=== PATIENT | male | born 1950 | race Caucasian/White ===

== ENCOUNTER → 2016-11-09 | Day surgery (SDC) | payer MEDICARE, OTHER ==
[~2016-11-09] VITALS: Ht 175.9 cm; Wt 167.8 kg
[~2016-11-09] MED LIST: ASPI81TA18 PO; ASTE0.15; ATOR40TA75 PO; BYET10IN2 SC; FOSI10TA2 PO; FURO40TA2 PO; GLUC1CAP10 PO; LANTINJ4 SC; LR 1,000 ML IV ONE; LR 1,000 ML IV SCH; MAGN500C PO; MELO15TA4 PO; METF10004 PO; MIDAZOLAM INJ 2 MG/2 ML VIAL (J2250) As Ordered ONE; MULT1TAB10 PO; POTA10TA16 PO; PROPOFOL 200 MG/20 ML VIAL As Ordered ONE; VITA500046 PO; fentaNYL 100 MCG/2 ML INJECTION (J3010) As Ordered ONE
[2016-11-09 12:03] VITALS: BP 151/68
--- NOTE | 2016-11-09 13:49 | ROOR ---
Patient Name: Brien Bellamy Procedure Date: 11/09/2016 12:37 PM Date of : 1950 Age: 66 Gender: Male Note Status: Finalized Procedure: Colonoscopy Indications: Screening for colorectal malignant neoplasm, This is the patient's first colonoscopy Providers: Yahir Cabello MD Referring MD: Catherine JOSHUA MD Requesting Provider: Medicines: Monitored Anesthesia Care Complications: No immediate complications. Procedure: Pre-Anesthesia Assessment: - Prior to the procedure, a History and Physical was performed, and patient medications and allergies were reviewed. The patient is competent. The risks and benefits of the procedure and the sedation options and risks were discussed with the patient. All questions were answered and informed consent was obtained. Patient identification and proposed procedure were verified by the physician, the nurse and the supervisor fur floor worker in the procedure room. Mental Status Examination: alert and oriented. Airway Examination: normal oropharyngeal airway and neck mobility. CV Examination: regular rate and rhythm. Prophylactic Antibiotics: The patient does not require prophylactic antibiotics. Prior Anticoagulants: The patient has taken no previous anticoagulant or antiplatelet agents. ASA Grade Assessment: III - A patient with severe systemic disease. After reviewing the risks and benefits, the patient was deemed in satisfactory condition to undergo the procedure. The anesthesia plan was to use monitored anesthesia care (MAC). Immediately prior to administration of medications, the patient was re-assessed for adequacy to receive sedatives. The heart rate, respiratory rate, oxygen saturations, blood pressure, adequacy of pulmonary ventilation, and response to care were monitored throughout the procedure. The physical status of the patient was re-assessed after the procedure. The Colonoscope was introduced through the anus and advanced to the cecum, identified by appendiceal orifice and ileocecal valve. The colonoscopy was performed without difficulty. The patient tolerated the procedure well. The quality of the bowel preparation was good. Findings: The perianal and digital rectal examinations were normal. A 8 mm polyp was found at 60 cm proximal to the anus. The polyp was sessile. The polyp was removed with a cold snare. Polyp resection was incomplete, and the resected tissue was partially retrieved. Estimated blood loss was minimal. The exam was otherwise without abnormality. Impression: - One 8 mm polyp at 60 cm proximal to the anus, removed with a cold snare. Polyp resection was incomplete, and the resected tissue was partially retrieved. - The examination was otherwise normal. Recommendation: - Discharge patient to home. - Resume previous diet. - Continue present medications. - Await pathology results. - Telephone endoscopist for pathology results in 1 week. Attending Participation: I personally performed the entire procedure. Yahir Cabello MD 11/09/2016 1:49:02 PM Number of Addenda: 0 Note Initiated On: 11/09/2016 12:37 PM Estimated Blood Loss: Estimated blood loss was minimal.
== END | disposition home or self-care (01) ==
LOC: M SDC 11:19 → EDSTATUS 13:30
PROVIDERS: ATTEND Surgery
DX: Z12.11 Encounter for screening for malignant neoplasm of colon (principal); D12.6 Benign neoplasm of colon, unspecified; E10.9 Type 1 diabetes mellitus without complications; I10 Essential (primary) hypertension; E78.00 Pure hypercholesterolemia, unspecified; E66.01 Morbid (severe) obesity due to excess calories; R19.5 Other fecal abnormalities; R06.02 Shortness of breath; M12.9 Arthropathy, unspecified; Z79.899 Other long term (current) drug therapy; Z79.82 Long term (current) use of aspirin; Z79.4 Long term (current) use of insulin; Z86.69 Personal history of other diseases of the nervous system and sense organs; Z87.891 Personal history of nicotine dependence
CPT/HCPCS: 45385; 88305; J2250; J3010

== ENCOUNTER 2018-05-12 10:51 | Inpatient (IN) | payer MEDICARE, OTHER ==
[~2018-05-12] VITALS: Ht 175.3 cm; Wt 152.0 kg
[2018-05-12] VITALS (8 sets, daily range): BP systolic 109–140; BP diastolic 64–82
[2018-05-12] MEDS: METOPROLOL TART 12.5 MG PER 1/2 TAB PO SCH ×2 (09:00→21:06)
[~2018-05-12 10:51] MED LIST changes: -ASPI81TA18 PO; +ASPI81TA52 PO; +ATORVASTATIN 20 MG TAB PO SCH; +BYET10IN10 SC; -BYET10IN2 SC; +FOSINOPRIL 10 MG TAB PO SCH; -LR 1,000 ML IV ONE; -LR 1,000 ML IV SCH; +MAGNESIUM OXIDE 400 MG TAB (MAG-OX) PO SCH; +MELO15TA28 PO; -MELO15TA4 PO; -MIDAZOLAM INJ 2 MG/2 ML VIAL (J2250) As Ordered ONE; -PROPOFOL 200 MG/20 ML VIAL As Ordered ONE; -fentaNYL 100 MCG/2 ML INJECTION (J3010) As Ordered ONE
[2018-05-12 11:31] LABS: BASO % 0.2 % (0.0-1.0); EOS % 0.1 % (0.0-3.0); HEMOGLOBIN 14.4 g/dl (13.5-17.5); LYMPH # 1.1 10^3/uL (1.5-4.5); MEAN CORPUSCULAR HEMOGLOBIN 28.3 pg (27.0-33.0); MEAN CORPUSCULAR VOLUME 88.6 fl (80.0-96.0); MONO # 0.9 10^3/uL (0.0-0.8); MONO % 6.2 % (0.0-5.0); NEUTROPHILS # 12.2 10^3/uL (1.8-7.7); NEUTROPHILS % 85.1 % (36.0-66.0); PLATELET COUNT, AUTOMATED 295 10^3/uL (150-450); RED BLOOD COUNT 5.08 10^6/uL (4.30-6.10); WHITE BLOOD COUNT 14.3 10^3/uL (4.0-10.0)
--- NOTE | 2018-05-12 12:06 | REP ---
Portable chest x-ray: Single view. History: Dyspnea and cough. Comparison study: April 29, 2018 from [facility]. Findings: There is blunting of the left lateral pleural angle and increased density in the left base consistent with a moderate-sized left pleural effusion. This is unchanged from the recent prior chest x-ray April 29, 2018. EKG electrodes are seen. No infiltrate is seen. Heart is mildly enlarged unchanged. No right pleural effusion is seen. Impression: Evidence of a moderate-sized left pleural effusion unchanged from April 29, 2018. Mild cardiomegaly. Otherwise no acute disease. Electronically Signed by Mike Dai MD 05/12/2018 01:55 P
[2018-05-12 12:23] LABS: ALBUMIN 2.7 GM/DL (3.2-5.2); ALT/SGPT 27 U/L (12-78); BILIRUBIN,DIRECT 0.4 MG/DL (0.0-0.2); BILIRUBIN,TOTAL 0.8 MG/DL (0.2-1.0); BLOOD UREA NITROGEN 23 MG/DL (7-18); CALCIUM LEVEL 9.9 MG/DL (8.8-10.2); CARBON DIOXIDE LEVEL 29 MEQ/L (21-32); CHLORIDE LEVEL 98 MEQ/L (98-107); CPK CREATINE PHOSPHOKINASE 47 U/L (39-308); CREATININE FOR GFR 0.75 MG/DL (0.70-1.30); GLOMERULAR FILTRATION RATE > 60.0 (>49); GLUCOSE, FASTING 148 MG/DL (70-100); MB/CK RELATIVE INDEX 2.55 (< OR =4); NT-PRO BNP 387 PG/ML (<125); POTASSIUM SERUM 4.8 MEQ/L (3.5-5.1); SODIUM LEVEL 136 MEQ/L (136-145); THYROXINE (T4) 8.1 UG/DL (4.5-12.0); TOTAL PROTEIN 7.1 GM/DL (6.4-8.2); TROPONIN I 0.03 NG/ML (< 0.10)
[2018-05-12] MEDS ORDERED: ISOVUE-370 76% 100ML VIAL (Q9967) As Ordered ONE (12:31)
[2018-05-12] MEDS ORDERED: MAGN400T5 PO (12:57)
[2018-05-12] MEDS ORDERED: TOUJ1.2I SC (12:57)
[2018-05-12] MEDS ORDERED: METF-723 PO (12:57)
[2018-05-12] MEDS ORDERED: PROAAER10 INH (12:57)
--- NOTE | 2018-05-12 13:28 | REP ---
CT pulmonary angiogram: With IV contrast. History: Shortness of breath Comparison studies: Today's chest x-ray. Contrast dose: 75 mL of Isovue [address] technique: Helical scanning is acquired and overlapping 1.5 mm and contiguous 3 mm axial images are reformatted. In addition, maximum intensity projection and multiplanar re-formation images are generated in sagittal and coronal imaging projections. CT pulmonary angiographic findings: There is good opacification of the pulmonary arterial tree. There is no CT evidence of pulmonary embolism. The thoracic aorta shows no evidence of aneurysm or dissection. Vascular calcifications noted particularly along the course of the left coronary artery. There is a moderate to large left pleural effusion. There is some compressive atelectasis in the left lung particularly the left lower lobe. No right pleural effusion is seen. There is mild to moderate diffuse upper abdominal ascites. There is a granulomatous calcification in the left lobe of the liver. The liver edge has a micronodular contour question cirrhosis. There is upper abdominal lymphadenopathy. Retrocrural lymphadenopathy is observed. There are two prominent lymph nodes in the aortopulmonary window region of the left mediastinum. These measure 15 x 20 mm and 19 x 23 mm respectively. No other mediastinal adenopathy is seen. No bony destructive lesion is appreciated. Impression: No CT evidence of pulmonary embolus. Moderate to large left pleural effusion. Mild left mediastinal and moderate upper abdominal lymphadenopathy. Mild retrocrural lymphadenopathy. Rule out lymphoma versus metastatic adenopathy. Recommend CT abdomen and pelvis. Ascites and micronodular liver contour suggestive of cirrhosis. Electronically Signed by Mike Dai MD 05/12/2018 01:56 P
[2018-05-12] MEDS ORDERED: AZELASTINE 137MCG NASAL SPY 30 ML (ASTELIN) PRN (13:30)
[2018-05-12 14:11] LABS: PHOSPHORUS LEVEL 3.3 MG/DL (2.5-4.9)
[2018-05-12 14:48] LABS: INR 1.19; PARTIAL THROMBOPLASTIN TIME 25.9 SECONDS (25.4-37.6); PROTHROMBIN TIME 15.3 SECONDS (12.1-14.4)
[2018-05-12 15:53] LABS: LDH LACTATE DEHYDROGENASE 198 U/L (87-241)
[2018-05-12] MEDS ORDERED: FUROSEMIDE 40 MG TAB PO SCH (17:00)
[2018-05-12 17:22] LABS: PH BODY FLUID 7.477 UNITS (NOT ESTABLISHED); SOURCE, BODY FLUID pH PLEURAL
--- NOTE | 2018-05-12 17:29 | REP ---
Chest x-ray: Two views. History: Status post left thoracentesis. Comparison study: Earlier on this date. The patient has a 1680 ml of pleural fluid withdrawn from the left chest just prior to the radiograph. Findings: There is no evidence of pneumothorax. There is some improved aeration in the left hemithorax. There is pleural opacity persisting in the left base consistent with improved left pleural effusion. Right lung remains clear. Impression: Improved left pleural effusion post left thoracentesis. No complication is seen. Electronically Signed by Mike Dai MD 05/12/2018 05:20 P
[2018-05-12 17:34] LABS: APPEARANCE, BODY FLUID TURBID (CLEAR); PLEURAL FL COLOR RED (COLORLESS); SOURCE, BODY FLUID PLEURAL
[2018-05-12 17:44] LABS: AMYLASE, BODY FLUID 13 U/L (NOT ESTABLISHED); CHOLESTEROL, BODY FLUID < 50 MG/DL (NOT ESTABLISHED); LDH, BODY FLUID 88 U/L (NOT ESTABLISHED); SOURCE, BODY FLUID ALBUMIN PLEURAL; SOURCE, BODY FLUID AMYLASE PLEURAL; SOURCE, BODY FLUID CHOL PLEURAL; SOURCE, BODY FLUID GLUCOSE PLEURAL; SOURCE, BODY FLUID LDH PLEURAL; SOURCE, BODY FLUID TOT PROTEIN PLEURAL; SOURCE, BODY FLUID TRIG PLEURAL; TOTAL PROTEIN, BODY FLUID 2.9 G/DL (NOT ESTABLISHED); TRIGLYCERIDE, BODY FLUID 44 MG/DL (NOT ESTABLISHED)
[2018-05-12] MEDS ORDERED: DEXTROSE 50% 50 ML SYRINGE IV PRN (17:45)
[2018-05-12] MEDS ORDERED: GLUCOSE 4 GM CHEW TABLET PO PRN (17:45)
[2018-05-12] MEDS ORDERED: GLUCAGON FOR INJ 1 MG VIAL (J1610) SC PRN (17:45)
--- NOTE | 2018-05-12 17:59 | REP ---
ULTRASOUND GUIDED LEFT THORACENTESIS The procedure was performed under the direct supervision of Dr. Dai. The risks and benefits of the procedure were explained to the patient and informed consent was obtained. The left pleural effusion was localized using ultrasound guidance. The skin was prepped and draped in a sterile fashion. 1% lidocaine was used as a local anesthetic. An 8-Yi multi side-hole catheter was inserted using trocar technique. 1680 ml of low viscosity red colored fluid was withdrawn with a sample sent to the lab for analysis. The patient tolerated the procedure well and there were no immediate complications. After the appropriate amount of monitored convalescence the patient was discharged from the department. Reviewed by SAMINA Reyes 05/12/2018 05:36 P Electronically Signed by Mike Dai MD 05/12/2018 05:49 P
[2018-05-12] MEDS ORDERED: RIVAROXABAN 20 MG TAB (XARELTO) PO SCH (18:00)
[2018-05-12 18:46] LABS: CK-MB VALUE MASS < 1.0 NG/ML (<3.6); CPK CREATINE PHOSPHOKINASE 38 U/L (39-308); MB/CK RELATIVE INDEX 2.63 (< OR =4); TROPONIN I 0.07 NG/ML (< 0.10)
--- NOTE | 2018-05-12 19:11 | HPE ---
DATE OF ADMISSION: 05/12/2018 PRIMARY CARE PROVIDER: Dr. Catherine Cruz at [facility]. HISTORY OF PRESENT ILLNESS: This is a 67-year-old male with past medical history of hypertension, hyperlipidemia, insulin dependent diabetes mellitus type 2, and nonalcoholic fatty liver disease. He states he has had shortness of breath for the past 3 weeks that has recently worsened over the past few days. He states he initially followed up with an outside physician and was told he has pneumonia and a partially collapsed lung on the left. This imaging, per the patient, was done at [facility] about a week ago. He states he was prescribed a 10 day course of amoxicillin as well as ProAir which he has been using around four times a day. He completed antibiotic as of Saturday with only minimal improvement. He states that he is still bringing up some clear phlegm, has a minimal cough and some wheezing as well. No fevers, chills, chest discomfort, or chest tightness. No unintentional weight loss or any recent changes in medications or any sick contacts or travel history. He denies any previous lung illnesses, however was noted to be saturating at 84% on room air in the emergency room (ER). Also of note, he was found to have a new onset of atrial fibrillation on admission EKG. He denies any previous cardiac history as well. On admission, chest x-ray and chest CT also confirm a moderate-sized left pleural effusion along with cardiomegaly. Hospitalist was called to admit for continued hypoxia and new onset atrial fibrillation. Patient is examined at bedside with his who have no other complaints besides the aforementioned. HOME MEDICATIONS: - ProAir - aspirin 81 mg - atorvastatin 40 mg - azelastine - Byetta - vitamin D 5000 units by mouth - fosinopril 10 mg by mouth - furosemide 40 mg by mouth twice a day - glucosamine chondroitin - magnesium oxide 400 mg by mouth daily - meloxicam 50 mg by mouth every evening - metformin 1000 mg by mouth twice a day - multivitamin - potassium chloride 20 mEq by mouth twice a day - Toujeo 100 units subcutaneous daily PAST SURGERIES: Right leg repair from fracture in 1977, tonsillectomy. ALLERGIES: None. FAMILY HISTORY: Mother passed in her 50s from a myocardial infarction (NM). Father passed in his 60s from emphysema. SOCIAL HISTORY: Smoked cigarettes for 18 years, quit 32 years ago. Alcohol use, socially drinks. Lives at home with his . 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 No other home exposures. REVIEW OF SYSTEMS: GENERAL: Denies any fevers, chills, or unintentional weight loss or night sweats. HEENT: Denies any headache, eye pain, ear pain, blurred vision, sore throat, postnasal drip, sinus pressure. CARDIAC: Denies any chest pain, palpitations, or any new swelling. RESPIRATORY: Admits to mild cough, clear phlegm, and some wheezing along with shortness of breath. GASTROINTESTINAL (GI); Denies any nausea, vomiting, abdominal pain, constipation, diarrhea, or any blood loss in stool. SKIN: Denies any new rashes, lesions, or ulcers. MUSCULOSKELETAL: Denies any new aches or pains. NEUROGENIC: Denies any new numbness, tingling, or loss of sensation. PHYSICAL EXAMINATION: VITAL SIGNS: Temperature 97.7, pulse 93, respirations 26, blood pressure 140/76 with a mean arterial pressure (MAP) of 97, pulse oximetry 94% on 3 liters nasal cannula. GENERAL: Resting comfortably in bed, no acute distress, alert and oriented times three, fully conversant. HEENT: Normocephalic, atraumatic. Anicteric sclerae. Extraocular muscles intact. Moist mucous membranes. No jugular venous distention (JVD). CARDIAC: Regular rate and rhythm with a heart rate in the 90s on the monitor. Normal S1, S2. LUNGS: Decreased breath sounds on the left from the base chcf up. Diffuse crackles on the right side on the base. No appreciable egophony or E:A changes. Patient is not in any respiratory distress, is able to speak sentences with a few words. ABDOMEN: Soft, nontender, nondistended, obese. Positive bowel sounds. EXTREMITIES: Lipodermatosclerosis present. No clubbing, cyanosis, or edema. 2+ radial pulses bilaterally. MUSCULOSKELETAL: Able to move all extremities. Good towel distributor strength bilaterally. LABORATORY DATA: WBC 14.3, hemoglobin and hematocrit 14.4 and 45, platelets 295, sodium 136, potassium 4.8, BUN and creatinine 23 and 0.75, lactic acid 2.2 which normalized to 1.6 after, phosphorous 3.3, AST and ALT 50 and 27, alkaline phosphatase 248, LDH 198, troponin 0.03, TSH 2.5, T4 8.1. IMAGING: Chest x-ray: Evidence of moderate sized left pleural effusion unchanged from 04/29/2018. Mild cardiomegaly. Otherwise no acute disease. CTA: Negative for pulmonary embolus (PE). Moderate to large left pleural effusion. Mild left mediastinal and moderate upper abdominal lymphadenopathy. Mild retrocrural lymphadenopathy. Rule out lymphoma versus metastatic adenopathy. A CT abdomen and pelvis is recommended. Ascites and micronodular liver contour suggestive of cirrhosis. IMPRESSION AND PLAN: 1. Acute hypoxic respiratory failure. The patient initially was saturating in the mid-80's on room air. At baseline, he is not on any room air and he has no known lung disease. Imaging on admission noted moderate-sized left-sided pleural effusion. Thoracentesis has been performed today by interventional radiology (IR). Fluid serologies are currently pending. Goal is therapeutic and diagnostic thoracentesis. There is concern for adenopathy and possible malignancy on CTA, however patient denies any constitutional symptoms. Will recheck his renal function in the morning and consider CT abdomen and pelvis for further assessment for any adenopathy and ascites. Lower on the differential is an effusion from congestive heart failure (CHF) given he has no previous cardiac history as well as a brain natriuretic peptide (BNP) of 387 on admission as well as a euvolemic exam. Will currently await the fluid workup. Less likely infectious given patient is afebrile, although he does have a mild white count of 14.3. We will check C-reactive protein (CRP) in the morning and currently blood cultures are pending. Will also obtain a sputum culture. 2. New onset paroxysmal atrial fibrillation. Patient was noted to be in atrial fibrillation in the 60s to 70s on admission however converted to normal sinus rhythm spontaneously when examined for admission. Patient denies having any previous cardiac history. He is agreeable to being started on anticoagulation after a thorough discussion of risks and benefits of anticoagulation with risks including bleeding as well as a chance of a stroke if he were to forego anticoagulation. Will start him on daily by mouth Xarelto as well as Lopressor 12.5 mg twice a day by mouth and titrate as needed to maintain his heart rate. Electrolytes are normal on admission as is his thyroid stimulating hormone (TSH). Echo is pending. Will trend troponins for a total of three sets. Initial cardiac markers were negative. Patient has a [id number] score of 3 with risk factors of age, hypertension, diabetes and thus will start on anticoagulation. 3. Lactic acidosis likely secondary to increased work of breathing. Has resolved on recheck. 4. Insulin dependent diabetes mellitus type 2. Home Toujeo and metformin and Byetta are on hold. Continue insulin sliding scale and consistent carbohydrate diet in patient. 5. Hyperlipidemia. Continue aspirin and statin. 6. Hypertension. Continue fosinopril and Lasix with hold parameters. 7. Deep venous thrombosis (DVT) prophylaxis. Xarelto. DISPOSITION: Will admit to hospitalist service and closely monitor in progressive care unit (PCU) pending thoracentesis results. My faculty preceptor for this patient encounter was physically present during the encounter and was fully available. All aspects of the patient interview, examination, medical decision making process, and medical care plan development were reviewed and approved by the faculty preceptor. The faculty preceptor is aware and concurs with the plan as stated in the body of this note and will attest to such by his/her cosignature. SHAYY
--- NOTE | 2018-05-12 19:50 | ECGEPIP ---
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
[2018-05-12] MEDS ORDERED: HumaLOG INSULIN (NovoLOG) PER UNIT SC SCH (21:00)
[2018-05-13] VITALS (45 sets, daily range): BP systolic 66–118; BP diastolic 32–60; O2SAT 96
[2018-05-13 05:01] LABS: BASO % 0.2 % (0.0-1.0); HEMATOCRIT 41.9 % (42.0-52.0); HEMOGLOBIN 12.8 g/dl (13.5-17.5); LYMPH # 1.4 10^3/uL (1.5-4.5); LYMPH % 8.3 % (24.0-44.0); MEAN CORPUSCULAR HEMOGLOBIN 27.7 pg (27.0-33.0); MEAN CORPUSCULAR HGB CONC 30.5 g/dl (32.0-36.5); MEAN CORPUSCULAR VOLUME 90.7 fl (80.0-96.0); MONO # 1.2 10^3/uL (0.0-0.8); MONO % 7.1 % (0.0-5.0); NEUTROPHILS # 14.4 10^3/uL (1.8-7.7); PLATELET COUNT, AUTOMATED 302 10^3/uL (150-450); RED BLOOD COUNT 4.62 10^6/uL (4.30-6.10); WHITE BLOOD COUNT 17.1 10^3/uL (4.0-10.0)
[2018-05-13 05:36] LABS: ALBUMIN 2.3 GM/DL (3.2-5.2); ALT/SGPT 27 U/L (12-78); BILIRUBIN,TOTAL 0.6 MG/DL (0.2-1.0); BLOOD UREA NITROGEN 31 MG/DL (7-18); C REACTIVE PROTEIN QUANTITATIV 1.36 MG/DL (0.00-0.30); CALCIUM LEVEL 9.2 MG/DL (8.8-10.2); CARBON DIOXIDE LEVEL 34 MEQ/L (21-32); CHLORIDE LEVEL 99 MEQ/L (98-107); CK-MB VALUE MASS < 1.0 NG/ML (<3.6); CPK CREATINE PHOSPHOKINASE 38 U/L (39-308); CREATININE FOR GFR 1.18 MG/DL (0.70-1.30); GLOMERULAR FILTRATION RATE > 60.0 (>49); GLUCOSE, FASTING 152 MG/DL (70-100); MAGNESIUM LEVEL 1.9 MG/DL (1.8-2.4); MB/CK RELATIVE INDEX 2.63 (< OR =4); SODIUM LEVEL 136 MEQ/L (136-145); TOTAL PROTEIN 6.7 GM/DL (6.4-8.2); TROPONIN I 0.04 NG/ML (< 0.10)
--- NOTE | 2018-05-13 06:45 | REPVR ---
EXAM: CT Head Without Contrast EXAM DATE/TIME: 05/13/2018 6:21 AM CLINICAL HISTORY: 67 years old, male; Signs and symptoms; Weakness, extremity; Left; Additional info: R/O stroke TECHNIQUE: Axial computed tomography images of the head/brain without contrast. All CT scans at this facility use at least one of these dose optimization techniques: automated exposure control; mA and/or kV adjustment per patient size (includes targeted exams where dose is matched to clinical indication); or iterative reconstruction. COMPARISON: No relevant prior studies available. FINDINGS: There are no intra-or extra-axial hemorrhages or fluid collections. There is no mass effect or midline shift. Ventricles are symmetrical and nondilated for age. There are no focal parenchymal abnormalities. No calvarial fractures. IMPRESSION: No acute intracranial process. No intracranial hemorrhage. If clinical concern for acute infarction, MRI with diffusion weighted sequences or intracranial CTA should be considered. Electronically signed by: Cresencio Cortes On 05/13/2018 06:45:14 AM
[2018-05-13] MEDS ORDERED: ISOVUE-370 76% 100ML VIAL (Q9967) As Ordered ONE (06:54)
[2018-05-13 06:56] LABS: ABG BASE EXCESS 5.8 (-2.0-2.0); ABG HCO3 37.7 MEQ/L (22.0-26.0); ABG O2 SATURATION 94.7 % (95.0-99.0); ABG PARTIAL PRESSURE O2 89.7 mmHg (75.0-100.0); ABG STANDARD HCO3 29.6 MEQ/L (22.0-26.0); ABG TOTAL CO2 40.7 MEQ/L (23.0-31.0)
[2018-05-13 07:00] LABS: ABG pH (ARTERIAL) 7.198 UNITS (7.350-7.450)
[2018-05-13 07:10] LABS: HEMATOCRIT 43.9 % (42.0-52.0); HEMOGLOBIN 13.4 g/dl (13.5-17.5); MEAN CORPUSCULAR HGB CONC 30.5 g/dl (32.0-36.5); MEAN CORPUSCULAR VOLUME 91.6 fl (80.0-96.0); PLATELET COUNT, AUTOMATED 321 10^3/uL (150-450); RED BLOOD COUNT 4.79 10^6/uL (4.30-6.10); WHITE BLOOD COUNT 17.3 10^3/uL (4.0-10.0)
--- NOTE | 2018-05-13 07:18 | REPVR ---
EXAM: CT Angiography Head With Contrast EXAM DATE/TIME: 05/13/2018 6:40 AM CLINICAL HISTORY: 67 years old, male; Signs and symptoms; Weakness; Additional info: Stroke TECHNIQUE: Axial computed tomographic angiography images of the head with intravenous contrast using CT angiography protocol. All CT scans at this facility use at least one of these dose optimization techniques: automated exposure control; mA and/or kV adjustment per patient size (includes targeted exams where dose is matched to clinical indication); or iterative reconstruction. Coronal and sagittal reformatted images were created and reviewed. MIP reconstructed images were created and reviewed. CONTRAST: 75 ml of iso administered intravenously. COMPARISON: CT Head without contrast 05/13/2018 6:27 AM FINDINGS: There is no significant stenosis, occlusion or aneurysmal dilatation within the anterior or posterior intracranial arterial circulation. No evidence of dural sinus thrombosis. IMPRESSION: No significant stenosis, occlusion or aneurysmal dilatation within the anterior or posterior intracranial arterial circulation. Electronically signed by: Cresencio Cortes On 05/13/2018 07:18:16 AM
--- NOTE | 2018-05-13 07:23 | REPVR ---
EXAM: CT Angiography Neck With Contrast EXAM DATE/TIME: 05/13/2018 6:40 AM CLINICAL HISTORY: 67 years old, male; Signs and symptoms; Weakness; Additional info: Stroke TECHNIQUE: Axial computed tomographic angiography images of the neck with intravenous contrast using CT angiography protocol. All CT scans at this facility use at least one of these dose optimization techniques: automated exposure control; mA and/or kV adjustment per patient size (includes targeted exams where dose is matched to clinical indication); or iterative reconstruction. Coronal and sagittal reformatted images were created and reviewed. MIP reconstructed images were created and reviewed. CONTRAST: 75 ml of iso administered intravenously. COMPARISON: No relevant prior studies available. FINDINGS: No significant stenosis or dissection within the common carotid arteries on either side. Calcific atherosclerotic changes in the carotid bulbs bilaterally. No evidence of hemodynamically significant stenosis within the internal carotid arteries on either side (less than 50%). No significant stenosis or occlusion within the vertebral arteries on either side. Moderate pleural effusion at the left lung apex. Air space consolidation in the subpleural left upper lobe. IMPRESSION: No significant stenosis or occlusion within the carotid or vertebral arteries of the neck. Additional nonemergent findings as described above. COMMENT: Reference per NASCET criteria for degree of stenosis: Mild: <50% stenosis. Moderate: 50-69% stenosis. Severe: 70-94% stenosis. Near occlusion: 95-99% stenosis. Electronically signed by: Cresencio Cortes On 05/13/2018 07:22:30 AM
[2018-05-13] MEDS ORDERED: HumaLOG INSULIN (NovoLOG) PER UNIT SC SCH (07:30)
[2018-05-13 07:45] LABS: BLOOD UREA NITROGEN 34 MG/DL (7-18); CALCIUM LEVEL 9.5 MG/DL (8.8-10.2); CARBON DIOXIDE LEVEL 35 MEQ/L (21-32); CHLORIDE LEVEL 98 MEQ/L (98-107); CK-MB VALUE MASS < 1.0 NG/ML (<3.6); CPK CREATINE PHOSPHOKINASE 48 U/L (39-308); CREATININE FOR GFR 1.27 MG/DL (0.70-1.30); GLOMERULAR FILTRATION RATE > 60.0 (>49); GLUCOSE, FASTING 147 MG/DL (70-100); MAGNESIUM LEVEL 2.2 MG/DL (1.8-2.4); MB/CK RELATIVE INDEX 2.08 (< OR =4); PHOSPHORUS LEVEL 5.8 MG/DL (2.5-4.9); POTASSIUM SERUM 5.2 MEQ/L (3.5-5.1); SODIUM LEVEL 137 MEQ/L (136-145); TROPONIN I 0.03 NG/ML (< 0.10)
[2018-05-13] MEDS ORDERED: SODIUM CHLORIDE 0.9% 1000ML IV ONE (07:45)
--- NOTE | 2018-05-13 07:49 | IPNPDOC ---
Text Note Date of Service The patient was seen on 05/13/18. NOTE called by resident, Pt noted to be altered this am. Difficult to assess, appea red to have left side weakness and possible facial droop this am. Pt was admitted for new onset A.fib and pleural effusion. He has been placed on Xarelto. CT head: neg CTA head and neck: neg. ABG show respiratory failure with hypercapnia. PH acidotic. Mr. Bellamy contacted phone # [phone]. Pt discussed w/ the on 2 occassions, she has been updated, she states Mr. Bellamy has a living will and he did not want " breathing tubes". He did not want to be intubated. CBC, BMP, Mg, Po4, lactate, EKG ordered. Pt placed on BIPAP with repeat ABG ordered. Pul/CC consult obtained. Pt started on nebs, steroids, atbx in case this pleural effusion was parapneumonic . Neurology has also been consulted and MRI ordered. VS,Fishbone, I+O VS, Fishbone, I+O Laboratory Tests 05/12/18 11:21 Red Blood Count 5.08, Mean Corpuscular Volume 88.6, Mean Corpuscular Hemoglobin 28.3, Mean Corpuscular Hemoglobin Concent 32.0, Red Cell Distribution Width 17.8 H, Neutrophils (%) (Auto) 85.1 H, Lymphocytes (%) (Auto) 8.0 L, Monocytes (%) (Auto) 6.2 H, Eosinophils (%) (Auto) 0.1, Basophils (%) (Auto) 0.2, Neutrophils # (Auto) 12.2 H, Lymphocytes # (Auto) 1.1 L, Monocytes # (Auto) 0.9 H, Eosinophils # (Auto) 0.0, Basophils # (Auto) 0.0 05/13/18 04:49 Red Blood Count 4.62, Mean Corpuscular Volume 90.7, Mean Corpuscular Hemoglobin 27.7, Mean Corpuscular Hemoglobin Concent 30.5 L, Red Cell Distribution Width 17.6 H, Neutrophils (%) (Auto) 84.0 H, Lymphocytes (%) (Auto) 8.3 L, Monocytes (%) (Auto) 7.1 H, Eosinophils (%) (Auto) 0.0, Basophils (%) (Auto) 0.2, Neutrophils # (Auto) 14.4 H, Lymphocytes # (Auto) 1.4 L, Monocytes # (Auto) 1.2 H, Eosinophils # (Auto) 0.0, Basophils # (Auto) 0.0, Calcium Level 9.2, Aspartate Amino Transf (AST/SGOT) 46 H, Alanine Aminotransferase (ALT/SGPT) 27, Total Creatine Kinase 38 L, Alkaline Phosphatase 226 H, Total Bilirubin 0.6, Total Protein 6.7, Albumin 2.3 L 05/13/18 07:01 Red Blood Count 4.79, Mean Corpuscular Volume 91.6, Mean Corpuscular Hemoglobin 28.0, Mean Corpuscular Hemoglobin Concent 30.5 L, Red Cell Distribution Width 17.7 H Vital Signs Date Time Temp Pulse Resp B/P (MAP) Pulse Ox O2 Delivery O2 Flow Rate FiO2 05/13/18 07:32 96 BIPAP/CPAP 60 05/13/18 04:00 96.4 68 16 106/58 (74) 4.0 I&O- Last 24 Hours up to 6 AM 05/13/18 06:00 Intake Total 720 ml Output Total 1680 ml Balance -960 ml SATURDAY,SHELLI BAKER May 13, 2018 07:49
[2018-05-13] MEDS ORDERED: PHENYLEPHRINE INJ 10MG/ML VIAL (J2370) As Ordered ONE (07:55)
--- NOTE | 2018-05-13 07:57 | IPNPDOC ---
Text Note Date of Service The patient was seen on 05/13/18. NOTE S: I was called urgently to the bedside at 0617 to evaluate for stroke. Per hannah gillette, the last night the patient was at his baseline was 0600. Neuro check done per nursing was concerning for left lateral tongue deviation and left sided weakness. O: VS showed a BP of 120/76, sinus rhythm on telemetry; satting 84% on [address] Gen: arousable to voice and touch Heart: RRR, no murmurs, gallops, or rubs Lungs: Poor inspiratory effort, slightly diminished breath sounds Neuro: Muscle strength 5/5 on the right UE and LE, 3/5 on the left UE and LE. Left lateral tongue deviation. Will answer his name, but not his or age. NIH stroke scale 7 A: 67 year old male with new onset Afib, pleural effusion drained yesterday by IRShahrzad HARRELL with symptoms concerning for stroke. P: 1. STAT head CT, CT angio head and neck negative for bleed or occlusion. Will obtain MRI 2. Stat CXR, BMP, Mg, Phos, CBC, Coags 3. Start BiPap as patient was satting 84% on 10 L O2 in ER CT. 4. Patient is DNI per , he has a living will that she will bring to hospital. VS,Blanca, I+O VS, Blanca, I+O Laboratory Tests 05/12/18 11:21 Red Blood Count 5.08, Mean Corpuscular Volume 88.6, Mean Corpuscular Hemoglobin 28.3, Mean Corpuscular Hemoglobin Concent 32.0, Red Cell Distribution Width 17.8 H, Neutrophils (%) (Auto) 85.1 H, Lymphocytes (%) (Auto) 8.0 L, Monocytes (%) (Auto) 6.2 H, Eosinophils (%) (Auto) 0.1, Basophils (%) (Auto) 0.2, Neutrophils # (Auto) 12.2 H, Lymphocytes # (Auto) 1.1 L, Monocytes # (Auto) 0.9 H, Eosinophils # (Auto) 0.0, Basophils # (Auto) 0.0 05/13/18 04:49 Red Blood Count 4.62, Mean Corpuscular Volume 90.7, Mean Corpuscular Hemoglobin 27.7, Mean Corpuscular Hemoglobin Concent 30.5 L, Red Cell Distribution Width 17.6 H, Neutrophils (%) (Auto) 84.0 H, Lymphocytes (%) (Auto) 8.3 L, Monocytes (%) (Auto) 7.1 H, Eosinophils (%) (Auto) 0.0, Basophils (%) (Auto) 0.2, Neutrophils # (Auto) 14.4 H, Lymphocytes # (Auto) 1.4 L, Monocytes # (Auto) 1.2 H, Eosinophils # (Auto) 0.0, Basophils # (Auto) 0.0, Calcium Level 9.2, Aspartate Amino Transf (AST/SGOT) 46 H, Alanine Aminotransferase (ALT/SGPT) 27, Total Creatine Kinase 38 L, Alkaline Phosphatase 226 H, Total Bilirubin 0.6, Total Protein 6.7, Albumin 2.3 L 05/13/18 07:01 Red Blood Count 4.79, Mean Corpuscular Volume 91.6, Mean Corpuscular Hemoglobin 28.0, Mean Corpuscular Hemoglobin Concent 30.5 L, Red Cell Distribution Width 17.7 H Vital Signs Date Time Temp Pulse Resp B/P (MAP) Pulse Ox O2 Delivery O2 Flow Rate FiO2 05/13/18 07:32 96 BIPAP/CPAP 60 05/13/18 04:00 96.4 68 16 106/58 (74) 4.0 I&O- Last 24 Hours up to 6 AM 05/13/18 06:00 Intake Total 720 ml Output Total 1680 ml Balance -960 ml GME ATTESTATION GME ATTESTATION My faculty preceptor for this patient encounter was physically present during the encounter and was fully available. All aspects of the patient interview, examination, medical decision making process, and medical care plan development were reviewed and approved by the faculty preceptor. The faculty preceptor is aware and concurs with the plan as stated in the body of this note and will attest to such by his/her cosignature. SUSY FORRESTER DO May 13, 2018 07:57
[2018-05-13] MEDS ORDERED: NOREPINEPHRINE BITARTRATE 8 MG in D5W 492 ML IV SCH (08:00)
[2018-05-13] MEDS: IPRATROPIUM 0.5MG/ALBUTEROL 2.5MG INH SOL UD 3ML (DUONEB)(J7620) NEB SCH ×5 (08:00→23:47)
[2018-05-13] MEDS ORDERED: methylPREDNISolone INJ 40 MG/1 ML VIAL (J2920) IV SCH (08:00)
[2018-05-13] MEDS ORDERED: cefTRIAXone SOD 1 GM in D5W MINI-BAG PLUS 50 ML IV SCH (08:00)
[2018-05-13 08:08] LABS: ABG HCO3 35.6 MEQ/L (22.0-26.0); ABG O2 SATURATION 93.7 % (95.0-99.0); ABG PARTIAL PRESSURE O2 76.8 mmHg (75.0-100.0); ABG STANDARD HCO3 29.8 MEQ/L (22.0-26.0); ABG pH (ARTERIAL) 7.269 UNITS (7.350-7.450)
[2018-05-13 08:09] LABS: ABG PARTIAL PRESSURE CO2 79.4 mmHg (35.0-45.0)
[2018-05-13] MEDS ORDERED: NOREPINEPHRINE 4 MG/4 ML AMP As Ordered ONE (08:10)
[2018-05-13 08:25] LABS: INR 1.52; PROTHROMBIN TIME 18.5 SECONDS (12.1-14.4)
--- NOTE | 2018-05-13 08:30 | REP ---
Chest x-ray: Supine single view. History: Stroke. Comparison study May 12, 2018. Findings: A small amount of left pleural fluid persists. No new infiltrate is seen. Heart size is unchanged and mildly enlarged. Impression: Small left pleural effusion persists. No acute changes. Electronically Signed by Mike Dai MD 05/13/2018 10:02 A
[2018-05-13] MEDS ORDERED: ASPIRIN 81 MG ENTERIC TAB PO SCH (09:00)
[2018-05-13] MEDS ORDERED: MULTIVITAMINS/MINERALS THERAP 1 TAB PO SCH (09:00)
[2018-05-13] MEDS ORDERED: VITAMIN D 1,000 INTERNATIONAL UNITS TABLET PO SCH (09:00)
--- NOTE | 2018-05-13 09:03 | REP ---
Portable chest x-ray: Single view. 8:24 a.m. film. History: Central line placement. Comparison study is from 7:11 a.m. on this date. Findings: A left subclavian line has been inserted with its tip in the expected location of the superior vena cava. The patient is rotated somewhat to the left. There is pleural opacity in the left base and air bronchograms are seen due to consolidation and/or collapse in the left perihilar region as before. There is no evidence of pneumothorax. Electronically Signed by Mike Dai MD 05/13/2018 10:04 A
[2018-05-13] MEDS ORDERED: NS 1,000 ML IV ONE (09:30)
[2018-05-13 10:12] LABS: SPEC. GRAVITY BODY FLUIDS 1.015 (NOT ESTABLISHED)
--- NOTE | 2018-05-13 10:33 | RO ---
DATE OF PROCEDURE: 05/12/2018 PREOPERATIVE DIAGNOSIS: Ascites. POSTOPERATIVE DIAGNOSIS: Ascites. PROCEDURE: Left ultrasound guided paracentesis. SURGEON: Bartolo Hassan DO NUT GRADER: Dr. Benjy Alvarez ANESTHESIA: 1% Lidocaine DESCRIPTION OF PROCEDURE: Patient was brought to the intensive care unit (ICU). There was concern for sepsis. We attempted to obtain consent; however, his did not answer the phone. It was deemed necessary to find the source of infection, therefore, paracentesis was undertaken. The left lower quadrant was prepped and draped in a sterile manner. The large fluid collection was identified under ultrasound. Time-out was performed with two patient identifiers identifying the correct site, correct procedure. Chlorhexidine full barrier precautions were used. 1% lidocaine was introduced subcutaneously. The needle was then advanced into the peritoneal space with return of clear yellow fluid. I then followed the same tract with a larger needle and obtained a total of 120 mL of fluid for sampling. No further drainage was performed as he was hypotensive. The patient tolerated the procedure well. There was no evidence of bleeding. No evidence of complications. The needle was removed. A bandage was placed over the site. SHAYY
[2018-05-13 10:35] LABS: APPEARANCE, BODY FLUID HAZY (CLEAR); PERITONEAL FL COLOR PALE YELLOW (COLORLESS); SOURCE, BODY FLUID PERITONEAL
[2018-05-13 10:49] LABS: SOURCE, BODY FLUID ALBUMIN PERITONEAL; SOURCE, BODY FLUID GLUCOSE PERITONEAL; SOURCE, BODY FLUID TOT PROTEIN PERITONEAL; TOTAL PROTEIN, BODY FLUID 1.8 G/DL (NOT ESTABLISHED)
--- NOTE | 2018-05-13 10:55 | PHACANCOPD ---
PHARMACY VANCOMYCIN DOSING Pt Demographics Demographics Patient Age:67 , Weight:153.500 , Gender: male Adjusted Body Weight Date: 05/13/18, Adjusted Body Weight: Kg Events Past 24 Hours Events Past 24 Hours: YES: Change in CrCl, Elevation in WBC Vancomycin Vancomycin Target Ranges: 15-20 mcg/ml Vancomycin Load Y/N: Yes Load Dose Date Time Vancomycin Load Dose: 2G Date: 05/13/18 Time: 1100 Vancomycin Dose Date: 05/13/18. Current Vancomycin Dose: Intermittent Dosing?: Yes Labs Labs Vital Signs Label Value Date Time Patient Temperature 96.4 degrees F 05/13/18 0400 Temperature Source Temporal 05/13/18 0400 Patient Temperature 96.4 degrees F 05/12/18 2359 Temperature Source Temporal 05/12/182358 Patient Temperature 96.8 degrees F 05/12/18 2000 Temperature Source Temporal 05/12/181999 Item Value Date Time White Blood Count 17.3 10^3/uL H 05/13/18 0701 White Blood Count 17.1 10^3/uL H 05/13/18 0449 White Blood Count 14.3 10^3/uL H 05/12/18 1121 Creatinine 1.27 MG/DL 05/13/18 0701 Creatinine 1.18 MG/DL # 05/13/18 0449 C-Reactive Protein, Quantitative 1.36 MG/DL H 05/13/18 0449 Body Fluid Mononuclear Cells % Auto 89.2 % H 05/12/18 1645 Fluid Polymorphonuclear Cell % Auto 10.8 % H 05/12/18 1645 Body Fluid Mononuclear Cells % Auto 86.9 % H 05/13/18 0955 Fluid Polymorphonuclear Cell % Auto 13.1 % H 05/13/18 0955 Micro Microbiology 05/13/18 Blood Culture, Received Pending 05/13/18 Blood Culture, Received Pending 05/12/18 Blood Culture, Received Pending 05/12/18 Blood Culture, Received Pending 05/13/18 Acid Fast Stain, Received Pending 05/13/18 Mycobacterial Culture, Received Pending 05/13/18 Fungal Smear, Received Pending 05/13/18 Fungal Culture, Received Pending 05/13/18 Gram Stain, Received Pending 05/13/18 Body Fluid Culture, Received Pending 05/13/18 Anaerobic Culture, Received Pending 05/12/18 Acid Fast Stain, Received Pending 05/12/18 Mycobacterial Culture, Received Pending 05/12/18 Fungal Smear, Received Pending 05/12/18 Fungal Culture, Received Pending 05/12/18 Gram Stain - Final, Resulted 05/12/18 Anaerobic Culture, Resulted Pending 05/12/18 Body Fluid Culture, Received Pending Creatinine Clearance Date:05/13/18. Creatinine Clearance: . Assessment and Plan Maintaining Current Dose?: Yes Reason for dose change: No Dose Change Pharmacist Note Pharmacist Note Date: 05/13/18. Pharmacist note: Pt. is a 67 year old male who presented to the ED yesterday with worsening SOB despite finishing 10 day course of Amoxicillin. He was found to have left sided pleural effusion. Overnight pt suffered a stroke. He has been started on Azithromycin, Cefepime and Vancomycin for possible septic shock. He has no MRSA or Vanco hx with us. MRSA nares and procalcitonin have been ordered to help rule out infection. Also the pleural effusion culture shows low PMN which may also mean this is not the infectious source. I have loaded the patient with Vanco 2G today @1100, followed by 1500mg IV Q12H. We will continue to monitor this patient and adjust dose as needed. PEPE MONTERO PHARMACY May 13, 2018 10:55
[2018-05-13] MEDS ORDERED: VANCOMYCIN HCL 1,000 MG, VIAL MATE ADAPTER 1 EACH in D5W 250 ML IV ONE ×2 (11:00→13:00)
[2018-05-13] MEDS: CEFEPIME HCL 1 GM in D5W MINI-BAG PLUS 50 ML IV SCH ×2 (11:19→20:44)
[2018-05-13] MEDS: PANTOPRAZOLE 40MG INJ (PROTONIX) (C9113) IV SCH (11:20)
[2018-05-13] MEDS: AZITHROMYCIN INJ 500 MG, VIAL MATE ADAPTER 1 EACH in D5W 250 ML IV SCH (11:20)
--- NOTE | 2018-05-13 11:37 | CR ---
DATE OF CONSULTATION: 05/13/2018 Pulmonary critical care team was asked by the medicine team for consultation on Mr. Brien Bellamy. Mr. Bellamy is a 67-year-old male patient, who was admitted yesterday with shortness of breath that apparently has been ongoing for 2 or 3 weeks prior. According to the history and physical, the patient had complained of worsening shortness of breath over 3 days. He had been following with his primary care physician for what was called pneumonia and was placed on an antibiotic without significant improvement. He presented to the emergency department with shortness of breath and was found to have new-onset atrial fibrillation and a chest CT confirmed a moderate-sized left pleural effusion. The patient was admitted and the effusion was drained by interventional radiology. According to reports from the medical team , approximately 1.6 liters was drained. The patient apparently became began to have some difficulties this morning and the medical team was concerned of change in neurostatus. There was concern of left-sided weakness and possibly left tongue deviation. The patient was also hypoxic and he was hypotensive. Arrangements were made for the patient to be in transfer from progressive care unit (PCU) to intensive care unit (ICU) he was placed on bilevel positive airway pressure (BiPAP). Pulmonary team was consulted as noted. The patient can only give a limited history. A majority of his past medical history was obtained from the admission history and physical. The patient currently reports he is in no significant discomfort. He was able to partially answer some questions. He was overall very lethargic however. The patient was initiated on pressors in the ICU for his hypotension. He has been placed on cefepime, azithromycin, and vancomycin for possible infectious etiology. He was initially started on Solu-Medrol. REVIEW OF SYSTEMS: Review of systems were very limited and significant history could not be obtained from the patient due to his lethargy. The patient was able to say that he was breathing better since starting the BiPAP. He also stated he had no chest pain or abdominal pain. CURRENT MEDICATIONS: - vitamin D 5000 units by mouth daily - multivitamin 1 tablet by mouth daily - aspirin 81 mg by mouth daily - cefepime 1 gram every intravenously every 12 hours - vancomycin 1 gram intravenously every 12 hours - DuoNebs every 4 hours - Solu-Medrol 40 mg intravenously every 12 hours - azithromycin 500 mg intravenously every 24 hours - insulin sliding scale before food and nightly - Xarelto 20 mg by mouth daily - Astelin 2 sprays each nostril as needed - Lasix 40 mg by mouth twice a day - Lopressor 12.5 mg by mouth twice a day - Lipitor 40 mg by mouth daily - Monopril 10 mg by mouth daily - MagOx 800 mg by mouth daily Toujeo 1000 units subcu daily HOME MEDICATIONS (as listed on a admitting history and physical): - aspirin 81 mg daily - atorvastatin 40 mg daily - Astelin nasal spray - Byetta - ProAir as needed - vitamin D 5000 units daily - lisinopril 10 mg by mouth daily - furosemide 40 mg by mouth twice a day - glucosamine - magnesium oxide 400 mg by mouth daily - meloxicam 50 mg daily - metformin 1000 mg twice a day - multivitamin - potassium chloride 20 mEq by mouth twice a day - Toujeo 1000 units subcu daily ALLERGIES: NONE. PAST MEDICAL HISTORY: 1. Hypertension. 2. Hyperlipidemia. 3. Diabetes mellitus, type 2. 4. Nonalcoholic fatty liver disease. 5. Status post right leg fracture repair. 6. Status post tonsillectomy. FAMILY HISTORY: Noncontributory. SOCIAL HISTORY: The patient reportedly smoked cigarettes for 18 years but quit 32 years ago. The patient is reportedly a social drinker. The patient lives at home with his . PHYSICAL EXAMINATION: General: The patient is alert but very lethargic. He does open his eyes to voice but will close them quickly. He is able to answer a little bit, but barely will speak in full sentences due to lethargy. HEENT: Head is normocephalic, atraumatic. Eyes: Pinpoint pupils but do slightly constrict to light. Moist mucous membranes. Tongue does appear midline. It does not appear to deviate. Neck is supple. No cervical lymphadenopathy. No obvious jugular venous distention (JVD) but body habitus does make this somewhat difficult. Trachea is midline. Heart: Regular rate and rhythm. No murmurs. No friction rub. Pulmonary: Diminished breath sounds but overall appear to be clear to auscultation bilaterally. No obvious wheezes, rales or rhonchi. Abdomen is morbidly obese. Some distension. There is evidence of ascites. Extremities: Trace to 1+ bilateral lower extremity edema. There is stasis dermatitis changes on the left distal lower extremity. Toenails appear to be mycotic. Neurologic: The patient's strength does appear to be equal in bilateral upper and lower extremities with no obvious unilateral weakness. Skin is warm and dry. LABORATORY DATA: WBC 17.3, hemoglobin 13.4, hematocrit 43.9, platelets 321. Sodium is 137, potassium is 5.2, chloride is 98, carbon dioxide is 35, BUN is 34, creatinine is 1.27, glucose is 147, lactic acid is 1.0, calcium 9.5, phosphorus is 5.8, magnesium 2.2, creatinine kinase 48, CK-MB less than 1.0, CK-MB relative index 2.08, troponin I is 0.03. AST 48, ALT 27, alkaline phosphatase 226, total bilirubin 0.6. CRP 1.36. Total protein 6.7, albumin 2.3. PT 18.5, INR is 1.52, PTT is 32.0. Previous INR from 05/12/2018 was 1.19. ABG: ABG at 0651 hours was with pH of 7.198, pCO2 99.0, pO2 89.7, HCO3 37.7. ABG at 0802 hours, pH is 7.269, pCO2 is 79.4, pO2 is 76.8, HCO3 35.6. Pleural fluid from paracentesis from 05/12/2018, pH 7.477, WBC is 488, RBC 77 mononuclear 89.2, PMN 10.8, protein 2.9, albumin 1.5, LDH 88, amylase 13. Pleural fluid cultures and pathology are pending. Chest x-ray done on 05/13/2018 shows left subclavian line into the superior vena cava. Left base pleural opacities. Left pleural effusion. CT angio of the head shows no significant stenosis, occlusion or aneurysmal dilatation within the anterior-posterior intracranial arterial circulation. Head CT shows no acute intracranial process. No intracranial hemorrhage. EKG performed this morning shows sinus rhythm with low-voltage appreciated. ASSESSMENT AND PLAN: 1. Acute hypercarbic respiratory failure. This is probably secondary to hypotension and/or liver failure. The patient has been transferred to ICU and is on BiPAP. Already he has shown some improvement in his mental status as well as improvement is noted in ABGs. The patient is being covered for underlying infection with cefepime, vancomycin, azithromycin. He is getting pressors for hypotension. 2. Hypotension. Probably secondary to underlying infection/sepsis. He is covered with cefepime, vancomycin, azithromycin. Cultures are pending. Pleural fluid culture as well as peritoneal fluid culture are pending. A urine culture is also ordered and pending. We will perform an echocardiogram to determine if cardiac effusion is present. 3. Hypoalbuminemia. This is likely related to liver disease. The patient does have ascites. Bedside paracentesis was performed and peritoneal fluid was collected and sent to the lab. 4. Diabetes mellitus, type 2. The patient is on sliding-scale insulin. He is made nothing by mouth, and therefore, sliding-scale insulin will be continued but will change to every 6 hours fingersticks. 5. Pleural effusion. This is likely secondary to the ascites. As noted, bedside paracentesis was performed. Peritoneal fluid was sent for analysis and culture. 6. Atrial fibrillation. The patient has converted back to sinus rhythm. He was initially placed on Xarelto and did receive a dose last night. The patient is now nothing by mouth. We will stop the Xarelto and change the patient to heparin every 8 hours. We are getting an echocardiogram as noted and we will determine any additional anticoagulation changes once the results of the echocardiogram are available. 7. Metabolic encephalopathy. The patient does have hypercarbic respiratory failure. It did show some improvement with BiPAP initiation. Will continue to monitor closely. Total critical care time excluding all procedures was 1 hour 30 minutes.
[2018-05-13] MEDS: HumaLOG INSULIN (NovoLOG) PER UNIT SC SCH ×2 (12:00→17:44)
[2018-05-13 12:02] LABS: ABG BASE EXCESS 0.8 (-2.0-2.0); ABG HCO3 28.4 MEQ/L (22.0-26.0); ABG O2 SATURATION 99.1 % (95.0-99.0); ABG PARTIAL PRESSURE CO2 58.7 mmHg (35.0-45.0); ABG PARTIAL PRESSURE O2 149.2 mmHg (75.0-100.0); ABG STANDARD HCO3 25.2 MEQ/L (22.0-26.0); ABG TOTAL CO2 30.2 MEQ/L (23.0-31.0); ABG pH (ARTERIAL) 7.303 UNITS (7.350-7.450)
[2018-05-13] MEDS: VANCOMYCIN HCL 1,000 MG, VIAL MATE ADAPTER 1 EACH in D5W 250 ML IV SCH (13:06)
[2018-05-13] MEDS: HEPARIN SOD (PORCINE) 5000 UNITS/ML VIAL SQ SCH ×2 (14:00→20:44)
[2018-05-13] MEDS: NOREPINEPHRINE BITARTRATE 8 MG in D5W 492 ML IV SCH ×2 (14:08→18:58)
--- NOTE | 2018-05-13 14:10 | ECHO ---
DATE OF STUDY: 05/13/2018 REFERRING PHYSICIAN: Dr. Alberto INDICATION: Cardiac dysrhythmias, unspecified. HEIGHT: 175 cm. WEIGHT: 157. 2-D MEASUREMENTS: Ventricular septum: 1.14 cm Posterior wall: 1.10 cm Left ventricle diastole: 5.6 cm Aortic root: 3.5 cm Left atrial volume index: 18 Inferior vena cava: 2.5 cm DOPPLER MEASUREMENTS: Aortic valve velocity: 121 cm/sec LVOT velocity: 117 cm/sec LVOT VTI: 24.1 cm Mitral E velocity: 75.0 cm/sec Mitral A velocity: 75.1 cm/sec Mitral deceleration time: 282 ms Trace tricuspid regurgitation MITRAL ANNULAR TISSUE DOPPLER: E prime lateral: 7.8 cm/sec E prime septal: 5.3 cm/sec DESCRIPTION: The rhythm was sinus. This was a moderately technically difficult echocardiogram. No pericardial effusion. This was a 2-D, M-mode, color flow Doppler and pulse wave Doppler examination and included mitral annular tissue Doppler. CONCLUSIONS: 1. Mild left ventricle dilatation with normal LV wall thickness. Normal regional LV motion and wall thickening. LVEF 70% by visual estimate. Grade 2 LV diastolic dysfunction (through a normal LV filling pattern); differential diagnosis would include normal LV diastolic function with incorrect assessment of mitral annular tissue Doppler and mitral deceleration time, especially in view of the left atrial volume index being normal. 2. Moderate mitral annular calcification. No mitral regurgitation or mitral stenosis. 3. Mild aortic valve sclerosis of a 3-cuspid aortic valve. No aortic regurgitation. 4. Unable to assess pulmonary artery systolic pressure or estimated right ventricle systolic pressure. 5. Inferior vena cava dilatation. Consider elevated central venous pressure. 6. Moderately technically difficult echocardiogram.
[2018-05-13 17:16] LABS: CK-MB VALUE MASS < 1.0 NG/ML (<3.6); CPK CREATINE PHOSPHOKINASE 51 U/L (39-308); MB/CK RELATIVE INDEX 1.96 (< OR =4); TROPONIN I 0.03 NG/ML (< 0.10)
--- NOTE | 2018-05-13 20:10 | RO ---
DATE OF PROCEDURE: 05/13/2018 PREPROCEDURE DIAGNOSIS: Hypotension and need for cardiac pressors. POSTPROCEDURE DIAGNOSIS: Hypotension and need for cardiac pressors. PROCEDURE: Insertion of left subclavian central line. SURGEON: Dr. Yahir Mccall PINION SORTER: ANESTHESIA: DESCRIPTION OF PROCEDURE: The patient was prepped and draped in the usual sterile fashion. The subclavian fossa was infiltrated with 1% lidocaine, and the subclavian vein was found on the first pass. A wire was placed with creation of PVCs. Tract was dilated and a triple lumen catheter was placed by Seldinger technique. Ports were aspirated and flushed without difficulty, and the catheter secured to the chest wall with a #3-0 silk suture. The patient tolerated the procedure well and a chest x-ray is pending.
[2018-05-13] MEDS: NYSTATIN 100,000 UNITS/GM TOPICAL PWD 15 GM TOP SCH (20:44)
--- NOTE | 2018-05-13 21:32 | IPNPDOC ---
Subjective Date Seen The patient was seen on 05/13/18. Subjective Chief Complaint/HPI Pt examined at bedside. He was noted to be lethargic with questionable left side deficits around 6am this morning, and neuro workup was negative for CVA. While he was undergoing neuro workup, he was found to be hypercarbic on ABG, thus started on BiPAP. He was transferred to ICU and noted to be hypotensive about 1 hr later around my coming on shift. His MAP remained in mid-40s despite 1L fluid running, and left subclavian central line was placed emergently by Dr. Mccall and myself. He was started on Levophed drip and improved thereafter and drip was titrated from from 30mg to maintain MAP>65. He has been started on broad- spectrum coverage with Vanc, Cefepime, & Azithromycin as current infectious workup is pending. Thorough discussion was had over the phone with pt's to update her regarding his status. She read off his living will, stating "he does NOT want life-saving measures, and wants to naturally," confirming NO INTUBATION and NO CPR. Other systems ROS unobtainable, as pt is lethargic on BiPAP currently. Objective Physical Examination General Exam: Positive: Other (lethargic on BiPap) Eye Exam: Positive: PERRLA, Conjunctiva & lids normal; Negative: Sclera icteric ENT Exam: Positive: Atraumatic, Mucous membr. moist/pink Neck Exam: Positive: Supple, Other (unable to assess JVD due to body habitus) Chest Exam: Positive: Rales (l>r), Diminished, Other (pt on BiPap) Heart Exam: Positive: Rate Normal, Regular Rhythm, Normal S1, Normal S2 Telemetry: Positive: No significant arrhythmia Abdomen Exam: Positive: BS Hypoactive, Soft; Negative: Tenderness, Mass Extremity Exam: Positive: Edema (1+ b/l LE); Negative: Clubbing, Cyanosis, Tenderness Skin Exam: Positive: Nl turgor and temperature; Negative: Rash, Lesion Neuro Exam: Positive: Strength at 5/5 X4 ext (b/l UE & LE), Other (negative babinski, no notable facial droop, equal workday senior associate strength b/l) Assessment /Plan Assessment Acute Hypoxic Resp Failure likely 2/2 pleural effusion vs underlying infection Pt remains afebrile, but became lethargic with hypercapnia and hypotensive this am, requiring pressors and BiPAP. Workup pending. Differential includes nephrotic vs hepatic vs malignant. He will require further abd imaging to further assess adenopathy and ascites noted on admission, but will likely need to be delayed again, as he received additional contrast today Pt underwent thoracentesis yesterday by IR. 1.6L red fluid was removed-appears transudative per Light's criteria. Pulm consulted, appreciate input. Central line placed today, on Levophed Pt started on broad-spectrum abx & IV steroids as workup is pending. Start Neurochecks q2h Paroxysmal AFib new onset on admission spontaneously converted to NSR on during admission and has remained so thus far continue Lopressor and Xarelto NAFLD pending further workup. Imaging has been delayed given his acute decline in status this am. IDDM2 Home Toujeo and metformin and Byetta on hold. Continue insulin sliding scale and consistent carbohydrate diet inpatient. Hyperlipidemia Continue aspirin and statin. Hypertension Home fosinopril and Lasix hold as he is on pressors. CODE STATUS: DNR, DNI DVT prophylaxis: Xarelto DISPOSITION: closely monitor in ICU. Pending clinical improvement. Plan/VTE VTE Prophylaxis Ordered?: Yes VS, I&O, 24H, Fishbone Vital Signs/I&O Vital Signs Date Time Temp Pulse Resp B/P (MAP) Pulse Ox O2 Delivery O2 Flow Rate FiO2 05/13/18 19:50 40 05/13/18 18:30 70 107/57 (74) 97 05/13/18 18:00 16 05/13/18 16:00 98.8 05/13/18 07:32 BIPAP/CPAP 05/13/18 04:00 4.0 I&O- Last 24 Hours up to 6 AM 05/13/18 06:00 Intake Total 720 ml Output Total 1680 ml Balance -960 ml Laboratory Data 24H LABS Laboratory Tests 2 05/13/18 04:49: Immature Granulocyte % (Auto) 0.4, White Blood Count 17.1H, Red Blood Count 4.62, Hemoglobin 12.8L, Hematocrit 41.9L, Mean Corpuscular Volume 90.7, Mean Corpuscular Hemoglobin 27.7, Mean Corpuscular Hemoglobin Concent 30.5L, Red Cell Distribution Width 17.6H, Platelet Count 302, Neutrophils (%) (Auto) 84.0H, Lymphocytes (%) (Auto) 8.3L, Monocytes (%) (Auto) 7.1H, Eosinophils (%) (Auto) 0.0, Basophils (%) (Auto) 0.2, Neutrophils # (Auto) 14.4H, Lymphocytes # (Auto) 1.4L, Monocytes # (Auto) 1.2H, Eosinophils # (Auto) 0.0, Basophils # (Auto) 0.0, Nucleated Red Blood Cells % (auto) 0.0, Anion Gap 3L, Glomerular Filtration Rate > 60.0, Blood Urea Nitrogen 31H, Creatinine 1.18#, Sodium Level 136, Potassium Level 5.0, Chloride Level 99, Carbon Dioxide Level 34H, Calcium Level 9.2, Aspartate Amino Transf (AST/SGOT) 46H, Alanine Aminotransferase (ALT/SGPT) 27, Total Creatine Kinase 38L, Alkaline Phosphatase 226H, Total Bilirubin 0.6, Total Protein 6.7, Albumin 2.3L, Magnesium Level 1.9, Creatine Kinase MB < 1.0, Creatine Kinase MB Relative Index 2.63, Troponin I 0.04#, C-Reactive Protein, Quantitative 1.36H, Albumin/Globulin Ratio 0.52L 05/13/18 06:12: Bedside Glucose (Misc Panel) 145H 05/13/18 06:51: Blood Gas Bicarbonate Standard 29.6H, Arterial Blood pH 7.198*L, Arterial Blood Partial Pressure CO2 99.0*H, Arterial Blood Partial Pressure O2 89.7, Arterial Blood Total CO2 40.7H, Arterial Blood HCO3 37.7H, Arterial Blood Base Excess 5.8H, Arterial Blood Oxygen Saturation 94.7L 05/13/18 07:01: Nucleated Red Blood Cells % (auto) 0.0, Anion Gap 4L, Glomerular Filtration Rate > 60.0, Blood Urea Nitrogen 34H, Creatinine 1.27, Sodium Level 137, Potassium Level 5.2H, Chloride Level 98, Carbon Dioxide Level 35H, Calcium Level 9.5, Total Creatine Kinase 48, Magnesium Level 2.2, Creatine Kinase MB < 1.0, Creatine Kinase MB Relative Index 2.08, Troponin I 0.03#, Lactic Acid Level 1.0, Phosphorus Level 5.8#H 05/13/18 07:56: Prothrombin Time 18.5H, Prothromb Time International Ratio 1.52, Activated Partial Thromboplast Time 32.0 05/13/18 08:02: Blood Gas Bicarbonate Standard 29.8H, Arterial Blood pH 7.269L, Arterial Blood Partial Pressure CO2 79.4*H, Arterial Blood Partial Pressure O2 76.8, Arterial Blood Total CO2 38.0H, Arterial Blood HCO3 35.6H, Arterial Blood Base Excess 6.0H, Arterial Blood Oxygen Saturation 93.7L 05/13/18 09:02: Bedside Glucose (Misc Panel) 121H 05/13/18 09:55: Body Fluid Specific [place] 1.015, Body Fluid WBC (Auto) 321H, Body Fluid RBC (Auto) 4, Body Fluid Mononuclear Cells % Auto 86.9H, Fluid Polymorphonuclear Cell % Auto 13.1H, Body Fluid Glucose Source PERITONEAL, Body Fluid Glucose 157, Body Fluid Protein Source PERITONEAL, Body Fluid Total Protein 1.8, Body Fluid Albumin Source PERITONEAL, Body Fluid Albumin 0.9, Peritoneal Fluid Source PERITONEAL, Peritoneal Fluid Color PALE YELLOW, Peritoneal Fluid Appearance HAZY 05/13/18 10:37: Ammonia 45H 05/13/18 11:54: Blood Gas Bicarbonate Standard 25.2, Arterial Blood pH 7.303L, Arterial Blood Partial Pressure CO2 58.7H, Arterial Blood Partial Pressure O2 149.2H, Arterial Blood Total CO2 30.2, Arterial Blood HCO3 28.4H, Arterial Blood Base Excess 0.8, Arterial Blood Oxygen Saturation 99.1H 05/13/18 12:17: Bedside Glucose (Misc Panel) 151H 05/13/18 16:32: Total Creatine Kinase 51, Creatine Kinase MB < 1.0, Creatine Kinase MB Relative Index 1.96, Troponin I 0.03 05/13/18 17:39: Bedside Glucose (Misc Panel) 190H CBC/BMP Laboratory Tests 05/13/18 04:49 Red Blood Count 4.62, Mean Corpuscular Volume 90.7, Mean Corpuscular Hemoglobin 27.7, Mean Corpuscular Hemoglobin Concent 30.5 L, Red Cell Distribution Width 17.6 H, Neutrophils (%) (Auto) 84.0 H, Lymphocytes (%) (Auto) 8.3 L, Monocytes (%) (Auto) 7.1 H, Eosinophils (%) (Auto) 0.0, Basophils (%) (Auto) 0.2, Neutrophils # (Auto) 14.4 H, Lymphocytes # (Auto) 1.4 L, Monocytes # (Auto) 1.2 H, Eosinophils # (Auto) 0.0, Basophils # (Auto) 0.0, Calcium Level 9.2, Aspartate Amino Transf (AST/SGOT) 46 H, Alanine Aminotransferase (ALT/SGPT) 27, Total Creatine Kinase 38 L, Alkaline Phosphatase 226 H, Total Bilirubin 0.6, Total Protein 6.7, Albumin 2.3 L 05/13/18 07:01 Red Blood Count 4.79, Mean Corpuscular Volume 91.6, Mean Corpuscular Hemoglobin 28.0, Mean Corpuscular Hemoglobin Concent 30.5 L, Red Cell Distribution Width 17.7 H, Calcium Level 9.5, Total Creatine Kinase 48, Phosphorus Level 5.8 #H Microbiology Microbiology 05/13/18 Blood Culture, Received Pending 05/13/18 Blood Culture, Received Pending 05/12/18 Blood Culture - Preliminary, Resulted No growth after 24 hours . All specim... 05/12/18 Blood Culture - Preliminary, Resulted No growth after 24 hours . All specim... 05/13/18 Acid Fast Stain, Received Pending 05/13/18 Mycobacterial Culture, Received Pending 05/13/18 Fungal Smear, Received Pending 05/13/18 Fungal Culture, Received Pending 05/13/18 Gram Stain - Final, Resulted 05/13/18 Body Fluid Culture, Resulted Pending 05/13/18 Anaerobic Culture, Resulted Pending 05/12/18 Acid Fast Stain, Received Pending 05/12/18 Mycobacterial Culture, Received Pending 05/12/18 Fungal Smear, Received Pending 05/12/18 Fungal Culture, Received Pending 05/12/18 Gram Stain - Final, Resulted 05/12/18 Anaerobic Culture, Resulted Pending 05/12/18 Body Fluid Culture, Received Pending 05/13/18 MRSA Screen, Received Pending 05/13/18 Urine Culture, Received Pending GME ATTESTATION GME ATTESTATION My faculty preceptor for this patient encounter was physically present during the encounter and was fully available. All aspects of the patient interview, examination, medical decision making process, and medical care plan development were reviewed and approved by the faculty preceptor. The faculty preceptor is aware and concurs with the plan as stated in the body of this note and will attest to such by his/her cosignature. APRYL MIRANDA DO May 13, 2018 21:32
[2018-05-14] VITALS (45 sets, daily range): BP systolic 84–114; BP diastolic 44–59; O2SAT 96
[2018-05-14] MEDS: VANCOMYCIN HCL 1,000 MG, VIAL MATE ADAPTER 1 EACH in D5W 250 ML IV SCH ×2 (00:06→12:03)
[2018-05-14] MEDS ORDERED: NOREPINEPHRINE 4 MG/4 ML AMP As Ordered ONE (01:27)
[2018-05-14] MEDS: VANCOMYCIN HCL 500 MG in D5W MINI-BAG PLUS 100 ML IV SCH ×2 (01:32→13:42)
[2018-05-14] MEDS: NOREPINEPHRINE BITARTRATE 8 MG in D5W 492 ML IV SCH ×3 (01:39→20:07)
[2018-05-14] MEDS: IPRATROPIUM 0.5MG/ALBUTEROL 2.5MG INH SOL UD 3ML (DUONEB)(J7620) NEB SCH ×6 (04:26→23:10)
[2018-05-14 05:07] LABS: BASO % 0.2 % (0.0-1.0); EOS % 0.3 % (0.0-3.0); HEMATOCRIT 38.2 % (42.0-52.0); HEMOGLOBIN 12.2 g/dl (13.5-17.5); LYMPH # 1.3 10^3/uL (1.5-4.5); LYMPH % 11.2 % (24.0-44.0); MEAN CORPUSCULAR HEMOGLOBIN 27.5 pg (27.0-33.0); MEAN CORPUSCULAR HGB CONC 31.9 g/dl (32.0-36.5); MEAN CORPUSCULAR VOLUME 86.2 fl (80.0-96.0); MONO % 8.7 % (0.0-5.0); NEUTROPHILS # 9.5 10^3/uL (1.8-7.7); NEUTROPHILS % 79.2 % (36.0-66.0); PLATELET COUNT, AUTOMATED 226 10^3/uL (150-450); RED BLOOD COUNT 4.43 10^6/uL (4.30-6.10)
[2018-05-14 05:28] LABS: ALT/SGPT 21 U/L (12-78); BILIRUBIN,TOTAL 0.8 MG/DL (0.2-1.0); BLOOD UREA NITROGEN 31 MG/DL (7-18); CALCIUM LEVEL 8.8 MG/DL (8.8-10.2); CARBON DIOXIDE LEVEL 31 MEQ/L (21-32); CHLORIDE LEVEL 100 MEQ/L (98-107); CREATININE FOR GFR 0.82 MG/DL (0.70-1.30); GLOMERULAR FILTRATION RATE > 60.0 (>49); GLUCOSE, FASTING 175 MG/DL (70-100); MAGNESIUM LEVEL 1.9 MG/DL (1.8-2.4); POTASSIUM SERUM 4.5 MEQ/L (3.5-5.1); SODIUM LEVEL 135 MEQ/L (136-145); TOTAL PROTEIN 5.6 GM/DL (6.4-8.2)
[2018-05-14 05:45] LABS: ABG BASE EXCESS 6.4 (-2.0-2.0); ABG HCO3 30.3 MEQ/L (22.0-26.0); ABG O2 SATURATION 98.1 % (95.0-99.0); ABG PARTIAL PRESSURE CO2 41.2 mmHg (35.0-45.0); ABG PARTIAL PRESSURE O2 101.4 mmHg (75.0-100.0); ABG STANDARD HCO3 30.3 MEQ/L (22.0-26.0); ABG TOTAL CO2 31.6 MEQ/L (23.0-31.0); ABG pH (ARTERIAL) 7.485 UNITS (7.350-7.450)
[2018-05-14] MEDS: HEPARIN SOD (PORCINE) 5000 UNITS/ML VIAL SQ SCH ×3 (06:33→20:09)
[2018-05-14] MEDS: HumaLOG INSULIN (NovoLOG) PER UNIT SC SCH ×5 (06:34→20:05)
[2018-05-14] MEDS: AZITHROMYCIN INJ 500 MG, VIAL MATE ADAPTER 1 EACH in D5W 250 ML IV SCH (07:59)
[2018-05-14] MEDS: CEFEPIME HCL 1 GM in D5W MINI-BAG PLUS 50 ML IV SCH ×2 (08:02→20:06)
[2018-05-14] MEDS: PANTOPRAZOLE 40MG INJ (PROTONIX) (C9113) IV SCH (08:17)
[2018-05-14] MEDS: NYSTATIN 100,000 UNITS/GM TOPICAL PWD 15 GM TOP SCH ×2 (08:24→20:06)
--- NOTE | 2018-05-14 08:35 | ECGEPIP ---
Stationary ECG Study [facility] Test Date: 2018-05-13 Pat Name: LALA REILLY Department: Room: [place] [address] Gender: M Uniform Room Attendant: GENEVIEVE : 1950 Requested By: SUSY FORRESTER Order Number: [id number] Reading MD: Flip Klein Measurements Intervals [place] Rate: 75 P: 8 AR: 203 QRS: 31 QRSD: 106 T: 37 QT: 373 QTc: 419 Interpretive Statements SINUS RHYTHM LOW QRS VOLTAGE IN EXTREMITY LEADS SIMILAR TO 05/12/18 Electronically Signed On 05-14-2018 8:35:05 EST by Flip Klein
--- NOTE | 2018-05-14 10:32 | CCN ---
DATE: 05/14/2018 Brien is much more oriented, awake, alert this morning. He is able to carry on coherent conversations. He is actually off bilevel noninvasive therapy. This was taken off just prior to my arrival. He remains on vasopressor therapy. However this is decreasing as far as dose. He is now down to 10 mcg per minute. Blood pressure is 107/54. The patient denies any complaints other than back pain. He states that he feels as if he is stiff from being in the bed too long. He has no chest pain. No increase in shortness of breath. When speaking with him, he has noticed increase in his abdominal girth. He has had no fevers. No cough. No hemoptysis. He denies any calf pain. He remains in a sinus rhythm. Echocardiogram shows a normal LV with what appears to be grade 2 diastolic dysfunction. No pericardial effusion. Pulmonary pressures were difficult to estimate. However, IVC is enlarged. PHYSICAL EXAMINATION: Temperature is 98.0, pulse is 76 in a regular rhythm. Respiratory rate is 18. Blood pressure is 106/57 with a mean arterial pressure of 73. Oxygen saturation is 96% on 2 liters. General: Awake, alert, oriented. Affect and mood are appropriate. He is not dyspneic or tachypneic at this point in time. Able to complete full sentences without pausing. HEENT: Sclerae clear and anicteric. Pupils equal, react to light. Mucous membranes are moist without lesions. Tongue is midline. Mallampati 4. Neck is supple. No tracheal deviation. No mass. Jugular venous pulse (JVP) is difficult to assess due to body habitus. Lymphs: No cervical, supraclavicular or axillary adenopathy. Cardiac: Distant S1, S2. Without audible murmur, rub or gallop. No discernible JVP as mentioned above. He does have systemic edema with chronic venous stasis changes. Pulmonary: Decreased breath sounds throughout with rales at the bases. No rhonchi. No wheeze. No prolongation of the expiratory phase. Abdomen is obese, protuberant. No discernible hepatosplenomegaly. Unable to palpate his liver due to his body habitus. There are normoactive bowel sounds. No bruits were auscultated. Extremities are pale with chronic venous stasis changes. There is dependent edema. There is also hand edema bilaterally. Neurologic: No unilateral weakness. No myoclonus. No evidence of seizure activity. Laboratory evaluation shows a pH of 7.49, pCO2 of 41.2 and a pAO2 of 101. Sodium is 135, potassium 4.5, chloride is 100, bicarbonate of 31, BUN of 31 and a creatinine of 0.8 with a glucose of 195. CBC: White blood cell count shows it is 12.0, which is decreased from 17.3, hemoglobin of 12.2 and a platelet count of 226. AST is 40, ALT is 21. Alkaline phosphatase is elevated at 195. Albumin is low at 2.0. IMPRESSION: 1. Sepsis from a questionable source. Differential includes spontaneous bacterial peritonitis. The peritoneal tap was performed after antibiotics were administered. Therefore, we may never actually confirm the source of infection. There is also a possibility of pneumonia, although there is no dense infiltrate appeared to be there was a pleural effusion which was likely secondary to his ascites, and at this point in time, pleural effusion does not show any bacteria. Blood cultures are pending. Urine culture is also pending. However, at this point in time, despite our suspicion of sepsis with multiple potential sources the exact source is not found. Will continue sepsis protocol at this point in time. The patient is on Levophed. He will continue on Levophed. This is being tapered down. He has anasarca and extravascular volume overload. Therefore, IV fluids are not being used at this point in time. He has adequate urine output at 30-40 mL an hour and no lactic acidosis at this time. He did have a lactate when he presented to the hospital. 2. Hypercarbic respiratory failure secondary to hyperperfusion and shock. I believe the patient probably has underlying obstructive sleep apnea, although he denies excessive daytime somnolence, snoring and morning headaches. Due to his acute respiratory events, we will continue bilevel positive airway pressure (BiPAP) at night and for all forms of sleep and reassess tomorrow the continued need for BiPAP. 3. Portal hypertension with liver cirrhosis. Will obtain records from his primary office. He did present with a history of nonalcoholic fatty liver disease. There may have been more of a workup that was done by his primary care physician than we have access to currently and rather than repeating the workup will review outpatient records. 4. Hypoalbuminemia likely from liver disease. Will start diet, ensure adequate protein intake and limits salt and fluids. 5. Metabolic encephalopathy, improved with correction of hypercarbia. There is no evidence of stroke or other neurologic impairment. Ammonia was only slightly elevated at 45. 6. Advance directives discussed with patient at bedside. He wishes to be DO NOT RESUSCITATE. He does not want to be intubated. He is willing to accept a trial of noninvasive ventilation for a short period of time. He does have a healthcare proxy. He states he has it in writing that it is his . He would allow a trial of a feeding tube, trial of limited medical interventions, including antibiotics and IV fluids. Medical Orders for Life Sustaining Treatment (MOLST) form was filled out and signed by the patient at bedside. 7. Deep venous thrombosis (DVT) prophylaxis. On heparin three times a day. At this point in time, I would not anticoagulate the patient fully as I am not sure he actually had atrial fibrillation on arrival. I believe the low voltage from his body habitus caused there to be missed P-waves. The patient was never in rapid ventricular response, and therefore, I do not feel that a beta-juan for this indication is necessary. Critical care time was 1 hour and 18 minutes. This excludes all procedures.
[2018-05-14 11:01] LABS: HEPATITIS A ANTIBODY IGM NEGATIVE (NEGATIVE); HEPATITIS B CORE ANTIBODY IGM NEGATIVE (NEGATIVE); HEPATITIS B SURFACE ANTIGEN NEGATIVE (NEGATIVE); HEPATITIS C VIRUS ABY INDEX 0.1 INDEX (<0.8)
--- NOTE | 2018-05-14 21:32 | IPNPDOC ---
Subjective Date Seen The patient was seen on 05/14/18. Subjective Chief Complaint/HPI Pt examined at bedside in ICU this am. Is feeling much better and noted to be more interactive and alert after having been on BiPAP. This am's ABG also reveals his pH has normalized and he is no longer hypercapnic. He continues on pressors, Levophed 12mcg this am. His end-of-life care was again discussed in depth with pt, with all options discussed. He stated "just let me go", but would like more time to finalize this decision and discuss with . No other concerns or reported events overnight. Other systems No f/c/n/v/abd pain. Objective Physical Examination General Exam: Positive: Alert, Cooperative, No Acute Distress Eye Exam: Positive: PERRLA, Conjunctiva & lids normal; Negative: Sclera icteric ENT Exam: Positive: Atraumatic, Mucous membr. moist/pink Neck Exam: Positive: Supple, Other (unable to assess JVD due to body habitus) Chest Exam: Positive: Diminished, Other (limited due to large body habitus. No appreciable w/r/r) Heart Exam: Positive: Rate Normal, Regular Rhythm, Normal S1, Normal S2 Telemetry: Positive: No significant arrhythmia Abdomen Exam: Positive: BS Hypoactive, Soft; Negative: Tenderness, Mass Extremity Exam: Positive: Edema (trace b/l); Negative: Clubbing, Cyanosis, Tenderness Skin Exam: Positive: Nl turgor and temperature; Negative: Rash, Lesion Neuro Exam: Positive: Normal Speech, Strength at 5/5 X4 ext Psych Exam: Positive: Mental status NL, Mood NL, Oriented x 3 Assessment /Plan Assessment Shock exact source is unknown at this point, is currently being worked up. Possible sources include pleural effusion, ascites thoracentesis and paracentesis done thus far do not point to specific infection, but pt had completed abx 2-3 days prior to admission Pt continues to be weaned off pressors, down to 12mcg Levophed this am continue broad-spectrum abx and IV steroids. On day 2 of Cefepime, Vanc, & Azihro. Of note, his WBC did improved from 17 to 12 today and he is clinically doing better procalcitonin pending. Acute Hypoxic Resp Failure with hypercapnia resolved. Off bipap and abg this am is significantly improved likely 2/2 pleural effusion vs underlying infection. Exact etiology at this point is unclear and is being worked up Pulm consulted, appreciate input. Hyperammonemia level at 45, but pt's mentation is intact and at baseline ammonia is expected to improve as we treat underlying source (infection, effusion, liver disease) Hypoalbuminemia pt does have hx of NAFLD and AST has remained mildly elevated while admitted. Sony montemayor has requested outside records. Will wait for records prior to starting inpatient workup for underlying liver disease Paroxysmal AFib new onset on admission spontaneously converted to NSR on during admission and has remained so thus far. May be 2/2 underlying infection vs effusion. Electrolytes & TSH WNL echo this admission reveals EF 70%, grade 2 diastolic dysfunction with elevated cvp continue Lopressor. Xarelto changed to heparin sc by Pulm NAFLD pending further workup. Imaging has been delayed given his acute decline in status this am. In process of obtaining clinic notes IDDM2 Home Toujeo and metformin and Byetta on hold. Continue insulin sliding scale and consistent carbohydrate diet inpatient. Hyperlipidemia Continue aspirin and statin. Hypertension Home fosinopril and Lasix hold as he is on pressors. CODE STATUS: DNR, DNI DVT prophylaxis: heparin sc DISPOSITION: closely monitor in ICU. Pending clinical improvement. Plan/VTE VTE Prophylaxis Ordered?: Yes VS, I&O, 24H, Fishbone Vital Signs/I&O Vital Signs Date Time Temp Pulse Resp B/P (MAP) Pulse Ox O2 Delivery O2 Flow Rate FiO2 05/14/18 20:07 98.3 87 18 103/50 93 2.0 05/14/18 14:15 40 05/14/18 08:08 Nasal Cannula I&O- Last 24 Hours up to 6 AM 05/14/18 06:00 Intake Total 3681 ml Output Total 1730 ml Balance 1951 ml Laboratory Data 24H LABS Laboratory Tests 2 05/14/18 00:05: Bedside Glucose (Misc Panel) 179H 05/14/18 04:40: Immature Granulocyte % (Auto) 0.4, White Blood Count 12.0H, Red Blood Count 4.43, Hemoglobin 12.2L, Hematocrit 38.2L, Mean Corpuscular Volume 86.2, Mean Corpuscular Hemoglobin 27.5, Mean Corpuscular Hemoglobin Concent 31.9L, Red Cell Distribution Width 17.6H, Platelet Count 226, Neutrophils (%) (Auto) 79.2H, Lymphocytes (%) (Auto) 11.2L, Monocytes (%) (Auto) 8.7H, Eosinophils (%) (Auto) 0.3, Basophils (%) (Auto) 0.2, Neutrophils # (Auto) 9.5H, Lymphocytes # (Auto) 1.3L, Monocytes # (Auto) 1.0H, Eosinophils # (Auto) 0.0, Basophils # (Auto) 0.0, Nucleated Red Blood Cells % (auto) 0.0, Blood Gas Bicarbonate Standard 30.3H, Arterial Blood pH 7.485H, Arterial Blood Partial Pressure CO2 41.2, Arterial Blood Partial Pressure O2 101.4H, Arterial Blood Total CO2 31.6H, Arterial Blood HCO3 30.3H, Arterial Blood Base Excess 6.4H, Arterial Blood Oxygen Saturation 98.1, Anion Gap 4L, Glomerular Filtration Rate > 60.0, Blood Urea Nitrogen 31H, Creatinine 0.82, Sodium Level 135L, Potassium Level 4.5, Chloride Level 100, Carbon Dioxide Level 31, Calcium Level 8.8, Aspartate Amino Transf (AST/SGOT) 40H, Alanine Aminotransferase (ALT/SGPT) 21, Alkaline Phosphatase 195H, Total Bilirubin 0.8, Total Protein 5.6L, Albumin 2.0L, Magnesium Level 1.9, Albumin/Globulin Ratio 0.56L 05/14/18 06:32: Bedside Glucose (Misc Panel) 181H 05/14/18 06:56: Hepatitis A IgM Antibody NEGATIVE, Hepatitis B Surface Antigen NEGATIVE, Hepatitis B Core IgM Antibody NEGATIVE, Hepatitis C Antibody Index 0.1 05/14/18 11:43: Bedside Glucose (Misc Panel) 190H 05/14/18 17:38: Bedside Glucose (Misc Panel) 164H 05/14/18 20:02: Bedside Glucose (Misc Panel) 224H CBC/BMP Laboratory Tests 05/14/18 04:40 Red Blood Count 4.43, Mean Corpuscular Volume 86.2, Mean Corpuscular Hemoglobin 27.5, Mean Corpuscular Hemoglobin Concent 31.9 L, Red Cell Distribution Width 17.6 H, Neutrophils (%) (Auto) 79.2 H, Lymphocytes (%) (Auto) 11.2 L, Monocytes (%) (Auto) 8.7 H, Eosinophils (%) (Auto) 0.3, Basophils (%) (Auto) 0.2, Neutrophils # (Auto) 9.5 H, Lymphocytes # (Auto) 1.3 L, Monocytes # (Auto) 1.0 H, Eosinophils # (Auto) 0.0, Basophils # (Auto) 0.0, Calcium Level 8.8, Aspartate Amino Transf (AST/SGOT) 40 H, Alanine Aminotransferase (ALT/SGPT) 21, Alkaline Phosphatase 195 H, Total Bilirubin 0.8, Total Protein 5.6 L, Albumin 2.0 L Microbiology Microbiology 05/13/18 Blood Culture - Preliminary, Resulted No growth after 24 hours . All specim... 05/13/18 Blood Culture - Preliminary, Resulted No growth after 24 hours . All specim... 05/12/18 Blood Culture - Preliminary, Resulted No Growth after 48 hours. All Specime... 05/12/18 Blood Culture - Preliminary, Resulted No Growth after 48 hours. All Specime... 05/13/18 Acid Fast Stain, Received Pending 05/13/18 Mycobacterial Culture, Received Pending 05/13/18 Fungal Smear, Received Pending 05/13/18 Fungal Culture, Received Pending 05/13/18 Gram Stain - Final, Resulted 05/13/18 Body Fluid Culture, Resulted Pending 05/13/18 Anaerobic Culture, Resulted Pending 05/12/18 Acid Fast Stain, Received Pending 05/12/18 Mycobacterial Culture, Received Pending 05/12/18 Fungal Smear, Received Pending 05/12/18 Fungal Culture, Received Pending 05/12/18 Gram Stain - Final, Complete 05/12/18 Anaerobic Culture - Final, Complete 05/12/18 Body Fluid Culture - Final, Complete 05/13/18 MRSA Screen - Final, Complete 05/13/18 Urine Culture, Received Pending GME ATTESTATION GME ATTESTATION My faculty preceptor for this patient encounter was physically present during the encounter and was fully available. All aspects of the patient interview, examination, medical decision making process, and medical care plan development were reviewed and approved by the faculty preceptor. The faculty preceptor is aware and concurs with the plan as stated in the body of this note and will attest to such by his/her cosignature. APRYL MIRANDA DO May 14, 2018 21:32
[2018-05-15] VITALS (13 sets, daily range): BP systolic 83–109; BP diastolic 47–67; O2SAT 95
[2018-05-15] MEDS: VANCOMYCIN HCL 500 MG in D5W MINI-BAG PLUS 100 ML IV SCH (00:01)
[2018-05-15] MEDS: VANCOMYCIN HCL 1,000 MG, VIAL MATE ADAPTER 1 EACH in D5W 250 ML IV SCH (00:01)
[2018-05-15] MEDS: IPRATROPIUM 0.5MG/ALBUTEROL 2.5MG INH SOL UD 3ML (DUONEB)(J7620) NEB SCH ×5 (03:42→23:53)
[2018-05-15 05:04] LABS: BASO % 0.2 % (0.0-1.0); EOS # 0.1 10^3/uL (0.0-0.50); EOS % 0.5 % (0.0-3.0); HEMATOCRIT 37.7 % (42.0-52.0); HEMOGLOBIN 12.1 g/dl (13.5-17.5); LYMPH # 0.9 10^3/uL (1.5-4.5); MEAN CORPUSCULAR HEMOGLOBIN 27.6 pg (27.0-33.0); MEAN CORPUSCULAR HGB CONC 32.1 g/dl (32.0-36.5); MEAN CORPUSCULAR VOLUME 86.1 fl (80.0-96.0); MONO # 0.8 10^3/uL (0.0-0.8); MONO % 8.3 % (0.0-5.0); NEUTROPHILS # 7.7 10^3/uL (1.8-7.7); NEUTROPHILS % 81.7 % (36.0-66.0); PLATELET COUNT, AUTOMATED 174 10^3/uL (150-450); RED BLOOD COUNT 4.38 10^6/uL (4.30-6.10); WHITE BLOOD COUNT 9.4 10^3/uL (4.0-10.0)
[2018-05-15 05:26] LABS: ALBUMIN 1.9 GM/DL (3.2-5.2); ALT/SGPT 22 U/L (12-78); BILIRUBIN,TOTAL 0.9 MG/DL (0.2-1.0); BLOOD UREA NITROGEN 31 MG/DL (7-18); CALCIUM LEVEL 8.8 MG/DL (8.8-10.2); CARBON DIOXIDE LEVEL 28 MEQ/L (21-32); CHLORIDE LEVEL 99 MEQ/L (98-107); CREATININE FOR GFR 0.75 MG/DL (0.70-1.30); GLOMERULAR FILTRATION RATE > 60.0 (>49); GLUCOSE, FASTING 158 MG/DL (70-100); MAGNESIUM LEVEL 1.8 MG/DL (1.8-2.4); POTASSIUM SERUM 4.1 MEQ/L (3.5-5.1); SODIUM LEVEL 132 MEQ/L (136-145)
[2018-05-15] MEDS: HEPARIN SOD (PORCINE) 5000 UNITS/ML VIAL SQ SCH ×3 (06:02→21:23)
[2018-05-15] MEDS: HumaLOG INSULIN (NovoLOG) PER UNIT SC SCH ×4 (07:30→21:00)
[2018-05-15] MEDS: NOREPINEPHRINE BITARTRATE 8 MG in D5W 492 ML IV SCH ×2 (08:00→21:31)
[2018-05-15] MEDS: AZITHROMYCIN INJ 500 MG, VIAL MATE ADAPTER 1 EACH in D5W 250 ML IV SCH (08:00)
--- NOTE | 2018-05-15 09:59 | CCN ---
DATE OF SERVICE: 05/15/2018 Mr. Bellamy is seen in the intensive care unit (ICU). He is still on pressors with Levophed down to the 5 mcg. He is conversant and states overall he is feeling better. He denies fevers, chills, shortness of breath, chest pain. The patient also denies abdominal pain. He is currently off of the bilevel positive airway pressure (BiPAP) and just using it for whenever he is sleeping. He remains in sinus rhythm. PHYSICAL EXAMINATION: VITAL SIGNS: Temperature is 97.6. Pulse is 80. Respiratory rate is 20. Blood pressure is 105/55. Pulse oximetry is 92% on 2 liters. Urine output is about 60 mL an hour. GENERAL: Patient is alert. He is conversant, speaks in full sentences. HEENT: Head is normocephalic, atraumatic. Mucous membranes are moist. Tongue is midline. NECK: Neck is supple. No cervical lymphadenopathy. No obvious jugular venous pulse (JVP) but it is difficult to assess due to body habitus. No tracheal deviation. CARDIAC: Regular rate and rhythm. S1, S2. PULMONARY: Patient with diminished breath sounds but no obvious wheezes, rales or rhonchi. No prolongation of expiratory phase. No accessory muscle use. ABDOMEN: Abdomen is obese. Positive bowel sounds. Soft. Nontender. No obvious hepatosplenomegaly, however difficult to assess due to body habitus. EXTREMITIES: With trace bilateral lower extremity edema. Chronic venous stasis changes of the bilateral lower extremities. NEUROLOGIC: No unilateral weakness. Nonfocal. SKIN: Skin is warm and dry. LABORATORY DATA: WBC 9.4, hemoglobin 12.1, hematocrit 37.7, platelets 174. Sodium 132, potassium 4.1, chloride 99, carbon dioxide 28, BUN 31, creatinine 0.75, glucose 158, calcium 8.8, magnesium 1.8, total bilirubin 0.9, AST 46, ALT 22, alkaline phosphatase 204, total protein 6.0, albumin is 1.9. Blood cultures are negative after 42 hours times four. Peritoneal and pleural fluid cultures are pending. MRSA screen was negative. ASSESSMENT AND PLAN: 1. Sepsis. Source of sepsis is questionable. The patient was on outpatient antibiotics and then antibiotics as an inpatient before the peritoneal cultures were collected, therefore, we may not find a definite source. Spontaneous bacterial peritonitis is on the differential based on the patient's symptoms. Peritoneal fluid culture is currently pending. Blood cultures and pleural fluid cultures are also pending. The patient's pleural effusion was likely secondary to ascites. As noted, culture is pending. Urine culture is also pending. The patient remains on azithromycin, cefepime, vancomycin. Plan is to stop the azithromycin as the bugs are probably not atypical. We will check a chest x-ray and an ABG this morning. 2. Hyponatremia. This is likely secondary to volume status. Unfortunately, at the present time, we cannot diurese secondary to the patient's hypotension. He is still on pressors with Levophed. Continue to monitor closely and plan is to consider diuresis when the patient is more stable. 3. Liver failure/portal hypertension. The patient does have a history of nonalcoholic fatty liver disease. He will likely need a GI consultation when stable. 4. Hypotension. The patient is currently on Levophed. This is down to 5 mcg. Continue to monitor closely. Unfortunately, we cannot add IV fluids due to the patient's current volume status. 5. Morbid obesity. The patient also has probable underlying obstructive sleep apnea (VINOD). The patient has indicated that he probably would not wear them long-term. 6. Hypoalbuminemia. This is secondary to liver disease. The patient's diet has been restarted. May need to consider a trial of albumin and Lasix at some point. We will continue to monitor for now.
[2018-05-15] MEDS: PANTOPRAZOLE 40MG INJ (PROTONIX) (C9113) IV SCH (10:16)
[2018-05-15] MEDS: NYSTATIN 100,000 UNITS/GM TOPICAL PWD 15 GM TOP SCH ×2 (10:16→21:23)
[2018-05-15] MEDS: CEFEPIME HCL 1 GM in D5W MINI-BAG PLUS 50 ML IV SCH ×2 (10:16→21:22)
--- NOTE | 2018-05-15 10:32 | REP ---
Chest one-view HISTORY: Pleural effusion Comparison: 05/13/2018 Parenchymal density is present in the left lower lobe consistent with atelectasis or infiltrate. A small left pleural effusion is present unchanged compared to the previous study. The right lung is clear. The heart is normal in size. The pulmonary vasculature is normal in appearance. A catheter is present in the superior vena cava. Impression: 1. Left lower lobe atelectasis or infiltrate. 2. Small left pleural effusion unchanged compared to the previous study. Electronically Signed by Ermias Holman MD 05/15/2018 10:23 A
[2018-05-15 12:53] LABS: ABG BASE EXCESS 4.5 (-2.0-2.0); ABG HCO3 27.6 MEQ/L (22.0-26.0); ABG PARTIAL PRESSURE O2 65.1 mmHg (75.0-100.0); ABG STANDARD HCO3 28.4 MEQ/L (22.0-26.0); ABG TOTAL CO2 28.7 MEQ/L (23.0-31.0); ABG pH (ARTERIAL) 7.502 UNITS (7.350-7.450)
--- NOTE | 2018-05-15 20:10 | IPNPDOC ---
Date Seen The patient was seen on 05/15/18. Progress Note SUBJECTIVE: Pt examined at bedside in ICU this am. Is feeling much better, " better than ever." He continues on pressors, Levophed 5mcg this am, and still require supplemental O2 and now wears BiPAP with sleep. No issues overnight. PHYSICAL: Vitals: please see below General Exam: Alert, Cooperative, No Acute Distress Eye Exam: PERRLA, Conjunctiva & lids normal; anicteric sclera ENT Exam: Atraumatic, Mucous membr. moist/pink Neck Exam: Supple, unable to assess JVD due to body habitus Chest Exam: Diminished, limited due to large body habitus. No appreciable w/r/r Heart Exam: Rate Normal, Regular Rhythm, Normal S1, Normal S2 Telemetry: No significant arrhythmia Abdomen Exam: BS Hypoactive, Soft;Tenderness, Mass Extremity Exam: Edema trace b/l; no Clubbing, Cyanosis, Tenderness Skin Exam: Nl turgor and temperature; Neuro Exam: Normal Speech, Strength at 5/5 X4 ext Psych Exam: Mental status NL, Mood NL, Oriented x 3 A/P: Cirrhosis with severe ascites/pleural effusion pt is currently requiring 5mcg Levophed and plan to continue titrating down. Gutierrez weldon is doing better. Currently awaiting outpatient clinic records. Pt may benefit from paracentesis once he is more stable and off pressors SAAG is 1.1, suggesting high likelihood of ascites being from portal htn. Malignancy remains on differential as well Paracentesis fluid not consistent with SBP as his PMNs are 42. Low blood pressure shock vs impaired venous return from large vol of ascites improving on Levophed, continue titrating down blood cultures neg. Thoracentesis and paracentesis microbiology pending no identifiable infectious source. Abd fluid not consistent with SBP. Continue empiric Cefepime Hyperammonemia level at 45, but pt's mentation is intact and at baseline ammonia is expected to improve as we treat underlying source (infection, effusion, liver disease) Acute Hypoxic Resp Failure with hypercapnia resolved. Off bipap, now on 2L NC. NO O2 at baseline Pulm consulted, appreciate input. Hypoalbuminemia 2/2 cirrhosis and critical illness. May be 2/2 presumed FLOOD and AST has remained mildly elevated while admitted. Will wait for clinic records prior to starting inpatient workup to r/o other co-existing factors IDDM2 Home Toujeo and metformin and Byetta on hold. Continue insulin sliding scale and consistent carbohydrate diet inpatient. Hyperlipidemia Continue aspirin. Will hold statin given his liver decompensation CODE STATUS: DNR, DNI DVT prophylaxis: Heparin sc. On re-review of EKG, rhythm does not appear to be AFib, and unsure if he was truly in Afib in the ER. Has been discontinued off Xarelto DISPOSITION: closely monitor in ICU. Pending clinical improvement. VS, I&O, 24H, Fishbone Vital Signs/I&O Vital Signs Date Time Temp Pulse Resp B/P (MAP) Pulse Ox O2 Delivery O2 Flow Rate FiO2 05/15/18 12:00 97.2 89 14 95/54 (68) 97 2.0 05/14/18 23:10 Nasal Cannula 05/14/18 14:15 40 I&O- Last 24 Hours up to 6 AM 05/15/18 06:00 Intake Total 1565 ml Output Total 1285 ml Balance 280 ml Laboratory Data 24H LABS Laboratory Tests 2 05/14/18 17:38: Bedside Glucose (Misc Panel) 164H 05/14/18 20:02: Bedside Glucose (Misc Panel) 224H 05/14/18 22:55: Vancomycin Level Trough 15.0 05/15/18 04:36: Immature Granulocyte % (Auto) 0.3, White Blood Count 9.4, Red Blood Count 4.38, Hemoglobin 12.1L, Hematocrit 37.7L, Mean Corpuscular Volume 86.1, Mean Corpuscular Hemoglobin 27.6, Mean Corpuscular Hemoglobin Concent 32.1, Red Cell Distribution Width 17.8H, Platelet Count 174, Neutrophils (%) (Auto) 81.7H, Lymphocytes (%) (Auto) 9.0L, Monocytes (%) (Auto) 8.3H, Eosinophils (%) (Auto) 0.5, Basophils (%) (Auto) 0.2, Neutrophils # (Auto) 7.7, Lymphocytes # (Auto) 0.9L, Monocytes # (Auto) 0.8, Eosinophils # (Auto) 0.1, Basophils # (Auto) 0.0, Nucleated Red Blood Cells % (auto) 0.0, Anion Gap 5L, Glomerular Filtration Rate > 60.0, Blood Urea Nitrogen 31H, Creatinine 0.75, Sodium Level 132L, Potassium Level 4.1, Chloride Level 99, Carbon Dioxide Level 28, Calcium Level 8.8, Aspartate Amino Transf (AST/SGOT) 46H, Alanine Aminotransferase (ALT/SGPT) 22, Alkaline Phosphatase 204H, Total Bilirubin 0.9, Total Protein 6.0L, Albumin 1.9L, Magnesium Level 1.8, Albumin/Globulin Ratio 0.46L 05/15/18 08:55: Bedside Glucose (Misc Panel) 157H 05/15/18 12:02: Bedside Glucose (Misc Panel) 144H 05/15/18 12:12: Blood Gas Bicarbonate Standard 28.4H, Arterial Blood pH 7.502H, Arterial Blood Partial Pressure CO2 36.0, Arterial Blood Partial Pressure O2 65.1L, Arterial Blood Total CO2 28.7, Arterial Blood HCO3 27.6H, Arterial Blood Base Excess 4.5H, Arterial Blood Oxygen Saturation 93.0L CBC/BMP Laboratory Tests 05/15/18 04:36 Red Blood Count 4.38, Mean Corpuscular Volume 86.1, Mean Corpuscular Hemoglobin 27.6, Mean Corpuscular Hemoglobin Concent 32.1, Red Cell Distribution Width 17.8 H, Neutrophils (%) (Auto) 81.7 H, Lymphocytes (%) (Auto) 9.0 L, Monocytes (%) (Auto) 8.3 H, Eosinophils (%) (Auto) 0.5, Basophils (%) (Auto) 0.2, Neutrophils # (Auto) 7.7, Lymphocytes # (Auto) 0.9 L, Monocytes # (Auto) 0.8, Eosinophils # (Auto) 0.1, Basophils # (Auto) 0.0, Calcium Level 8.8, Aspartate Amino Transf (AST/SGOT) 46 H, Alanine Aminotransferase (ALT/SGPT) 22, Alkaline Phosphatase 204 H, Total Bilirubin 0.9, Total Protein 6.0 L, Albumin 1.9 L Microbiology Microbiology 05/13/18 Blood Culture - Preliminary, Resulted No Growth after 48 hours. All Specime... 05/13/18 Blood Culture - Preliminary, Resulted No Growth after 48 hours. All Specime... 05/12/18 Blood Culture - Preliminary, Resulted No Growth after 48 hours. All Specime... 05/12/18 Blood Culture - Preliminary, Resulted No Growth after 72 hours. All specime... 2/5/19 Acid Fast Stain, Received Pending 05/13/18 Mycobacterial Culture, Received Pending 05/13/18 Fungal Smear, Received Pending 05/13/18 Fungal Culture, Received Pending 05/13/18 Gram Stain - Final, Complete 05/13/18 Body Fluid Culture - Final, Complete 05/13/18 Anaerobic Culture - Final, Complete 05/12/18 Acid Fast Stain, Received Pending 05/12/18 Mycobacterial Culture, Received Pending 05/12/18 Fungal Smear, Received Pending 05/12/18 Fungal Culture, Received Pending 05/12/18 Gram Stain - Final, Complete 05/12/18 Anaerobic Culture - Final, Complete 05/12/18 Body Fluid Culture - Final, Complete 05/13/18 MRSA Screen - Final, Complete 05/13/18 Urine Culture - Final, Complete GME ATTESTATION GME ATTESTATION My faculty preceptor for this patient encounter was physically present during the encounter and was fully available. All aspects of the patient interview, examination, medical decision making process, and medical care plan development were reviewed and approved by the faculty preceptor. The faculty preceptor is aware and concurs with the plan as stated in the body of this note and will attest to such by his/her cosignature. APRYL MIRANDA DO May 15, 2018 13:55
[2018-05-16] VITALS (45 sets, daily range): BP systolic 75–116; BP diastolic 37–63
[2018-05-16] MEDS: IPRATROPIUM 0.5MG/ALBUTEROL 2.5MG INH SOL UD 3ML (DUONEB)(J7620) NEB SCH ×6 (03:47→23:32)
[2018-05-16 05:42] LABS: BASO % 0.3 % (0.0-1.0); EOS # 0.1 10^3/uL (0.0-0.50); EOS % 0.7 % (0.0-3.0); HEMATOCRIT 35.4 % (42.0-52.0); HEMOGLOBIN 11.7 g/dl (13.5-17.5); LYMPH # 0.8 10^3/uL (1.5-4.5); LYMPH % 9.3 % (24.0-44.0); MEAN CORPUSCULAR HEMOGLOBIN 27.8 pg (27.0-33.0); MEAN CORPUSCULAR HGB CONC 33.1 g/dl (32.0-36.5); MEAN CORPUSCULAR VOLUME 84.1 fl (80.0-96.0); MONO # 0.7 10^3/uL (0.0-0.8); MONO % 8.2 % (0.0-5.0); NEUTROPHILS % 81.2 % (36.0-66.0); PLATELET COUNT, AUTOMATED 176 10^3/uL (150-450); RED BLOOD COUNT 4.21 10^6/uL (4.30-6.10); WHITE BLOOD COUNT 8.7 10^3/uL (4.0-10.0)
[2018-05-16 06:03] LABS: ABG BASE EXCESS 4.3 (-2.0-2.0); ABG HCO3 27.1 MEQ/L (22.0-26.0); ABG O2 SATURATION 97.6 % (95.0-99.0); ABG PARTIAL PRESSURE CO2 34.3 mmHg (35.0-45.0); ABG PARTIAL PRESSURE O2 95.6 mmHg (75.0-100.0); ABG STANDARD HCO3 28.3 MEQ/L (22.0-26.0); ABG TOTAL CO2 28.1 MEQ/L (23.0-31.0); ABG pH (ARTERIAL) 7.515 UNITS (7.350-7.450)
[2018-05-16 06:14] LABS: ALBUMIN 1.9 GM/DL (3.2-5.2); ALT/SGPT 25 U/L (12-78); BILIRUBIN,TOTAL 0.8 MG/DL (0.2-1.0); BLOOD UREA NITROGEN 28 MG/DL (7-18); CARBON DIOXIDE LEVEL 29 MEQ/L (21-32); CHLORIDE LEVEL 97 MEQ/L (98-107); CREATININE FOR GFR 0.66 MG/DL (0.70-1.30); GLOMERULAR FILTRATION RATE > 60.0 (>49); GLUCOSE, FASTING 155 MG/DL (70-100); POTASSIUM SERUM 4.4 MEQ/L (3.5-5.1); SODIUM LEVEL 131 MEQ/L (136-145); TOTAL PROTEIN 5.7 GM/DL (6.4-8.2)
[2018-05-16] MEDS: HEPARIN SOD (PORCINE) 5000 UNITS/ML VIAL SQ SCH ×3 (06:18→21:41)
[2018-05-16] MEDS: HumaLOG INSULIN (NovoLOG) PER UNIT SC SCH ×4 (07:30→21:00)
[2018-05-16] MEDS: NYSTATIN 100,000 UNITS/GM TOPICAL PWD 15 GM TOP SCH ×2 (08:32→21:41)
[2018-05-16] MEDS: CEFEPIME HCL 1 GM in D5W MINI-BAG PLUS 50 ML IV SCH (08:32)
[2018-05-16] MEDS: PANTOPRAZOLE 40MG INJ (PROTONIX) (C9113) IV SCH (08:32)
--- NOTE | 2018-05-16 11:08 | IPN ---
DATE: 05/16/2018 PROGRESS NOTE: Mr. Bellamy reports that he had a difficult time with his bilevel positive airway pressure (BiPAP) overnight. It is very uncomfortable for him to wear but he reports no chest pain, shortness of breath or other problems. He also reports that he has been trying not to drink as much but that he is not tolerating the Ensure as they are too sweet for him. PHYSICAL EXAMINATION: VITAL SIGNS: Temperature of 97.6, pulse of 83, respiratory rate of 16, blood pressure of 106/51, pulse oximetry 93% on 2 liters. GENERAL: Patient is resting comfortably in bed, in no acute distress. HEENT: Normocephalic, atraumatic. Extraocular muscles intact (EOMI). Sclerae nonicteric. Mucous membranes are moist. NECK: No obvious jugular venous distention (JVD) present likely secondary body habitus. No tracheal deviation. CARDIOVASCULAR: Regular rate and rhythm. Normal S1, S2. No murmurs appreciated. RESPIRATORY: Breath sounds are distant but clear to auscultation bilaterally. There are fine crackles still present in the left lung bases. No prolongation of expiratory phase or accessory muscle use. ABDOMEN: Morbidly obese. Soft. Nontender. Nondistended. Bowel sounds present. EXTREMITIES: Still with some trace lower extremity edema bilaterally. Chronic venous stasis changes in left greater than right lower extremity. NEUROLOGIC: No focal deficits or unilateral weakness. SKIN: Is warm and dry. LABORATORY DATA: White blood cell count of 8.7, hemoglobin of 11.7, hematocrit of 35.4, platelets of 176. Sodium of 131, potassium 4.4, chloride of 97, CO2 of 29, BUN of 28, creatinine of 0.66, glucose of 155. AST of 51, ALT of 25, alkaline phosphatase of 199. ABG shows pH of 7.51, pCO2 of 34.4, pO2 of 95.6. Albumin is 1.9. Blood cultures still negative to date. MRSA screen negative. Pathology for pleural fluid specimen shows mesothelial cells noted on background of macrophages lymphocytes, blood elements in blood. No malignancy identified. Urine culture negative. Peritoneal fluid is negative for infection currently. ASSESSMENT AND PLAN: 1. Sepsis. Currently patient is on cefepime and can stay on that. We will consider de-escalation pending the results of the procalcitonin. Azithromycin and vancomycin have been discontinued. Repeat imaging done yesterday showed left lower lobe atelectasis or infiltrate, small left pleural effusion. The pleural effusion is still likely due to his portal hypertension. Although blood cultures have still have been negative today, this is likely because he was treated with antibiotics prior to admission. 2. Hypotension. Currently, he is on 2 mcg of Levophed. This could still be due to his sepsis. We are exploring other possible causes such as adrenal insufficiency, so we are checking an a.m. cortisol and giving him a trial of hydrocortisone every 8 hours to see if his blood pressure improves. We are titrating the Levophed to a mean arterial pressure (MAP) of 60-65. 3. Hyponatremia. He still exhibits a mild hyponatremia. We are ordering urine studies, including a urine sodium, serum osmolality and a urine osmolality to assess the possible cause for this. 4. Portal hypertension. Currently treatments for portal hypertension can be explored as his blood pressure is too low. He will again likely need a GI consult when he is more stable. 5. Hypoalbuminemia. We are changing his diet currently. The Ensure that he was on only had 8 grams of protein so we are putting in a dietary consult to have them help with adding more protein to his diet. 6. Morbid obesity. Given that he was not tolerating BiPAP well and may not need it anymore, we will try for auto CPAP for suspected obstructive sleep apnea for tonight. My faculty preceptor for this patient encounter was physically present during the encounter and was fully available. All aspects of the patient interview, examination, medical decision making process, and medical care plan development were reviewed and approved by the faculty preceptor. The faculty preceptor is aware and concurs with the plan as stated in the body of this note and will attest to such by his/her co-signature. SHAYY
[2018-05-16] MEDS: HYDROCORTISONE 100 MG/2 ML VIAL (J1720) IV SCH ×2 (12:55→18:14)
[2018-05-16 14:36] LABS: OSMOLALITY URINE 677 MOSM/KG (500-800)
[2018-05-16 14:42] LABS: SODIUM,RANDOM URINE < 10 MEQ/L
[2018-05-16] MEDS: cefTRIAXone SOD 2 GM in D5W MINI-BAG PLUS 50 ML IV SCH (15:01)
--- NOTE | 2018-05-16 17:04 | IPNPDOC ---
Date Seen The patient was seen on 05/16/18. Progress Note SUBJECTIVE: Pt examined at bedside in ICU this am. Is feeling good overall. No reported events overnight. He continues on pressors, down to 2-4mcg Levophed. Still requiring supplemental O2, and wears BiPAP with sleep. no f/c/n/v/abd pain/blurred vision. PHYSICAL: Vitals: please see below General Exam: Alert, Cooperative, No Acute Distress Eye Exam: PERRLA, Conjunctiva & lids normal; anicteric sclera ENT Exam: Atraumatic, Mucous membr. moist/pink Neck Exam: Supple, unable to assess JVD due to body habitus Chest Exam: Diminished sounds due to large body habitus. Mild crackles b/l bases Heart Exam: Rate Normal, Regular Rhythm, Normal S1, Normal S2 Abdomen Exam: BS normoactive, Soft; no tenderness or mass Extremity Exam: Edema trace b/l; no Clubbing, Cyanosis, Tenderness Skin Exam: Nl turgor and temperature; lipodermatosclerosis present b/l LE, left>right Neuro Exam: Normal Speech, Strength at 5/5 X4 ext Psych Exam: Mental status NL, Mood NL, Oriented x 3 A/P: Cirrhosis with severe ascites/pleural effusion pt still requiring 2-4mcg Levophed. Continue titrating down to maintain MAP>65. Overall is doing better. Currently awaiting outpatient clinic records prior to additional cirrhosis workup once he is off pressors. Cause may be 2/2 hx of NAFLD. Pt may benefit from paracentesis once he is more stable SAAG is 1.1, suggesting high likelihood of ascites being from portal htn. Malignancy remains on differential as well MELD-Na score of 18. Will obtain GI consult once he is stable Paracentesis fluid not consistent with SBP as his PMNs are 42. Fluid cultures pending Systemic Hypotension shock vs impaired venous return from large volume of ascites and systemic vasodilation in cirrhosis improving on Levophed, continue titrating down blood cultures neg. Thoracentesis and paracentesis microbiology pending no identifiable infectious source. Abd fluid not consistent with SBP. Continue empiric abx Hyponatremia likely 2/2 underlying cirrhosis/ascites and inability to excrete free water pt asymptomatic with level at 131 today. He will likely not tolerate diuresis or albumin infusion given his effusion and ascites & hypotension hyponatremia may also improve once paracentesis is done, but currently not hemodynamically stable for procedure further osmolarity workup pending Hypoalbuminemia 2/2 cirrhosis and critical illness. May be 2/2 presumed FLOOD and AST has remained mildly elevated while admitted. Will wait for clinic records prior to starting inpatient workup to r/o other co-existing factors ------ Hyperammonemia level at 45, but pt's mentation is intact and at baseline ammonia is expected to improve as we treat underlying source (infection, effusion, liver disease) Acute Hypoxic Resp Failure with hypercapnia resolved. Off bipap, now on 2L NC. NO O2 at baseline Pulm consulted, appreciate input. IDDM2 Home Toujeo and metformin and Byetta on hold. Continue insulin sliding scale and consistent carbohydrate diet inpatient. Hyperlipidemia ASA & statin on hold given acute decompensation CODE STATUS: DNR, DNI DVT prophylaxis: Heparin sc. DISPOSITION: closely monitor in ICU. Pending clinical improvement. VS, I&O, 24H, Fishbone Vital Signs/I&O Vital Signs Date Time Temp Pulse Resp B/P (MAP) Pulse Ox O2 Delivery O2 Flow Rate FiO2 05/16/18 12:30 99 19 101/54 (70) 93 2.0 05/16/18 12:00 97.6 05/16/18 05:31 35 05/15/18 19:36 Nasal Cannula I&O- Last 24 Hours up to 6 AM 05/16/18 06:00 Intake Total 1102 ml Output Total 1235 ml Balance -133 ml Laboratory Data 24H LABS Laboratory Tests 2 05/15/18 17:09: Bedside Glucose (Misc Panel) 143H 05/15/18 20:45: Bedside Glucose (Misc Panel) 162H 05/16/18 05:23: Immature Granulocyte % (Auto) 0.3, White Blood Count 8.7, Red Blood Count 4.21L, Hemoglobin 11.7L, Hematocrit 35.4L, Mean Corpuscular Volume 84.1, Mean Corpuscular Hemoglobin 27.8, Mean Corpuscular Hemoglobin Concent 33.1, Red Cell Distribution Width 17.7H, Platelet Count 176, Neutrophils (%) (Auto) 81.2H, Lymphocytes (%) (Auto) 9.3L, Monocytes (%) (Auto) 8.2H, Eosinophils (%) (Auto) 0.7, Basophils (%) (Auto) 0.3, Neutrophils # (Auto) 7.0, Lymphocytes # (Auto) 0.8L, Monocytes # (Auto) 0.7, Eosinophils # (Auto) 0.1, Basophils # (Auto) 0.0, Nucleated Red Blood Cells % (auto) 0.0, Blood Gas Bicarbonate Standard 28.3H, Arterial Blood pH 7.515H, Arterial Blood Partial Pressure CO2 34.3L, Arterial Blood Partial Pressure O2 95.6, Arterial Blood Total CO2 28.1, Arterial Blood HCO3 27.1H, Arterial Blood Base Excess 4.3H, Arterial Blood Oxygen Saturation 97.6, Anion Gap 5L, Glomerular Filtration Rate > 60.0, Blood Urea Nitrogen 28H, Creatinine 0.66L, Sodium Level 131L, Potassium Level 4.4, Chloride Level 97L, Carbon Dioxide Level 29, Calcium Level 9.0, Aspartate Amino Transf (AST/SGOT) 51H, Alanine Aminotransferase (ALT/SGPT) 25, Alkaline Phosphatase 199H, Total Bilirubin 0.8, Total Protein 5.7L, Albumin 1.9L, Magnesium Level 2.0, Albumin/Globulin Ratio 0.50L 05/16/18 12:11: Bedside Glucose (Misc Panel) 159H 05/16/18 13:53: Urine Random Osmolality 677 CBC/BMP Laboratory Tests 05/16/18 05:23 Red Blood Count 4.21 L, Mean Corpuscular Volume 84.1, Mean Corpuscular Hemoglobin 27.8, Mean Corpuscular Hemoglobin Concent 33.1, Red Cell Distribution Width 17.7 H, Neutrophils (%) (Auto) 81.2 H, Lymphocytes (%) (Auto) 9.3 L, Monocytes (%) (Auto) 8.2 H, Eosinophils (%) (Auto) 0.7, Basophils (%) (Auto) 0.3 , Neutrophils # (Auto) 7.0, Lymphocytes # (Auto) 0.8 L, Monocytes # (Auto) 0.7, Eosinophils # (Auto) 0.1, Basophils # (Auto) 0.0, Calcium Level 9.0, Aspartate Amino Transf (AST/SGOT) 51 H, Alanine Aminotransferase (ALT/SGPT) 25, Alkaline Phosphatase 199 H, Total Bilirubin 0.8, Total Protein 5.7 L, Albumin 1.9 L Microbiology Microbiology 05/13/18 Blood Culture - Preliminary, Resulted No Growth after 72 hours. All specime... 05/13/18 Blood Culture - Preliminary, Resulted No Growth after 72 hours. All specime... 05/12/18 Blood Culture - Preliminary, Resulted No Growth after 72 hours. All specime... 05/12/18 Blood Culture - Preliminary, Resulted No Growth after 72 hours. All specime... 05/13/18 Acid Fast Stain, Received Pending 05/13/18 Mycobacterial Culture, Received Pending 05/13/18 Fungal Smear, Received Pending 05/13/18 Fungal Culture, Received Pending 05/13/18 Gram Stain - Final, Complete 05/13/18 Body Fluid Culture - Final, Complete 05/13/18 Anaerobic Culture - Final, Complete 05/12/18 Acid Fast Stain, Received Pending 05/12/18 Mycobacterial Culture, Received Pending 05/12/18 Fungal Smear, Received Pending 05/12/18 Fungal Culture, Received Pending 05/12/18 Gram Stain - Final, Complete 05/12/18 Anaerobic Culture - Final, Complete 05/12/18 Body Fluid Culture - Final, Complete 05/13/18 MRSA Screen - Final, Complete 05/13/18 Urine Culture - Final, Complete GME ATTESTATION GME ATTESTATION My faculty preceptor for this patient encounter was physically present during the encounter and was fully available. All aspects of the patient interview, examination, medical decision making process, and medical care plan development were reviewed and approved by the faculty preceptor. The faculty preceptor is aware and concurs with the plan as stated in the body of this note and will attest to such by his/her cosignature. APRYL MIRANDA DO May 16, 2018 17:04
[2018-05-16] MEDS: ACETAMINOPHEN TAB 650MG DOSE (2X325MG) PO PRN (18:42)
[2018-05-16] MEDS: NOREPINEPHRINE BITARTRATE 8 MG in D5W 492 ML IV SCH (22:10)
[2018-05-17] VITALS (26 sets, daily range): BP systolic 90–113; BP diastolic 50–62
[2018-05-17] MEDS: HYDROCORTISONE 100 MG/2 ML VIAL (J1720) IV SCH ×3 (03:41→18:44)
[2018-05-17] MEDS: IPRATROPIUM 0.5MG/ALBUTEROL 2.5MG INH SOL UD 3ML (DUONEB)(J7620) NEB SCH ×6 (04:10→23:49)
[2018-05-17 05:34] LABS: EOS % 0.3 % (0.0-3.0); HEMATOCRIT 30.8 % (42.0-52.0); HEMOGLOBIN 10.1 g/dl (13.5-17.5); LYMPH # 0.7 10^3/uL (1.5-4.5); LYMPH % 8.9 % (24.0-44.0); MEAN CORPUSCULAR HGB CONC 32.8 g/dl (32.0-36.5); MEAN CORPUSCULAR VOLUME 85.3 fl (80.0-96.0); MONO # 0.6 10^3/uL (0.0-0.8); MONO % 6.9 % (0.0-5.0); NEUTROPHILS # 6.6 10^3/uL (1.8-7.7); NEUTROPHILS % 83.4 % (36.0-66.0); PLATELET COUNT, AUTOMATED 134 10^3/uL (150-450); RED BLOOD COUNT 3.61 10^6/uL (4.30-6.10)
[2018-05-17 05:52] LABS: ALBUMIN 1.9 GM/DL (3.2-5.2); ALT/SGPT 26 U/L (12-78); BILIRUBIN,TOTAL 0.6 MG/DL (0.2-1.0); BLOOD UREA NITROGEN 28 MG/DL (7-18); CALCIUM LEVEL 8.7 MG/DL (8.8-10.2); CARBON DIOXIDE LEVEL 30 MEQ/L (21-32); CHLORIDE LEVEL 98 MEQ/L (98-107); CREATININE FOR GFR 0.68 MG/DL (0.70-1.30); GLOMERULAR FILTRATION RATE > 60.0 (>49); GLUCOSE, FASTING 154 MG/DL (70-100); MAGNESIUM LEVEL 1.9 MG/DL (1.8-2.4); POTASSIUM SERUM 4.5 MEQ/L (3.5-5.1); SODIUM LEVEL 132 MEQ/L (136-145)
[2018-05-17] MEDS: HEPARIN SOD (PORCINE) 5000 UNITS/ML VIAL SQ SCH ×3 (07:26→22:54)
[2018-05-17] MEDS: PANTOPRAZOLE 40MG INJ (PROTONIX) (C9113) IV SCH (08:05)
[2018-05-17] MEDS: HumaLOG INSULIN (NovoLOG) PER UNIT SC SCH ×4 (08:05→21:00)
[2018-05-17] MEDS: NYSTATIN 100,000 UNITS/GM TOPICAL PWD 15 GM TOP SCH ×2 (08:05→22:22)
--- NOTE | 2018-05-17 12:47 | IPNPDOC ---
Date Seen The patient was seen on 05/17/18. Progress Note SUBJECTIVE: Pt examined at bedside in ICU this am. Is feeling good overall. No reported events overnight. No longer on Levophed. Still requiring supplemental O2 at 2L NC, and wears BiPAP with sleep. no f/c/n/v/abd pain/blurred vision. PHYSICAL: Vitals: please see below General Exam: Alert, Cooperative, No Acute Distress Eye Exam: PERRLA, Conjunctiva & lids normal; anicteric sclera ENT Exam: Atraumatic, Mucous membr. moist/pink Neck Exam: Supple, unable to assess JVD due to body habitus Chest Exam: Diminished sounds due to large body habitus. Mild crackles b/l bases Heart Exam: Rate Normal, Regular Rhythm, Normal S1, Normal S2 Abdomen Exam: BS normoactive, Soft; no tenderness or mass Extremity Exam: Edema trace b/l; no Clubbing, Cyanosis, Tenderness Skin Exam: Nl turgor and temperature; lipodermatosclerosis present b/l LE, left>right Neuro Exam: Normal Speech, Strength at 5/5 X4 ext Psych Exam: Mental status NL, Mood NL, Oriented x 3 A/P: Cirrhosis with severe ascites/pleural effusion Pt is now off pressors as of this am. Overall is doing better. PCP records do not reveal a cirrhosis workup, thus we will obtain one inpatient. Cause may be 2/2 hx of NAFLD. Will also obtain RUQ US to better assess ascites and adenopathy noted on previous imaging Will consider paracentesis as needed for therapeutic purpose, but currently, pt is doing well SAAG is 1.1, suggesting high likelihood of ascites being from portal htn. Malignancy remains on differential as well MELD-Na score of 18. Will obtain GI consult once he is stable Paracentesis fluid not consistent with SBP as his PMNs are 42. Fluid cultures pending, blood cultures negative. Less likely infectious Systemic Hypotension resolved, pt off pressors as of this am shock vs impaired venous return from large volume of ascites and systemic vasodilation in cirrhosis no identifiable infectious source. Abd fluid not consistent with SBP. Continue empiric abx-on Ceftriaxone per Critical Care Hyponatremia likely 2/2 underlying cirrhosis/ascites and inability to excrete free water pt asymptomatic with level at 132 today. hyponatremia may also improve once paracentesis is done, but pt will await till he is more stable to avoid hypotension, as he was taken off pressors this am Hypoalbuminemia likely 2/2 cirrhosis and critical illness. May be 2/2 presumed FLOOD and AST has remained mildly elevated while admitted. Cirrhosis workup pending ------ Hyperammonemia level at 45, but pt's mentation is intact and at baseline ammonia is expected to improve as we treat underlying source (infection, effusion, liver disease) Acute Hypoxic Resp Failure with hypercapnia resolved. Off bipap, now on 2L NC. NO O2 at baseline Pulm consulted, appreciate input. IDDM2 Home Toujeo and metformin and Byetta on hold. Continue insulin sliding scale and consistent carbohydrate diet inpatient. Hyperlipidemia ASA & statin on hold given acute decompensation CODE STATUS: DNR, DNI DVT prophylaxis: Heparin sc. DISPOSITION: Pending clinical improvement and cirrhosis workup. VS, I&O, 24H, Fishbone Vital Signs/I&O Vital Signs Date Time Temp Pulse Resp B/P (MAP) Pulse Ox O2 Delivery O2 Flow Rate FiO2 05/17/18 10:01 94 109/50 (69) 91 2.0 05/17/18 08:01 97.6 20 05/16/18 05:31 35 05/15/18 19:36 Nasal Cannula I&O- Last 24 Hours up to 6 AM 05/17/18 06:00 Intake Total 1275 ml Output Total 600 ml Balance 675 ml Laboratory Data 24H LABS Laboratory Tests 2 05/16/18 13:53: Urine Random Osmolality 677, Urine Random Sodium < 10 05/16/18 15:03: Osmolality 291 05/16/18 17:28: Bedside Glucose (Misc Panel) 216H 05/16/18 21:17: Bedside Glucose (Misc Panel) 203H 05/17/18 05:12: Immature Granulocyte % (Auto) 0.5, White Blood Count 8.0, Red Blood Count 3.61L, Hemoglobin 10.1L, Hematocrit 30.8L, Mean Corpuscular Volume 85.3, Mean Corpuscular Hemoglobin 28.0, Mean Corpuscular Hemoglobin Concent 32.8, Red Cell Distribution Width 17.3H, Platelet Count 134L, Neutrophils (%) (Auto) 83.4H, Lymphocytes (%) (Auto) 8.9L, Monocytes (%) (Auto) 6.9H, Eosinophils (%) (Auto) 0.3, Basophils (%) (Auto) 0.0, Neutrophils # (Auto) 6.6, Lymphocytes # (Auto) 0.7L, Monocytes # (Auto) 0.6, Eosinophils # (Auto) 0.0, Basophils # (Auto) 0.0, Nucleated Red Blood Cells % (auto) 0.0, Anion Gap 4L, Glomerular Filtration Rate > 60.0, Blood Urea Nitrogen 28H, Creatinine 0.68L, Sodium Level 132L, Potassium Level 4.5, Chloride Level 98, Carbon Dioxide Level 30, Calcium Level 8.7L, Aspartate Amino Transf (AST/SGOT) 46H, Alanine Aminotransferase (ALT/SGPT) 26, Alkaline Phosphatase 213H, Total Bilirubin 0.6, Total Protein 6.0L, Albumin 1.9L, Magnesium Level 1.9, Albumin/Globulin Ratio 0.46L 05/17/18 05:25: 05/17/18 11:53: Bedside Glucose (Misc Panel) 152H CBC/BMP Laboratory Tests 05/17/18 05:12 Red Blood Count 3.61 L, Mean Corpuscular Volume 85.3, Mean Corpuscular Hemoglobin 28.0, Mean Corpuscular Hemoglobin Concent 32.8, Red Cell Distribution Width 17.3 H, Neutrophils (%) (Auto) 83.4 H, Lymphocytes (%) (Auto) 8.9 L, Monocytes (%) (Auto) 6.9 H, Eosinophils (%) (Auto) 0.3, Basophils (%) (Auto) 0.0, Neutrophils # (Auto) 6.6, Lymphocytes # (Auto) 0.7 L, Monocytes # (Auto) 0.6, Eosinophils # (Auto) 0.0, Basophils # (Auto) 0.0, Calcium Level 8.7 L, Aspartate Amino Transf (AST/SGOT) 46 H, Alanine Aminotransferase (ALT/SGPT) 26, Alkaline Phosphatase 213 H, Total Bilirubin 0.6, Total Protein 6.0 L, Albumin 1.9 L Microbiology Microbiology 05/13/18 Blood Culture - Preliminary, Resulted No Growth after 72 hours. All specime... 05/13/18 Blood Culture - Preliminary, Resulted No Growth after 72 hours. All specime... 05/12/18 Blood Culture - Preliminary, Resulted No Growth after 72 hours. All specime... 05/12/18 Blood Culture - Final, Complete NO GROWTH AFTER 5 DAYS 05/13/18 Acid Fast Stain, Received Pending 05/13/18 Mycobacterial Culture, Received Pending 05/13/18 Fungal Smear, Received Pending 05/13/18 Fungal Culture, Received Pending 05/13/18 Gram Stain - Final, Complete 05/13/18 Body Fluid Culture - Final, Complete 05/13/18 Anaerobic Culture - Final, Complete 05/12/18 Acid Fast Stain, Received Pending 05/12/18 Mycobacterial Culture, Received Pending 05/12/18 Fungal Smear, Received Pending 05/12/18 Fungal Culture, Received Pending 05/12/18 Gram Stain - Final, Complete 05/12/18 Anaerobic Culture - Final, Complete 05/12/18 Body Fluid Culture - Final, Complete 05/13/18 MRSA Screen - Final, Complete 05/13/18 Urine Culture - Final, Complete GME ATTESTATION GME ATTESTATION My faculty preceptor for this patient encounter was physically present during the encounter and was fully available. All aspects of the patient interview, examination, medical decision making process, and medical care plan development were reviewed and approved by the faculty preceptor. The faculty preceptor is aware and concurs with the plan as stated in the body of this note and will attest to such by his/her cosignature. APRYL MIRANDA DO May 17, 2018 12:47
[2018-05-17 13:56] LABS: PERCENT SATURATION 12.3 % (19.7-50.0)
--- NOTE | 2018-05-17 14:40 | CCN ---
DATE: 05/17/2018 The patient was seen and examined this morning during bedside rounds. The patient was attempted on auto CPAP last night; however, he had difficulty with the size of the face mask and discomfort wearing the mask. He did feel that the pressures were more tolerable with the CPAP than it was with the BiPAP; however, he was unable to tolerate the face mask and so had taken off the CPAP around 3:00 a.m. He otherwise reports that he has no chest pain. No shortness of breath. No coughing. No abdominal pain. No nausea or vomiting. He had no fevers or chills overnight. The patient was able to be weaned off of Levophed yesterday in the evening and he has been off of Levophed overnight and maintaining a blood pressure. The patient had his Stover removed yesterday; however, he feels that he has no urge to urinate and has not actually urinated since yesterday evening. PHYSICAL EXAMINATION: VITAL SIGNS: Temperature is 97.7, pulse 82, respirations 20, blood pressure 102/59, oxygen saturation 93% on 2 liters nasal cannula. The patient is net negative 685 mL GENERAL: Patient is a morbidly obese man sitting in bed comfortably and in no acute distress. He is able to converse in complete sentences. HEENT: Normocephalic, atraumatic. No scleral icterus. Mucous membranes are moist. NECK: Neck is thick. No obvious jugular venous distention (JVD). No cervical lymphadenopathy. CARDIAC: Regular rate and rhythm. Normal S1, S2. No murmurs appreciated. RESPIRATORY: Lungs are mostly clear to auscultation except for some rare occasional crackles at the bases with some decreased breath sounds at the left base. ABDOMEN: Morbidly obese. Soft. Nontender. EXTREMITIES: Trace lower extremity edema bilaterally and some chronic venous stasis changes of the left greater than the right. There is some mild anasarca noted. LABORATORY DATA: WBC 8.0, hemoglobin 10.1, platelets 134. Chemistry: Sodium 132, potassium 4.5, chloride 98, bicarbonate 30, BUN 28, creatinine 0.68, glucose 154. Serum osmolarity 291, urine osmolality 677, urine sodium less than 10, AM cortisol pending; however, it was drawn after he received hydrocortisone. ASSESSMENT AND PLAN: The patient is a 67-year-old male with a history of hypertension, hyperlipidemia, diabetes, possible nonalcoholic fatty liver disease. He presented initially with increasing shortness of breath and was found to have a large left sided pleural effusion, status post drainage. The patient also did have ascites on examination and evidence of cirrhosis on imaging. 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 The patient also had a diagnostic paracentesis done to evaluate for possible spontaneous bacterial peritonitis; however, it was done after he had already received antibiotics. The patient was hypotensive requiring pressors, likely in the setting of decompensated cirrhosis, as well as sepsis from possible SBP. The patient's cultures have all been no growth to date. He was continuing to require pressures and was having difficulty weaning off of the Levophed. The patient was given hydrocortisone for possible adrenal insufficiency, and was able to be weaned off of the Levophed later on in the afternoon. An AM cortisol was attempted to be added on to his AM laboratories; however, it is currently resulting after he had already received the hydrocortisone, so will be inaccurate. We will continue with the steroids for likely 3 day course and continue to monitor his blood pressures. In terms of the antibiotics, the patient was deescalated to ceftriaxone. Would treat for 7 days total for possible SBP versus possible pneumonia. The patient has a new diagnosis of cirrhosis, has not apparently been worked up before and is unclear where his diagnosis of non alcoholic fatty liver disease is from. He did have negative hepatitis serologies on this admission, but he will need more complete workup for his cirrhosis, including abdominal imaging. The patient continues to have hyponatremia, likely in the setting of his cirrhosis and acute decompensation. His urine osmolality was elevated and his urine sodium was low with a normal serum osmolarity. Unclear if some of the results have been altered as he did have the urine lytes checked after he received hydrocortisone. would continue to monitor his sodium and cont with gentle fluid restrictions and monitor his input and output at this time. The patient was on BiPAP for acute hypercarbic respiratory failure. He likely does have some obstructive sleep apnea given his body habitus. The patient was trialed on auto CPAP last night; however, he was unable to tolerate due to the face mask. Would see if there is a nasal mask available for the patient to try for his auto CPAP at night. However, it is questionable if he will continue with CPAP on an outpatient basis, although he was urged to get followup with a formal sleep study as an outpatient. The patient is FULL CODE. Total critical care time spent, not including any procedures, was approximately 35 minutes. If there are any further questions and concerns please do not hesitate to call. SHAYY
[2018-05-17] MEDS: cefTRIAXone SOD 2 GM in D5W MINI-BAG PLUS 50 ML IV SCH (14:50)
[2018-05-17] MEDS ORDERED: LIDOCAINE 2% 5ML JELLY UROJET TOP ONE (21:45)
[2018-05-18] VITALS (8 sets, daily range): BP systolic 104–125; BP diastolic 49–59
[2018-05-18] MEDS: HYDROCORTISONE 100 MG/2 ML VIAL (J1720) IV SCH ×3 (03:59→18:02)
[2018-05-18] MEDS: IPRATROPIUM 0.5MG/ALBUTEROL 2.5MG INH SOL UD 3ML (DUONEB)(J7620) NEB SCH ×6 (04:26→23:46)
[2018-05-18] MEDS: HEPARIN SOD (PORCINE) 5000 UNITS/ML VIAL SQ SCH ×3 (05:28→21:04)
[2018-05-18 05:49] LABS: BASO % 0.1 % (0.0-1.0); EOS % 0.3 % (0.0-3.0); HEMATOCRIT 34.8 % (42.0-52.0); HEMOGLOBIN 11.4 g/dl (13.5-17.5); LYMPH # 0.7 10^3/uL (1.5-4.5); LYMPH % 6.8 % (24.0-44.0); MEAN CORPUSCULAR HGB CONC 32.8 g/dl (32.0-36.5); MEAN CORPUSCULAR VOLUME 85.5 fl (80.0-96.0); MONO # 0.7 10^3/uL (0.0-0.8); MONO % 6.4 % (0.0-5.0); NEUTROPHILS # 8.7 10^3/uL (1.8-7.7); NEUTROPHILS % 85.9 % (36.0-66.0); PLATELET COUNT, AUTOMATED 156 10^3/uL (150-450); RED BLOOD COUNT 4.07 10^6/uL (4.30-6.10); WHITE BLOOD COUNT 10.1 10^3/uL (4.0-10.0)
[2018-05-18 06:15] LABS: ALBUMIN 1.9 GM/DL (3.2-5.2); ALT/SGPT 26 U/L (12-78); BILIRUBIN,TOTAL 0.5 MG/DL (0.2-1.0); BLOOD UREA NITROGEN 28 MG/DL (7-18); CALCIUM LEVEL 8.9 MG/DL (8.8-10.2); CARBON DIOXIDE LEVEL 28 MEQ/L (21-32); CHLORIDE LEVEL 98 MEQ/L (98-107); GLOMERULAR FILTRATION RATE > 60.0 (>49); GLUCOSE, FASTING 152 MG/DL (70-100); MAGNESIUM LEVEL 2.1 MG/DL (1.8-2.4); POTASSIUM SERUM 4.7 MEQ/L (3.5-5.1); SODIUM LEVEL 132 MEQ/L (136-145); TOTAL PROTEIN 6.1 GM/DL (6.4-8.2)
--- NOTE | 2018-05-18 07:02 | IPNPDOC ---
Text Note Date of Service The patient was seen on 05/18/18. NOTE SUBJECTIVE: Pt seen and examined at bedside. No acute overnight events reported. Patient continues to feel better, with no new medical complaints this morning. Objective: Vitals: please see below General: NAD, lying comfortably in bed HEENT: NC/AT, EOMI, PERRL Lungs: CTA B/L Heart: +S1S2, RRR Abd: soft, obese, NT, +BS Ext: chronic venous stasis changes A/P: 67 yo male with PMHx HTN, HLD, DM, possible FLOOD presented for SOB, found have large left pleural effusion s/p drainage, complicated with hypotension req uiring presser support. #SOB - large left pleural effusion s/p drainage - likely hepatic hydrothorax - SAAG 1.4 - saturating well on room air - CPAP at night - likely VINOD/OHS - outpatient testing, could check nocturnal oximetry inpatient - acute hypoxic hypercapnic respiratory failure - improving - Pulm consulted, appreciate input. #hypotension - off presser support over 24 hours - continuing with stress dose steroid therapy likely 2 more days - appreciate critical care consultation #cirrhosis - unclear regarding outpatient workup - results of US are pending - liver pathology w/u pending - questionable SBP on admission - low neutrocytic peritoneal fluid - completing antimicrobial therapy with ceftriaxone day#3, (prior: completed cefepime x 3 days with azithromycin x 2 days) - cultures unrevealing thus far #hyponatremia - in the setting of liver cirrhosis - continue with fluid restriction - asymptomatic - continue to monitor #Hypoalbuminemia - high protein diet #Hyperammonemia - was mildly elevated - mentation is intact and at baseline #IDDM2 - Home Toujeo and metformin and Byetta on hold - Continue insulin sliding scale and consistent carbohydrate diet inpatient. #Hyperlipidemia #DVT prophylaxis - heparin SC #CODE STATUS - DNR/DNI DISPOSITION: Transfer to PCU, pending liver workup, further clinical improvement, PT/OT VS,Fishbone, I+O VS, Fishbone, I+O Vital Signs Date Time Temp Pulse Resp B/P (MAP) Pulse Ox O2 Delivery O2 Flow Rate FiO2 05/18/18 04:00 97.9 83 16 109/57 (74) 93 2.0 05/17/18 20:40 Nasal Cannula 05/16/18 05:31 35 I&O- Last 24 Hours up to 6 AM 05/18/18 06:00 Intake Total 930 ml Output Total 1330 ml Balance -400 ml LESLYE TURNER MD May 18, 2018 05:39
[2018-05-18] MEDS: PANTOPRAZOLE 40MG INJ (PROTONIX) (C9113) IV SCH (08:12)
[2018-05-18] MEDS: HumaLOG INSULIN (NovoLOG) PER UNIT SC SCH ×4 (08:12→20:49)
[2018-05-18] MEDS: NYSTATIN 100,000 UNITS/GM TOPICAL PWD 15 GM TOP SCH ×2 (08:12→21:04)
[2018-05-18] MEDS: cefTRIAXone SOD 2 GM in D5W MINI-BAG PLUS 50 ML IV SCH (14:20)
[2018-05-18] MEDS: ACETAMINOPHEN TAB 650MG DOSE (2X325MG) PO PRN (14:39)
[2018-05-19] VITALS (10 sets, daily range): BP systolic 101–121; BP diastolic 52–64
[2018-05-19] MEDS: HYDROCORTISONE 100 MG/2 ML VIAL (J1720) IV SCH ×2 (02:49→14:49)
[2018-05-19] MEDS: IPRATROPIUM 0.5MG/ALBUTEROL 2.5MG INH SOL UD 3ML (DUONEB)(J7620) NEB SCH ×5 (03:48→20:39)
[2018-05-19] MEDS: HEPARIN SOD (PORCINE) 5000 UNITS/ML VIAL SQ SCH ×3 (05:20→21:03)
[2018-05-19] MEDS: HumaLOG INSULIN (NovoLOG) PER UNIT SC SCH ×4 (07:30→21:00)
[2018-05-19] MEDS: NYSTATIN 100,000 UNITS/GM TOPICAL PWD 15 GM TOP SCH ×2 (09:26→21:02)
[2018-05-19] MEDS: PANTOPRAZOLE 40MG INJ (PROTONIX) (C9113) IV SCH (09:26)
[2018-05-19 09:52] LABS: BASO % 0.1 % (0.0-1.0); HEMATOCRIT 39.7 % (42.0-52.0); HEMOGLOBIN 12.5 g/dl (13.5-17.5); LYMPH # 0.8 10^3/uL (1.5-4.5); LYMPH % 6.9 % (24.0-44.0); MEAN CORPUSCULAR HEMOGLOBIN 27.6 pg (27.0-33.0); MEAN CORPUSCULAR HGB CONC 31.5 g/dl (32.0-36.5); MEAN CORPUSCULAR VOLUME 87.6 fl (80.0-96.0); MONO # 0.8 10^3/uL (0.0-0.8); MONO % 6.9 % (0.0-5.0); NEUTROPHILS # 9.9 10^3/uL (1.8-7.7); NEUTROPHILS % 85.7 % (36.0-66.0); PLATELET COUNT, AUTOMATED 198 10^3/uL (150-450); RED BLOOD COUNT 4.53 10^6/uL (4.30-6.10); WHITE BLOOD COUNT 11.6 10^3/uL (4.0-10.0)
--- NOTE | 2018-05-19 09:56 | REP ---
ABDOMINAL ULTRASOUND: Real-time sonographic evaluation of abdomen performed. Multiple small stones and sludge seen in the gallbladder without gallbladder wall thickening. There is no intrahepatic biliary dilatation. Common bile duct is upper limits of normal in caliber at 7 mm. Liver is diffusely heterogeneous and coarse in echotexture with hepatomegaly. Length in the mid clavicular line is 22.1 cm. No gross liver mass is seen. Pancreas could not be seen due to overlying bowel gas. Spleen is enlarged measuring 18.1 cm in length. Right kidney measures 14.3 x 7.1 x 5.2 cm and left kidney 15.4 x 5.0 x 6.8 cm. There is an area of fluid along the lower pole of the left kidney which could represent a cyst versus ascites fluid, with approximate diameter 7-8 cm. There is no hydronephrosis bilaterally. Proximal abdominal aorta is normal in caliber at 2.2 cm but the distal aspect could not be seen due to overlying bowel gas. Moderate diffuse ascites is present. There is a right pleural effusion noted. Study is limited due to patient body habitus. IMPRESSION: Stones and sludge in the gallbladder without gallbladder wall thickening. Moderate abdominal ascites. Right pleural effusion. Common bile duct upper limits of normal at 7 mm. Echotexture of the liver is heterogeneous. There is hepatosplenomegaly. Electronically Signed by Burak Hyatt MD 05/19/2018 10:38 P
[2018-05-19 10:11] LABS: ALBUMIN 2.1 GM/DL (3.2-5.2); ALT/SGPT 32 U/L (12-78); BILIRUBIN,TOTAL 0.6 MG/DL (0.2-1.0); BLOOD UREA NITROGEN 27 MG/DL (7-18); CALCIUM LEVEL 9.6 MG/DL (8.8-10.2); CARBON DIOXIDE LEVEL 27 MEQ/L (21-32); CHLORIDE LEVEL 99 MEQ/L (98-107); CREATININE FOR GFR 0.76 MG/DL (0.70-1.30); GLOMERULAR FILTRATION RATE > 60.0 (>49); GLUCOSE, FASTING 193 MG/DL (70-100); MAGNESIUM LEVEL 1.9 MG/DL (1.8-2.4); POTASSIUM SERUM 4.6 MEQ/L (3.5-5.1); SODIUM LEVEL 131 MEQ/L (136-145); TOTAL PROTEIN 6.4 GM/DL (6.4-8.2)
[2018-05-19] MEDS: cefTRIAXone SOD 2 GM in D5W MINI-BAG PLUS 50 ML IV SCH (14:49)
[2018-05-19 16:40] LABS: APPEARANCE, BODY FLUID CLEAR (CLEAR); ASCITES FL COLOR PALE YELLOW (COLORLESS); SOURCE, BODY FLUID ASCITES
--- NOTE | 2018-05-19 20:52 | IPNPDOC ---
Date Seen The patient was seen on 05/19/18. Progress Note SUBJECTIVE: Pt examined at bedside in ICU this am, is PCU status. Still requiring supplemental O2, and complaining of abd tightness and fullness, likely from ascites. No reported events overnight. no f/c/n/v/abd pain/blurred vision. PHYSICAL: Vitals: please see below General Exam: Alert, Cooperative, No Acute Distress Eye Exam: PERRLA, Conjunctiva & lids normal; anicteric sclera ENT Exam: Atraumatic, Mucous membr. moist/pink Neck Exam: Supple, unable to assess JVD due to body habitus Chest Exam: Diminished sounds due to large body habitus. Mild crackles R base>L Heart Exam: Rate Normal, Regular Rhythm, Normal S1, Normal S2 Abdomen Exam: obese, normoactive BS, slightly tense, no tenderness or mass Extremity Exam: Edema trace b/l; no Clubbing, Cyanosis, Tenderness Skin Exam: Nl turgor and temperature; lipodermatosclerosis present b/l LE, left>right Neuro Exam: Normal Speech, Strength at 5/5 X4 ext Psych Exam: Mental status NL, Mood NL, Oriented x 3 A/P: Cirrhosis with severe ascites/pleural effusion s/p levophed from systemic hypotension. Cirrhosis workup pending RUQ US confirms mod ascites and rt pleural effusion, heterogeneous liver Will attempt therapeutic paracentesis & fluid analysis today given pt's abd discomfort and firm abd SAAG is 1.1-1.4, suggesting high likelihood of ascites being from portal htn. Malignancy remains on differential as well MELD-Na score of 18. Will obtain GI consult once workup results Paracentesis fluid not consistent with SBP as his PMNs are 42. Fluid cultures pending, blood cultures negative. Less likely infectious. Cultures negative thus far Systemic Hypotension resolved, off pressors as of 05/17 shock vs impaired venous return from large volume of ascites and systemic vasodilation in cirrhosis no identifiable infectious source. Abd fluid not consistent with SBP. Continue empiric abx-on Ceftriaxone per Critical Care. On Abx since 05/13 continue taper down Hydrocortisone Hyponatremia likely 2/2 underlying cirrhosis/ascites and inability to excrete free water pt asymptomatic with level at 131 today. Continue fluid restriction hyponatremia may also improve once paracentesis is done. Consider giving albumin infusion if tolerable Hypoalbuminemia likely 2/2 cirrhosis and critical illness. May be 2/2 presumed FLOOD and AST has remained mildly elevated while admitted. Cirrhosis workup pending high protein diet ------ Hyperammonemia level at 45, but pt's mentation is intact and at baseline ammonia is expected to improve as we treat underlying source (infection, effusion, liver disease) Acute Hypoxic Resp Failure with hypercapnia resolved. Off bipap, now on 2L NC. NO O2 at baseline Pulm consulted, appreciate input. IDDM2 Home Toujeo and metformin and Byetta on hold. Continue insulin sliding scale and consistent carbohydrate diet inpatient. Hyperlipidemia ASA & statin on hold given acute decompensation CODE STATUS: DNR, DNI DVT prophylaxis: Heparin sc. DISPOSITION: Pending clinical improvement, cirrhosis workup, PT/OT. VS, I&O, 24H, Fishbone Vital Signs/I&O Vital Signs Date Time Temp Pulse Resp B/P (MAP) Pulse Ox O2 Delivery O2 Flow Rate FiO2 05/19/18 04:00 2.0 05/19/18 04:00 97.7 85 16 121/53 (75) 92 05/18/18 23:40 Nasal Cannula 05/16/18 05:31 35 I&O- Last 24 Hours up to 6 AM 05/19/18 05:59 Intake Total 1610 ml Output Total 745 ml Balance 865 ml Laboratory Data 24H LABS Laboratory Tests 2 05/18/18 16:50: Bedside Glucose (Misc Panel) 231H 05/18/18 20:39: Bedside Glucose (Misc Panel) 219H 05/19/18 08:08: Bedside Glucose (Misc Panel) 148H 05/19/18 09:24: Immature Granulocyte % (Auto) 0.4, White Blood Count 11.6H, Red Blood Count 4.53, Hemoglobin 12.5L, Hematocrit 39.7L, Mean Corpuscular Volume 87.6, Mean Corpuscular Hemoglobin 27.6, Mean Corpuscular Hemoglobin Concent 31.5L, Red Cell Distribution Width 17.7H, Platelet Count 198, Neutrophils (%) (Auto) 85.7H, Lymphocytes (%) (Auto) 6.9L, Monocytes (%) (Auto) 6.9H, Eosinophils (%) (Auto) 0.0, Basophils (%) (Auto) 0.1, Neutrophils # (Auto) 9.9H, Lymphocytes # (Auto) 0.8L, Monocytes # (Auto) 0.8, Eosinophils # (Auto) 0.0, Basophils # (Auto) 0.0, Nucleated Red Blood Cells % (auto) 0.0, Anion Gap 5L, Glomerular Filtration Rate > 60.0, Blood Urea Nitrogen 27H, Creatinine 0.76, Sodium Level 131L, Potassium Level 4.6, Chloride Level 99, Carbon Dioxide Level 27, Calcium Level 9.6, Aspartate Amino Transf (AST/SGOT) 46H, Alanine Aminotransferase (ALT/SGPT) 32, Alkaline Phosphatase 212H, Total Bilirubin 0.6, Total Protein 6.4, Albumin 2.1L, Magnesium Level 1.9, Albumin/Globulin Ratio 0.49L 05/19/18 12:09: Bedside Glucose (Misc Panel) 153H CBC/BMP Laboratory Tests 05/19/18 09:24 Red Blood Count 4.53, Mean Corpuscular Volume 87.6, Mean Corpuscular Hemoglobin 27.6, Mean Corpuscular Hemoglobin Concent 31.5 L, Red Cell Distribution Width 17.7 H, Neutrophils (%) (Auto) 85.7 H, Lymphocytes (%) (Auto) 6.9 L, Monocytes (%) (Auto) 6.9 H, Eosinophils (%) (Auto) 0.0, Basophils (%) (Auto) 0.1, Neutro phils # (Auto) 9.9 H, Lymphocytes # (Auto) 0.8 L, Monocytes # (Auto) 0.8, Eosinophils # (Auto) 0.0, Basophils # (Auto) 0.0, Calcium Level 9.6, Aspartate Amino Transf (AST/SGOT) 46 H, Alanine Aminotransferase (ALT/SGPT) 32, Alkaline Phosphatase 212 H, Total Bilirubin 0.6, Total Protein 6.4, Albumin 2.1 L Microbiology Microbiology 05/13/18 Blood Culture - Final, Complete NO GROWTH AFTER 5 DAYS 05/13/18 Blood Culture - Final, Complete NO GROWTH AFTER 5 DAYS 05/12/18 Blood Culture - Final, Complete NO GROWTH AFTER 5 DAYS 05/12/18 Blood Culture - Final, Complete NO GROWTH AFTER 5 DAYS 05/13/18 Acid Fast Stain, Received Pending 05/13/18 Mycobacterial Culture, Received Pending 05/13/18 Fungal Smear, Received Pending 05/13/18 Fungal Culture, Received Pending 05/13/18 Gram Stain - Final, Complete 05/13/18 Body Fluid Culture - Final, Complete 05/13/18 Anaerobic Culture - Final, Complete 05/12/18 Acid Fast Stain, Received Pending 05/12/18 Mycobacterial Culture, Received Pending 05/12/18 Fungal Smear, Received Pending 05/12/18 Fungal Culture, Received Pending 05/12/18 Gram Stain - Final, Complete 05/12/18 Anaerobic Culture - Final, Complete 05/12/18 Body Fluid Culture - Final, Complete 05/13/18 MRSA Screen - Final, Complete 05/13/18 Urine Culture - Final, Complete GME ATTESTATION GME ATTESTATION My faculty preceptor for this patient encounter was physically present during the encounter and was fully available. All aspects of the patient interview, examination, medical decision making process, and medical care plan development were reviewed and approved by the faculty preceptor. The faculty preceptor is aware and concurs with the plan as stated in the body of this note and will attest to such by his/her cosignature. APRYL MIRANDA DO May 19, 2018 14:47
[2018-05-20] VITALS: BP 110/64
[2018-05-20] MEDS: IPRATROPIUM 0.5MG/ALBUTEROL 2.5MG INH SOL UD 3ML (DUONEB)(J7620) NEB SCH ×7 (01:03→23:48)
[2018-05-20] MEDS: ACETAMINOPHEN TAB 650MG DOSE (2X325MG) PO PRN (01:21)
[2018-05-20] MEDS: HYDROCORTISONE 100 MG/2 ML VIAL (J1720) IV SCH (02:24)
[2018-05-20 04:00] VITALS: BP 101/60
[2018-05-20] MEDS: HEPARIN SOD (PORCINE) 5000 UNITS/ML VIAL SQ SCH ×3 (05:28→20:34)
[2018-05-20 08:24] VITALS: BP 101/58
[2018-05-20] MEDS: PANTOPRAZOLE 40MG INJ (PROTONIX) (C9113) IV SCH (08:44)
[2018-05-20] MEDS: HumaLOG INSULIN (NovoLOG) PER UNIT SC SCH ×4 (08:45→20:27)
[2018-05-20] MEDS: NYSTATIN 100,000 UNITS/GM TOPICAL PWD 15 GM TOP SCH ×2 (08:45→20:35)
[2018-05-20 09:37] LABS: MEAN CORPUSCULAR HEMOGLOBIN 28.1 pg (27.0-33.0); MEAN CORPUSCULAR HGB CONC 31.7 g/dl (32.0-36.5); MEAN CORPUSCULAR VOLUME 88.6 fl (80.0-96.0); PLATELET COUNT, AUTOMATED 192 10^3/uL (150-450); RED BLOOD COUNT 4.63 10^6/uL (4.30-6.10)
[2018-05-20 10:01] LABS: ALBUMIN 2.2 GM/DL (3.2-5.2); ALT/SGPT 37 U/L (12-78); BILIRUBIN,TOTAL 0.6 MG/DL (0.2-1.0); BLOOD UREA NITROGEN 26 MG/DL (7-18); CALCIUM LEVEL 9.9 MG/DL (8.8-10.2); CARBON DIOXIDE LEVEL 27 MEQ/L (21-32); CHLORIDE LEVEL 99 MEQ/L (98-107); CREATININE FOR GFR 0.73 MG/DL (0.70-1.30); GLOMERULAR FILTRATION RATE > 60.0 (>49); GLUCOSE, FASTING 193 MG/DL (70-100); POTASSIUM SERUM 4.8 MEQ/L (3.5-5.1); SODIUM LEVEL 131 MEQ/L (136-145); TOTAL PROTEIN 6.5 GM/DL (6.4-8.2)
--- NOTE | 2018-05-20 10:33 | REP ---
Ultrasound-guided paracentesis The procedure was performed under the direct supervision of Dr. Hyatt. The risks and benefits of the procedure were explained to the patient and informed consent was obtained. The largest pocket of fluid was localized in the right flank using ultrasound guidance. The skin was prepped and draped in a sterile fashion. 1% lidocaine was used as a local anesthetic. An 8-[place] multi side-hole catheter was inserted using trocar technique. 3400 ml of clear yellow fluid was withdrawn with a sample sent to lab for analysis. The patient tolerated the procedure well and there were no immediate complications. After the appropriate amount of monitored convalescence the patient was discharged from the department. Reviewed by SAMINA Reyes 05/19/2018 05:19 P Electronically Signed by Burak Hyatt MD 05/20/2018 10:25 A
--- NOTE | 2018-05-20 10:59 | IPNPDOC ---
Date Seen The patient was seen on 05/20/18. Progress Note SUBJECTIVE: Pt examined at bedside in ICU this am, is PCU status. Still requiring supplemental O2. Feeling better after paracentesis yesterday. No reported events overnight. no f/c/n/v/abd pain/blurred vision. PHYSICAL: Vitals: please see below General Exam: Alert, Cooperative, No Acute Distress Eye Exam: PERRLA, Conjunctiva & lids normal ENT Exam: Atraumatic, Mucous membr. moist/pink Neck Exam: Supple, unable to assess JVD due to body habitus Chest Exam: Diminished sounds due to large body habitus. Mild crackles R base>L Heart Exam: Rate Normal, Regular Rhythm, Normal S1, Normal S2 Abdomen Exam: obese, normoactive BS, soft, no tenderness or mass Extremity Exam: no edema; no Clubbing, Cyanosis, Tenderness Skin Exam: Nl turgor and temperature; lipodermatosclerosis present b/l LE, left>right Neuro Exam: Normal Speech, Strength at 5/5 X4 ext Psych Exam: Mental status NL, Mood NL, Oriented x 3 A/P: Cirrhosis with severe ascites/pleural effusion cirrhosis workup pending: thus far, +for anemia of chronic disease, hx of NAFLD RUQ US confirms mod ascites and rt pleural effusion, heterogeneous liver. Pt is s/p left thoracentesis & Paracentesis x2 this admission tolerated second paracentesis well yesterday, with 3.4L removed. Has 44 PMNs, not consistent with SBP. Neg for growth SAAG is 1.1-1.4, suggesting high likelihood of ascites from portal htn. Malignancy remains on differential as well. Pt updated on results and guarded long-term prognosis MELD-Na score of 18. Will obtain GI consult once workup results Cultures negative thus far. Less likely infectious Hyponatremia likely 2/2 underlying cirrhosis/ascites and inability to excrete free water pt asymptomatic with level at 132 today. Continue fluid restriction continue clinical monitoring Systemic Hypotension resolved, off Levophed as of 05/17 shock vs impaired venous return from large volume of ascites and systemic vasodilation in cirrhosis no identifiable infectious source. Abd fluid not consistent with SBP. Continue empiric abx-on Ceftriaxone per Critical Care. On Abx since 05/13 continue taper down Hydrocortisone Hypoalbuminemia likely 2/2 cirrhosis and critical illness. May be 2/2 presumed FLOOD and AST has remained mildly elevated while admitted. Cirrhosis workup pending high protein diet ------ Hyperammonemia level at 45, but pt's mentation is intact and at baseline ammonia is expected to improve as we treat underlying source (infection, effusion, liver disease) Acute Hypoxic Resp Failure with hypercapnia resolved. Off bipap, now on 2L NC. NO O2 at baseline IDDM2 Home Toujeo and metformin and Byetta on hold. Continue insulin sliding scale and consistent carbohydrate diet inpatient. Hyperlipidemia ASA & statin on hold given acute decompensation Hypertension soft bp and s/p pressors. Will continue holding home fosinopril and Lasix CODE STATUS: DNR, DNI DVT prophylaxis: Heparin sc. DISPOSITION: Pending clinical improvement, cirrhosis workup, PT/OT. Downgrade to general floor. VS, I&O, 24H, Fishbone Vital Signs/I&O Vital Signs Date Time Temp Pulse Resp B/P (MAP) Pulse Ox O2 Delivery O2 Flow Rate FiO2 05/20/18 08:24 97.0 93 20 101/58 (72) 92 2.0 05/18/18 23:40 Nasal Cannula 05/16/18 05:31 35 I&O- Last 24 Hours up to 6 AM 05/20/18 06:00 Intake Total 1310 ml Output Total 1125 ml Balance 185 ml Laboratory Data 24H LABS Laboratory Tests 2 05/19/18 12:09: Bedside Glucose (Misc Panel) 153H 05/19/18 15:57: Body Fluid Source ASCITES, Body Fluid Color PALE YELLOW, Body Fluid Appearance CLEAR, Body Fluid WBC (Auto) 321H, Body Fluid RBC (Auto) < 2, Body Fluid Mononuclear Cells % Auto 85.7H, Fluid Polymorphonuclear Cell % Auto 14.3H 05/19/18 17:05: Bedside Glucose (Misc Panel) 167H 05/19/18 20:57: Bedside Glucose (Misc Panel) 169H 05/20/18 02:25: Urine Color YELLOW, Urine Appearance HAZY, Urine pH 5.0, Urine Specific [place] 1.021, Urine Protein 1+H, Urine Glucose (UA) NEGATIVE, Urine Ketones NEGATIVE, Urine Blood 3+H, Urine Nitrite NEGATIVE, Urine Bilirubin NEGATIVE, Urine Urobilinogen 0.2, Urine Leukocyte Esterase TRACEH, Urine WBC (Auto) 11H, Urine RBC (Auto) TNTCH, Urine Hyaline Casts (Auto) 4, Urine Bacteria (Auto) NEGATIVE, Urine Squamous Epithelial Cells 0, Urine Mucus (Auto) SMALL, Urine Sperm (Auto) 05/20/18 08:23: Bedside Glucose (Misc Panel) 148H 05/20/18 09:11: Nucleated Red Blood Cells % (auto) 0.0, Anion Gap 5L, Glomerular Filtration Rate > 60.0, Blood Urea Nitrogen 26H, Creatinine 0.73, Sodium Level 131L, Potassium Level 4.8, Chloride Level 99, Carbon Dioxide Level 27, Calcium Level 9.9, Aspa rtate Amino Transf (AST/SGOT) 56H, Alanine Aminotransferase (ALT/SGPT) 37, Alkaline Phosphatase 243H, Total Bilirubin 0.6, Total Protein 6.5, Albumin 2.2L, Albumin/Globulin Ratio 0.51L CBC/BMP Laboratory Tests 05/20/18 09:11 Red Blood Count 4.63, Mean Corpuscular Volume 88.6, Mean Corpuscular Hemoglobin 28.1, Mean Corpuscular Hemoglobin Concent 31.7 L, Red Cell Distribution Width 18.0 H, Calcium Level 9.9, Aspartate Amino Transf (AST/SGOT) 56 H, Alanine Aminotransferase (ALT/SGPT) 37, Alkaline Phosphatase 243 H, Total Bilirubin 0.6, Total Protein 6.5, Albumin 2.2 L Microbiology Microbiology 05/13/18 Blood Culture - Final, Complete NO GROWTH AFTER 5 DAYS 05/13/18 Blood Culture - Final, Complete NO GROWTH AFTER 5 DAYS 05/12/18 Blood Culture - Final, Complete NO GROWTH AFTER 5 DAYS 05/12/18 Blood Culture - Final, Complete NO GROWTH AFTER 5 DAYS 05/19/18 Gram Stain - Final, Resulted 05/19/18 Body Fluid Culture, Resulted Pending 05/13/18 Acid Fast Stain, Received Pending 05/13/18 Mycobacterial Culture, Received Pending 05/13/18 Fungal Smear, Received Pending 05/13/18 Fungal Culture, Received Pending 05/13/18 Gram Stain - Final, Complete 05/13/18 Body Fluid Culture - Final, Complete 05/13/18 Anaerobic Culture - Final, Complete 05/12/18 Acid Fast Stain, Received Pending 05/12/18 Mycobacterial Culture, Received Pending 05/12/18 Fungal Smear, Received Pending 05/12/18 Fungal Culture, Received Pending 05/12/18 Gram Stain - Final, Complete 05/12/18 Anaerobic Culture - Final, Complete 05/12/18 Body Fluid Culture - Final, Complete 05/13/18 MRSA Screen - Final, Complete 05/20/18 Urine Culture, Received Pending 05/13/18 Urine Culture - Final, Complete GME ATTESTATION GME ATTESTATION My faculty preceptor for this patient encounter was physically present during the encounter and was fully available. All aspects of the patient interview, examination, medical decision making process, and medical care plan development were reviewed and approved by the faculty preceptor. The faculty preceptor is aware and concurs with the plan as stated in the body of this note and will attest to such by his/her cosignature. APRYL MIRANDA DO May 20, 2018 10:59
[2018-05-20] MEDS ORDERED: ATORVASTATIN 20 MG TAB PO SCH (11:00)
[2018-05-20 12:26] VITALS: BP 120/63
[2018-05-20] MEDS: ASPIRIN 81 MG CHEW TABLET PO SCH ×2 (13:07→20:34)
[2018-05-20 14:58] LABS: CERULOPLASMIN 32.6 mg/dL (16.0-31.0)
[2018-05-20 16:33] VITALS: BP 113/53
[2018-05-20] MEDS: cefTRIAXone SOD 2 GM in D5W MINI-BAG PLUS 50 ML IV SCH (16:44)
[2018-05-20] MEDS ORDERED: FUROSEMIDE 40 MG TAB PO SCH (17:00)
[2018-05-20 20:00] VITALS: BP 127/58
[2018-05-21] VITALS: BP 123/61
[2018-05-21] MEDS: HYDROCORTISONE 100 MG/2 ML VIAL (J1720) IV SCH ×2 (00:03→12:02)
[2018-05-21 00:11] LABS: ANTI-SMOOTH MUSCLE ANTIBODY 23 Units (0-19); ANTINUCLEAR ANTIBODIES DIRECT Negative (Negative); LIVER-KIDNEY MICROSOMAL ABY <20.1 Units (0.0-20.0); TRANSFERRIN 164 mg/dL (200-370)
[2018-05-21 04:00] VITALS: BP 105/57
[2018-05-21] MEDS: IPRATROPIUM 0.5MG/ALBUTEROL 2.5MG INH SOL UD 3ML (DUONEB)(J7620) NEB SCH ×6 (04:25→23:38)
[2018-05-21 04:35] LABS: HEMATOCRIT 36.2 % (42.0-52.0); HEMOGLOBIN 11.7 g/dl (13.5-17.5); MEAN CORPUSCULAR HEMOGLOBIN 28.1 pg (27.0-33.0); MEAN CORPUSCULAR HGB CONC 32.3 g/dl (32.0-36.5); PLATELET COUNT, AUTOMATED 163 10^3/uL (150-450); RED BLOOD COUNT 4.16 10^6/uL (4.30-6.10); WHITE BLOOD COUNT 9.6 10^3/uL (4.0-10.0)
[2018-05-21 04:58] LABS: ALBUMIN 1.9 GM/DL (3.2-5.2); ALT/SGPT 34 U/L (12-78); BILIRUBIN,TOTAL 0.6 MG/DL (0.2-1.0); BLOOD UREA NITROGEN 25 MG/DL (7-18); CALCIUM LEVEL 9.3 MG/DL (8.8-10.2); CARBON DIOXIDE LEVEL 28 MEQ/L (21-32); CHLORIDE LEVEL 98 MEQ/L (98-107); CREATININE FOR GFR 0.64 MG/DL (0.70-1.30); GLOMERULAR FILTRATION RATE > 60.0 (>49); GLUCOSE, FASTING 167 MG/DL (70-100); POTASSIUM SERUM 4.6 MEQ/L (3.5-5.1); SODIUM LEVEL 132 MEQ/L (136-145)
[2018-05-21] MEDS: HEPARIN SOD (PORCINE) 5000 UNITS/ML VIAL SQ SCH ×3 (06:10→21:17)
[2018-05-21] MEDS: HumaLOG INSULIN (NovoLOG) PER UNIT SC SCH ×4 (07:52→20:16)
[2018-05-21 08:00] VITALS: BP 101/61
[2018-05-21] MEDS: TAMSULOSIN 0.4 MG CAP PO SCH (09:50)
[2018-05-21] MEDS: ASPIRIN 81 MG CHEW TABLET PO SCH ×2 (09:50→20:23)
[2018-05-21] MEDS: SPIRONOLACTONE 50 MG TAB PO SCH (09:50)
[2018-05-21] MEDS: PANTOPRAZOLE 40MG INJ (PROTONIX) (C9113) IV SCH (09:50)
[2018-05-21] MEDS: FUROSEMIDE 40 MG TAB PO SCH (09:51)
[2018-05-21] MEDS: NYSTATIN 100,000 UNITS/GM TOPICAL PWD 15 GM TOP SCH ×2 (09:51→20:23)
[2018-05-21] MEDS ORDERED: DOCUSATE SODIUM 100 MG CAP PO PRN (11:30)
[2018-05-21 12:00] VITALS: BP 122/54
[2018-05-21] MEDS: cefTRIAXone SOD 2 GM in D5W MINI-BAG PLUS 50 ML IV SCH (14:03)
[2018-05-21 16:00] VITALS: BP 91/62
--- NOTE | 2018-05-21 16:58 | IPNPDOC ---
Date Seen The patient was seen on 05/21/18. Progress Note SUBJECTIVE: Pt examined at bedside in ICU this am, was downgraded to MedSurg status yesterday. Still requiring supplemental O2, progressing very slowly with PT/OT. No issues overnight. no f/c/n/v/abd pain/blurred vision. PHYSICAL: Vitals: please see below General Exam: Alert, Cooperative, No Acute Distress Eye Exam: PERRLA, Conjunctiva & lids normal ENT Exam: Atraumatic, Mucous membr. moist/pink Neck Exam: Supple, unable to assess JVD due to body habitus Chest Exam: Diminished sounds due to large body habitus. Crackles R base>L Heart Exam: Rate Normal, Regular Rhythm, Normal S1, Normal S2 Abdomen Exam: obese, normoactive BS, soft, no tenderness or mass Extremity Exam: no edema; no Clubbing, Cyanosis, Tenderness Skin Exam: Nl turgor and temperature; lipodermatosclerosis present b/l LE, left>right Neuro Exam: Normal Speech, Strength at 5/5 X4 ext Psych Exam: Mental status NL, Mood NL, Oriented x 3 A/P: Cirrhosis with severe ascites/pleural effusion cirrhosis workup: +for anemia of chronic disease, hx of NAFLD. Borderline elevated AntiSm Ab, titers have been ordered s/p paracentesis x2. Has 44 PMNs, not consistent with SBP. Neg for growth. Less likely infectious SAAG is 1.1-1.4, suggesting high likelihood of ascites being from portal htn. Malignancy remains on differential as well MELD-Na score of 18. Will need o/p GI f/u, & Hep A&B vaccinations Is hemodynamically stable. Will start on Lasix & Spironolactone with hold parameters and close monitoring of bp no signs of bleeding. Stable H&H Urinary Retention failed previous voiding trial, requiring Stover reinsertion. Output is clear urine. No pelvic/abd/bladder pain Started on Flomax today and will reattempt voiding trial tomorrow Hyponatremia likely 2/2 underlying cirrhosis/ascites and inability to excrete free water pt asymptomatic with level at 132 today. Continue fluid restriction continue clinical monitoring Systemic Hypotension resolved, off Levophed as of 05/17 shock vs impaired venous return from large volume of ascites and systemic vasodilation in cirrhosis no identifiable infectious source. Abd fluid not consistent with SBP. On Ceftriaxone per Critical Care-will d/c today. On Abx since 05/13. continue taper down Hydrocortisone-will complete taper tomorrow Hypoalbuminemia likely 2/2 cirrhosis and critical illness. May be 2/2 presumed FLOOD and AST has remained mildly elevated while admitted. high protein diet ------ Hyperammonemia level at 45, but pt's mentation is intact and at baseline ammonia is expected to improve as we treat underlying source (infection, effusion, liver disease) Acute Hypoxic Resp Failure with hypercapnia resolved. Off bipap, now on 2L NC. NO O2 at baseline IDDM2 Home Toujeo and metformin and Byetta on hold. Continue insulin sliding scale and consistent carbohydrate diet inpatient. Hyperlipidemia ASA & statin on hold given acute decompensation Hypertension controlled. Monitor CODE STATUS: DNR, DNI DVT prophylaxis: Heparin sc. DISPOSITION: Pending PT/OT. Monitor bp and urine o/p. PFS for placement, ARU vs subacute rehab. VS, I&O, 24H, Fishbone Vital Signs/I&O Vital Signs Date Time Temp Pulse Resp B/P (MAP) Pulse Ox O2 Delivery O2 Flow Rate FiO2 05/21/18 16:00 97.5 91 22 91/62 (72) 91 2.0 05/18/18 23:40 Nasal Cannula 05/16/18 05:31 35 I&O- Last 24 Hours up to 6 AM 05/21/18 05:59 Intake Total 1730 ml Output Total 1430 ml Balance 300 ml Laboratory Data 24H LABS Laboratory Tests 2 05/20/18 20:25: Bedside Glucose (Misc Panel) 230H 05/21/18 04:04: Nucleated Red Blood Cells % (auto) 0.0, Anion Gap 6L, Glomerular Filtration Rate > 60.0, Blood Urea Nitrogen 25H, Creatinine 0.64L, Sodium Level 132L, Potassium Level 4.6, Chloride Level 98, Carbon Dioxide Level 28, Calcium Level 9.3, Aspartate Amino Transf (AST/SGOT) 49H, Alanine Aminotransferase (ALT/SGPT) 34, Alkaline Phosphatase 214H, Total Bilirubin 0.6, Total Protein 6.0L, Albumin 1.9L, Albumin/Globulin Ratio 0.46L 05/21/18 11:52: Bedside Glucose (Misc Panel) 138H CBC/BMP Laboratory Tests 05/21/18 04:04 Red Blood Count 4.16 L, Mean Corpuscular Volume 87.0, Mean Corpuscular Hemoglobin 28.1, Mean Corpuscular Hemoglobin Concent 32.3, Red Cell Distribution Width 17.5 H, Calcium Level 9.3, Aspartate Amino Transf (AST/SGOT) 49 H, Alanine Aminotransferase (ALT/SGPT) 34, Alkaline Phosphatase 214 H, Total Bilirubin 0.6, Total Protein 6.0 L, Albumin 1.9 L Microbiology Microbiology 05/13/18 Blood Culture - Final, Complete NO GROWTH AFTER 5 DAYS 05/13/18 Blood Culture - Final, Complete NO GROWTH AFTER 5 DAYS 05/12/18 Blood Culture - Final, Complete NO GROWTH AFTER 5 DAYS 05/12/18 Blood Culture - Final, Complete NO GROWTH AFTER 5 DAYS 05/19/18 Gram Stain - Final, Complete 05/19/18 Body Fluid Culture - Final, Complete 05/13/18 Acid Fast Stain, Received Pending 05/13/18 Mycobacterial Culture, Received Pending 05/13/18 Fungal Smear, Received Pending 05/13/18 Fungal Culture, Received Pending 05/13/18 Gram Stain - Final, Complete 05/13/18 Body Fluid Culture - Final, Complete 05/13/18 Anaerobic Culture - Final, Complete 05/12/18 Acid Fast Stain, Received Pending 05/12/18 Mycobacterial Culture, Received Pending 05/12/18 Fungal Smear, Received Pending 05/12/18 Fungal Culture, Received Pending 05/12/18 Gram Stain - Final, Complete 05/12/18 Anaerobic Culture - Final, Complete 05/12/18 Body Fluid Culture - Final, Complete 05/13/18 MRSA Screen - Final, Complete 05/20/18 Urine Culture, Received Pending 05/13/18 Urine Culture - Final, Complete GME ATTESTATION GME ATTESTATION My faculty preceptor for this patient encounter was physically present during the encounter and was fully available. All aspects of the patient interview, examination, medical decision making process, and medical care plan development were reviewed and approved by the faculty preceptor. The faculty preceptor is aware and concurs with the plan as stated in the body of this note and will attest to such by his/her cosignature. APRYL MIRANDA DO May 21, 2018 16:58
[2018-05-21 20:00] VITALS: BP 101/57
[2018-05-22] MEDS: HYDROCORTISONE 100 MG/2 ML VIAL (J1720) IV SCH (00:06)
[2018-05-22 04:00] VITALS: BP 107/57
[2018-05-22] MEDS: IPRATROPIUM 0.5MG/ALBUTEROL 2.5MG INH SOL UD 3ML (DUONEB)(J7620) NEB SCH ×6 (04:35→23:23)
[2018-05-22 05:14] LABS: HEMATOCRIT 36.5 % (42.0-52.0); HEMOGLOBIN 11.7 g/dl (13.5-17.5); MEAN CORPUSCULAR HEMOGLOBIN 28.1 pg (27.0-33.0); MEAN CORPUSCULAR HGB CONC 32.1 g/dl (32.0-36.5); MEAN CORPUSCULAR VOLUME 87.5 fl (80.0-96.0); PLATELET COUNT, AUTOMATED 173 10^3/uL (150-450); RED BLOOD COUNT 4.17 10^6/uL (4.30-6.10); WHITE BLOOD COUNT 9.3 10^3/uL (4.0-10.0)
[2018-05-22 05:20] LABS: ALBUMIN 1.9 GM/DL (3.2-5.2); ALT/SGPT 37 U/L (12-78); BILIRUBIN,TOTAL 0.5 MG/DL (0.2-1.0); BLOOD UREA NITROGEN 26 MG/DL (7-18); CALCIUM LEVEL 9.5 MG/DL (8.8-10.2); CARBON DIOXIDE LEVEL 28 MEQ/L (21-32); CHLORIDE LEVEL 97 MEQ/L (98-107); CREATININE FOR GFR 0.65 MG/DL (0.70-1.30); GLOMERULAR FILTRATION RATE > 60.0 (>49); GLUCOSE, FASTING 162 MG/DL (70-100); POTASSIUM SERUM 4.5 MEQ/L (3.5-5.1); SODIUM LEVEL 131 MEQ/L (136-145)
[2018-05-22] MEDS: HEPARIN SOD (PORCINE) 5000 UNITS/ML VIAL SQ SCH ×3 (06:19→21:22)
[2018-05-22 08:00] VITALS: BP 115/55
[2018-05-22] MEDS: NYSTATIN 100,000 UNITS/GM TOPICAL PWD 15 GM TOP SCH ×2 (08:26→21:23)
[2018-05-22] MEDS: TAMSULOSIN 0.4 MG CAP PO SCH (08:26)
[2018-05-22] MEDS: ASPIRIN 81 MG CHEW TABLET PO SCH ×2 (08:26→21:22)
[2018-05-22] MEDS: SPIRONOLACTONE 50 MG TAB PO SCH (08:26)
[2018-05-22] MEDS: FUROSEMIDE 40 MG TAB PO SCH (08:26)
[2018-05-22] MEDS: HumaLOG INSULIN (NovoLOG) PER UNIT SC SCH ×4 (08:26→20:48)
[2018-05-22] MEDS: PANTOPRAZOLE 40MG INJ (PROTONIX) (C9113) IV SCH (08:27)
[2018-05-22 12:00] VITALS: BP 89/50
[2018-05-22 14:02] VITALS: BP 108/56
[2018-05-22 16:00] VITALS: BP 108/56
--- NOTE | 2018-05-22 19:27 | IPNPDOC ---
Date Seen The patient was seen on 05/22/18. Progress Note SUBJECTIVE: Pt examined at bedside in ICU this am-MedSurg status. No events overnight. Still requiring supplemental O2, progressing very slowly with PT/OT. no f/c/n/v/abd pain/blurred vision. PHYSICAL: Vitals: please see below General Exam: Alert, Cooperative, No Acute Distress Eye Exam: PERRLA, Conjunctiva & lids normal ENT Exam: Atraumatic, Mucous membr. moist/pink Neck Exam: Supple, unable to assess JVD due to body habitus Chest Exam: Diminished sounds due to large body habitus. Crackles b/l bases Heart Exam: Rate Normal, Regular Rhythm, Normal S1, Normal S2 Abdomen Exam: obese, normoactive BS, soft, no tenderness or mass Extremity Exam: no edema; no Clubbing, Cyanosis, Tenderness Skin Exam: Nl turgor and temperature; lipodermatosclerosis present b/l LE, left>right Psych Exam: Mental status NL, Mood NL, Oriented x 3 A/P: Cirrhosis with severe ascites/pleural effusion cirrhosis workup: +for anemia of chronic disease, hx of NAFLD. Borderline e levated AntiSm Ab, titers have been discussed with lab 05/21 and pending s/p paracentesis x2. Has 44 PMNs, not consistent with SBP. Neg for growth. Less likely infectious SAAG is 1.1-1.4, suggesting high likelihood of ascites being from portal htn. Malignancy remains on differential as well MELD-Na score of 18. Will need o/p GI f/u, & Hep A&B vaccinations Is hemodynamically stable. Tolerating Lasix & Spironolactone well-continue hold parameters. No events on monitor-will d/c tele no signs of bleeding. Stable H&H Urinary Retention failed previous voiding trial, requiring Stover reinsertion. Output is clear urine. No pelvic/abd/bladder pain is on Flomax Day 2 today, will reattempt voiding trial today. Anticipate improvement in next few days. No pelvic pain or distension. Likely BPH/mechanical/foreign body from recent Stover and acute illness vs less likely infectious vs neurogenic Hyponatremia likely 2/2 underlying cirrhosis/ascites and inability to excrete free water pt asymptomatic with level 130-135. Continue fluid restriction continue clinical monitoring Systemic Hypotension resolved, off Levophed as of 05/17 shock vs impaired venous return from large volume of ascites and systemic vasodilation in cirrhosis no identifiable infectious source. Abd fluid not consistent with SBP. On Ceftriaxone per Critical Care-on abx 05/13-05/21 Hydrocortisone taper complete today. Monitor bp Hypoalbuminemia likely 2/2 cirrhosis and critical illness. May be 2/2 presumed FLOOD and AST has remained mildly elevated while admitted. high protein diet. Consider albumin infusions + therapeutic paracentesis. Currently stable and no abd pain or tension ------ Hyperammonemia level at 45, but pt's mentation is intact and at baseline ammonia is expected to improve as we treat underlying source (infection, effusion, liver disease) Acute Hypoxic Resp Failure with hypercapnia resolved. Off bipap, now on 2L NC. NO O2 at baseline IDDM2 Home Toujeo and metformin and Byetta on hold. Continue insulin sliding scale and consistent carbohydrate diet inpatient. Hyperlipidemia ASA & statin on hold given acute decompensation Hypertension controlled. Monitor CODE STATUS: DNR, DNI DVT prophylaxis: Heparin sc. DISPOSITION: Pending PT/OT. Monitor bp and urine o/p. PFS for placement, ARU vs subacute rehab. VS, I&O, 24H, [facility] Vital Signs/I&O Vital Signs Date Time Temp Pulse Resp B/P (MAP) Pulse Ox O2 Delivery O2 Flow Rate FiO2 05/22/18 16:00 97.1 90 18 108/56 (73) 88 05/22/18 08:00 2.0 05/18/18 23:40 Nasal Cannula 05/16/18 05:31 35 I&O- Last 24 Hours up to 6 AM 05/22/18 06:00 Intake Total 1610 ml Output Total 1185 ml Balance 425 ml Laboratory Data 24H LABS Laboratory Tests 2 05/21/18 20:14: Bedside Glucose (Misc Panel) 226H 05/22/18 04:38: Nucleated Red Blood Cells % (auto) 0.0, Anion Gap 6L, Glomerular Filtration Rate > 60.0, Blood Urea Nitrogen 26H, Creatinine 0.65L, Sodium Level 131L, Potassium Level 4.5, Chloride Level 97L, Carbon Dioxide Level 28, Calcium Level 9.5, Aspartate Amino Transf (AST/SGOT) 50H, Alanine Aminotransferase (ALT/SGPT) 37, Alkaline Phosphatase 231H, Total Bilirubin 0.5, Total Protein 6.0L, Albumin 1.9L, Albumin/Globulin Ratio 0.46L 05/22/18 07:53: Bedside Glucose (Misc Panel) 135H 05/22/18 12:09: Bedside Glucose (Misc Panel) 133H 05/22/18 16:41: Bedside Glucose (Misc Panel) 158H CBC/BMP Laboratory Tests 05/22/18 04:38 Red Blood Count 4.17 L, Mean Corpuscular Volume 87.5, Mean Corpuscular Hemoglobin 28.1, Mean Corpuscular Hemoglobin Concent 32.1, Red Cell Distribution Width 17.4 H, Calcium Level 9.5, Aspartate Amino Transf (AST/SGOT) 50 H, Alanine Aminotransferase (ALT/SGPT) 37, Alkaline Phosphatase 231 H, Total Bilirubin 0.5, Total Protein 6.0 L, Albumin 1.9 L Microbiology Microbiology 05/13/18 Blood Culture - Final, Complete NO GROWTH AFTER 5 DAYS 05/13/18 Blood Culture - Final, Complete NO GROWTH AFTER 5 DAYS 05/12/18 Blood Culture - Final, Complete NO GROWTH AFTER 5 DAYS 05/12/18 Blood Culture - Final, Complete NO GROWTH AFTER 5 DAYS 05/19/18 Gram Stain - Final, Complete 05/19/18 Body Fluid Culture - Final, Complete 05/13/18 Acid Fast Stain, Received Pending 05/13/18 Mycobacterial Culture, Received Pending 05/13/18 Fungal Smear, Received Pending 05/13/18 Fungal Culture, Received Pending 05/13/18 Gram Stain - Final, Complete 05/13/18 Body Fluid Culture - Final, Complete 05/13/18 Anaerobic Culture - Final, Complete 05/12/18 Acid Fast Stain, Received Pending 05/12/18 Mycobacterial Culture, Received Pending 05/12/18 Fungal Smear, Received Pending 05/12/18 Fungal Culture, Received Pending 05/12/18 Gram Stain - Final, Complete 05/12/18 Anaerobic Culture - Final, Complete 05/12/18 Body Fluid Culture - Final, Complete 05/13/18 MRSA Screen - Final, Complete 05/20/18 Urine Culture - Final, Complete 05/13/18 Urine Culture - Final, Complete GME ATTESTATION GME ATTESTATION My faculty preceptor for this patient encounter was physically present during the encounter and was fully available. All aspects of the patient interview, examination, medical decision making process, and medical care plan development were reviewed and approved by the faculty preceptor. The faculty preceptor is aware and concurs with the plan as stated in the body of this note and will attest to such by his/her cosignature. APRYL MIRANDA DO May 22, 2018 19:27
[2018-05-22 22:00] VITALS: BP 115/62
[2018-05-23] MEDS: ACETAMINOPHEN TAB 650MG DOSE (2X325MG) PO PRN ×2 (00:34→21:01)
[2018-05-23] MEDS: IPRATROPIUM 0.5MG/ALBUTEROL 2.5MG INH SOL UD 3ML (DUONEB)(J7620) NEB SCH ×5 (03:00→19:42)
[2018-05-23] MEDS: HEPARIN SOD (PORCINE) 5000 UNITS/ML VIAL SQ SCH ×3 (05:24→21:03)
[2018-05-23 05:47] LABS: HEMATOCRIT 34.8 % (42.0-52.0); HEMOGLOBIN 11.3 g/dl (13.5-17.5); MEAN CORPUSCULAR HEMOGLOBIN 27.8 pg (27.0-33.0); MEAN CORPUSCULAR HGB CONC 32.5 g/dl (32.0-36.5); MEAN CORPUSCULAR VOLUME 85.5 fl (80.0-96.0); PLATELET COUNT, AUTOMATED 174 10^3/uL (150-450); RED BLOOD COUNT 4.07 10^6/uL (4.30-6.10); WHITE BLOOD COUNT 8.7 10^3/uL (4.0-10.0)
[2018-05-23 06:00] VITALS: BP 118/59
[2018-05-23 06:15] LABS: ALBUMIN 1.9 GM/DL (3.2-5.2); ALT/SGPT 35 U/L (12-78); BILIRUBIN,TOTAL 0.6 MG/DL (0.2-1.0); BLOOD UREA NITROGEN 26 MG/DL (7-18); CALCIUM LEVEL 9.6 MG/DL (8.8-10.2); CARBON DIOXIDE LEVEL 27 MEQ/L (21-32); CHLORIDE LEVEL 97 MEQ/L (98-107); CREATININE FOR GFR 0.64 MG/DL (0.70-1.30); GLOMERULAR FILTRATION RATE > 60.0 (>49); GLUCOSE, FASTING 150 MG/DL (70-100); POTASSIUM SERUM 4.3 MEQ/L (3.5-5.1); SODIUM LEVEL 130 MEQ/L (136-145); TOTAL PROTEIN 5.8 GM/DL (6.4-8.2)
[2018-05-23] MEDS: SPIRONOLACTONE 50 MG TAB PO SCH (07:45)
[2018-05-23] MEDS: HumaLOG INSULIN (NovoLOG) PER UNIT SC SCH ×4 (07:46→21:00)
[2018-05-23] MEDS: FUROSEMIDE 40 MG TAB PO SCH (07:46)
[2018-05-23] MEDS: TAMSULOSIN 0.4 MG CAP PO SCH (07:46)
[2018-05-23] MEDS: ASPIRIN 81 MG CHEW TABLET PO SCH ×2 (07:46→20:48)
[2018-05-23] MEDS: NYSTATIN 100,000 UNITS/GM TOPICAL PWD 15 GM TOP SCH ×2 (07:47→21:01)
[2018-05-23] MEDS ORDERED: ALDA50TA2 PO (13:19)
[2018-05-23] MEDS ORDERED: FLOM0.4C39 PO (13:19)
[2018-05-23] MEDS ORDERED: FURO40TA2 PO (13:19)
[2018-05-23 14:00] VITALS: BP 118/58
--- NOTE | 2018-05-23 16:50 | DS.PDOC ---
Discharge Summary General Date of Admission May 13, 2018 at 10:35 Date of Discharge 05/23/18 Primary Care Physician: Catherine Cruz Attending Physician: BOB LYNN DO Specialist/Consultants Involve: MICHELE TYLER Discharge Summary PROCEDURES PERFORMED DURING STAY: None. ADMITTING DIAGNOSES: 1. Acute hypoxic respiratory failure 2. Moderate left pleural effusion 3. Ascites 4. Lactic acidosis DISCHARGE DIAGNOSES: 1. hepatic hydrothorax 2. liver cirrhosis with severe ascites and pleural effusion and adenopathy 3. Acute Hypoxic Resp Failure with hypercapnia 4. urinary retention 5. hyponatremia 6. systemic hypotension s/p Levophed 7. hyperammonemia 8. hypoalbuminemia History of nonalcoholic fatty liver disease hypertension hyperlipidemia insulin dependent diabetes mellitus type 2 CODE STATUS: DNR, DNI COMPLICATIONS/CHIEF COMPLAINT: Atrial Fibrillation Pleural Effusion Left. HISTORY OF PRESENT ILLNESS: 67-year-old male with shortness of breath for the past 3 weeks that has recently worsened over the past few days. He states he initially followed up with an outside physician and was told he has "pneumonia and a partially collapsed lung on the left." This imaging, per the patient, was done at [facility] about a week ago. He states he was prescribed a 10 day course of amoxicillin as well as ProAir which he has been using around four times a day. He completed antibiotic as of Saturday with only minimal improvement. He states that he is still bringing up some clear phlegm, has a minimal cough and some wheezing as well. No fevers, chills, chest discomfort, or chest tightness. No unintentional weight loss or any recent changes in medications or any sick contacts or travel history. He denies any previous lung illnesses, however was noted to be saturating at 84% on room air in the emergency room (ER). On admission, chest x-ray and chest CT also confirm a moderate-sized left pleural effusion along with cardiomegaly. Hospitalist was called to admit for continued hypoxia. He had no other complaints on time of admission. HOSPITAL COURSE: Patient was satting in the 80s on admission. Due to his mod erate left-sided pleural effusion, he underwent a thoracentesis of the left, with about 1.6 L of red colored fluid removed. Further imaging was planned for the next morning due to concern of his renal function as he had already received contrast in the ER, however early next morning, he was noted to have altered mentation, on ABG found to be hypercapnic and acidotic, thus requiring a pulmonary consult for BiPAP management. Imaging of the head was nonrevealing. About an hour later, he was noted to be hypotensive, not responding to IV fluids, therefore central line was emergently placed by thoracic surgeon Dr. Mccall, and he was started on levophed drip. He was started on broad-spectrum antibiotics, with concern of possible SBP. Bedside paracentesis had few PMNs, and unlikely to be SBP. His mentation was much improved later that day, and he was ultimately weaned off BiPAP. Pulmonology had started hydrocortisone, which he was weaned off of as well as titrating down on his Levophed drip. He verbalized he is DNR/DNI once he was off BiPAP His ammonia level returned at 45, however at this point his mentation was back to baseline, and he was A&Ox3. His liver profile and coag panel along with clinical picture point towards cirrhosis. Outside PCP records were obtained which did not show a previous workup of cirrhosis, thus it was started in patient. Patient already has a previous history of nonalcoholic fatty liver disease, and inpatient workup revealed anemia of chronic disease, and borderline elevated anti-Garcia antibody. The anti-Garcia antibody was discussed in depth with hospital lab, and titers were requested to further assess for possible autoimmune hepatitis, however per pathologist, titers will most likely not be beneficial at this point and therefore it was canceled. His cirrhosis workup was otherwise otherwise negative. All of his cultures from thoracentesis, paracentesis X2, blood cultures were negative for growth. Patient was ultimately downgraded from ICU to general medical floor. Once he was stable, he was resumed on his Lasix and started on spironolactone due to his new cirrhosis. His blood pressures maintained well. During his stay, after Stover was removed, he experienced urinary retention and the Stover was reinserted. After second voiding trial few days later, and having had started on Flomax, he no longer had difficulty urinating on his own. He made very slow progress with PT and OT, and thus was recommended for acute rehabilitation. All the results and new diagnosis of cirrhosis were discussed with the patient, including the need for follow-up with GI for EGD and further workup. Alcohol cessation counseling was provided, including need for vaccinations of hepatitis A and B. Patient was educated for the concern of possible malignancy now or down the line. Of note, his tumor marker AFP was checked patient, which was normal. Ceruloplasmin level was mildly elevated at 32.6, however patient clinically does not have presentation suggesting Alfred's disease. He is to return to ER for emergency, and has been advised to limit his fluid intake, and closely monitor bp and signs of bleeding. DISCHARGE MEDICATIONS: Please see below. ALLERGIES: Please see below. PHYSICAL EXAMINATION ON DISCHARGE: VITAL SIGNS: Please see below. General Exam: Alert, Cooperative, No Acute Distress Eye Exam: PERRLA, Conjunctiva & lids normal ENT Exam: Atraumatic, Mucous membr. moist/pink Neck Exam: Supple, unable to assess JVD due to body habitus Chest Exam: Diminished sounds due to large body habitus. Crackles b/l bases Heart Exam: Rate Normal, Regular Rhythm, Normal S1, Normal S2 Abdomen Exam: obese, normoactive BS, soft, no tenderness or mass Extremity Exam: no edema; no Clubbing, Cyanosis, Tenderness Skin Exam: Nl turgor and temperature; lipodermatosclerosis present b/l LE, left>right Psych Exam: Mental status NL, Mood NL, Oriented x 3 LABORATORY DATA: Please see below. IMAGING: * 05/12/2018 CXR: Evidence of a moderate-sized left pleural effusion unchanged from April 29, 2018. Mild cardiomegaly. Otherwise no acute disease. * 05/12/2018 CTA chest: No CT evidence of pulmonary embolus. Moderate to large left pleural effusion. Mild left mediastinal and moderate upper abdominal lymphadenopathy. Mild retrocrural lymphadenopathy. Rule out lymphoma versus metastatic adenopathy. Recommend CT abdomen and pelvis. Ascites and m icronodular liver contour suggestive of cirrhosis. * 05/12/2018 left thoracentesis: 1680 ml of low viscosity red colored fluid was withdrawn with a sample sent to the lab for analysis. * 05/12/2018 post-thoracentesis: Improved left pleural effusion post left thoracentesis. No complication is seen. * 05/13/2018 transthoracic echo: 1. Mild left ventricle dilatation with normal LV wall thickness. Normal regional LV motion and wall thickening. LVEF 70% by visual estimate. Grade 2 LV diastolic dysfunction (through a normal LV filling pattern); differential diagnosis would include normal LV diastolic function with incorrect assessment of mitral annular tissue Doppler and mitral deceleration time, especially in view of the left atrial volume index being normal. 2. Moderate mitral annular calcification. No mitral regurgitation or mitral stenosis. 3. Mild aortic valve sclerosis of a 3-cuspid aortic valve. No aortic regurgitation. 4. Unable to assess pulmonary artery systolic pressure or estimated right ventricle systolic pressure. 5. Inferior vena cava dilatation. Consider elevated central venous pressure. 6. Moderately technically difficult echocardiogram. * 05/13/[address]: No acute intracranial process. No intracranial hemorrhage. If clinical concern for acute infarction, MRI with diffusion weighted sequences or intracranial CTA should be considered. * 05/13/2018 neck CTA: No significant stenosis or occlusion within the carotid or vertebral arteries of the neck. Additional nonemergent findings as described above. * 05/13/2018 CTA head: No significant stenosis, occlusion or aneurysmal dilatation within the anterior or posterior intracranial arterial circulation. * 05/13/2018 CXR: Small left pleural effusion persists. No acute changes. * 05/13/2018 CXR s/p central line: A left subclavian line has been inserted with its tip in the expected location of the superior vena cava. The patient is rotated somewhat to the left. There is pleural opacity in the left base and air bronchograms are seen due to consolidation and/or collapse in the left perihilar region as before. There is no evidence of pneumothorax. * 05/15/2018 CXR: 1. Left lower lobe atelectasis or infiltrate. 2. Small left pleural effusion unchanged compared to the previous study. * 05/17/2018 abdomen ultrasound: Stones and sludge in the gallbladder without gallbladder wall thickening. Moderate abdominal ascites. Right pleural effusion. Common bile duct upper limits of normal at 7 mm. Echotexture of the liver is heterogeneous. There is hepatosplenomegaly. * 05/19/2018 paracentesis ultrasound: 3400 ml of clear yellow fluid was withdrawn with a sample sent to lab for analysis. PROGNOSIS: guarded ACTIVITY: As tolerated. DIET: consistent carb & high protein, 1800cc fluid restriction DISPOSITION: to acute rehab DISCHARGE INSTRUCTIONS: 1. Participating in PT and OT in acute rehabilitation 2. Follow-up with PCP within one week and with Dr. Rodriguez, GI specialist, in 3-4 weeks 3. Return to ER for emergency 4. MEDICATION CHANGES: Stop Lipitor, fosinopril, magnesium oxide, metformin, potassium chloride Start spironolactone 100 mg po daily, Flomax 0.4 MG Daily, decrease furosemide from 40 mg bid to once daily DISCHARGE CONDITION: Stable. TIME SPENT ON DISCHARGE: Greater than 35 minutes. Vital Signs/I&Os Vital Signs Date Time Temp Pulse Resp B/P (MAP) Pulse Ox O2 Delivery O2 Flow Rate FiO2 05/23/18 14:00 97.1 93 19 118/58 (78) 90 05/22/18 08:00 2.0 05/18/18 23:40 Nasal Cannula I&O- Last 24 Hours up to 6 AM 05/23/18 06:00 Intake Total 830 ml Output Total 130 ml Balance 700 ml Laboratory Data Labs 24H Laboratory Tests 2 05/22/18 20:05: Bedside Glucose (Misc Panel) 219H 05/23/18 05:08: Nucleated Red Blood Cells % (auto) 0.0, Anion Gap 6L, Glomerular Filtration Rate > 60.0, Blood Urea Nitrogen 26H, Creatinine 0.64L, Sodium Level 130L, Potassium Level 4.3, Chloride Level 97L, Carbon Dioxide Level 27, Calcium Level 9.6, Aspartate Amino Transf (AST/SGOT) 46H, Alanine Aminotransferase (ALT/SGPT) 35, Alkaline Phosphatase 231H, Total Bilirubin 0.6, Total Protein 5.8L, Albumin 1.9L, Albumin/Globulin Ratio 0.49L 05/23/18 11:53: Bedside Glucose (Misc Panel) 143H CBC/BMP Laboratory Tests 05/23/18 05:08 Red Blood Count 4.07 L, Mean Corpuscular Volume 85.5, Mean Corpuscular Hemoglobin 27.8, Mean Corpuscular Hemoglobin Concent 32.5, Red Cell Distribution Width 17.5 H, Calcium Level 9.6, Aspartate Amino Transf (AST/SGOT) 46 H, Alanine Aminotransferase (ALT/SGPT) 35, Alkaline Phosphatase 231 H, Total Bilirubin 0.6, Total Protein 5.8 L, Albumin 1.9 L FSBS Laboratory Tests Test 05/22/18 20:05 05/23/18 11:53 Range/Units Bedside Glucose (Misc Panel) 219 143 80-115 MG/DL Microbiology Microbiology 05/13/18 Blood Culture - Final, Complete NO GROWTH AFTER 5 DAYS 05/13/18 Blood Culture - Final, Complete NO GROWTH AFTER 5 DAYS 05/19/18 Gram Stain - Final, Complete 05/19/18 Body Fluid Culture - Final, Complete 05/13/18 Acid Fast Stain, Received Pending 05/13/18 Mycobacterial Culture, Received Pending 05/13/18 Fungal Smear, Received Pending 05/13/18 Fungal Culture, Received Pending 05/13/18 Gram Stain - Final, Complete 05/13/18 Body Fluid Culture - Final, Complete 05/13/18 Anaerobic Culture - Final, Complete 05/13/18 MRSA Screen - Final, Complete 05/20/18 Urine Culture - Final, Complete 05/13/18 Urine Culture - Final, Complete Discharge Medications Scheduled (Byetta) 10 Mcg/0.04 Ml Inj, 10 MCG SC BID, (Reported) (Aspirin EC Low Dose) 81 Mg Tab, 81 MG PO BID, (Reported) (Toujeo Solostar) 300 Unit/Ml Inj, 100 UNIT SC DAILY, (Reported) Cholecalciferol (Vitamin D) 5,000 Unit Tab, 5,000 UNIT PO DAILY, (Reported) Furosemide (Furosemide) 40 Mg Tab, 40 MG PO DAILY Glucosamine Chondroitin (Glucosamine Chondroitin) 1 Cap Cap, 2 CAP PO QPM, (Reported) Meloxicam (Meloxicam) 15 Mg Tab, 15 MG PO QPM, (Reported) Multivitamins (Multivitamin Adults) 1 Tab Tab, 1 TAB PO DAILY, (Reported) Spironolactone (Aldactone) 50 Mg Tab, 100 MG PO DAILY Tamsulosin Hydrochloride (Flomax) 0.4 Mg Cap, 0.4 MG PO DAILY Scheduled PRN Albuterol Sulfate (Proair Hfa) 108 Mcg/Act Aer, 2 PUFF INH QID PRN for SHORTNESS OF BREATH, (Reported) Azelastine Hydrochloride (Astepro) 0.15 % Spr, 2 SPRAY NA DAILY PRN for ALLER GIES, (Reported) Allergies Coded Allergies: No Known Allergies (Unverified , 11/09/16) GME ATTESTATION GME ATTESTATION My faculty preceptor for this patient encounter was physically present during the encounter and was fully available. All aspects of the patient interview, examination, medical decision making process, and medical care plan development were reviewed and approved by the faculty preceptor. The faculty preceptor is aware and concurs with the plan as stated in the body of this note and will attest to such by his/her cosignature. APRYL MIRANDA DO May 23, 2018 16:50
[2018-05-23 22:00] VITALS: BP 119/55
[2018-05-24] MEDS: IPRATROPIUM 0.5MG/ALBUTEROL 2.5MG INH SOL UD 3ML (DUONEB)(J7620) NEB SCH ×7 (03:26→23:49)
[2018-05-24] MEDS: HEPARIN SOD (PORCINE) 5000 UNITS/ML VIAL SQ SCH ×3 (05:33→22:19)
[2018-05-24 06:00] VITALS: BP 116/65
[2018-05-24 06:02] LABS: HEMATOCRIT 36.1 % (42.0-52.0); HEMOGLOBIN 11.6 g/dl (13.5-17.5); MEAN CORPUSCULAR HEMOGLOBIN 27.7 pg (27.0-33.0); MEAN CORPUSCULAR HGB CONC 32.1 g/dl (32.0-36.5); MEAN CORPUSCULAR VOLUME 86.2 fl (80.0-96.0); PLATELET COUNT, AUTOMATED 192 10^3/uL (150-450); RED BLOOD COUNT 4.19 10^6/uL (4.30-6.10); WHITE BLOOD COUNT 9.4 10^3/uL (4.0-10.0)
[2018-05-24 06:27] LABS: ALBUMIN 1.9 GM/DL (3.2-5.2); ALT/SGPT 40 U/L (12-78); BILIRUBIN,TOTAL 0.6 MG/DL (0.2-1.0); BLOOD UREA NITROGEN 27 MG/DL (7-18); CARBON DIOXIDE LEVEL 30 MEQ/L (21-32); CHLORIDE LEVEL 97 MEQ/L (98-107); CREATININE FOR GFR 0.66 MG/DL (0.70-1.30); GLOMERULAR FILTRATION RATE > 60.0 (>49); GLUCOSE, FASTING 144 MG/DL (70-100); POTASSIUM SERUM 4.5 MEQ/L (3.5-5.1); SODIUM LEVEL 131 MEQ/L (136-145)
[2018-05-24] MEDS: FUROSEMIDE 40 MG TAB PO SCH (09:41)
[2018-05-24] MEDS: SPIRONOLACTONE 50 MG TAB PO SCH (09:41)
[2018-05-24] MEDS: ASPIRIN 81 MG CHEW TABLET PO SCH ×2 (09:41→20:45)
[2018-05-24] MEDS: TAMSULOSIN 0.4 MG CAP PO SCH (09:42)
[2018-05-24] MEDS: NYSTATIN 100,000 UNITS/GM TOPICAL PWD 15 GM TOP SCH ×2 (09:42→20:45)
[2018-05-24] MEDS: HumaLOG INSULIN (NovoLOG) PER UNIT SC SCH ×4 (09:42→21:00)
--- NOTE | 2018-05-24 09:48 | IPNPDOC ---
Text Note Date of Service The patient was seen on 05/24/18. NOTE SUBJECTIVE: Pt examined at bedside. Was supposed to go to rehab yesterday, but pt refused, stating "I don't think I'm ready." His motivation and progress with getting PT/OT has been an ongoing concern. After much counseling and encouragement, he is agreeable to go Saturday for available bed in ARU. No reported events overnight. Able to urinate without issues PHYSICAL: Vitals: please see below General Exam: Alert, Cooperative, No Acute Distress Eye Exam: PERRLA, Conjunctiva & lids normal ENT Exam: Atraumatic, Mucous membr. moist/pink Neck Exam: Supple, unable to assess JVD due to body habitus Chest Exam: Diminished sounds due to large body habitus. Crackles b/l bases Heart Exam: Rate Normal, Regular Rhythm, Normal S1, Normal S2 Abdomen Exam: obese, normoactive BS, soft, no tenderness or mass Extremity Exam: no edema; no Clubbing, Cyanosis, Tenderness Skin Exam: Nl turgor and temperature; lipodermatosclerosis present b/l LE, left>right Psych Exam: Mental status NL, Mood NL, Oriented x 3 A/P: Please see discharge note from 05/23/18. Pt refused to go to rehab yesterday, and is agreeable to go Saturday. He has been educated about concern for progressive decline and deconditioning the longer he delays further care. Cirrhosis with severe ascites/pleural effusion stable, o/p f/u. +for anemia of chronic disease, hx of NAFLD. Tolerating Lasix & Spironolactone well-continue hold parameters. no signs of bleeding. Stable H&H Urinary Retention resolved after starting on Flomax Hyponatremia likely 2/2 underlying cirrhosis/ascites and inability to excrete free water pt asymptomatic with level 130-135. Continue fluid restriction Systemic Hypotension resolved, likely 2/2 new cirrhosis. Stable Hypoalbuminemia likely 2/2 cirrhosis and critical illness. May be 2/2 presumed FLOOD and AST has remained mildly elevated while admitted. high protein diet. Consider albumin infusions + therapeutic paracentesis. Currently stable and no abd pain or tension Hyperammonemia level at 45, but pt's mentation is intact and at baseline ammonia is expected to improve as we treat underlying source (infection, effusion, liver disease) Acute Hypoxic Resp Failure with hypercapnia resolved. Off bipap, now on 2L NC. NO O2 at baseline IDDM2 Home Toujeo and metformin and Byetta on hold. Continue insulin sliding scale and consistent carbohydrate diet inpatient. Hyperlipidemia ASA & statin on hold given acute decompensation Hypertension controlled. Monitor CODE STATUS: DNR, DNI DVT prophylaxis: Heparin sc. DISPOSITION: ARU on Saturday. Plan was initially for d/c yesterday, but he refused. Is agreeable to Saturday. VS,Fishbone, I+O VS, Fishbone, I+O Laboratory Tests 05/24/18 05:30 Red Blood Count 4.19 L, Mean Corpuscular Volume 86.2, Mean Corpuscular Hemoglobin 27.7, Mean Corpuscular Hemoglobin Concent 32.1, Red Cell Distribution Width 17.7 H, Calcium Level 10.0, Aspartate Amino Transf (AST/SGOT) 51 H, Alanin e Aminotransferase (ALT/SGPT) 40, Alkaline Phosphatase 248 H, Total Bilirubin 0.6, Total Protein 6.0 L, Albumin 1.9 L Vital Signs Date Time Temp Pulse Resp B/P (MAP) Pulse Ox O2 Delivery O2 Flow Rate FiO2 05/24/18 06:00 97.6 81 18 116/65 (82) 92 3.0 05/18/18 23:40 Nasal Cannula I&O- Last 24 Hours up to 6 AM 05/24/18 06:00 Intake Total 1340 ml Output Total 0 ml Balance 1340 ml GME ATTESTATION GME ATTESTATION My faculty preceptor for this patient encounter was physically present during the encounter and was fully available. All aspects of the patient interview, examination, medical decision making process, and medical care plan development were reviewed and approved by the faculty preceptor. The faculty preceptor is aware and concurs with the plan as stated in the body of this note and will attest to such by his/her cosignature. APRYL MIRANDA DO May 24, 2018 09:48
[2018-05-24 14:00] VITALS: BP 109/59
--- NOTE | 2018-05-24 14:21 | REP ---
AP LATERAL SEATED CHEST: 05/24/2018. COMPARISON: AP portable chest, 05/15/2018. CLINICAL HISTORY: Acute respiratory distress. FINDINGS: Much increased density in the left hemithorax representing increasing atelectasis and/or infiltrate with effusion. Haziness extends over residential up the posterior chest. This would represent a fairly large effusion. There is no midline shift. The left lung well inflated and clear. Cardiac silhouette difficult to measure due to the effusion and atelectasis/infiltrate. The aorta is calcified at the arch, somewhat tortuous but unchanged. Airway midline. IMPRESSION: 1. Significant interval increase in the left pleural effusion and compressive atelectasis/infiltrate in the left hemithorax. Electronically Signed by Urbano Sue MD 05/24/2018 07:53 P
[2018-05-24 22:00] VITALS: BP 120/62
[2018-05-25] MEDS: IPRATROPIUM 0.5MG/ALBUTEROL 2.5MG INH SOL UD 3ML (DUONEB)(J7620) NEB SCH ×6 (04:37→23:49)
[2018-05-25 06:00] VITALS: BP 108/56
[2018-05-25] MEDS: HEPARIN SOD (PORCINE) 5000 UNITS/ML VIAL SQ SCH ×3 (06:06→22:09)
[2018-05-25 07:14] LABS: HEMATOCRIT 36.2 % (42.0-52.0); HEMOGLOBIN 11.6 g/dl (13.5-17.5); MEAN CORPUSCULAR HEMOGLOBIN 28.2 pg (27.0-33.0); MEAN CORPUSCULAR VOLUME 88.1 fl (80.0-96.0); PLATELET COUNT, AUTOMATED 174 10^3/uL (150-450); RED BLOOD COUNT 4.11 10^6/uL (4.30-6.10)
[2018-05-25] MEDS: HumaLOG INSULIN (NovoLOG) PER UNIT SC SCH ×4 (07:30→20:47)
[2018-05-25 07:41] LABS: ALBUMIN 1.9 GM/DL (3.2-5.2); ALT/SGPT 45 U/L (12-78); BILIRUBIN,TOTAL 0.8 MG/DL (0.2-1.0); BLOOD UREA NITROGEN 24 MG/DL (7-18); CARBON DIOXIDE LEVEL 29 MEQ/L (21-32); CHLORIDE LEVEL 97 MEQ/L (98-107); CREATININE FOR GFR 0.64 MG/DL (0.70-1.30); GLOMERULAR FILTRATION RATE > 60.0 (>49); GLUCOSE, FASTING 141 MG/DL (70-100); POTASSIUM SERUM 4.6 MEQ/L (3.5-5.1); SODIUM LEVEL 132 MEQ/L (136-145); TOTAL PROTEIN 5.7 GM/DL (6.4-8.2)
[2018-05-25] MEDS: TAMSULOSIN 0.4 MG CAP PO SCH (07:57)
[2018-05-25] MEDS: FUROSEMIDE 40 MG TAB PO SCH (07:57)
[2018-05-25] MEDS: ASPIRIN 81 MG CHEW TABLET PO SCH ×2 (07:57→20:46)
[2018-05-25] MEDS: SPIRONOLACTONE 50 MG TAB PO SCH (07:57)
[2018-05-25] MEDS: NYSTATIN 100,000 UNITS/GM TOPICAL PWD 15 GM TOP SCH ×2 (07:58→20:54)
[2018-05-25 14:00] VITALS: BP 114/61
--- NOTE | 2018-05-25 20:08 | IPN ---
DATE: 05/25/2018 SUBJECTIVE: The patient was seen and examined in the room today. The patient still requires oxygen. Denies any acute complaints. Denies any fevers or chills. OBJECTIVE: VITAL SIGNS: Temperature 96.9, pulse is 76, respirations 20, blood pressure 108/56, pulse oximetry 93% with 3 liters nasal cannula. GENERAL: Morbidly obese. No sign of acute distress. Alert and awake. HEENT: Normocephalic, atraumatic. Extraocular motors are grossly intact. CARDIOVASCULAR: Positive S1, S2. Decreased heart sounds. LUNGS: Diminished breath sounds due to body habitus. Significant decreased breath sounds in the left lower lung. ABDOMEN: Obese, soft, nontender. Bowel sounds present. EXTREMITIES: Chronic venous stasis changes bilaterally. LABORATORY DATA: WBC is 11, hemoglobin 11.6, hematocrit 36.2, platelet count is 274. Sodium is 132, potassium 4.6, chloride 97, carbon dioxide 29, BUN 24, creatinine 0.64, GFR greater than 60, fasting glucose 141, calcium 10, total bilirubin 0.8, AST 64, ALT 45, alkaline phosphatase is 280. ASSESSMENT AND PLAN: 1. Liver cirrhosis with ascites and pleural effusions. The patient had a thoracentesis and paracentesis. The patient continues to require oxygen support. Repeat chest x-ray obtained and it shows reaccumulation of the left pleural effusion. We will plan for a repeat thoracentesis tomorrow. Continue Lasix, spironolactone. 2. Acute hypercarbic hypoxic respiratory failure, improved. The patient is off BiPAP. Currently, that patient is on 3 liters nasal cannula. The patient does not use oxygen at baseline. 3. Insulin-dependent diabetes. Continue sliding scale. Consistent carbohydrate diet. 4. Hypotension occurring intermittently. Mostly secondary to liver cirrhosis. Continue to monitor. 5. Urinary retention. On Flomax. 6. Deep vein thrombosis (DVT) prophylaxis. On Lovenox.
[2018-05-25 22:00] VITALS: BP 115/57
[2018-05-26] MEDS: IPRATROPIUM 0.5MG/ALBUTEROL 2.5MG INH SOL UD 3ML (DUONEB)(J7620) NEB SCH ×5 (04:00→18:17)
[2018-05-26 05:53] LABS: HEMATOCRIT 37.7 % (42.0-52.0); HEMOGLOBIN 12.2 g/dl (13.5-17.5); MEAN CORPUSCULAR HEMOGLOBIN 28.5 pg (27.0-33.0); MEAN CORPUSCULAR HGB CONC 32.4 g/dl (32.0-36.5); MEAN CORPUSCULAR VOLUME 88.1 fl (80.0-96.0); PLATELET COUNT, AUTOMATED 203 10^3/uL (150-450); RED BLOOD COUNT 4.28 10^6/uL (4.30-6.10); WHITE BLOOD COUNT 14.7 10^3/uL (4.0-10.0)
[2018-05-26 06:00] VITALS: BP 111/57
[2018-05-26] MEDS: HEPARIN SOD (PORCINE) 5000 UNITS/ML VIAL SQ SCH ×3 (06:00→21:36)
[2018-05-26 06:07] LABS: INR 1.15; PROTHROMBIN TIME 14.9 SECONDS (12.1-14.4)
[2018-05-26 06:15] LABS: ALBUMIN 1.9 GM/DL (3.2-5.2); ALT/SGPT 51 U/L (12-78); BILIRUBIN,TOTAL 0.7 MG/DL (0.2-1.0); BLOOD UREA NITROGEN 24 MG/DL (7-18); CARBON DIOXIDE LEVEL 28 MEQ/L (21-32); CHLORIDE LEVEL 98 MEQ/L (98-107); CREATININE FOR GFR 0.69 MG/DL (0.70-1.30); GLOMERULAR FILTRATION RATE > 60.0 (>49); GLUCOSE, FASTING 144 MG/DL (70-100); POTASSIUM SERUM 4.9 MEQ/L (3.5-5.1); SODIUM LEVEL 132 MEQ/L (136-145); TOTAL PROTEIN 6.3 GM/DL (6.4-8.2)
[2018-05-26] MEDS: NYSTATIN 100,000 UNITS/GM TOPICAL PWD 15 GM TOP SCH ×2 (09:00→20:29)
[2018-05-26] MEDS: SPIRONOLACTONE 50 MG TAB PO SCH (10:01)
[2018-05-26] MEDS: ASPIRIN 81 MG CHEW TABLET PO SCH ×2 (10:01→20:28)
[2018-05-26] MEDS: FUROSEMIDE 40 MG TAB PO SCH (10:01)
[2018-05-26] MEDS: TAMSULOSIN 0.4 MG CAP PO SCH (10:01)
[2018-05-26] MEDS: HumaLOG INSULIN (NovoLOG) PER UNIT SC SCH ×4 (10:02→21:00)
[2018-05-26] MEDS ORDERED: SODIUM CHLORIDE HYPERTONIC 3% 15ML NEB SOL NEB ONE (13:00)
--- NOTE | 2018-05-26 13:45 | REP ---
POST-BIOPSY CHEST: 05/26/2018. Clinical history: Status post left thoracentesis removing 2.4 liters of fluid. Evaluate for pneumothorax. Comparison: 05/24/2018. Findings: The lateral view is markedly limited by a respiratory motion blur. Frontal views rotated towards the left. However, is adequate for determination but there is no visible pneumothorax. There is some compressive atelectatic changes in the bases, left greater than right. Large left effusion seen on the chest x-ray 05/24/2018 is no longer visible. There are no other significant findings or changes. Impression: 1. Status post thoracentesis left side with residual compressive atelectatic change in the base. Small left effusion. No pneumothorax. Electronically Signed by Urbano Sue MD 05/26/2018 05:57 P
[2018-05-26 14:00] VITALS: BP 137/74
--- NOTE | 2018-05-26 15:58 | IPNPDOC ---
Text Note Date of Service The patient was seen on 05/26/18. NOTE SUBJECTIVE: Pt examined at bedside. Refused rehab Saturday, was willing to go today, but given his rising WBC and still requiring 2-3L NC, whereas he is normally on RA, rehab will be delayed. Feeling sob, and cough with white sputum. Noted to have increasing left side effusion again. He initially underwent left thoracentesis on admission, and is agreeable to it again today. PHYSICAL: Vitals: please see below General Exam: Alert, Cooperative, Mildly uncomfortable with breathing and sob Eye Exam: PERRLA, Conjunctiva & lids normal ENT Exam: Atraumatic, Mucous membr. moist/pink Neck Exam: Supple, unable to assess JVD due to body habitus Chest Exam: Diminished sounds due to large body habitus. Crackles b/l bases, l>r Heart Exam: Rate Normal, Regular Rhythm, Normal S1, Normal S2 Abdomen Exam: obese, normoactive BS, soft, no tenderness or mass Extremity Exam: no edema; no Clubbing, Cyanosis, Tenderness Skin Exam: Nl turgor and temperature; lipodermatosclerosis present b/l LE, left>right Psych Exam: Mental status NL, Mood NL, Oriented x 3 A/P: Please see discharge note from 05/23/18 and above HPI for rehab delay. Dyspnea & acute hypoxia pt still requiring supplemental O2, is on RA at baseline. Is sob, likely 2/2 recurring left side effusion from cirrhosis, and possible viral process. His WBC is trending up and CRP at 4 today. Will obtain sputum cx and resp panel, and also therapeutic thoracentesis today. Will monitor for improvement, and consider paracentesis in upcoming days. Trend CRP. It also appears he has been gaining wt since admission. Will increase Lasix from 40 to 60 daily and monitor bp & e- lytes. Cirrhosis with severe ascites/pleural effusion stable, o/p f/u. +for anemia of chronic disease, hx of NAFLD. Tolerating Lasix & Spironolactone well-continue hold parameters. no signs of bleeding. Stable H&H Urinary Retention resolved after starting on Flomax Hyponatremia likely 2/2 underlying cirrhosis/ascites and inability to excrete free water pt asymptomatic with level 130-135. Continue fluid restriction Systemic Hypotension resolved, likely 2/2 new cirrhosis. Stable Hypoalbuminemia likely 2/2 cirrhosis and critical illness. high protein diet. Consider albumin infusions + therapeutic paracentesis. Currently stable and no abd pain or tension Hyperammonemia level at 45, but pt's mentation is intact and at baseline ammonia is expected to improve as we treat underlying source (infection, effusion, liver disease) Acute Hypoxic Resp Failure with hypercapnia s/p BiPAP earlier in admission. Now on 2L NC. NO O2 at baseline IDDM2 Home Toujeo and metformin and Byetta on hold. Continue insulin sliding scale and consistent carbohydrate diet inpatient. Hyperlipidemia ASA & statin on hold given acute decompensation Hypertension controlled. Monitor CODE STATUS: DNR, DNI DVT prophylaxis: Heparin sc. DISPOSITION: pending clinical improvement & thoracentesis. Still requiring 2-3L NC. Accepted to ARU. VS,Portillobone, I+O VS, Fishbone, I+O Laboratory Tests 05/26/18 05:27 Red Blood Count 4.28 L, Mean Corpuscular Volume 88.1, Mean Corpuscular Hemoglobin 28.5, Mean Corpuscular Hemoglobin Concent 32.4, Red Cell Distribution Width 18.1 H, Calcium Level 10.0, Aspartate Amino Transf (AST/SGOT) 70 H, Alanine Aminotransferase (ALT/SGPT) 51, Alkaline Phosphatase 323 H, Total Bili dumont 0.7, Total Protein 6.3 L, Albumin 1.9 L Vital Signs Date Time Temp Pulse Resp B/P (MAP) Pulse Ox O2 Delivery O2 Flow Rate FiO2 05/26/18 09:00 3.0 05/26/18 06:00 97.1 84 20 111/57 (33) 93 I&O- Last 24 Hours up to 6 AM 05/26/18 06:00 Intake Total 1480 ml Output Total 500 ml Balance 980 ml GME ATTESTATION GME ATTESTATION My faculty preceptor for this patient encounter was physically present during the encounter and was fully available. All aspects of the patient interview, e xamination, medical decision making process, and medical care plan development were reviewed and approved by the faculty preceptor. The faculty preceptor is aware and concurs with the plan as stated in the body of this note and will attest to such by his/her cosignature. APRYL MIRANDA DO May 26, 2018 15:58
[2018-05-26] MEDS ORDERED: FUROSEMIDE 20 MG TAB PO ONE (16:00)
--- NOTE | 2018-05-26 17:55 | REP ---
ULTRASOUND-GUIDED LEFT THORACENTESIS The procedure was performed under the direct supervision of Dr. Sue. The risks and benefits of the procedure were explained to the patient and informed consent was obtained. The left pleural effusion was localized using ultrasound guidance. The skin was prepped and draped in a sterile fashion. 1% lidocaine was used as a local anesthetic. An 8-Divehi multi side-hole catheter was inserted using trocar technique. 2450 ml of joy colored fluid was withdrawn and discarded. The patient tolerated the procedure well and there were no immediate complications. After the appropriate amount of monitored convalescence the patient was discharged from the department. Reviewed by SAMINA Reyes 05/26/2018 04:57 P Electronically Signed by Urbano Sue MD 05/26/2018 05:46 P
[2018-05-26 22:00] VITALS: BP 98/54
[2018-05-27] VITALS: BP 103/61
[2018-05-27] MEDS: HEPARIN SOD (PORCINE) 5000 UNITS/ML VIAL SQ SCH ×3 (06:33→20:32)
[2018-05-27] MEDS: IPRATROPIUM 0.5MG/ALBUTEROL 2.5MG INH SOL UD 3ML (DUONEB)(J7620) NEB SCH ×6 (07:22→19:14)
[2018-05-27 07:31] LABS: HEMATOCRIT 36.6 % (42.0-52.0); HEMOGLOBIN 11.7 g/dl (13.5-17.5); MEAN CORPUSCULAR HEMOGLOBIN 28.3 pg (27.0-33.0); MEAN CORPUSCULAR VOLUME 88.6 fl (80.0-96.0); PLATELET COUNT, AUTOMATED 173 10^3/uL (150-450); RED BLOOD COUNT 4.13 10^6/uL (4.30-6.10); WHITE BLOOD COUNT 11.5 10^3/uL (4.0-10.0)
[2018-05-27 07:56] LABS: ALBUMIN 1.7 GM/DL (3.2-5.2); ALT/SGPT 48 U/L (12-78); BILIRUBIN,TOTAL 0.8 MG/DL (0.2-1.0); BLOOD UREA NITROGEN 28 MG/DL (7-18); C REACTIVE PROTEIN QUANTITATIV 3.66 MG/DL (0.00-0.30); CARBON DIOXIDE LEVEL 29 MEQ/L (21-32); CHLORIDE LEVEL 96 MEQ/L (98-107); CREATININE FOR GFR 0.59 MG/DL (0.70-1.30); GLOMERULAR FILTRATION RATE > 60.0 (>49); GLUCOSE, FASTING 141 MG/DL (70-100); POTASSIUM SERUM 4.7 MEQ/L (3.5-5.1); SODIUM LEVEL 129 MEQ/L (136-145); TOTAL PROTEIN 5.7 GM/DL (6.4-8.2)
[2018-05-27] MEDS: ASPIRIN 81 MG CHEW TABLET PO SCH ×2 (08:20→20:32)
[2018-05-27] MEDS: TAMSULOSIN 0.4 MG CAP PO SCH (08:21)
[2018-05-27] MEDS: HumaLOG INSULIN (NovoLOG) PER UNIT SC SCH ×4 (08:21→20:28)
[2018-05-27] MEDS: SPIRONOLACTONE 50 MG TAB PO SCH (08:22)
[2018-05-27] MEDS: NYSTATIN 100,000 UNITS/GM TOPICAL PWD 15 GM TOP SCH ×2 (08:23→20:32)
[2018-05-27 08:28] VITALS: BP 109/57
[2018-05-27] MEDS ORDERED: FUROSEMIDE 20 MG TAB PO SCH (09:00)
[2018-05-27 14:00] VITALS: BP 122/60
--- NOTE | 2018-05-27 18:18 | IPNPDOC ---
Text Note Date of Service The patient was seen on 05/27/18. NOTE SUBJECTIVE: Pt examined at bedside. Feeling better after therapeutic thoracentesis yesterday with 2.45 L removed. Initially scheduled for acute rehabilitation last week, however shortness of breath has delayed this. No issues overnight. PHYSICAL: Vitals: please see below General Exam: Alert, Cooperative, A&Ox3, NAD Eye Exam: PERRLA, Conjunctiva & lids normal ENT Exam: Atraumatic, Mucous membr. moist/pink Neck Exam: Supple, unable to assess JVD due to body habitus Chest Exam: Diminished sounds due to large body habitus. 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 Dyspnea & acute hypoxia Will titrate down O2. Shortness of breath is likely 2/2 recurrent pleural effusion and ascites 2/2 cirrhosis. Overall, his WBC and CRP are trending down, and he is tolerating weaning of his oxygen well. His breathing has improved after therapeutic thoracentesis yesterday, 2450 mL removed. Will monitor for improvement, and consider therapeutic paracentesis as needed. Currently, abdomen is not tense or tender. Continue strict I/O and daily weights. Continue increasing diuretics as tolerated. Will consider adding albumin infusions prn. Cirrhosis with severe ascites/pleural effusion stable, o/p f/u. +for anemia of chronic disease, hx of NAFLD. Tolerating Lasix & Spironolactone well-continue hold parameters. no signs of bleeding. Stable H&H Urinary Retention resolved after starting on Flomax Hyponatremia likely 2/2 underlying cirrhosis/ascites and inability to excrete free water pt asymptomatic with level 130-135. Continue fluid restriction Systemic Hypotension resolved, likely 2/2 new cirrhosis. Stable Hypoalbuminemia likely 2/2 cirrhosis and critical illness. high protein diet. Consider albumin infusions + therapeutic paracentesis. Currently stable and no abd pain or tension Hyperammonemia level at 45, but pt's mentation is intact and at baseline ammonia is expected to improve as we treat underlying source (infection, effusion, liver disease) Acute Hypoxic Resp Failure with hypercapnia s/p BiPAP earlier in admission. Now on 2L NC. NO O2 at baseline IDDM2 Home Toujeo and metformin and Byetta on hold. Continue insulin sliding scale and consistent carbohydrate diet inpatient. Hyperlipidemia ASA & statin on hold given acute decompensation Hypertension controlled. Monitor CODE STATUS: DNR, DNI DVT prophylaxis: Heparin sc. DISPOSITION: pending clinical improvement and titrate down O2. Accepted to ARU. Likely d/c tomorrow. VS,Fishbone, I+O VS, Fishbone, I+O Laboratory Tests 05/27/18 07:06 Red Blood Count 4.13 L, Mean Corpuscular Volume 88.6, Mean Corpuscular Hemoglobin 28.3, Mean Corpuscular Hemoglobin Concent 32.0, Red Cell Distribution Width 18.0 H, Calcium Level 10.0, Aspartate Amino Transf (AST/SGOT) 62 H, Alanine Aminotransferase (ALT/SGPT) 48, Alkaline Phosphatase 304 H, Total Bilirubin 0.8, Total Protein 5.7 L, Albumin 1.7 L Vital Signs Date Time Temp Pulse Resp B/P (MAP) Pulse Ox O2 Delivery O2 Flow Rate FiO2 05/27/18 14:00 97.3 91 18 122/60 (80) 91 05/27/18 08:30 1.5 I&O- Last 24 Hours up to 6 AM 05/27/18 06:00 Intake Total 820 ml Output Total 200 ml Balance 620 ml GME ATTESTATION GME ATTESTATION My faculty preceptor for this patient encounter was physically present during the encounter and was fully available. All aspects of the patient interview, examination, medical decision making process, and medical care plan development were reviewed and approved by the faculty preceptor. The faculty preceptor is aware and concurs with the plan as stated in the body of this note and will attest to such by his/her cosignature. APRYL MIRANDA DO May 27, 2018 18:18
[2018-05-28] MEDS: IPRATROPIUM 0.5MG/ALBUTEROL 2.5MG INH SOL UD 3ML (DUONEB)(J7620) NEB SCH ×6 (00:25→20:16)
[2018-05-28 06:00] VITALS: BP 158/68
[2018-05-28] MEDS ORDERED: FUROSEMIDE 80 MG TAB PO SCH (06:00)
[2018-05-28] MEDS: HEPARIN SOD (PORCINE) 5000 UNITS/ML VIAL SQ SCH ×3 (06:08→21:20)
[2018-05-28 07:20] LABS: HEMATOCRIT 36.1 % (42.0-52.0); HEMOGLOBIN 11.9 g/dl (13.5-17.5); MEAN CORPUSCULAR HEMOGLOBIN 28.3 pg (27.0-33.0); MEAN CORPUSCULAR VOLUME 85.7 fl (80.0-96.0); PLATELET COUNT, AUTOMATED 179 10^3/uL (150-450); RED BLOOD COUNT 4.21 10^6/uL (4.30-6.10); WHITE BLOOD COUNT 12.5 10^3/uL (4.0-10.0)
[2018-05-28 07:47] LABS: ALT/SGPT 44 U/L (12-78); BILIRUBIN,TOTAL 0.8 MG/DL (0.2-1.0); BLOOD UREA NITROGEN 28 MG/DL (7-18); CALCIUM LEVEL 10.4 MG/DL (8.8-10.2); CARBON DIOXIDE LEVEL 29 MEQ/L (21-32); CHLORIDE LEVEL 96 MEQ/L (98-107); GLOMERULAR FILTRATION RATE > 60.0 (>49); GLUCOSE, FASTING 140 MG/DL (70-100); POTASSIUM SERUM 4.8 MEQ/L (3.5-5.1); SODIUM LEVEL 130 MEQ/L (136-145)
[2018-05-28 07:48] LABS: ALBUMIN 1.8 GM/DL (3.2-5.2); C REACTIVE PROTEIN QUANTITATIV 4.33 MG/DL (0.00-0.30)
[2018-05-28] MEDS ORDERED: FURO80TA2 PO (08:16)
[2018-05-28] MEDS: NYSTATIN 100,000 UNITS/GM TOPICAL PWD 15 GM TOP SCH ×2 (08:39→21:21)
[2018-05-28] MEDS: TAMSULOSIN 0.4 MG CAP PO SCH (08:39)
[2018-05-28] MEDS: SPIRONOLACTONE 50 MG TAB PO SCH (08:39)
[2018-05-28] MEDS: HumaLOG INSULIN (NovoLOG) PER UNIT SC SCH ×4 (08:39→21:00)
[2018-05-28] MEDS: ASPIRIN 81 MG CHEW TABLET PO SCH ×2 (08:39→21:20)
[2018-05-28 13:00] VITALS: BP 111/54
--- NOTE | 2018-05-28 20:46 | IPNPDOC ---
Text Note Date of Service The patient was seen on 05/28/18. NOTE SUBJECTIVE: Pt examined at bedside. Is back on RA and feeling slightly better with breathing, bust still complaining of abd fullness and requesting paracentesis. No issues overnight. Initially scheduled for acute rehabilitation last week, however shortness of breath has delayed this. PHYSICAL: Vitals: please see below General Exam: Alert, Cooperative, A&Ox3, NAD Eye Exam: PERRLA, Conjunctiva & lids normal ENT Exam: Atraumatic, Mucous membr. moist/pink Neck Exam: Supple, unable to assess JVD due to body habitus Chest Exam: Diminished sounds due to large body habitus. 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 Dyspnea & acute hypoxia resolved. Back on baseline RA. Shortness of breath improving s/p therapeutic thoracentesis and likely will also improve after paracentesis today as it appears his belly is pressurizing his diaphragm. Symptoms likely 2/2 recurrent pleural effusion and ascites 2/2 cirrhosis. Continue strict I/O and daily weights. Continue increasing diuretics as tolerated. Plan for acute rehab tomorrow. Cirrhosis with severe ascites/pleural effusion stable, o/p f/u. +for anemia of chronic disease, hx of NAFLD. Tolerating Lasix & Spironolactone well-continue hold parameters. no signs of bleeding. Stable H&H. Will need o/p f/u with GI and EGD. Urinary Retention resolved after starting on Flomax Hyponatremia likely 2/2 underlying cirrhosis/ascites and inability to excrete free water pt asymptomatic with level 130-135. Continue fluid restriction Systemic Hypotension resolved, likely 2/2 new cirrhosis. Stable Hypoalbuminemia likely 2/2 cirrhosis and critical illness. high protein diet. Consider albumin infusions + therapeutic paracentesis. Currently stable and no abd pain or tension Hyperammonemia level at 45, but pt's mentation is intact and at baseline ammonia is expected to improve as we treat underlying source (infection, effusion, liver disease) Acute Hypoxic Resp Failure with hypercapnia s/p BiPAP earlier in admission. Now on 2L NC. NO O2 at baseline IDDM2 Home Toujeo and metformin and Byetta on hold. Continue insulin sliding scale and consistent carbohydrate diet inpatient. Hyperlipidemia ASA & statin on hold given acute decompensation Hypertension controlled. Monitor CODE STATUS: DNR, DNI DVT prophylaxis: Heparin sc. DISPOSITION: pending paracentesis and bed in ARU available tomorrow. VS,Fishbone, I+O VS, Fishbone, I+O Laboratory Tests 05/28/18 06:51 Red Blood Count 4.21 L, Mean Corpuscular Volume 85.7, Mean Corpuscular Hemoglobin 28.3, Mean Corpuscular Hemoglobin Concent 33.0, Red Cell Distribution Width 18.1 H, Calcium Level 10.4 H, Aspartate Amino Transf (AST/SGOT) 59 H, Alanine Aminotransferase (ALT/SGPT) 44, Alkaline Phosphatase 321 H, Total Bilirubin 0.8, Total Protein 6.0 L, Albumin 1.8 L Vital Signs Date Time Temp Pulse Resp B/P (MAP) Pulse Ox O2 Delivery O2 Flow Rate FiO2 05/28/18 13:00 96.9 88 17 111/54 (73) 92 05/27/18 08:30 1.5 I&O- Last 24 Hours up to 6 AM 05/28/18 06:00 Intake Total 1020 ml Output Total 400 ml Balance 620 ml GME ATTESTATION GME ATTESTATION My faculty preceptor for this patient encounter was physically present during the encounter and was fully available. All aspects of the patient interview, examination, medical decision making process, and medical care plan development were reviewed and approved by the faculty preceptor. The faculty preceptor is aware and concurs with the plan as stated in the body of this note and will attest to such by his/her cosignature. APRYL MIRANDA DO May 28, 2018 19:05
[2018-05-28 21:18] VITALS: BP 110/66
--- NOTE | 2018-05-28 21:19 | REP ---
Ultrasound-guided paracentesis The procedure was performed under the direct supervision of Dr. Sue. The risks and benefits of the procedure were explained to the patient and informed consent was obtained. The largest pocket of fluid was localized in the left flank using ultrasound guidance. The skin was prepped and draped in a sterile fashion. 1% lidocaine was used as a local anesthetic. An 8-Telugu multi side-hole catheter was inserted using trocar technique. While the procedure was being performed the patient stated he was having too much discomfort and was unable to continue of the procedure. The catheter was then pulled. 1500 ml of yellow fluid was withdrawn and discarded. The patient tolerated the procedure well and there were no immediate complications. After the appropriate amount of monitored convalescence the patient was discharged from the department. Reviewed by SAMINA Reyes 05/28/2018 05:28 P Electronically Signed by Urbano Sue MD 05/28/2018 09:10 P
[2018-05-28] MEDS: FUROSEMIDE 40 MG TAB PO SCH (21:20)
[2018-05-29] MEDS: IPRATROPIUM 0.5MG/ALBUTEROL 2.5MG INH SOL UD 3ML (DUONEB)(J7620) NEB SCH ×7 (04:00→23:13)
[2018-05-29 06:00] VITALS: BP 112/66
[2018-05-29] MEDS: HEPARIN SOD (PORCINE) 5000 UNITS/ML VIAL SQ SCH ×3 (06:12→21:07)
[2018-05-29 07:07] LABS: HEMATOCRIT 35.1 % (42.0-52.0); HEMOGLOBIN 11.7 g/dl (13.5-17.5); MEAN CORPUSCULAR HEMOGLOBIN 28.4 pg (27.0-33.0); MEAN CORPUSCULAR HGB CONC 33.3 g/dl (32.0-36.5); MEAN CORPUSCULAR VOLUME 85.2 fl (80.0-96.0); PLATELET COUNT, AUTOMATED 191 10^3/uL (150-450); RED BLOOD COUNT 4.12 10^6/uL (4.30-6.10); WHITE BLOOD COUNT 11.1 10^3/uL (4.0-10.0)
[2018-05-29 07:46] LABS: ALBUMIN 1.9 GM/DL (3.2-5.2); ALT/SGPT 42 U/L (12-78); BILIRUBIN,TOTAL 0.8 MG/DL (0.2-1.0); BLOOD UREA NITROGEN 30 MG/DL (7-18); C REACTIVE PROTEIN QUANTITATIV 4.08 MG/DL (0.00-0.30); CALCIUM LEVEL 10.2 MG/DL (8.8-10.2); CARBON DIOXIDE LEVEL 29 MEQ/L (21-32); CHLORIDE LEVEL 97 MEQ/L (98-107); CREATININE FOR GFR 0.71 MG/DL (0.70-1.30); GLOMERULAR FILTRATION RATE > 60.0 (>49); GLUCOSE, FASTING 143 MG/DL (70-100); POTASSIUM SERUM 4.7 MEQ/L (3.5-5.1); SODIUM LEVEL 131 MEQ/L (136-145); TOTAL PROTEIN 5.6 GM/DL (6.4-8.2)
[2018-05-29] MEDS: TAMSULOSIN 0.4 MG CAP PO SCH (08:15)
[2018-05-29] MEDS: SPIRONOLACTONE 50 MG TAB PO SCH (08:15)
[2018-05-29] MEDS: ASPIRIN 81 MG CHEW TABLET PO SCH ×2 (08:15→21:06)
[2018-05-29] MEDS: FUROSEMIDE 40 MG TAB PO SCH ×2 (08:15→21:07)
[2018-05-29] MEDS: HumaLOG INSULIN (NovoLOG) PER UNIT SC SCH ×4 (08:15→21:00)
[2018-05-29] MEDS: NYSTATIN 100,000 UNITS/GM TOPICAL PWD 15 GM TOP SCH ×2 (08:16→21:07)
[2018-05-29] MEDS ORDERED: FURO40TA2 PO (10:46)
--- NOTE | 2018-05-29 10:57 | DS.PDOC ---
Discharge Summary General Date of Admission May 13, 2018 at 10:35 Date of Discharge 05/29/18 Attending Physician: MARKUS MILLER MD Specialist/Consultants Involve: MICHELE TYLER Discharge Summary PROCEDURES PERFORMED DURING STAY: thoracentesis, paracentesis ADMITTING DIAGNOSES: 1. Acute hypoxic respiratory failure 2. Moderate left pleural effusion 3. Ascites 4. Lactic acidosis DISCHARGE DIAGNOSES: 1. hepatic hydrothorax 2. liver cirrhosis with severe ascites and pleural effusion and adenopathy 3. Acute Hypoxic Resp Failure with hypercapnia 4. urinary retention 5. hyponatremia 6. systemic hypotension s/p Levophed 7. hyperammonemia 8. hypoalbuminemia 9. Hypercalcemia History of nonalcoholic fatty liver disease hypertension hyperlipidemia insulin dependent diabetes mellitus type 2 CODE STATUS: DNR, DNI COMPLICATIONS/CHIEF COMPLAINT: Atrial Fibrillation Pleural Effusion Left. HISTORY OF PRESENT ILLNESS: 67-year-old male with shortness of breath for the past 3 weeks that has recently worsened over the past few days. He states he initially followed up with an outside physician and was told he has "pneumonia and a partially collapsed lung on the left." This imaging, per the patient, was done at [facility] about a week ago. He states he was prescribed a 10 day course of amoxicillin as well as ProAir which he has been using around four times a day. He completed antibiotic as of Saturday with only minimal improvement. He states that he is still bringing up some clear phlegm, has a minimal cough and some wheezing as well. No fevers, chills, chest discomfort, or chest tightness. No unintentional weight loss or any recent changes in medications or any sick contacts or travel history. He denies any previous lung illnesses, however was noted to be saturating at 84% on room air in the emergency room (ER). On admission, chest x-ray and chest CT also confirm a moderate-sized left pleural effusion along with cardiomegaly. Hospitalist was called to admit for continued hypoxia. He had no other complaints on time of admission. HOSPITAL COURSE: Patient was satting in the 80s on admission. Due to his moderate left-sided pleural effusion, he underwent a thoracentesis of the left, with about 1.6 L of red colored fluid removed. Further imaging was planned for the next morning due to concern of his renal function as he had already received contrast in the ER, however early next morning, he was noted to have altered mentation, on ABG found to be hypercapnic and acidotic, thus requiring a pulmonary consult for BiPAP management. Imaging of the head was nonrevealing. About an hour later, he was noted to be hypotensive, not responding to IV fluids, therefore central line was emergently placed by thoracic surgeon Dr. Mccall, and he was started on levophed drip. He was started on broad-spectrum antibiotics, with concern of possible SBP. Bedside paracentesis had few PMNs, and unlikely to be SBP. His mentation was much improved later that day, and he was ultimately weaned off BiPAP. Pulmonology had started hydrocortisone, which he was weaned off of as well as titrating down on his Levophed drip. He verbalized he is DNR/DNI once he was off BiPAP His ammonia level returned at 45, however at this point his mentation was back to baseline, and he was A&Ox3. His liver profile and coag panel along with clinical picture point towards cirrhosis. Outside PCP records were obtained which did not show a previous workup of cirrhosis, thus it was started in patient. Patient already has a previous history of nonalcoholic fatty liver disease, and inpatient workup revealed anemia of chronic disease, and borderline elevated anti-Garcia antibody. The anti-Garcia antibody was discussed in depth with hospital lab, and titers were requested to further assess for possible autoimmune hepatitis, however per pathologist, titers will most likely not be beneficial at this point and therefore it was canceled. His cirrhosis workup was otherwise otherwise negative. All of his cultures from thoracentesis, paracentesis X2, blood cultures were negative for growth. Patient was ultimately downgraded from ICU to general medical floor. Once he was stable, he was resumed on his Lasix and started on spironolactone due to his new cirrhosis. His blood pressures maintained well. During his stay, after Stover was removed, he experienced urinary retention and the Stover was reinserted. After second voiding trial few days later, and having had started on Flomax, he no longer had difficulty urinating on his own. He made very slow progress with PT and OT, and thus was recommended for acute rehabilitation. All the results and new diagnosis of cirrhosis were discussed with the patient, including the need for follow-up with GI for EGD and further workup. Alcohol cessation counseling was provided, including need for vaccinations of hepatitis A and B. Patient was educated for the concern of possible malignancy now or down the line. Of note, his tumor marker AFP was checked patient, which was normal. Ceruloplasmin level was mildly elevated at 32.6, however patient clinically does not have presentation suggesting Alfred's disease. He is to return to ER for emergency, and has been advised to limit his fluid intake, and closely monitor bp and signs of bleeding. Of note, he was found to have hypercalcemia, workup reveals mildly decreased PTH. This was discussed with pt and he agreed to follow up with PCP. Patient was scheduled for acute rehabilitation as of 05/23/2018, however this was delayed as patient did not feel ready. Additionally, he felt short of breath, and underwent an additional thoracentesis and paracentesis. He has been weaned off of his oxygen back to room air, and will be discharged today to acute rehabilitation. DISCHARGE MEDICATIONS: Please see below. ALLERGIES: Please see below. PHYSICAL EXAMINATION ON DISCHARGE: VITAL SIGNS: Please see below. General Exam: Alert, Cooperative, No Acute Distress Eye Exam: PERRLA, Conjunctiva & lids normal ENT Exam: Atraumatic, Mucous membr. moist/pink Neck Exam: Supple, unable to assess JVD due to body habitus Chest Exam: Diminished sounds due to large body habitus. Crackles b/l bases Heart Exam: Rate Normal, Regular Rhythm, Normal S1, Normal S2 Abdomen Exam: obese, normoactive BS, soft, no tenderness or mass Extremity Exam: no edema; no Clubbing, Cyanosis, Tenderness Skin Exam: Nl turgor and temperature; lipodermatosclerosis present b/l LE, left>right Psych Exam: Mental status NL, Mood NL, Oriented x 3 LABORATORY DATA: Please see below. IMAGING: * 05/12/2018 CXR: Evidence of a moderate-sized left pleural effusion unchanged from April 29, 2018. Mild cardiomegaly. Otherwise no acute disease. * 05/12/2018 CTA chest: No CT evidence of pulmonary embolus. Moderate to large left pleural effusion. Mild left mediastinal and moderate upper abdominal lymphadenopathy. Mild retrocrural lymphadenopathy. Rule out lymphoma versus metastatic adenopathy. Recommend CT abdomen and pelvis. Ascites and micronodular liver contour suggestive of cirrhosis. * 05/12/2018 left thoracentesis: 1680 ml of low viscosity red colored fluid was withdrawn with a sample sent to the lab for analysis. * 05/12/2018 post-thoracentesis: Improved left pleural effusion post left thoracentesis. No complication is seen. * 05/13/2018 transthoracic echo: 1. Mild left ventricle dilatation with normal LV wall thickness. Normal regional LV motion and wall thickening. LVEF 70% by visual estimate. Grade 2 LV diastolic dysfunction (through a normal LV filling pattern); differential diagnosis would include normal LV diastolic function with incorrect assessment of mitral annular tissue Doppler and mitral deceleration time, especially in view of the left atrial volume index being normal. 2. Moderate mitral annular calcification. No mitral regurgitation or mitral stenosis. 3. Mild aortic valve sclerosis of a 3-cuspid aortic valve. No aortic regurgitation. 4. Unable to assess pulmonary artery systolic pressure or estimated right ventricle systolic pressure. 5. Inferior vena cava dilatation. Consider elevated central venous pressure. 6. Moderately t echnically difficult echocardiogram. * 05/13/[address]: No acute intracranial process. No intracranial hemorrhage. If clinical concern for acute infarction, MRI with diffusion weighted sequences or intracranial CTA should be considered. * 05/13/2018 neck CTA: No significant stenosis or occlusion within the carotid or vertebral arteries of the neck. Additional nonemergent findings as descri bed above. * 05/13/2018 CTA head: No significant stenosis, occlusion or aneurysmal dilatation within the anterior or posterior intracranial arterial circulation. * 05/13/2018 CXR: Small left pleural effusion persists. No acute changes. * 05/13/2018 CXR s/p central line: A left subclavian line has been inserted with its tip in the expected location of the superior vena cava. The patient is rotated somewhat to the left. There is pleural opacity in the left base and air bronchograms are seen due to consolidation and/or collapse in the left perihilar region as before. There is no evidence of pneumothorax. * 05/15/2018 CXR: 1. Left lower lobe atelectasis or infiltrate. 2. Small left pleural effusion unchanged compared to the previous study. * 05/17/2018 abdomen ultrasound: Stones and sludge in the gallbladder without gallbladder wall thickening. Moderate abdominal ascites. Right pleural effu delgado. Common bile duct upper limits of normal at 7 mm. Echotexture of the liver is heterogeneous. There is hepatosplenomegaly. * 05/19/2018 paracentesis ultrasound: 3400 ml of clear yellow fluid was wi thdrawn with a sample sent to lab for analysis. * 05/24/2018 CXR: 1. Significant interval increase in the left pleural effusion and compressive atelectasis/infiltrate in the left hemithorax. * 05/26/2018 thoracentesis ultrasound: 2450 ml of joy colored fluid was withdrawn and discarded. * 05/26/2018 post-thoracentesis CXR: 1. Status post thoracentesis left side with residual compressive atelectatic change in the base. Small left effusion. No pneumothorax. * 05/28/2018 paracentesis ultrasound: 1500 ml of yellow fluid was withdrawn and discarded. PROGNOSIS: guarded ACTIVITY: As tolerated. DIET: consistent carb & high protein, 1800cc fluid restriction DISPOSITION: to acute rehab DISCHARGE INSTRUCTIONS: 1. Participating in PT and OT in acute rehabilitation 2. Follow-up with PCP within one week and with Dr. Rodriguez, GI specialist, in 3-4 weeks 3. Return to ER for emergency 4. MEDICATION CHANGES: Stop Lipitor, fosinopril, magnesium oxide, metformin, potassium chloride Start spironolactone 100 mg po daily, Flomax 0.4 MG Daily, and furosemide 40 mg bid DISCHARGE CONDITION: Stable. TIME SPENT ON DISCHARGE: Greater than 35 minutes. Vital Signs/I&Os Vital Signs Date Time Temp Pulse Resp B/P (MAP) Pulse Ox O2 Delivery O2 Flow Rate FiO2 05/29/18 06:00 96.3 102 20 112/66 (81) 95 2.0 I&O- Last 24 Hours up to 6 AM 05/29/18 06:00 Intake Total 1050 ml Output Total 1100 ml Balance -50 ml Laboratory Data Labs 24H Laboratory Tests 2 05/28/18 12:19: Bedside Glucose (Misc Panel) 154H 05/28/18 17:29: Bedside Glucose (Misc Panel) 136H 05/28/18 21:15: Bedside Glucose (Misc Panel) 147H 05/29/18 06:15: Bedside Glucose (Misc Panel) 142H 05/29/18 06:44: Anion Gap 5L, Glomerular Filtration Rate > 60.0, Blood Urea Nitrogen 30H, Cre atinine 0.71, Sodium Level 131L, Potassium Level 4.7, Chloride Level 97L, Carbon Dioxide Level 29, Calcium Level 10.2, Aspartate Amino Transf (AST/SGOT) 61H, Alanine Aminotransferase (ALT/SGPT) 42, Alkaline Phosphatase 335H, Total Bilirubin 0.8, Total Protein 5.6L, Albumin 1.9L, C-Reactive Protein, Quantitative 4.08H, Albumin/Globulin Ratio 0.51L 05/29/18 06:45: Nucleated Red Blood Cells % (auto) 0.0 CBC/BMP Laboratory Tests 05/29/18 06:44 Calcium Level 10.2, Aspartate Amino Transf (AST/SGOT) 61 H, Alanine Aminotransferase (ALT/SGPT) 42, Alkaline Phosphatase 335 H, Total Bilirubin 0.8, Total Protein 5.6 L, Albumin 1.9 L 05/29/18 06:45 Red Blood Count 4.12 L, Mean Corpuscular Volume 85.2, Mean Corpuscular Hemoglobin 28.4, Mean Corpuscular Hemoglobin Concent 33.3, Red Cell Distribution Width 18.4 H FSBS Laboratory Tests Test 05/28/18 12:19 05/28/18 17:29 05/28/18 21:15 05/29/18 06:15 Range/Units Bedside Glucose (Misc Panel) 154 136 147 142 80-115 MG/DL Microbiology Microbiology 05/19/18 Gram Stain - Final, Complete 05/19/18 Body Fluid Culture - Final, Complete 05/27/18 Respiratory Virus Panel (PCR) (JAREK) - Final, Complete 05/26/18 Gram Stain - Final, Complete 05/26/18 Sputum Culture - Final, Complete 05/20/18 Urine Culture - Final, Complete Discharge Medications Scheduled ([place]etta) 10 Mcg/0.04 Ml Inj, 10 MCG SC BID, (Reported) (Aspirin EC Low Dose) 81 Mg Tab, 81 MG PO BID, (Reported) (Toujeo Solostar) 300 Unit/Ml Inj, 100 UNIT SC DAILY, (Reported) Cholecalciferol (Vitamin D) 5,000 Unit Tab, 5,000 UNIT PO DAILY, (Reported) Furosemide (Furosemide) 40 Mg Tab, 40 MG PO BID Glucosamine Chondroitin (Glucosamine Chondroitin) 1 Cap Cap, 2 CAP PO QPM, (Reported) Meloxicam (Meloxicam) 15 Mg Tab, 15 MG PO QPM, (Reported) Multivitamins (Multivitamin Adults) 1 Tab Tab, 1 TAB PO DAILY, (Reported) Spironolactone (Aldactone) 50 Mg Tab, 100 MG PO DAILY Tamsulosin Hydrochloride (Flomax) 0.4 Mg Cap, 0.4 MG PO DAILY Scheduled PRN Albuterol Sulfate (Proair Hfa) 108 Mcg/Act Aer, 2 PUFF INH QID PRN for SHORTNESS OF BREATH, (Reported) Azelastine Hydrochloride (Astepro) 0.15 % Spr, 2 SPRAY NA DAILY PRN for ALLERGIES, (Reported) Allergies Coded Allergies: No Known Allergies (Unverified , 11/09/16) GME ATTESTATION GME ATTESTATION My faculty preceptor for this patient encounter was physically present during the encounter and was fully available. All aspects of the patient interview, examination, medical decision making process, and medical care plan development were reviewed and approved by the faculty preceptor. The faculty preceptor is aware and concurs with the plan as stated in the body of this note and will attest to such by his/her cosignature. APRYL MIRANDA DO May 29, 2018 10:57
[2018-05-29 14:00] VITALS: BP 119/60
[2018-05-29] MEDS: ACETAMINOPHEN TAB 650MG DOSE (2X325MG) PO PRN (19:36)
[2018-05-29 21:00] VITALS: BP 111/66
[2018-05-30] MEDS: IPRATROPIUM 0.5MG/ALBUTEROL 2.5MG INH SOL UD 3ML (DUONEB)(J7620) NEB SCH ×6 (04:00→23:15)
[2018-05-30] MEDS: HEPARIN SOD (PORCINE) 5000 UNITS/ML VIAL SQ SCH ×3 (06:12→23:28)
[2018-05-30 06:23] VITALS: BP 101/54
[2018-05-30 07:38] LABS: HEMATOCRIT 35.3 % (42.0-52.0); HEMOGLOBIN 11.7 g/dl (13.5-17.5); MEAN CORPUSCULAR HEMOGLOBIN 28.9 pg (27.0-33.0); MEAN CORPUSCULAR HGB CONC 33.1 g/dl (32.0-36.5); MEAN CORPUSCULAR VOLUME 87.2 fl (80.0-96.0); PLATELET COUNT, AUTOMATED 180 10^3/uL (150-450); RED BLOOD COUNT 4.05 10^6/uL (4.30-6.10); WHITE BLOOD COUNT 10.7 10^3/uL (4.0-10.0)
[2018-05-30 07:57] LABS: ALBUMIN 1.8 GM/DL (3.2-5.2); ALT/SGPT 45 U/L (12-78); BILIRUBIN,TOTAL 0.6 MG/DL (0.2-1.0); BLOOD UREA NITROGEN 30 MG/DL (7-18); CARBON DIOXIDE LEVEL 29 MEQ/L (21-32); CHLORIDE LEVEL 97 MEQ/L (98-107); CREATININE FOR GFR 0.69 MG/DL (0.70-1.30); GLOMERULAR FILTRATION RATE > 60.0 (>49); GLUCOSE, FASTING 146 MG/DL (70-100); POTASSIUM SERUM 4.7 MEQ/L (3.5-5.1); SODIUM LEVEL 131 MEQ/L (136-145); TOTAL PROTEIN 5.9 GM/DL (6.4-8.2)
[2018-05-30] MEDS: ASPIRIN 81 MG CHEW TABLET PO SCH ×2 (08:57→23:29)
[2018-05-30] MEDS: SPIRONOLACTONE 50 MG TAB PO SCH (08:57)
[2018-05-30] MEDS: HumaLOG INSULIN (NovoLOG) PER UNIT SC SCH ×4 (08:57→21:00)
[2018-05-30] MEDS: ACETAMINOPHEN TAB 650MG DOSE (2X325MG) PO PRN (08:57)
[2018-05-30] MEDS: NYSTATIN 100,000 UNITS/GM TOPICAL PWD 15 GM TOP SCH ×2 (08:58→23:29)
[2018-05-30] MEDS: FUROSEMIDE 40 MG TAB PO SCH ×2 (08:58→23:29)
[2018-05-30] MEDS: TAMSULOSIN 0.4 MG CAP PO SCH (08:58)
--- NOTE | 2018-05-30 12:26 | IPNPDOC ---
Subjective Date Seen The patient was seen on 05/30/18. Subjective Chief Complaint/HPI No acute overnight events noted. The patient is tentatively scheduled for discharge to ARU on 06/02. Objective Physical Examination General Exam: Positive: Alert, Cooperative, No Acute Distress Eye Exam: Positive: PERRLA, Conjunctiva & lids normal; Negative: Sclera icteric ENT Exam: Positive: Atraumatic, Mucous membr. moist/pink Neck Exam: Positive: Other (unable to assess JVD due to body habitus) Chest Exam: Positive: Diminished, Other (limited due to large body habitus. No appreciable w/r/r) Heart Exam: Positive: Rate Normal, Normal S1, Normal S2 Abdomen Exam: Positive: Soft; Negative: Tenderness Extremity Exam: Negative: Tenderness Psych Exam: Positive: Oriented x 3 Assessment /Plan Plan/VTE VTE Prophylaxis Ordered?: Yes Plan Dyspnea & Acute hypoxia 2/2 Anasarca, resolved. Back on baseline RA this AM. Continue strict I/O and daily weights. Continue diuretics. Plan for acute rehab for functional optimization on 06/02 Cirrhosis with severe ascites/pleural effusion s/p Thoracentesis and Paracentesis during this hospitalization hx of NAFLD. Tolerating Lasix & Spironolactone well-continue hold parameters. Will need o/p f/u with GI and EGD. Urinary Retention resolved after starting on Flomax Hyponatremia likely 2/2 underlying cirrhosis/ascites pt asymptomatic with level 130-135. Continue fluid restriction Hypoalbuminemia likely 2/2 cirrhosis and critical illness. high protein diet IDDM2 Continue current regimen CODE STATUS: DNR, DNI DVT prophylaxis: Heparin sc. DISPOSITION: Discharged to ARU on 06/02/18. VS, I&O, 24H, [place] Vital Signs/I&O Vital Signs Date Time Temp Pulse Resp B/P (MAP) Pulse Ox O2 Delivery O2 Flow Rate FiO2 05/30/18 10:00 92 05/30/18 06:23 96.7 82 18 101/54 (70) 2.0 I&O- Last 24 Hours up to 6 AM 05/30/18 06:00 Intake Total 1560 ml Output Total 1150 ml Balance 410 ml Laboratory Data 24H LABS Laboratory Tests 2 05/29/18 16:52: Bedside Glucose (Misc Panel) 134H 05/29/18 21:02: Bedside Glucose (Misc Panel) 176H 05/30/18 06:15: Bedside Glucose (Misc Panel) 152H 05/30/18 07:16: Anion Gap 5L, Glomerular Filtration Rate > 60.0, Blood Urea Nitrogen 30H, Creatinine 0.69L, Sodium Level 131L, Potassium Level 4.7, Chloride Level 97L, Carbon Dioxide Level 29, Calcium Level 10.0, Aspartate Amino Transf (AST/SGOT) 69H, Alanine Aminotransferase (ALT/SGPT) 45, Alkaline Phosphatase 355H, Total Bilirubin 0.6, Total Protein 5.9L, Albumin 1.8L, Albumin/Globulin Ratio 0.44L 05/30/18 07:17: Nucleated Red Blood Cells % (auto) 0.0 05/30/18 11:43: Bedside Glucose (Misc Panel) 110 CBC/BMP Laboratory Tests 05/30/18 07:16 Calcium Level 10.0, Aspartate Amino Transf (AST/SGOT) 69 H, Alanine Aminotransferase (ALT/SGPT) 45, Alkaline Phosphatase 355 H, Total Bilirubin 0.6, Total Protein 5.9 L, Albumin 1.8 L 05/30/18 07:17 Red Blood Count 4.05 L, Mean Corpuscular Volume 87.2, Mean Corpuscular Hemoglobin 28.9, Mean Corpuscular Hemoglobin Concent 33.1, Red Cell Distribution Width 18.2 H Microbiology Microbiology 05/27/18 Respiratory Virus Panel (PCR) (JAREK) - Final, Complete 05/26/18 Gram Stain - Final, Complete 05/26/18 Sputum Culture - Final, Complete 05/20/18 Urine Culture - Final, Complete MARKUS MILLER MD May 30, 2018 12:26
[2018-05-30 14:00] VITALS: BP 109/53
[2018-05-30 16:25] VITALS: BP 96/51
[2018-05-30 22:00] VITALS: BP 107/55
[2018-05-31] VITALS (7 sets, daily range): BP systolic 92–111; BP diastolic 50–62
[2018-05-31] MEDS: HEPARIN SOD (PORCINE) 5000 UNITS/ML VIAL SQ SCH ×3 (05:52→20:58)
[2018-05-31 07:13] LABS: HEMATOCRIT 39.3 % (42.0-52.0); HEMOGLOBIN 12.7 g/dl (13.5-17.5); MEAN CORPUSCULAR HEMOGLOBIN 28.5 pg (27.0-33.0); MEAN CORPUSCULAR HGB CONC 32.3 g/dl (32.0-36.5); MEAN CORPUSCULAR VOLUME 88.3 fl (80.0-96.0); PLATELET COUNT, AUTOMATED 171 10^3/uL (150-450); RED BLOOD COUNT 4.45 10^6/uL (4.30-6.10); WHITE BLOOD COUNT 11.6 10^3/uL (4.0-10.0)
[2018-05-31 07:44] LABS: ALBUMIN 1.9 GM/DL (3.2-5.2); ALT/SGPT 50 U/L (12-78); BILIRUBIN,TOTAL 0.8 MG/DL (0.2-1.0); BLOOD UREA NITROGEN 33 MG/DL (7-18); CALCIUM LEVEL 10.2 MG/DL (8.8-10.2); CARBON DIOXIDE LEVEL 29 MEQ/L (21-32); CHLORIDE LEVEL 95 MEQ/L (98-107); CREATININE FOR GFR 0.82 MG/DL (0.70-1.30); GLOMERULAR FILTRATION RATE > 60.0 (>49); GLUCOSE, FASTING 146 MG/DL (70-100); POTASSIUM SERUM 4.8 MEQ/L (3.5-5.1); SODIUM LEVEL 131 MEQ/L (136-145); TOTAL PROTEIN 6.3 GM/DL (6.4-8.2)
[2018-05-31] MEDS: IPRATROPIUM 0.5MG/ALBUTEROL 2.5MG INH SOL UD 3ML (DUONEB)(J7620) NEB SCH ×6 (08:08→23:45)
[2018-05-31] MEDS: HumaLOG INSULIN (NovoLOG) PER UNIT SC SCH ×4 (08:24→21:00)
[2018-05-31] MEDS: SPIRONOLACTONE 50 MG TAB PO SCH (08:25)
[2018-05-31] MEDS: FUROSEMIDE 40 MG TAB PO SCH ×2 (08:25→20:57)
[2018-05-31] MEDS: ASPIRIN 81 MG CHEW TABLET PO SCH ×2 (08:25→20:58)
[2018-05-31] MEDS: TAMSULOSIN 0.4 MG CAP PO SCH (08:25)
[2018-05-31] MEDS: NYSTATIN 100,000 UNITS/GM TOPICAL PWD 15 GM TOP SCH ×2 (08:26→21:00)
--- NOTE | 2018-05-31 12:23 | IPNPDOC ---
Subjective Date Seen The patient was seen on 05/31/18. Subjective Chief Complaint/HPI Patient seen and examined at bedside. No acute overnight events noted. Objective Physical Examination General Exam: Positive: Alert, Cooperative, No Acute Distress Eye Exam: Positive: PERRLA, Conjunctiva & lids normal; Negative: Sclera icteric ENT Exam: Positive: Atraumatic, Mucous membr. moist/pink Neck Exam: Positive: Other (unable to assess JVD due to body habitus) Chest Exam: Positive: Diminished, Other (limited due to large body habitus. No appreciable w/r/r) Heart Exam: Positive: Rate Normal, Normal S1, Normal S2 Abdomen Exam: Positive: Soft; Negative: Tenderness Extremity Exam: Negative: Tenderness Psych Exam: Positive: Oriented x 3 Assessment /Plan Plan/VTE VTE Prophylaxis Ordered?: Yes Plan Dyspnea & Acute hypoxia 2/2 Anasarca, resolved. Back on baseline RA this AM. Continue strict I/O and daily weights. Continue diuretics. Plan for acute rehab for functional optimization on 06/02 Cirrhosis with severe ascites/pleural effusion s/p Thoracentesis and Paracentesis during this hospitalization hx of NAFLD. Tolerating Lasix & Spironolactone well-continue hold parameters. Will need o/p f/u with GI and EGD. CTA Chest on 05/12/18 notable for Left Mediastinal, Upper Abdominal, and Retrocrural Lymphadenopathy We will order a CT Scan of the Abd/Pel with PO/IV Contrast to r/o underlying Lymphoma vs Metastatic Adenopathy Hypercalcemia of Unclear Etiology Serum PTH noted to be low PTHrp pending--this test may take a few days/ a week to come back Possibly 2/2 underlying Lymphoma? I have discussed the above findings with the patient, and the need for him to follow up as an outpatient with his primary care physician for follow-up of these studies and further management. The patient has verbalized understanding of the same, and all questions were answered to his satisfaction. Persistent Leukocytosis Patient with no clear source of infection at this time Peripheral smear notable for reactive leukocytosis We will cont to monitor Urinary Retention resolved after starting on Flomax Hyponatremia likely 2/2 underlying cirrhosis/ascites pt asymptomatic with level 130-135. Continue fluid restriction Hypoalbuminemia likely 2/2 cirrhosis and critical illness. high protein diet IDDM2 Continue current regimen CODE STATUS: DNR, DNI DVT prophylaxis: Heparin sc. DISPOSITION: Tentatively scheduled to be discharged to ARU on 06/02/18 VS, I&O, 24H, Fishbone Vital Signs/I&O Vital Signs Date Time Temp Pulse Resp B/P (MAP) Pulse Ox O2 Delivery O2 Flow Rate FiO2 05/31/18 10:00 97.1 82 18 100/62 (75) 97 2.0 I&O- Last 24 Hours up to 6 AM 05/31/18 05:59 Intake Total 880 ml Output Total 300 ml Balance 580 ml Laboratory Data 24H LABS Laboratory Tests 2 05/30/18 16:41: Bedside Glucose (Misc Panel) 160H 05/30/18 23:27: Bedside Glucose (Misc Panel) 198H 05/31/18 05:57: Bedside Glucose (Misc Panel) 140H 05/31/18 06:53: Nucleated Red Blood Cells % (auto) 0.0, Anion Gap 7L, Glomerular Filtration Rate > 60.0, Blood Urea Nitrogen 33H, Creatinine 0.82, Sodium Level 131L, Potassium Level 4.8, Chloride Level 95L, Carbon Dioxide Level 29, Calcium Level 10.2, Aspartate Amino Transf (AST/SGOT) 74H, Alanine Aminotransferase (ALT/SGPT) 50, Alkaline Phosphatase 402H, Total Bilirubin 0.8, Total Protein 6.3L, Albumin 1.9L, Albumin/Globulin Ratio 0.43L 05/31/18 11:33: Bedside Glucose (Misc Panel) 144H CBC/BMP Laboratory Tests 05/31/18 06:53 Red Blood Count 4.45, Mean Corpuscular Volume 88.3, Mean Corpuscular Hemoglobin 28.5, Mean Corpuscular Hemoglobin Concent 32.3, Red Cell Distribution Width 18.5 H, Calcium Level 10.2, Aspartate Amino Transf (AST/SGOT) 74 H, Alanine Aminotransferase (ALT/SGPT) 50, Alkaline Phosphatase 402 H, Total Bilirubin 0.8, Total Protein 6.3 L, Albumin 1.9 L Microbiology Microbiology 05/27/18 Respiratory Virus Panel (PCR) (JAREK) - Final, Complete 05/26/18 Gram Stain - Final, Complete 05/26/18 Sputum Culture - Final, Complete MARKUS MILLER MD May 31, 2018 12:23
[2018-05-31] MEDS: GASTROGRAFIN SOLUTION 30ML PO SCH ×2 (13:35→14:00)
[2018-05-31] MEDS ORDERED: ISOVUE-370 76% 100ML VIAL (Q9967) As Ordered ONE (14:59)
--- NOTE | 2018-05-31 16:19 | REP ---
CT of the abdomen pelvis without IV or bowel contrast: There is a [id number] left pleural effusion. There is a large volume of ascites. The unenhanced hepatic parenchyma is homogeneous and unremarkable. The spleen measures 17 0.2 cm craniocaudad and is enlarged. There is cholelithiasis. The pancreas is unremarkable. The adrenals and kidneys are unremarkable except for A left renal mid pole 8.1 cm cyst. The abdominal aorta is grossly unremarkable. There is bulky periaortic adenopathy. The there is bulky adenopathy in the shelley hepatis. The bowel is unremarkable. Pelvis: No pelvic adenopathy is identified. The bladder is unremarkable. The pelvic bowel loops are unremarkable. Impression: Bulky periaortic and shelley hepatis adenopathy. Large volume of ascites. [id number] left pleural effusion. Splenomegaly. The Electronically Signed by Burak Moran MD 05/31/2018 04:10 P
[2018-05-31 23:36] LABS: APPEARANCE, URINE CLEAR (CLEAR); BACTERIA, URINE AUTO NEGATIVE (NEGATIVE); BILIRUBIN, URINE AUTO NEGATIVE (NEGATIVE); BLOOD, URINE BLOOD NEGATIVE (NEGATIVE); COLOR, URINE YELLOW (YELLOW); GLUCOSE, URINE (UA) AUTO NEGATIVE (NEGATIVE); KETONE, URINE AUTO NEGATIVE (NEGATIVE); LEUKOCYTE ESTERASE, URINE AUTO NEGATIVE (NEGATIVE); MUCUS, URINE SMALL (NEGATIVE); NITRITE, URINE AUTO NEGATIVE (NEGATIVE); PROTEIN, URINE AUTO NEGATIVE (NEGATIVE); RBC, URINE AUTO 4 /HPF (0-3); SPECIFIC GRAVITY URINE AUTO 1.023 (1.002-1.035); SQUAMOUS EPITHELIAL CELL UR AU 0 /HPF (0-6); UROBILINOGEN, URINE AUTO 0.2 mg/dL (0.0-2.0); WBC, URINE AUTO 1 /HPF (0-3)
[2018-06-01] VITALS (10 sets, daily range): BP systolic 78–110; BP diastolic 51–62
[2018-06-01] MEDS: FUROSEMIDE 40 MG TAB PO SCH (00:50)
[2018-06-01] MEDS: IPRATROPIUM 0.5MG/ALBUTEROL 2.5MG INH SOL UD 3ML (DUONEB)(J7620) NEB SCH ×6 (03:27→23:37)
[2018-06-01] MEDS: HEPARIN SOD (PORCINE) 5000 UNITS/ML VIAL SQ SCH ×3 (04:59→21:05)
[2018-06-01 07:19] LABS: HEMATOCRIT 36.6 % (42.0-52.0); HEMOGLOBIN 12.1 g/dl (13.5-17.5); MEAN CORPUSCULAR HGB CONC 33.1 g/dl (32.0-36.5); MEAN CORPUSCULAR VOLUME 87.8 fl (80.0-96.0); PLATELET COUNT, AUTOMATED 182 10^3/uL (150-450); RED BLOOD COUNT 4.17 10^6/uL (4.30-6.10); WHITE BLOOD COUNT 13.4 10^3/uL (4.0-10.0)
[2018-06-01 07:38] LABS: ALBUMIN 1.9 GM/DL (3.2-5.2); ALT/SGPT 52 U/L (12-78); BILIRUBIN,TOTAL 0.8 MG/DL (0.2-1.0); BLOOD UREA NITROGEN 36 MG/DL (7-18); CALCIUM LEVEL 10.2 MG/DL (8.8-10.2); CARBON DIOXIDE LEVEL 28 MEQ/L (21-32); CHLORIDE LEVEL 96 MEQ/L (98-107); CREATININE FOR GFR 0.85 MG/DL (0.70-1.30); GLOMERULAR FILTRATION RATE > 60.0 (>49); GLUCOSE, FASTING 155 MG/DL (70-100); POTASSIUM SERUM 5.2 MEQ/L (3.5-5.1); SODIUM LEVEL 130 MEQ/L (136-145); TOTAL PROTEIN 6.1 GM/DL (6.4-8.2)
[2018-06-01] MEDS: HumaLOG INSULIN (NovoLOG) PER UNIT SC SCH ×4 (08:43→21:00)
[2018-06-01] MEDS: ASPIRIN 81 MG CHEW TABLET PO SCH ×2 (08:43→21:06)
[2018-06-01] MEDS: TAMSULOSIN 0.4 MG CAP PO SCH (08:44)
[2018-06-01] MEDS: FUROSEMIDE 40 MG/4 ML VIAL (J1940) IV SCH ×2 (08:44→16:58)
[2018-06-01] MEDS: NYSTATIN 100,000 UNITS/GM TOPICAL PWD 15 GM TOP SCH ×2 (08:45→21:06)
--- NOTE | 2018-06-01 12:40 | IPNPDOC ---
Subjective Date Seen The patient was seen on 06/01/18. Subjective Chief Complaint/HPI Patient seen and examined at the bedside. He does appear to have a large amount of ascites on CT scan of the abdomen/pelvis from yesterday. Of note, the patient did recently have a paracentesis but did not complete the procedure due to pain. He is scheduled to have another paracentesis tomorrow. Otherwise, no acute overnight events noted. Objective Physical Examination General Exam: Positive: Alert, Cooperative, No Acute Distress Eye Exam: Positive: PERRLA, Conjunctiva & lids normal; Negative: Sclera icteric ENT Exam: Positive: Atraumatic, Mucous membr. moist/pink Neck Exam: Positive: Other (unable to assess JVD due to body habitus) Chest Exam: Positive: Diminished, Other (limited due to large body habitus. No appreciable w/r/r) Heart Exam: Positive: Rate Normal, Normal S1, Normal S2 Abdomen Exam: Positive: Soft; Negative: Tenderness Extremity Exam: Positive: Swelling (2+ pitting edema in the lower extremities B/L.); Negative: Tenderness Psych Exam: Positive: Oriented x 3 Assessment /Plan Plan/VTE VTE Prophylaxis Ordered?: Yes Plan Dyspnea & Acute hypoxia 2/2 Anasarca, resolved. Patient is on 3 L of oxygen via nasal cannula this morning We will increase his diuretic therapy to 40 mg every 8 hours Continue strict I/O and daily weights. We will continue to monitor the patient's volume status Cirrhosis with severe ascites/pleural effusion s/p Thoracentesis and Paracentesis during this hospitalization Hx of NAFLD. The patient still does have a large amount of ascites on CT of the abdomen/pelvis from 05/31/18 We have scheduled the patient for another paracentesis tomorrow, and have increased his diuretic dosing to Lasix IV q8h CTA Chest on 05/12/18 notable for Left Mediastinal, Upper Abdominal, and Retrocrural Lymphadenopathy CT Scan of the Abd/Pel with PO/IV Contrast noted, results discussed with the patient at length. Follow-up as an outpatient for further monitoring Hypercalcemia of Unclear Etiology Serum PTH noted to be low PTHrp pending--this test may take a few days/ a week to come back Possibly 2/2 underlying Lymphoma? I have discussed the above findings with the patient, and the need for him to follow up as an outpatient with his primary care physician for follow-up of these studies and further management. The patient has verbalized understanding of the same, and all questions were answered to his satisfaction. Persistent Leukocytosis Patient with no clear source of infection at this time Peripheral smear notable for reactive leukocytosis We will cont to monitor The patient will need to follow-up with hematology/oncology as an outpatient, this was discussed with him at bedside, and he has verbalized understanding of the same. Urinary Retention Status post Stover catheterization overnight Continue on Flomax Hyponatremia likely 2/2 underlying cirrhosis/ascites pt asymptomatic with level 130-135. Continue fluid restriction Hypoalbuminemia likely 2/2 cirrhosis and critical illness. high protein diet Patient given an albumin infusion IDDM2 Continue current regimen CODE STATUS: DNR, DNI DVT prophylaxis: Heparin sc. DISPOSITION: Pending clinical improvement. VS, I&O, 24H, Fishbone Vital Signs/I&O Vital Signs Date Time Temp Pulse Resp B/P (MAP) Pulse Ox O2 Delivery O2 Flow Rate FiO2 06/01/18 10:00 97.0 78 18 90/62 (71) 95 3.0 I&O- Last 24 Hours up to 6 AM 06/01/18 05:59 Intake Total 1830 ml Output Total 1350 ml Balance 480 ml Laboratory Data 24H LABS Laboratory Tests 2 05/31/18 16:49: Bedside Glucose (Misc Panel) 128H 05/31/18 21:03: Bedside Glucose (Misc Panel) 137H 05/31/18 23:24: Urine Appearance CLEAR, Urine Color YELLOW, Urine pH 5.0, Urine Specific [place] 1.023, Urine Protein NEGATIVE, Urine Glucose (UA) NEGATIVE, Urine Ketones NEGATIVE, Urine Urobilinogen 0.2, Urine Bilirubin NEGATIVE, Urine Leukocyte Esterase NEGATIVE, Urine Blood NEGATIVE, Urine Nitrite NEGATIVE, Urine WBC (Auto) 1, Urine RBC (Auto) 4H, Urine Hyaline Casts (Auto) 0, Urine Bacteria (Auto) NEGATIVE, Urine Squamous Epithelial Cells 0, Urine Mucus (Auto) SMALL, Urine Sperm (Auto) 06/01/18 06:57: Nucleated Red Blood Cells % (auto) 0.0, Anion Gap 6L, Glomerular Filtration Rate > 60.0, Blood Urea Nitrogen 36H, Creatinine 0.85, Sodium Level 130L, Potassium Level 5.2H, Chloride Level 96L, Carbon Dioxide Level 28, Calcium Level 10.2, Aspartate Amino Transf (AST/SGOT) 80H, Alanine Aminotransferase (ALT/SGPT) 52, Alkaline Phosphatase 392H, Total Bilirubin 0.8, Total Protein 6.1L, Albumin 1.9L, Albumin/Globulin Ratio 0.45L 06/01/18 11:53: Bedside Glucose (Misc Panel) 156H CBC/BMP Laboratory Tests 06/01/18 06:57 Red Blood Count 4.17 L, Mean Corpuscular Volume 87.8, Mean Corpuscular Hemoglobin 29.0, Mean Corpuscular Hemoglobin Concent 33.1, Red Cell Distribution Width 18.4 H, Calcium Level 10.2, Aspartate Amino Transf (AST/SGOT) 80 H, Alanine Aminotransferase (ALT/SGPT) 52, Alkaline Phosphatase 392 H, Total Bilirubin 0.8, Total Protein 6.1 L, Albumin 1.9 L Microbiology Microbiology 05/27/18 Respiratory Virus Panel (PCR) ([facility]) - Final, Complete 05/26/18 Gram Stain - Final, Complete 05/26/18 Sputum Culture - Final, Complete 05/31/18 Urine Culture, Received Pending MARKUS MILLER MD Jun 01, 2018 12:40
[2018-06-02] VITALS (7 sets, daily range): BP systolic 86–135; BP diastolic 45–61
[2018-06-02 00:06] LABS: PTH RELATED PEPTIDE 2.4 pmol/L (.)
[2018-06-02] MEDS: FUROSEMIDE 40 MG/4 ML VIAL (J1940) IV SCH ×3 (00:33→17:00)
[2018-06-02] MEDS: IPRATROPIUM 0.5MG/ALBUTEROL 2.5MG INH SOL UD 3ML (DUONEB)(J7620) NEB SCH ×3 (04:00→23:12)
[2018-06-02 05:53] LABS: HEMATOCRIT 33.6 % (42.0-52.0); MEAN CORPUSCULAR HEMOGLOBIN 28.4 pg (27.0-33.0); MEAN CORPUSCULAR HGB CONC 32.7 g/dl (32.0-36.5); MEAN CORPUSCULAR VOLUME 86.6 fl (80.0-96.0); PLATELET COUNT, AUTOMATED 184 10^3/uL (150-450); RED BLOOD COUNT 3.88 10^6/uL (4.30-6.10); WHITE BLOOD COUNT 11.5 10^3/uL (4.0-10.0)
[2018-06-02 06:05] LABS: ALBUMIN 2.1 GM/DL (3.2-5.2); ALT/SGPT 47 U/L (12-78); BILIRUBIN,TOTAL 0.8 MG/DL (0.2-1.0); BLOOD UREA NITROGEN 40 MG/DL (7-18); CALCIUM LEVEL 10.3 MG/DL (8.8-10.2); CARBON DIOXIDE LEVEL 29 MEQ/L (21-32); CHLORIDE LEVEL 97 MEQ/L (98-107); CREATININE FOR GFR 0.73 MG/DL (0.70-1.30); GLOMERULAR FILTRATION RATE > 60.0 (>49); GLUCOSE, FASTING 139 MG/DL (70-100); SODIUM LEVEL 131 MEQ/L (136-145)
[2018-06-02] MEDS: HEPARIN SOD (PORCINE) 5000 UNITS/ML VIAL SQ SCH ×3 (06:05→21:30)
[2018-06-02] MEDS: HumaLOG INSULIN (NovoLOG) PER UNIT SC SCH ×4 (08:43→21:00)
[2018-06-02] MEDS: ASPIRIN 81 MG CHEW TABLET PO SCH ×2 (09:35→21:30)
[2018-06-02] MEDS: TAMSULOSIN 0.4 MG CAP PO SCH (09:36)
[2018-06-02] MEDS: NYSTATIN 100,000 UNITS/GM TOPICAL PWD 15 GM TOP SCH ×2 (09:37→21:30)
[2018-06-02 14:11] LABS: VITAMIN D 1,25 DIHYDROXY 10.2 pg/mL (19.9-79.3)
--- NOTE | 2018-06-02 15:16 | IPNPDOC ---
Subjective Date Seen The patient was seen on 06/02/18. Subjective Chief Complaint/HPI Patient seen and examined at the bedside. He is scheduled for a paracentesis today. Denies any overnight complaints of worsening shortness of breath, chest pain, abdominal pain, or any nausea/vomiting/diarrhea. Objective Physical Examination General Exam: Positive: Alert, Cooperative, No Acute Distress Eye Exam: Positive: PERRLA, Conjunctiva & lids normal; Negative: Sclera icteric ENT Exam: Positive: Atraumatic, Mucous membr. moist/pink Neck Exam: Positive: Other (unable to assess JVD due to body habitus) Chest Exam: Positive: Diminished, Other (limited due to large body habitus. No appreciable w/r/r) Heart Exam: Positive: Rate Normal, Normal S1, Normal S2 Abdomen Exam: Positive: Soft; Negative: Tenderness Extremity Exam: Positive: Swelling (2+ pitting edema in the lower extremities B/L.); Negative: Tenderness Psych Exam: Positive: Oriented x 3 Assessment /Plan Plan/VTE VTE Prophylaxis Ordered?: Yes Plan Dyspnea & Acute hypoxia 2/2 Anasarca, resolved. Patient is on 3 L of oxygen via nasal cannula this morning IV Lasix 40 mg every 8 hours Continue strict I/O and daily weights. Patient scheduled for paracentesis today We will continue to monitor the patient's volume status Cirrhosis with severe ascites/pleural effusion s/p Thoracentesis and Paracentesis during this hospitalization Hx of NAFLD. The patient still does have a large amount of ascites on CT of the abdomen/pelvis from 05/31/18 We have scheduled the patient for another paracentesis today CTA Chest on 05/12/18 notable for Left Mediastinal, Upper Abdominal, and Ret rocrural Lymphadenopathy CT Scan of the Abd/Pel with PO/IV Contrast noted, results discussed with the patient at length. Follow-up as an outpatient for further monitoring Hypercalcemia of Unclear Etiology Serum PTH noted to be low PTHrp borderline elevated at 2.4 Vit D 1,25 level pending--this test may take a few days/ a week to come back Possibly 2/2 underlying Lymphoma? I have discussed the above findings with the patient, and the need for him to follow up as an outpatient with his primary care physician for follow-up of these studies and further management. The patient has verbalized understanding of the same, and all questions were answered to his satisfaction. Persistent Leukocytosis Patient with no clear source of infection at this time Peripheral smear notable for reactive leukocytosis We will cont to monitor The patient will need to follow-up with hematology/oncology as an outpatient, this was discussed with him at bedside, and he has verbalized understanding of the same. Urinary Retention Status post Stover catheterization Continue on Flomax Hyponatremia likely 2/2 underlying cirrhosis/ascites pt asymptomatic with level 130-135. Continue fluid restriction Hypoalbuminemia likely 2/2 cirrhosis and critical illness. high protein diet Patient given an albumin infusion IDDM2 Continue current regimen CODE STATUS: DNR, DNI DVT prophylaxis: Heparin sc. DISPOSITION: Pending clinical improvement. VS, I&O, 24H, Fishbone Vital Signs/I&O Vital Signs Date Time Temp Pulse Resp B/P (MAP) Pulse Ox O2 Delivery O2 Flow Rate FiO2 06/02/18 13:49 96.9 79 20 101/54 (70) 97 3.0 I&O- Last 24 Hours up to 6 AM 06/02/18 06:00 Intake Total 1020 ml Output Total 1100 ml Balance -80 ml Laboratory Data 24H LABS Laboratory Tests 2 06/01/18 16:47: Bedside Glucose (Misc Panel) 164H 06/01/18 20:51: Bedside Glucose (Misc Panel) 135H 06/02/18 05:23: Nucleated Red Blood Cells % (auto) 0.0, Anion Gap 5L, Glomerular Filtration Rate > 60.0, Blood Urea Nitrogen 40H, Creatinine 0.73, Sodium Level 131L, Potassium Level 5.0, Chloride Level 97L, Carbon Dioxide Level 29, Calcium Level 10.3H, Aspartate Amino Transf (AST/SGOT) 64H, Alanine Aminotransferase (ALT/SGPT) 47, Alkaline Phosphatase 363H, Total Bilirubin 0.8, Total Protein 6.0L, Albumin 2.1L, Albumin/Globulin Ratio 0.54L 06/02/18 11:54: Bedside Glucose (Misc Panel) 116H CBC/BMP Laboratory Tests 06/02/18 05:23 Red Blood Count 3.88 L, Mean Corpuscular Volume 86.6, Mean Corpuscular Hemogl obin 28.4, Mean Corpuscular Hemoglobin Concent 32.7, Red Cell Distribution Width 18.6 H, Calcium Level 10.3 H, Aspartate Amino Transf (AST/SGOT) 64 H, Alanine Aminotransferase (ALT/SGPT) 47, Alkaline Phosphatase 363 H, Total Bilirubin 0.8, Total Protein 6.0 L, Albumin 2.1 L Microbiology Microbiology 05/27/18 Respiratory Virus Panel (PCR) ([facility]ARE[facility]) - Final, Complete 05/26/18 Gram Stain - Final, Complete 05/26/18 Sputum Culture - Final, Complete 05/31/18 Urine Culture, Received Pending MARKUS MILLER MD Jun 02, 2018 15:16
--- NOTE | 2018-06-02 17:13 | REP ---
Paracentesis procedure, subsequent. History: Large ascites. Procedure: The patient was interviewed and informed consent was obtained. The patient was scanned in the supine position and the optimum puncture site was determined to be in the left mid abdomen somewhat anterior to the other recent puncture sites. The skin was marked at the site. The patient safety time-out was articulated and agreed upon. The skin at the puncture site was prepped and draped in the usual fashion. 5 ml of 1% lidocaine was utilized for local anesthetic. An 8-[place] paracentesis catheter was passed without technical difficulty using trocar technique. A total of 7300 ml of yellow ascites was withdrawn. The patient tolerated procedure well. Impression Therapeutic paracentesis procedure. Electronically Signed by Mike Dai MD 06/02/2018 05:45 P
[2018-06-03 01:10] VITALS: BP 117/60
[2018-06-03] MEDS: FUROSEMIDE 40 MG/4 ML VIAL (J1940) IV SCH ×3 (01:27→17:57)
[2018-06-03] MEDS: IPRATROPIUM 0.5MG/ALBUTEROL 2.5MG INH SOL UD 3ML (DUONEB)(J7620) NEB SCH ×9 (04:00→23:46)
[2018-06-03] MEDS: HEPARIN SOD (PORCINE) 5000 UNITS/ML VIAL SQ SCH ×3 (05:33→22:14)
[2018-06-03 06:00] VITALS: BP 102/55
[2018-06-03 08:40] VITALS: BP 105/58
[2018-06-03] MEDS: TAMSULOSIN 0.4 MG CAP PO SCH (09:22)
[2018-06-03] MEDS: ASPIRIN 81 MG CHEW TABLET PO SCH ×2 (09:22→22:13)
[2018-06-03] MEDS: NYSTATIN 100,000 UNITS/GM TOPICAL PWD 15 GM TOP SCH ×2 (09:23→22:14)
[2018-06-03] MEDS: HumaLOG INSULIN (NovoLOG) PER UNIT SC SCH ×4 (09:23→22:13)
[2018-06-03 13:50] VITALS: BP 98/72
--- NOTE | 2018-06-03 15:42 | REP ---
Clinical: Left pleural effusion. Comparison: 05/24/2018. Findings: Moderate layering left pleural effusion along with left lower lobe atelectasis is identified and may be slightly improved when compared to prior examination. The right hemithorax appears clear. The mediastinum and cardiac silhouette are stable. Skeletal structures are intact. Impression: Moderate left pleural effusion and left lower lobe opacities mildly improved when compared to 05/24/2018. Electronically Signed by Tylor Falk MD 06/03/2018 03:33 P
--- NOTE | 2018-06-03 19:46 | IPN ---
DATE: 06/03/2018 SUBJECTIVE: The patient is seen and examined in the room today. The patient had a paracentesis yesterday. The patient stated he has been experiencing significant fatigue. Denied any fever or chills. OBJECTIVE: VITAL SIGNS: Temperature is 96.7, pulse 82, respirations 18, blood pressure 105/58, pulse oximetry is 96% with 2 liters nasal cannula. GENERAL: The patient is alert, awake, fatigued. HEENT: Normocephalic, atraumatic. Extraocular motor grossly intact. CARDIOVASCULAR: Positive S1, S2, regular rate. LUNGS: Diminished breath sounds due to body habitus. No significant wheezing appreciated. ABDOMEN: Obese, soft, nontender. EXTREMITIES: Positive pitting edema biaterally. LABORATORY DATA: WBC 11.5, hemoglobin 11, hematocrit 33.6, platelet count is 184. Sodium is 131, potassium 5, chloride is 97, carbon dioxide 29, BUN is 40, creatinine is 0.73, GFR greater than 60, fasting glucose 139, calcium is 10.3, total bilirubin 0.8, AST 64, ALT is 47, alkaline phosphatase is 363. ASSESSMENT AND PLAN: 1. Liver cirrhosis with recurrent ascites and pleural effusion. Patient is status post multiple thoracentesis and paracentesis during this hospitalization. Patient had a paracentesis done on 06/02/2018. According to the report, the patient had 7.3 liters of ascites fluid removed. The patient had multiple thoracentesis. Fluid status results reviewed. Will continue to titrate oxygen as tolerated. Will follow with a repeat imaging study to assess the patient's pleural fluid. 2. Lymphadenopathy. CT angiogram of the chest and a CT of the abdomen and pelvis with contrast was performed. The patient was noted to have mediastinal, upper abdominal and retrocrural lymphadenopathy. Continue to monitor. Recommend outpatient followup. 3. Hypercalcemia. Continue to follow with workup. 4. Persistent leukocytosis. No clear source of infection. Previous peripheral smear showed reactive leukocytosis. 5. Urinary retention. On Flomax. 6. Hyponatremia secondary to liver cirrhosis. Continue fluid restriction. 7. Insulin-dependent diabetes. Continue insulin. On consistent carbohydrate diet. 8. Deep vein thrombosis (DVT) prophylaxis. The patient is on heparin.
[2018-06-03 22:00] VITALS: BP 103/58
[2018-06-04] MEDS: FUROSEMIDE 40 MG/4 ML VIAL (J1940) IV SCH ×3 (01:30→17:00)
[2018-06-04] MEDS: IPRATROPIUM 0.5MG/ALBUTEROL 2.5MG INH SOL UD 3ML (DUONEB)(J7620) NEB SCH ×5 (02:18→20:15)
[2018-06-04] MEDS: HEPARIN SOD (PORCINE) 5000 UNITS/ML VIAL SQ SCH ×3 (05:08→21:25)
[2018-06-04 06:00] VITALS: BP 103/61
[2018-06-04 08:32] LABS: BASO % 0.1 % (0.0-1.0); EOS % 0.2 % (0.0-3.0); HEMATOCRIT 35.4 % (42.0-52.0); HEMOGLOBIN 11.9 g/dl (13.5-17.5); LYMPH % 9.4 % (24.0-44.0); MEAN CORPUSCULAR HEMOGLOBIN 29.1 pg (27.0-33.0); MEAN CORPUSCULAR HGB CONC 33.6 g/dl (32.0-36.5); MEAN CORPUSCULAR VOLUME 86.6 fl (80.0-96.0); MONO # 0.6 10^3/uL (0.0-0.8); MONO % 6.3 % (0.0-5.0); NEUTROPHILS # 8.4 10^3/uL (1.8-7.7); NEUTROPHILS % 83.2 % (36.0-66.0); PLATELET COUNT, AUTOMATED 162 10^3/uL (150-450); RED BLOOD COUNT 4.09 10^6/uL (4.30-6.10); WHITE BLOOD COUNT 10.1 10^3/uL (4.0-10.0)
[2018-06-04 08:51] LABS: ALBUMIN 1.8 GM/DL (3.2-5.2); ALT/SGPT 50 U/L (12-78); BILIRUBIN,TOTAL 0.7 MG/DL (0.2-1.0); BLOOD UREA NITROGEN 54 MG/DL (7-18); CARBON DIOXIDE LEVEL 26 MEQ/L (21-32); CHLORIDE LEVEL 97 MEQ/L (98-107); CREATININE FOR GFR 0.81 MG/DL (0.70-1.30); GLOMERULAR FILTRATION RATE > 60.0 (>49); GLUCOSE, FASTING 157 MG/DL (70-100); POTASSIUM SERUM 5.2 MEQ/L (3.5-5.1); SODIUM LEVEL 130 MEQ/L (136-145); TOTAL PROTEIN 5.6 GM/DL (6.4-8.2)
[2018-06-04] MEDS: ASPIRIN 81 MG CHEW TABLET PO SCH ×2 (09:06→21:24)
[2018-06-04] MEDS: TAMSULOSIN 0.4 MG CAP PO SCH (09:06)
[2018-06-04] MEDS: HumaLOG INSULIN (NovoLOG) PER UNIT SC SCH ×4 (09:07→21:00)
[2018-06-04] MEDS: NYSTATIN 100,000 UNITS/GM TOPICAL PWD 15 GM TOP SCH ×2 (09:07→21:25)
[2018-06-04 09:08] VITALS: BP 97/56
[2018-06-04 14:00] VITALS: BP 95/44
[2018-06-04 17:00] VITALS: BP 96/54
--- NOTE | 2018-06-04 18:43 | IPNPDOC ---
Text Note Date of Service The patient was seen on 06/04/18. NOTE SUBJECTIVE: The patient is seen and examined in the room today. He states his fatigue is improving but he does not feel he can tolerate exertion well. He feels his breathing may be improving. Denied any fever or chills. OBJECTIVE: VITAL SIGNS: Listed below. GENERAL: Alert, awake, fatigued. HEENT: Normocephalic, atraumatic. Extraocular motor grossly intact. CARDIOVASCULAR: Positive S1, S2, regular rate. LUNGS: Diminished breath sounds due to body habitus. No significant wheeze or rhonchi appreciated. ABDOMEN: Obese, soft, nontender. EXTREMITIES: Positive pitting edema bilaterally. LABORATORY DATA: Listed below. ASSESSMENT AND PLAN: #. Liver cirrhosis with recurrent ascites and pleural effusion. - Thoracentesis on 05/12/18 (1.68L), 05/26/18 (2.45L). - Paracentesis on 05/19/18 (3.4L), 05/28/18 (1.5L), 06/02/18 (7.3L). - On Lasix with holding parameter. #. Lymphadenopathy. - CT angiogram of the chest and CT of the abdomen and pelvis with contrast performed. The patient was noted to have mediastinal, upper abdominal and retrocrural lymphadenopathy. Continue to monitor. Recommend outpatient followup. #. Hypercalcemia. Continue to follow with workup. #. Persistent leukocytosis. - No clear source of infection. Previous peripheral smear showed reactive leukoc ytosis. #. Urinary retention. On Flomax. #. Hyponatremia secondary to liver cirrhosis. Continue fluid restriction. #. Insulin-dependent diabetes. Continue insulin. On consistent carbohydrate t. #. Deep vein thrombosis (DVT) prophylaxis. The patient is on heparin. VS,Fishbone, I+O VS, Fishbone, I+O Laboratory Tests 06/04/18 08:15 Red Blood Count 4.09 L, Mean Corpuscular Volume 86.6, Mean Corpuscular Hemoglobin 29.1, Mean Corpuscular Hemoglobin Concent 33.6, Red Cell Distribution Width 18.6 H, Neutrophils (%) (Auto) 83.2 H, Lymphocytes (%) (Auto) 9.4 L, Monocytes (%) (Auto) 6.3 H, Eosinophils (%) (Auto) 0.2, Basophils (%) (Auto) 0.1, Neutrophils # (Auto) 8.4 H, Lymphocytes # (Auto) 1.0 L, Monocytes # (Auto) 0.6, Eosinophils # (Auto) 0.0, Basophils # (Auto) 0.0, Calcium Level 10.0, Aspartate Amino Transf (AST/SGOT) 74 H, Alanine Aminotransferase (ALT/SGPT) 50, Alkaline Phosphatase 441 H, Total Bilirubin 0.7, Total Protein 5.6 L, Albumin 1.8 L Vital Signs Date Time Temp Pulse Resp B/P (MAP) Pulse Ox O2 Delivery O2 Flow Rate FiO2 06/04/18 14:00 96.8 83 18 95/44 (60) 94 2.0 I&O- Last 24 Hours up to 6 AM 06/04/18 06:00 Intake Total 2000 ml Output Total 1950 ml Balance 50 ml BOB LYNN DO Jun 04, 2018 18:43
[2018-06-04 22:00] VITALS: BP 106/55
[2018-06-05] MEDS: FUROSEMIDE 40 MG/4 ML VIAL (J1940) IV SCH ×3 (01:00→17:00)
[2018-06-05] MEDS: IPRATROPIUM 0.5MG/ALBUTEROL 2.5MG INH SOL UD 3ML (DUONEB)(J7620) NEB SCH ×6 (02:24→20:00)
[2018-06-05] MEDS: HEPARIN SOD (PORCINE) 5000 UNITS/ML VIAL SQ SCH ×3 (05:57→21:10)
[2018-06-05 06:00] VITALS: BP 82/50
[2018-06-05 06:38] LABS: HEMATOCRIT 36.8 % (42.0-52.0); HEMOGLOBIN 12.2 g/dl (13.5-17.5); MEAN CORPUSCULAR HEMOGLOBIN 29.3 pg (27.0-33.0); MEAN CORPUSCULAR HGB CONC 33.2 g/dl (32.0-36.5); MEAN CORPUSCULAR VOLUME 88.5 fl (80.0-96.0); PLATELET COUNT, AUTOMATED 163 10^3/uL (150-450); RED BLOOD COUNT 4.16 10^6/uL (4.30-6.10); WHITE BLOOD COUNT 9.8 10^3/uL (4.0-10.0)
[2018-06-05 06:53] LABS: ALBUMIN 1.8 GM/DL (3.2-5.2); ALT/SGPT 53 U/L (12-78); BILIRUBIN,DIRECT 0.3 MG/DL (0.0-0.2); BILIRUBIN,TOTAL 0.8 MG/DL (0.2-1.0); BLOOD UREA NITROGEN 57 MG/DL (7-18); CALCIUM LEVEL 9.9 MG/DL (8.8-10.2); CARBON DIOXIDE LEVEL 27 MEQ/L (21-32); CHLORIDE LEVEL 97 MEQ/L (98-107); CREATININE FOR GFR 0.98 MG/DL (0.70-1.30); GLOMERULAR FILTRATION RATE > 60.0 (>49); GLUCOSE, FASTING 132 MG/DL (70-100); POTASSIUM SERUM 5.3 MEQ/L (3.5-5.1); SODIUM LEVEL 129 MEQ/L (136-145); TOTAL PROTEIN 5.8 GM/DL (6.4-8.2)
[2018-06-05 06:57] LABS: INR 1.18; PROTHROMBIN TIME 15.2 SECONDS (12.1-14.4)
[2018-06-05 08:11] VITALS: BP 93/50
[2018-06-05] MEDS: HumaLOG INSULIN (NovoLOG) PER UNIT SC SCH ×4 (08:50→21:00)
[2018-06-05] MEDS: NYSTATIN 100,000 UNITS/GM TOPICAL PWD 15 GM TOP SCH ×2 (08:50→21:10)
[2018-06-05] MEDS: TAMSULOSIN 0.4 MG CAP PO SCH (08:50)
[2018-06-05] MEDS: ASPIRIN 81 MG CHEW TABLET PO SCH ×2 (08:50→21:10)
[2018-06-05 14:00] VITALS: BP 97/51
[2018-06-05] MEDS: ACETAMINOPHEN TAB 650MG DOSE (2X325MG) PO PRN (16:24)
--- NOTE | 2018-06-05 18:25 | IPNPDOC ---
Text Note Date of Service The patient was seen on 06/05/18. NOTE SUBJECTIVE: The patient is seen and examined in the room today. He still feels significant fatigue. He still requires oxygen support. Denied any fever or chills. OBJECTIVE: VITAL SIGNS: Listed below. GENERAL: Alert, awake, fatigued. HEENT: Normocephalic, atraumatic. Extraocular motor grossly intact. CARDIOVASCULAR: Positive S1, S2, regular rate. LUNGS: Diminished breath sounds due to body habitus. No significant wheeze or rhonchi appreciated. ABDOMEN: Obese, soft, nontender. EXTREMITIES: Positive pitting edema bilaterally. LABORATORY DATA: Listed below. ASSESSMENT AND PLAN: #. Liver cirrhosis with recurrent ascites and pleural effusion. - Thoracentesis on 05/12/18 (1.68L), 05/26/18 (2.45L). - Paracentesis on 05/19/18 (3.4L), 05/28/18 (1.5L), 06/02/18 (7.3L). - On Lasix with holding parameter. # Hypotension - Patient has worsening blood pressure. Agrees for albumin transfusion. Diuretic has holding parameter. #. Lymphadenopathy. - CT angiogram of the chest and CT of the abdomen and pelvis with contrast performed. The patient was noted to have mediastinal, upper abdominal and retrocrural lymphadenopathy. Continue to monitor. Recommend outpatient followup. #. Hypercalcemia. Continue to follow with workup. #. Persistent leukocytosis. - No clear source of infection. Previous peripheral smear showed reactive leukocytosis. #. Urinary retention. On Flomax. #. Hyponatremia secondary to liver cirrhosis. Continue fluid restriction. #. Insulin-dependent diabetes. Continue insulin. On consistent carbohydrate diet. #. Deep vein thrombosis (DVT) prophylaxis. The patient is on heparin. VS,Fishbone, I+O VS, Fishbone, I+O Laboratory Tests 06/05/18 06:17 Red Blood Count 4.16 L, Mean Corpuscular Volume 88.5, Mean Corpuscular Hemoglobin 29.3, Mean Corpuscular Hemoglobin Concent 33.2, Red Cell Distribution Width 18.7 H Vital Signs Date Time Temp Pulse Resp B/P (MAP) Pulse Ox O2 Delivery O2 Flow Rate FiO2 06/05/18 14:00 96.1 87 18 97/51 (66) 92 2.0 I&O- Last 24 Hours up to 6 AM 06/05/18 06:00 Intake Total 760 ml Output Total 1750 ml Balance -990 ml BOB LYNN DO Jun 05, 2018 18:25
[2018-06-05 22:00] VITALS: BP 101/58
[2018-06-06] MEDS: FUROSEMIDE 40 MG/4 ML VIAL (J1940) IV SCH ×3 (01:00→16:53)
[2018-06-06 06:00] VITALS: BP 96/51
[2018-06-06 06:05] LABS: HEMATOCRIT 36.3 % (42.0-52.0); HEMOGLOBIN 12.1 g/dl (13.5-17.5); MEAN CORPUSCULAR HEMOGLOBIN 29.1 pg (27.0-33.0); MEAN CORPUSCULAR HGB CONC 33.3 g/dl (32.0-36.5); MEAN CORPUSCULAR VOLUME 87.3 fl (80.0-96.0); PLATELET COUNT, AUTOMATED 189 10^3/uL (150-450); RED BLOOD COUNT 4.16 10^6/uL (4.30-6.10); WHITE BLOOD COUNT 10.2 10^3/uL (4.0-10.0)
[2018-06-06] MEDS: HEPARIN SOD (PORCINE) 5000 UNITS/ML VIAL SQ SCH ×3 (06:08→21:32)
[2018-06-06 06:26] LABS: BLOOD UREA NITROGEN 59 MG/DL (7-18); CARBON DIOXIDE LEVEL 26 MEQ/L (21-32); CHLORIDE LEVEL 97 MEQ/L (98-107); CREATININE FOR GFR 0.83 MG/DL (0.70-1.30); GLOMERULAR FILTRATION RATE > 60.0 (>49); GLUCOSE, FASTING 133 MG/DL (70-100); MAGNESIUM LEVEL 2.2 MG/DL (1.8-2.4); POTASSIUM SERUM 5.2 MEQ/L (3.5-5.1); SODIUM LEVEL 130 MEQ/L (136-145)
[2018-06-06] MEDS: IPRATROPIUM 0.5MG/ALBUTEROL 2.5MG INH SOL UD 3ML (DUONEB)(J7620) NEB SCH ×5 (07:43→20:49)
[2018-06-06] MEDS: HumaLOG INSULIN (NovoLOG) PER UNIT SC SCH ×4 (08:04→21:00)
[2018-06-06] MEDS: ASPIRIN 81 MG CHEW TABLET PO SCH ×2 (08:04→21:32)
[2018-06-06] MEDS: NYSTATIN 100,000 UNITS/GM TOPICAL PWD 15 GM TOP SCH ×2 (08:05→21:32)
[2018-06-06] MEDS: TAMSULOSIN 0.4 MG CAP PO SCH (08:05)
[2018-06-06 14:00] VITALS: BP 111/54
--- NOTE | 2018-06-06 18:01 | IPNPDOC ---
Text Note Date of Service The patient was seen on 06/06/18. NOTE SUBJECTIVE: The patient is seen and examined in the room today. He had poor night sleep. He feels very tired this morning. Denied any fever or chills. OBJECTIVE: VITAL SIGNS: Listed below. GENERAL: Alert, awake, fatigued. HEENT: Normocephalic, atraumatic. Extraocular motor grossly intact. CARDIOVASCULAR: Positive S1, S2, regular rate. LUNGS: Diminished breath sounds due to body habitus. No significant wheeze or rhonchi appreciated. ABDOMEN: Obese, soft, nontender. EXTREMITIES: Positive pitting edema bilaterally. LABORATORY DATA: Listed below. ASSESSMENT AND PLAN: #. Liver cirrhosis with recurrent ascites and pleural effusion. - Thoracentesis on 05/12/18 (1.68L), 05/26/18 (2.45L). - Paracentesis on 05/19/18 (3.4L), 05/28/18 (1.5L), 06/02/18 (7.3L). - On Lasix and spirolactone with holding parameter. # Hypotension - Patient has liver cirrhosis. Diuretic has holding parameter. #. Lymphadenopathy. - CT angiogram of the chest and CT of the abdomen and pelvis with contrast performed. The patient was noted to have mediastinal, upper abdominal and retrocrural lymphadenopathy. - Oncology consulted. #. Hypercalcemia. Continue to follow with workup. #. Persistent leukocytosis. - No clear source of infection. Previous peripheral smear showed reactive leukocytosis. #. Urinary retention. On Flomax. #. Hyponatremia secondary to liver cirrhosis. Continue fluid restriction. #. Insulin-dependent diabetes. Continue insulin. On consistent carbohydrate diet . #. Deep vein thrombosis (DVT) prophylaxis. The patient is on heparin. VS,Fishbone, I+O VS, Fishbone, I+O Laboratory Tests 06/06/18 05:48 Red Blood Count 4.16 L, Mean Corpuscular Volume 87.3, Mean Corpuscular Hemoglobin 29.1, Mean Corpuscular Hemoglobin Concent 33.3, Red Cell Distribution Width 18.7 H, Calcium Level 10.0 Vital Signs Date Time Temp Pulse Resp B/P (MAP) Pulse Ox O2 Delivery O2 Flow Rate FiO2 06/06/18 14:00 96.5 86 18 111/54 (73) 93 2.0 06/06/18 07:44 Nasal Cannula I&O- Last 24 Hours up to 6 AM 06/06/18 06:00 Intake Total 710 ml Output Total 1250 ml Balance -540 ml BOB LYNN DO Jun 06, 2018 18:01
[2018-06-06] MEDS ORDERED: HEPARIN SOD (PORCINE) 5000 UNITS/ML VIAL As Ordered ONE (21:23)
--- NOTE | 2018-06-06 21:57 | CR ---
DATE OF CONSULTATION: 06/06/2018 INPATIENT CONSULT DATE OF SERVICE: 06/06/[address] Lundy for evaluation of intraabdominal and mediastinal lymphadenopathy. PRIMARY PHYSICIAN: Jonelle Rivera, ZHANG; Dr. Catherine Cruz Mr. Bellamy is a 67-year-old gentleman in room 5151. His is in the room with him, and the patient has been admitted to the hospital since approximately May 13, 2018. The patient came in for increasing shortness of breath, and he admits it just crept up on him; all of a sudden his breathing got worse and progressively worse. There was no fever, no chills, no night sweats. No pleuritic pain. He went to [facility] about a week before admission. He was told he might have a collapsed lung on the left and some pneumonia. He got amoxicillin and ProAir, did not improve much and came to the emergency room (ER). At that time, he was already saturating at only 84% on room air and was in atrial fibrillation (atrial fib), new onset, and the chest x-ray and CTA showed a large, good-sized left pleural effusion, cardiomegaly. Thoracocentesis was done, about a liter and a half, and it looked like patient's neurological status deteriorated, had some left-sided weakness, tongue deviation, got more hypoxic, wound up in the PCU, then got into the ICU, now he is out on the floor. The patient is awake and denies any rash. He is quite rational. He has had swelling of his legs. He is not moving much. He says he has a small bedsore between his cheeks at the bottom and his ascites he says is so bad that it literally shifts him if he has to turn where the belly weight goes. He is still short of breath, he says, even with talking and he is very, very tired; that is the main issue - fatigue. Appetite is very poor. Mouth is very dry. one because of all the room heat and then he says that he is on restricted fluids, but he is doing everything he is being told to do. PAST MEDICAL HISTORY: High blood pressure. Hyperlipidemia. Diabetes mellitus, type 2. Nonalcoholic fatty liver disease. 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 The patient says he did try neurostimulation but it did not work. Repair of right fibula fracture 1977. Removal of hallux nails 1964. Obesity. Tonsillectomy. FAMILY HISTORY: Mother from a heart attack, and she also had hypertension. She quite young in her 50s. Father of emphysema; he was in his 60s. SOCIAL HISTORY: The patient actually worked for [employer] in [place]. 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 He lives at home with his . He smoked for 18 years a pack and a half a day. He quit in 1986. He drinks about two drinks a month. No substance abuse. No recreational drugs. MEDICATIONS ON ADMISSION: Included atorvastatin, Byetta, vitamin D, fosinpril, furosemide, baby aspirin, azelastine, ProAir, glucosamine chondroitin, magnesium oxide, meloxicam, metformin, multivitamins, potassium chloride and Toujeo. SYSTEMIC REVIEW: As stated above. On examination, Mr. Bellamy is a very pleasant gentleman. The patient is awake, alert, oriented. He is afebrile at 96.5, heart rate 86 per minute. At this hour, it is regular rhythm, respiratory rate about 22 per minute, blood pressure 111/54, O2 sat 93% on 2 liters nasal cannula. Performance status is 4 on a scale of 4 by ECOG criteria. The patient has an indwelling Stover catheter. Left eye is quite proptotic. Right eye is much smaller than the left eye. Pupils are reacting to light. Buccal mucosa, tongue is coated and dry but without any candidiasis or stomatitis. No adenopathy neck or axilla. Lungs: With decreased air entry at both bases with dullness to percussion and also poor inspiratory effort. Cardiovascular system: Heart sounds are distant but the rhythm is regular. There is no murmurs or gallops today or rubs. Abdomen is quite distended, impossible to evaluate for organomegaly or any other masses, huge abdomen. There does not seem to be any guarding or rigidity. The patient is tender, but it is more over the abdominal wall where he has all these discolorations from his injections in the abdominal wall. The patient has 2 to 3+ pitting edema of both legs. The right leg has an old scar on the lower aspect, just above the lateral malleolus. That is from his fibula fracture and surgery. The left leg has a wide band just above the ankle. The band is almost 4 inches wide. It is dark brown pigmentation and it is all around the circumference of the lower leg, and the patient says he has had that for many years. He says he thinks it is because of all the swellings that have come and gone. He cannot remember any cellulitis episode or any direct trauma to that area or anything. Pertinent labs this admission include a white count which is slightly elevated between 10.2 and 13.4 with basically neutrophilia, hemoglobin is around 11-12, MCV normal around 87, platelets normal around 189. The RDW, however, is elevated at 18.7. On the chemistry panel, the patient has low sodium between 129 and 131, potassium is elevated between 5 and 5.3. The patient is on spirolactone, please note. The GFR is more than 60. The BUN is high, between 40 and 59 with a normal creatinine of 0.83 roughly. The calcium has been modestly elevated around 10.3 and then it is normal also at other times. Magnesium is normal. Bilirubin is normal and on the liver enzymes, the SGOT is minimally elevated around 64 to 77, SGPT is normal, and the alkaline phosphatase (alk phos) is definitely elevated persistently between 363 and 460. The total proteins are low at 5.8 with an albumin of 1.8. MARNIE is negative, liver/kidney microsomal titer is less than 20.1, anti-smooth muscle antibody is elevated at 23, which is considered weakly positive. Hepatitis A, B and C panel is negative. The patient's ascites fluid has been cultured, and it has been negative for bacteria. Fungal and mycobacterial studies are pending. Blood cultures have been negative. So far urine cultures have been negative. Respiratory virus panel also is negative. IMAGING STUDIES: Of pertinence to this consult are the abdomen and pelvis CT scan done on May 31, 2018 is reported as showing a moderate to large left pleural effusion, large volume ascites, unenhanced hepatic parenchyma is homogenous and unremarkable. Spleen is 17.2 cm, enlarged. Cholelithiasis is noted. Pancreas is unremarkable, and there is bulky periaortic adenopathy and there is bulky adenopathy in the shelley hepatis. No pelvic adenopathy noted. The patient has had three paracentesis - on May 19, 2018, on May 28, 2018, and on June 02, 2018 and two thoracocentesis on May 12, 2018 and on May 26, 2018. The CT angio of the chest done May 12, 2018 shows no evidence of pulmonary embolism (PE). Moderate to large left pleural effusion is seen. Mild left mediastinal and upper abdominal lymphadenopathy. Mild retrocrural lymphadenopathy. Rule out lymphoma versus metastatic adenopathy. Ascites and micronodular liver contour suggestive of cirrhosis. IMPRESSION: Mr. Bellamy has periaortic bulky adenopathy, shelley hepatis bulky adenopathy, and no peripheral adenopathy to speak of on palpation. He also has some left mediastinal adenopathy, so we concur with the radiologist's thought process that this could be a lymphoproliferative disorder or a metastatic adenopathy. The patient is quite intelligent and understands that he is quite weak right now, and even if anything was found, malignancy mark, it would be difficult to treat him in the shape that he is in. But he would like to know, and so would his , as to what is really going on. He understands his cirrhosis and the ascites, but that the pleural fluid, the shortness of breath, the physical incapacity, those are the questions that are bothering him, what is the reason for all this change in his health. SUGGESTIONS: 1. CT ultrasound-guided biopsy of the periarortic, bulky adenopathy with interventional radiology. Since the calcium has been elevated, will ask for a PTH level and a PTH related peptide level. Since the alk phos is elevated, and it probably is coming from the liver, but we will ask for isoenzymes of the alkaline phosphatase. The patient is having some back pain. He thinks it is because of the hospital bed, and the position of his ascites and abdomen weight. A PSA, alpha-fetoprotein, beta hCG looking for malignancies that are likely to present with periaortic adenopathy. Uric acid, LDH in case this is a lymphoproliferative disorder, they might be elevated and a CBC with a manual differential (diff) would be helpful. We appreciate the referral. cc: Jonelle Rivera, MD Zabrina Kulkarni,
[2018-06-06 22:00] VITALS: BP 105/55
[2018-06-07] MEDS: IPRATROPIUM 0.5MG/ALBUTEROL 2.5MG INH SOL UD 3ML (DUONEB)(J7620) NEB SCH ×6 (04:00→21:15)
[2018-06-07] MEDS: HEPARIN SOD (PORCINE) 5000 UNITS/ML VIAL SQ SCH ×3 (05:16→21:51)
[2018-06-07 06:00] VITALS: BP 106/57
[2018-06-07] MEDS: ACETAMINOPHEN TAB 650MG DOSE (2X325MG) PO PRN (06:45)
[2018-06-07 06:49] LABS: BASO % 0.2 % (0.0-1.0); HEMATOCRIT 38.4 % (42.0-52.0); HEMOGLOBIN 12.9 g/dl (13.5-17.5); LYMPH # 0.8 10^3/uL (1.5-4.5); LYMPH % 7.4 % (24.0-44.0); MEAN CORPUSCULAR HEMOGLOBIN 29.3 pg (27.0-33.0); MEAN CORPUSCULAR HGB CONC 33.6 g/dl (32.0-36.5); MEAN CORPUSCULAR VOLUME 87.3 fl (80.0-96.0); MONO # 0.7 10^3/uL (0.0-0.8); MONO % 6.2 % (0.0-5.0); NEUTROPHILS # 9.3 10^3/uL (1.8-7.7); NEUTROPHILS % 85.6 % (36.0-66.0); PLATELET COUNT, AUTOMATED 207 10^3/uL (150-450); WHITE BLOOD COUNT 10.8 10^3/uL (4.0-10.0)
[2018-06-07 07:12] LABS: BLOOD UREA NITROGEN 65 MG/DL (7-18); CALCIUM LEVEL 9.7 MG/DL (8.8-10.2); CARBON DIOXIDE LEVEL 26 MEQ/L (21-32); CHLORIDE LEVEL 97 MEQ/L (98-107); CREATININE FOR GFR 0.92 MG/DL (0.70-1.30); GLOMERULAR FILTRATION RATE > 60.0 (>49); GLUCOSE, FASTING 136 MG/DL (70-100); MAGNESIUM LEVEL 2.5 MG/DL (1.8-2.4); POTASSIUM SERUM 5.6 MEQ/L (3.5-5.1); SODIUM LEVEL 130 MEQ/L (136-145)
[2018-06-07 07:14] LABS: PHOSPHORUS LEVEL 3.9 MG/DL (2.5-4.9); URIC ACID 9.1 MG/DL (3.5-7.2)
[2018-06-07] MEDS: ASPIRIN 81 MG CHEW TABLET PO SCH ×2 (08:37→21:50)
[2018-06-07] MEDS: FUROSEMIDE 40 MG TAB PO SCH ×2 (08:37→15:02)
[2018-06-07] MEDS: NYSTATIN 100,000 UNITS/GM TOPICAL PWD 15 GM TOP SCH ×2 (08:38→21:50)
[2018-06-07] MEDS: TAMSULOSIN 0.4 MG CAP PO SCH (08:38)
[2018-06-07] MEDS: HumaLOG INSULIN (NovoLOG) PER UNIT SC SCH ×4 (08:39→21:00)
[2018-06-07] MEDS ORDERED: SPIRONOLACTONE 50 MG TAB PO SCH (09:00)
[2018-06-07 14:00] VITALS: BP 112/65
--- NOTE | 2018-06-07 19:50 | IPNPDOC ---
Text Note Date of Service The patient was seen on 06/07/18. NOTE SUBJECTIVE: The patient is seen and examined in the room today. Patient has many family members visiting him today. He agrees lymph node biopsy. Denied any fever or chills. OBJECTIVE: VITAL SIGNS: Listed below. GENERAL: Alert, awake, fatigued. HEENT: Normocephalic, atraumatic. Extraocular motor grossly intact. CARDIOVASCULAR: Positive S1, S2, regular rate. LUNGS: Diminished breath sounds due to body habitus. No significant wheeze or rhonchi appreciated. ABDOMEN: Obese, soft, nontender. EXTREMITIES: Positive pitting edema bilaterally. LABORATORY DATA: Listed below. ASSESSMENT AND PLAN: #. Liver cirrhosis with recurrent ascites and pleural effusion. - Thoracentesis on 05/12/18 (1.68L), 05/26/18 (2.45L). - Paracentesis on 05/19/18 (3.4L), 05/28/18 (1.5L), 06/02/18 (7.3L). - On Lasix with holding parameter. # Hypotension - Patient has liver cirrhosis. Diuretic has holding parameter. #. Lymphadenopathy. - CT angiogram of the chest and CT of the abdomen and pelvis with contrast performed. The patient was noted to have mediastinal, upper abdominal and retrocrural lymphadenopathy. - Oncology consulted. - Imaging guided biopsy when radiology is available. #. Hypercalcemia. Continue to follow with workup. #. Persistent leukocytosis. - No clear source of infection. Previous peripheral smear showed reactive leukocytosis. #. Urinary retention. On Flomax. #. Hyponatremia secondary to liver cirrhosis. Continue fluid restriction. #. Insulin-dependent diabetes. Continue insulin. On consistent carbohydrate diet. #. Deep vein thrombosis (DVT) prophylaxis. The patient is on heparin. VS,Fishbone, I+O VS, Fishbone, I+O Laboratory Tests 06/07/18 06:30 Red Blood Count 4.40, Mean Corpuscular Volume 87.3, Mean Corpuscular Hemoglobin 29.3, Mean Corpuscular Hemoglobin Concent 33.6, Red Cell Distribution Width 19.0 H, Neutrophils (%) (Auto) 85.6 H, Lymphocytes (%) (Auto) 7.4 L, Monocytes (%) (Auto) 6.2 H, Eosinophils (%) (Auto) 0.0, Basophils (%) (Auto) 0.2, Neutrophils # (Auto) 9.3 H, Lymphocytes # (Auto) 0.8 L, Monocytes # (Auto) 0.7, Eosinophils # (Auto) 0.0, Basophils # (Auto) 0.0, Calcium Level 9.7 Vital Signs Date Time Temp Pulse Resp B/P (MAP) Pulse Ox O2 Delivery O2 Flow Rate FiO2 06/07/18 14:00 97.0 83 18 112/65 (81) 96 2.0 06/06/18 07:44 Nasal Cannula I&O- Last 24 Hours up to 6 AM 06/07/18 06:00 Intake Total 720 ml Output Total 825 ml Balance -105 ml BOB LYNN DO Jun 07, 2018 19:50
[2018-06-07] MEDS ORDERED: HEPARIN SOD (PORCINE) 5000 UNITS/ML VIAL As Ordered ONE (21:46)
[2018-06-07 22:00] VITALS: BP 110/53
[2018-06-08] MEDS: traZODone 25MG PER 1/2 TABLET PO PRN ×2 (01:37→22:22)
[2018-06-08] MEDS: IPRATROPIUM 0.5MG/ALBUTEROL 2.5MG INH SOL UD 3ML (DUONEB)(J7620) NEB SCH ×4 (03:33→12:59)
[2018-06-08] MEDS: HEPARIN SOD (PORCINE) 5000 UNITS/ML VIAL SQ SCH ×3 (05:02→22:23)
[2018-06-08 06:00] VITALS: BP_SYST 109; BP_SYST 99; BP_DIAS 54
[2018-06-08 06:56] LABS: HEMATOCRIT 37.6 % (42.0-52.0); HEMOGLOBIN 12.4 g/dl (13.5-17.5); MEAN CORPUSCULAR HEMOGLOBIN 29.1 pg (27.0-33.0); MEAN CORPUSCULAR VOLUME 88.3 fl (80.0-96.0); PLATELET COUNT, AUTOMATED 206 10^3/uL (150-450); RED BLOOD COUNT 4.26 10^6/uL (4.30-6.10); WHITE BLOOD COUNT 11.2 10^3/uL (4.0-10.0)
[2018-06-08 07:27] LABS: BLOOD UREA NITROGEN 69 MG/DL (7-18); CALCIUM LEVEL 9.5 MG/DL (8.8-10.2); CARBON DIOXIDE LEVEL 26 MEQ/L (21-32); CHLORIDE LEVEL 96 MEQ/L (98-107); CREATININE FOR GFR 0.92 MG/DL (0.70-1.30); GLOMERULAR FILTRATION RATE > 60.0 (>49); GLUCOSE, FASTING 133 MG/DL (70-100); MAGNESIUM LEVEL 2.3 MG/DL (1.8-2.4); POTASSIUM SERUM 6.1 MEQ/L (3.5-5.1); SODIUM LEVEL 129 MEQ/L (136-145)
[2018-06-08] MEDS ORDERED: FUROSEMIDE 40 MG/4 ML VIAL (J1940) IV ONE (07:45)
[2018-06-08] MEDS: ASPIRIN 81 MG CHEW TABLET PO SCH (08:06)
[2018-06-08] MEDS: HumaLOG INSULIN (NovoLOG) PER UNIT SC SCH ×4 (08:06→22:12)
[2018-06-08] MEDS: TAMSULOSIN 0.4 MG CAP PO SCH (08:06)
[2018-06-08] MEDS: NYSTATIN 100,000 UNITS/GM TOPICAL PWD 15 GM TOP SCH ×2 (08:07→22:23)
[2018-06-08] MEDS: FUROSEMIDE 40 MG TAB PO SCH (08:07)
[2018-06-08] MEDS ORDERED: PATIROMER SORBITEX CALCIUM 8.4 GM POWDER PACKET (VELTASSA) PO SCH (12:00)
[2018-06-08] MEDS: PATIROMER SORBITEX CALCIUM 8.4 GM POWDER PACKET (VELTASSA) PO SCH (13:02)
[2018-06-08 13:31] LABS: BLOOD UREA NITROGEN 69 MG/DL (7-18); CHLORIDE LEVEL 97 MEQ/L (98-107); CREATININE FOR GFR 0.94 MG/DL (0.70-1.30); GLOMERULAR FILTRATION RATE > 60.0 (>49); GLUCOSE, FASTING 145 MG/DL (70-100); POTASSIUM SERUM 5.9 MEQ/L (3.5-5.1); SODIUM LEVEL 130 MEQ/L (136-145)
[2018-06-08 13:32] LABS: CALCIUM LEVEL 9.3 MG/DL (8.8-10.2); CARBON DIOXIDE LEVEL 27 MEQ/L (21-32)
[2018-06-08 14:00] VITALS: BP 81/53
[2018-06-08 14:05] VITALS: BP 90/50
[2018-06-08] MEDS ORDERED: IPRATROPIUM 0.5MG/ALBUTEROL 2.5MG INH SOL UD 3ML (DUONEB)(J7620) NEB PRN (16:00)
[2018-06-08] MEDS: ACETAMINOPHEN TAB 650MG DOSE (2X325MG) PO PRN (17:19)
[2018-06-08 18:38] VITALS: BP 102/60
--- NOTE | 2018-06-08 19:45 | IPNPDOC ---
Text Note Date of Service The patient was seen on 06/08/18. NOTE SUBJECTIVE: The patient is seen and examined in the room today. Patient still has significant fatigue. No fever or chill. OBJECTIVE: VITAL SIGNS: Listed below. GENERAL: Alert, awake, fatigued. HEENT: Normocephalic, atraumatic. Extraocular motor grossly intact. CARDIOVASCULAR: Positive S1, S2, regular rate. LUNGS: Diminished breath sounds due to body habitus. No significant wheeze or rhonchi appreciated. ABDOMEN: Obese, soft, nontender. EXTREMITIES: Positive pitting edema bilaterally. LABORATORY DATA: Listed below. ASSESSMENT AND PLAN: #. Liver cirrhosis with recurrent ascites and pleural effusion. - Thoracentesis on 05/12/18 (1.68L), 05/26/18 (2.45L). - Paracentesis on 05/19/18 (3.4L), 05/28/18 (1.5L), 06/02/18 (7.3L). - On Lasix with holding parameter. # Hypotension - Patient has liver cirrhosis. Diuretic has holding parameter. #. Lymphadenopathy. - CT angiogram of the chest and CT of the abdomen and pelvis with contrast performed. The patient was noted to have mediastinal, upper abdominal and retrocrural lymphadenopathy. - Oncology consulted. - Imaging guided biopsy ordered. #. Hypercalcemia. Continue to follow with workup. #. Persistent leukocytosis. - No clear source of infection. Previous peripheral smear showed reactive leukocytosis. #. Urinary retention. On Flomax. #. Hyponatremia secondary to liver cirrhosis. Continue fluid restriction. #. Insulin-dependent diabetes. Continue insulin. On consistent carbohydrate diet. #. Deep vein thrombosis (DVT) prophylaxis. The patient is on heparin. VS,Fishbone, I+O VS, Fishbone, I+O Laboratory Tests 06/08/18 06:30 Red Blood Count 4.26 L, Mean Corpuscular Volume 88.3, Mean Corpuscular Hemoglobin 29.1, Mean Corpuscular Hemoglobin Concent 33.0, Red Cell Distribution Width 19.2 H, Calcium Level 9.5 06/08/18 12:49 Calcium Level 9.3 Vital Signs Date Time Temp Pulse Resp B/P (MAP) Pulse Ox O2 Delivery O2 Flow Rate FiO2 06/08/18 18:38 102/60 (74) 06/08/18 14:00 97.8 82 17 95 2.0 06/06/18 07:44 Nasal Cannula I&O- Last 24 Hours up to 6 AM 06/08/18 06:00 Intake Total 840 ml Output Total 2350 ml Balance -1510 ml BOB LYNN DO Jun 08, 2018 19:44
[2018-06-09 06:00] VITALS: BP 115/53
[2018-06-09 07:42] LABS: HEMATOCRIT 36.9 % (42.0-52.0); MEAN CORPUSCULAR HEMOGLOBIN 28.9 pg (27.0-33.0); MEAN CORPUSCULAR HGB CONC 32.5 g/dl (32.0-36.5); MEAN CORPUSCULAR VOLUME 88.9 fl (80.0-96.0); PLATELET COUNT, AUTOMATED 233 10^3/uL (150-450); RED BLOOD COUNT 4.15 10^6/uL (4.30-6.10); WHITE BLOOD COUNT 11.8 10^3/uL (4.0-10.0)
[2018-06-09 07:51] LABS: INR 1.1; PROTHROMBIN TIME 14.3 SECONDS (12.1-14.4)
[2018-06-09 08:28] LABS: BLOOD UREA NITROGEN 74 MG/DL (7-18); CREATININE FOR GFR 1.02 MG/DL (0.70-1.30); GLUCOSE, FASTING 126 MG/DL (70-100)
[2018-06-09 08:29] LABS: CALCIUM LEVEL 9.5 MG/DL (8.8-10.2); CARBON DIOXIDE LEVEL 25 MEQ/L (21-32); CHLORIDE LEVEL 96 MEQ/L (98-107); GLOMERULAR FILTRATION RATE > 60.0 (>49); MAGNESIUM LEVEL 2.6 MG/DL (1.8-2.4); SODIUM LEVEL 128 MEQ/L (136-145)
[2018-06-09] MEDS: TAMSULOSIN 0.4 MG CAP PO SCH (08:56)
[2018-06-09] MEDS: FUROSEMIDE 40 MG TAB PO SCH (08:56)
[2018-06-09] MEDS: ACETAMINOPHEN TAB 650MG DOSE (2X325MG) PO PRN ×2 (08:57→21:36)
[2018-06-09] MEDS: NYSTATIN 100,000 UNITS/GM TOPICAL PWD 15 GM TOP SCH ×2 (08:57→21:36)
[2018-06-09] MEDS: HumaLOG INSULIN (NovoLOG) PER UNIT SC SCH ×4 (08:57→21:00)
[2018-06-09] MEDS ORDERED: ASPIRIN 81 MG ENTERIC TAB PO SCH (09:00)
[2018-06-09 10:58] LABS: PTH INTACT 15.5 PG/ML (18.5-88.0)
[2018-06-09] MEDS ORDERED: traMADol 50 MG TAB PO ONE (11:30)
[2018-06-09] MEDS ORDERED: LIDOCAINE 1% MDV 20ML VIAL As Ordered ONE (11:39)
[2018-06-09] MEDS: PATIROMER SORBITEX CALCIUM 8.4 GM POWDER PACKET (VELTASSA) PO SCH (13:48)
[2018-06-09 14:00] VITALS: BP 83/50
[2018-06-09] MEDS: HEPARIN SOD (PORCINE) 5000 UNITS/ML VIAL SQ SCH ×2 (14:16→21:35)
[2018-06-09 22:00] VITALS: BP 92/51
--- NOTE | 2018-06-09 22:52 | IPNPDOC ---
Text Note Date of Service The patient was seen on 06/09/18. NOTE SUBJECTIVE: The patient is seen and examined in the room today after lymph node biopsy. Patient denies acute complaint after the procedure. Patient continues experiencing significant fatigue. No fever or chill. OBJECTIVE: VITAL SIGNS: Listed below. GENERAL: Alert, awake, fatigued. HEENT: Normocephalic, atraumatic. Extraocular motor grossly intact. CARDIOVASCULAR: Positive S1, S2, regular rate. LUNGS: Diminished breath sounds due to body habitus. No significant wheeze or rhonchi appreciated. ABDOMEN: Obese, soft, nontender. EXTREMITIES: Positive pitting edema bilaterally. LABORATORY DATA: Listed below. ASSESSMENT AND PLAN: #. Lymphadenopathy. - CT angiogram of the chest and CT of the abdomen and pelvis with contrast performed. The patient was noted to have mediastinal, upper abdominal and retrocrural lymphadenopathy. - Oncology consulted. - Imaging guided biopsy on 06/09/18. #. Liver cirrhosis with recurrent ascites and pleural effusion. - Thoracentesis on 05/12/18 (1.68L), 05/26/18 (2.45L). - Paracentesis on 05/19/18 (3.4L), 05/28/18 (1.5L), 06/02/18 (7.3L). - On Lasix with holding parameter. # Hyperkalemia - On Lasix with holding parameter. On veltassa. adjusted neb treatment. # Hypotension - Patient has liver cirrhosis. Diuretic has holding parameter. #. Hypercalcemia. Continue to follow with workup. #. Persistent leukocytosis. - No clear source of infection. Previous peripheral smear showed reactive leukocytosis. #. Urinary retention. On Flomax. #. Hyponatremia secondary to liver cirrhosis. Continue fluid restriction. #. Insulin-dependent diabetes. Continue insulin. On consistent carbohydrate diet. #. Deep vein thrombosis (DVT) prophylaxis. The patient is on heparin. VS,Fishbone, I+O VS, Fishbone, I+O Laboratory Tests 06/09/18 07:21 Red Blood Count 4.15 L, Mean Corpuscular Volume 88.9, Mean Corpuscular Hemoglobin 28.9, Mean Corpuscular Hemoglobin Concent 32.5, Red Cell Distribution Width 19.1 H, Calcium Level 9.5 Vital Signs Date Time Temp Pulse Resp B/P (MAP) Pulse Ox O2 Delivery O2 Flow Rate FiO2 06/09/18 14:00 96.3 69 18 83/50 (05) 96 2.0 06/06/18 07:44 Nasal Cannula I&O- Last 24 Hours up to 6 AM 06/09/18 06:00 Intake Total 1415 ml Output Total 1800 ml Balance -385 ml BOB LYNN DO Jun 09, 2018 22:52
[2018-06-10] MEDS: HEPARIN SOD (PORCINE) 5000 UNITS/ML VIAL SQ SCH ×3 (05:51→21:32)
[2018-06-10 06:00] VITALS: BP 104/55
[2018-06-10 06:50] LABS: HEMATOCRIT 34.5 % (42.0-52.0); HEMOGLOBIN 11.5 g/dl (13.5-17.5); MEAN CORPUSCULAR HEMOGLOBIN 28.9 pg (27.0-33.0); MEAN CORPUSCULAR HGB CONC 33.3 g/dl (32.0-36.5); MEAN CORPUSCULAR VOLUME 86.7 fl (80.0-96.0); PLATELET COUNT, AUTOMATED 233 10^3/uL (150-450); RED BLOOD COUNT 3.98 10^6/uL (4.30-6.10); WHITE BLOOD COUNT 11.6 10^3/uL (4.0-10.0)
[2018-06-10 08:07] LABS: BLOOD UREA NITROGEN 84 MG/DL (7-18); CALCIUM LEVEL 9.5 MG/DL (8.8-10.2); CARBON DIOXIDE LEVEL 24 MEQ/L (21-32); CHLORIDE LEVEL 96 MEQ/L (98-107); CREATININE FOR GFR 1.22 MG/DL (0.70-1.30); GLOMERULAR FILTRATION RATE > 60.0 (>49); GLUCOSE, FASTING 116 MG/DL (70-100); MAGNESIUM LEVEL 2.4 MG/DL (1.8-2.4); POTASSIUM SERUM 5.7 MEQ/L (3.5-5.1); SODIUM LEVEL 127 MEQ/L (136-145)
[2018-06-10] MEDS: HumaLOG INSULIN (NovoLOG) PER UNIT SC SCH ×4 (08:24→21:00)
[2018-06-10] MEDS: TAMSULOSIN 0.4 MG CAP PO SCH (08:24)
[2018-06-10] MEDS: FUROSEMIDE 40 MG TAB PO SCH (08:24)
[2018-06-10] MEDS: ASPIRIN 81 MG CHEW TABLET PO SCH (08:24)
[2018-06-10] MEDS: NYSTATIN 100,000 UNITS/GM TOPICAL PWD 15 GM TOP SCH ×2 (08:24→21:31)
--- NOTE | 2018-06-10 10:11 | REP ---
CT-GUIDED NORMA-AORTIC LYMPH NODE BIOPSY The procedure was performed under the direct supervision of Dr. hyatt. The patient has a history of bulky periaortic adenopathy seen on a previous CT scan dated 05/31/2018. The risks and benefits of the procedure were explained to the patient and informed consent was obtained. The periaortic lymphadenopathy was localized using CT guidance. The skin was prepped and draped in a sterile fashion. 1% lidocaine was used as a local anesthetic. Using CT guidance a 19/20 gauge coaxial needle biopsy system was inserted and advanced into the lymph node. Eight core biopsy samples were obtained and sent to lab. The patient tolerated the procedure well and there were no immediate complications. After the appropriate amount of monitored convalescence the patient was discharged from the department. Reviewed by SAMINA Reyes 06/09/2018 04:36 P Electronically Signed by Burak Hyatt MD 06/10/2018 10:01 A
[2018-06-10] MEDS: PATIROMER SORBITEX CALCIUM 8.4 GM POWDER PACKET (VELTASSA) PO SCH (12:30)
[2018-06-10 14:00] VITALS: BP 103/54
--- NOTE | 2018-06-10 16:24 | IPNPDOC ---
Subjective Date Seen The patient was seen on 06/10/18. Subjective Chief Complaint/HPI Patient seen and examined at the bedside. States he continues to feel weak and lethargic. Objective Physical Examination General Exam: Positive: Alert, Cooperative, No Acute Distress Eye Exam: Positive: PERRLA, Conjunctiva & lids normal; Negative: Sclera icteric ENT Exam: Positive: Atraumatic, Mucous membr. moist/pink Neck Exam: Positive: Other (unable to assess JVD due to body habitus) Chest Exam: Positive: Diminished, Other (limited due to large body habitus. No appreciable w/r/r) Heart Exam: Positive: Rate Normal, Normal S1, Normal S2 Abdomen Exam: Positive: Soft; Negative: Tenderness Extremity Exam: Positive: Swelling (2+ pitting edema in the lower extremities B/L.); Negative: Tenderness Psych Exam: Positive: Oriented x 3 Assessment /Plan Plan/VTE VTE Prophylaxis Ordered?: Yes Plan CTA Chest on 05/12/18 notable for Left Mediastinal, Upper Abdominal, and Retrocrural Lymphadenopathy CT Scan of the Abd/Pel from 05/31 notable for bulky periaortic and shelley hepatic adenopathy s/p periaortic lymph node biopsy on 06/09/18-->Preliminary pathology results discussed with Pathology this AM--notable for metastatic adenopathy of unclear origin (Possibly Liver, Pancreas, or Lungs)--No clear mass identified on previous imaging studies already done Discussed the results with the patient at the bedside, and answered his questions. Tumor markers ordered for further delineation I have placed a call to Dr. Muñoz of Hematology who has been following the patient from Heme/Onc, awaiting call back. Cirrhosis with severe ascites/pleural effusion s/p multiple Thoracenteses and Paracenteses during this hospitalization Hx of NAFLD. We will cont to monitor the patient Hypercalcemia of Unclear Etiology, possibly 2/2 underlying Malignancy Serum PTH noted to be low PTHrp borderline elevated at 2.4 Vit D 1,25 and 25-OH Vitamin D level noted to be low Hematology input noted Persistent Leukocytosis Patient with no clear source of infection at this time Peripheral smear notable for reactive leukocytosis We will cont to monitor Hematology/oncology on board Renal Insufficiency possibly 2/2 intravascular volume depletion Albumin infusion ordered We will hold lasix for now, given low blood pressures, increasing creatinine Hyperkalemia possibly 2/2 Increasing Creatinine Cont Veltessa Urinary Retention Status post Stover catheterization Continue on Flomax Hyponatremia likely 2/2 underlying cirrhosis/ascites Hypoalbuminemia likely 2/2 cirrhosis and critical illness. Albumin ordered [id number] Continue current regimen CODE STATUS: DNR DVT prophylaxis: Heparin sc. DISPOSITION: Pending clinical improvement. VS, I&O, 24H, Fishbone Vital Signs/I&O Vital Signs Date Time Temp Pulse Resp B/P (MAP) Pulse Ox O2 Delivery O2 Flow Rate FiO2 06/10/18 08:25 2.0 06/10/18 06:00 96.4 74 20 104/55 (71) 94 06/06/18 07:44 Nasal Cannula I&O- Last 24 Hours up to 6 AM 06/10/18 06:00 Intake Total 1200 ml Output Total 500 ml Balance 700 ml Laboratory Data 24H LABS Laboratory Tests 2 06/09/18 16:41: Bedside Glucose (Misc Panel) 123H 06/09/18 20:23: Bedside Glucose (Misc Panel) 125H 06/10/18 06:38: Nucleated Red Blood Cells % (auto) 0.0, Anion Gap 7L, Glomerular Filtration Rate > 60.0, Blood Urea Nitrogen 84H, Creatinine 1.22, Sodium Level 127L, Potassium Level 5.7H, Chloride Level 96L, Carbon Dioxide Level 24, Calcium Level 9.5, Magnesium Level 2.4 06/10/18 11:54: Bedside Glucose (Misc Panel) 120H CBC/BMP Laboratory Tests 06/10/18 06:38 Red Blood Count 3.98 L, Mean Corpuscular Volume 86.7, Mean Corpuscular Hemoglobin 28.9, Mean Corpuscular Hemoglobin Concent 33.3, Red Cell Distribution Width 19.0 H, Calcium Level 9.5 Microbiology Microbiology 05/31/18 Urine Culture - Final, Complete MARKUS MILLER MD Jun 10, 2018 16:24
[2018-06-10 16:36] VITALS: BP 98/57
[2018-06-10 17:13] LABS: OSMOLALITY URINE 397 MOSM/KG (500-800)
[2018-06-10 17:32] LABS: SODIUM,RANDOM URINE < 10 MEQ/L
[2018-06-10 20:30] VITALS: BP 100/53
[2018-06-10 22:00] VITALS: BP 100/53
[2018-06-10 22:10] VITALS: BP 112/55
[2018-06-11] MEDS: HEPARIN SOD (PORCINE) 5000 UNITS/ML VIAL SQ SCH ×3 (05:44→20:43)
[2018-06-11 06:00] VITALS: BP 102/57
[2018-06-11] MEDS: NYSTATIN 100,000 UNITS/GM TOPICAL PWD 15 GM TOP SCH ×2 (08:07→20:42)
[2018-06-11] MEDS: ASPIRIN 81 MG CHEW TABLET PO SCH (08:07)
[2018-06-11] MEDS: TAMSULOSIN 0.4 MG CAP PO SCH (08:07)
[2018-06-11] MEDS: HumaLOG INSULIN (NovoLOG) PER UNIT SC SCH ×4 (08:08→21:00)
[2018-06-11] MEDS ORDERED: traMADol 50 MG TAB PO ONE (09:00)
[2018-06-11] MEDS: PATIROMER SORBITEX CALCIUM 8.4 GM POWDER PACKET (VELTASSA) PO SCH (11:55)
[2018-06-11 13:35] VITALS: BP 89/51
[2018-06-11 13:44] VITALS: BP 90/50
[2018-06-11 14:00] VITALS: BP 89/51
--- NOTE | 2018-06-11 15:03 | IPNPDOC ---
Subjective Date Seen The patient was seen on 06/11/18. Subjective Chief Complaint/HPI Patient seen and examined at the bedside. Reports that he is feeling fatigued this morning. States that he has been thinking about his diagnosis since yesterday. He notes that his family will be in later today and he will discuss this with them. Objective Physical Examination General Exam: Positive: Alert, Cooperative, No Acute Distress Eye Exam: Positive: PERRLA, Conjunctiva & lids normal; Negative: Sclera icteric ENT Exam: Positive: Atraumatic, Mucous membr. moist/pink Neck Exam: Positive: Other (unable to assess JVD due to body habitus) Chest Exam: Positive: Diminished, Other (limited due to large body habitus. No appreciable w/r/r) Heart Exam: Positive: Rate Normal, Normal S1, Normal S2 Abdomen Exam: Positive: Soft, Tenderness (tenderness to deep palpation in the LUQ), Other (Distended) Extremity Exam: Positive: Swelling (2+ pitting edema in the lower extremities B/L.); Negative: Tenderness Psych Exam: Positive: Oriented x 3 Assessment /Plan Plan/VTE VTE Prophylaxis Ordered?: Yes Plan CTA Chest on 05/12/18 notable for Left Mediastinal, Upper Abdominal, and Retrocrural Lymphadenopathy CT Scan of the Abd/Pel from 05/31 notable for bulky periaortic and shelley hepatic adenopathy s/p periaortic lymph node biopsy on 06/09/18-->Preliminary pathology results discussed with Pathologist on 06/10/18--notable for metastatic adenopathy of unclear origin (Possibly Liver, Pancreas, or Lungs)--No clear mass identified on previous imaging studies already done Discussed the results with the patient at the bedside, and answered his questions. Tumor markers pending for further delineation Discussed case with Dr. Muñoz of Hematology this morning--she will be discussing further treatment options with the patient later today. Cirrhosis with severe ascites/pleural effusion s/p multiple Thoracenteses and Paracenteses during this hospitalization Hx of NAFLD. We will cont to monitor the patient Hypercalcemia of Unclear Etiology, possibly 2/2 underlying Malignancy Serum PTH noted to be low PTHrp borderline elevated at 2.4 Vit D 1,25 and 25-OH Vitamin D level noted to be low Hematology input noted Persistent Leukocytosis Patient with no clear source of infection at this time Peripheral smear notable for reactive leukocytosis We will cont to monitor Hematology/oncology on board Renal Insufficiency possibly 2/2 intravascular volume depletion Albumin infusion ordered We will hold lasix for now, given low blood pressures, increasing creatinine Hyperkalemia possibly 2/2 Increasing Creatinine Cont Veltessa Urinary Retention Status post Stover catheterization Continue on Flomax Hyponatremia likely 2/2 underlying cirrhosis/ascites Hypoalbuminemia likely 2/2 cirrhosis and critical illness. Albumin ordered [id number] Continue current regimen CODE STATUS: DNR--Patient tells me that he is considering Hospice, but would like to talk to his family/oncology first. Poor White Kid Buffer Prognosis DVT prophylaxis: Heparin sc. DISPOSITION: Pending clinical improvement. VS, I&O, 24H, Fishbone Vital Signs/I&O Vital Signs Date Time Temp Pulse Resp B/P (MAP) Pulse Ox O2 Delivery O2 Flow Rate FiO2 06/11/18 13:44 90/50 (63) 06/11/18 11:55 16 06/11/18 06:00 96.3 72 95 2.0 06/06/18 07:44 Nasal Cannula I&O- Last 24 Hours up to 6 AM 06/11/18 06:00 Intake Total 1260 ml Output Total 1300 ml Balance -40 ml Laboratory Data 24H LABS Laboratory Tests 2 06/10/18 16:32: Bedside Glucose (Misc Panel) 125H 06/10/18 16:46: Osmolality 299 06/10/18 16:56: Urine Random Osmolality 397L, Urine Random Sodium < 10 06/10/18 20:31: Bedside Glucose (Misc Panel) 111 06/11/18 11:32: Bedside Glucose (Misc Panel) 121H Microbiology Microbiology 06/11/18 Stool Occult Blood (JAREK) - Final, Complete MARKUS MILLER MD Jun 11, 2018 15:03
[2018-06-11] MEDS ORDERED: LIDOCAINE 1% MDV 20ML VIAL As Ordered ONE (16:38)
[2018-06-11] MEDS ORDERED: SODIUM CHLORIDE 0.9% INJ 10 ML SYR IV PRN (18:00)
[2018-06-11] MEDS: SODIUM CHLORIDE 0.9% INJ 10 ML SYR IV SCH (18:00)
[2018-06-11 21:07] LABS: HEMOGLOBIN 11.5 g/dl (13.5-17.5); MEAN CORPUSCULAR HGB CONC 32.9 g/dl (32.0-36.5); MEAN CORPUSCULAR VOLUME 88.2 fl (80.0-96.0); PLATELET COUNT, AUTOMATED 238 10^3/uL (150-450); RED BLOOD COUNT 3.97 10^6/uL (4.30-6.10); WHITE BLOOD COUNT 12.6 10^3/uL (4.0-10.0)
[2018-06-11] MEDS ORDERED: SODIUM CHLORIDE 0.9% 1000ML IV ONE (21:15)
[2018-06-11 21:29] LABS: CALCIUM LEVEL 9.2 MG/DL (8.8-10.2); CREATININE FOR GFR 1.37 MG/DL (0.70-1.30); GLOMERULAR FILTRATION RATE 55.2 (>49); MAGNESIUM LEVEL 2.3 MG/DL (1.8-2.4); POTASSIUM SERUM 5.6 MEQ/L (3.5-5.1)
[2018-06-11 22:00] VITALS: BP 76/43
[2018-06-11 22:44] VITALS: BP 82/48
[2018-06-11] MEDS ORDERED: NS 500 ML IV ONE (23:00)
[2018-06-12] VITALS (33 sets, daily range): BP systolic 69–122; BP diastolic 37–62
[2018-06-12] MEDS: SODIUM CHLORIDE 0.9% INJ 10 ML SYR IV SCH ×2 (05:40→17:56)
[2018-06-12] MEDS: HEPARIN SOD (PORCINE) 5000 UNITS/ML VIAL SQ SCH ×3 (05:40→21:09)
[2018-06-12] MEDS: HumaLOG INSULIN (NovoLOG) PER UNIT SC SCH ×5 (07:48→21:00)
[2018-06-12 09:16] LABS: HEMATOCRIT 35.3 % (42.0-52.0); HEMOGLOBIN 11.7 g/dl (13.5-17.5); MEAN CORPUSCULAR HEMOGLOBIN 29.5 pg (27.0-33.0); MEAN CORPUSCULAR HGB CONC 33.1 g/dl (32.0-36.5); MEAN CORPUSCULAR VOLUME 88.9 fl (80.0-96.0); PLATELET COUNT, AUTOMATED 256 10^3/uL (150-450); RED BLOOD COUNT 3.97 10^6/uL (4.30-6.10); WHITE BLOOD COUNT 12.8 10^3/uL (4.0-10.0)
[2018-06-12] MEDS: ASPIRIN 81 MG CHEW TABLET PO SCH (09:18)
[2018-06-12] MEDS: TAMSULOSIN 0.4 MG CAP PO SCH (09:18)
[2018-06-12] MEDS: NYSTATIN 100,000 UNITS/GM TOPICAL PWD 15 GM TOP SCH ×2 (09:22→21:09)
[2018-06-12 09:45] LABS: BILIRUBIN,TOTAL 0.7 MG/DL (0.2-1.0); CALCIUM LEVEL 9.3 MG/DL (8.8-10.2); CREATININE FOR GFR 1.43 MG/DL (0.70-1.30); GLOMERULAR FILTRATION RATE 52.5 (>49); POTASSIUM SERUM 5.5 MEQ/L (3.5-5.1); TOTAL PROTEIN 5.5 GM/DL (6.4-8.2)
[2018-06-12] MEDS ORDERED: MIDODRINE 5 MG TAB PO SCH (12:00)
[2018-06-12] MEDS: HYDROCORTISONE 100 MG/2 ML VIAL (J1720) IV SCH ×2 (12:26→18:05)
[2018-06-12] MEDS: cefTRIAXone SOD 1 GM in D5W MINI-BAG PLUS 50 ML IV SCH (12:43)
[2018-06-12] MEDS: NOREPINEPHRINE BITARTRATE 16 MG in D5W 484 ML IV SCH (12:49)
[2018-06-12] MEDS: PATIROMER SORBITEX CALCIUM 8.4 GM POWDER PACKET (VELTASSA) PO SCH (14:29)
[2018-06-12] MEDS: ALLOPURINOL 100 MG TAB PO SCH (14:29)
--- NOTE | 2018-06-12 16:22 | IPNPDOC ---
Subjective Date Seen The patient was seen on 06/12/18. Subjective Chief Complaint/HPI Patient seen and examined at the bedside. He was hypotensive overnight. He will be transferred to the ICU for pressor therapy. Otherwise, he denies any acute complaints at this time. Objective Physical Examination General Exam: Positive: Alert, Cooperative, No Acute Distress Eye Exam: Positive: PERRLA, Conjunctiva & lids normal; Negative: Sclera icteric ENT Exam: Positive: Atraumatic, Mucous membr. moist/pink Neck Exam: Positive: Other (unable to assess JVD due to body habitus) Chest Exam: Positive: Diminished, Other (limited due to large body habitus. No appreciable w/r/r) Heart Exam: Positive: Rate Normal, Normal S1, Normal S2 Abdomen Exam: Positive: Soft; Negative: Tenderness Extremity Exam: Positive: Swelling (2+ pitting edema in the lower extremities B/L.); Negative: Tenderness Psych Exam: Positive: Oriented x 3 Assessment /Plan Plan/VTE VTE Prophylaxis Ordered?: Yes Plan CTA Chest on 05/12/18 notable for Left Mediastinal, Upper Abdominal, and Retrocrural Lymphadenopathy CT Scan of the Abd/Pel from 05/31 notable for bulky periaortic and shelley hepatic adenopathy s/p periaortic lymph node biopsy on 06/09/18-->Preliminary pathology results discussed with Pathologist on 06/10/18--notable for metastatic adenopathy of unclear origin (Possibly Pancreas, or Lungs)--No clear mass identified on previous imaging studies already done Tumor AFP, PSA levels noted to be within normal limits Alk Phos Iso-enzymes pending, HCG Tumor marker, CEA pending Tumor markers pending for further delineation, Final Pathology report Pending Discussed case with Dr. Muñoz of Hematology on 06/11--will follow up with her recommendations Discussed case with Dr. Mcdaniel via telephone ([phone]) about possible Liver Cirrhosis component given ascites--and he believes that this is likely malignant ascites from underlying carcinomatosis, rather than liver cirr hosis/failure. He agrees with the current mgmt and has recommended follow up of final Pathology and Oncology recommendations. Acute Kidney Injury Likely 2/2 Above, Hepatorenal Syndrome We will hold nephrotoxins, albumin infusions ordered Nephrology consulted Hypotension likely 2/2 Intravascular Volume Depletion Albumin infusions ordered, hold Diuretics Midodrine ordered Levophed ordered to keeo MAP >65 Severe ascites/pleural effusion 2/2 Above s/p multiple Thoracenteses and Paracenteses during this hospitalization Hx of NAFLD. We will empirically cover the patient with Rocephin for pssible SBP, even though liver cirrhosis is less likely the cause here according to GI We will cont to monitor the patient Hypercalcemia of Unclear Etiology, possibly 2/2 underlying Malignancy Serum PTH noted to be low PTHrp borderline elevated at 2.4 Vit D 1,25 and 25-OH Vitamin D level noted to be low Hematology input noted Persistent Leukocytosis Patient with no clear source of infection at this time Peripheral smear notable for reactive leukocytosis We will cont to monitor Hematology/oncology on board Hyperkalemia possibly 2/2 Increasing Creatinine Cont Veltessa Urinary Retention Status post Stover catheterization Continue on Flomax PSA wnl Hyponatremia likely 2/2 underlying ascites, intravacular depletion Hypoalbuminemia likely 2/2 cirrhosis and critical illness. Albumin ordered IDDM2 Continue current regimen CODE STATUS: DNR Poor Half-Way Prognosis, Critical Clinical Condition DVT prophylaxis: Heparin sc. DISPOSITION: Pending clinical improvement. VS, [facility]O Vital Signs Date Time Temp Pulse Resp B/P (MAP) Pulse Ox O2 Delivery O2 Flow Rate FiO2 06/12/18 12:53 11 97/50 (66) 2.0 06/12/18 12:51 67 97 06/12/18 11:57 97.0 06/06/18 07:44 Nasal Cannula I&O- Last 24 Hours up to 6 AM 06/12/18 06:00 Intake Total 2060 ml Output Total 725 ml Balance 1335 ml Laboratory Data 24H LABS Laboratory Tests 2 06/11/18 20:50: Nucleated Red Blood Cells % (auto) 0.0, Anion Gap 6L, Glomerular Filtration Rate 55.2, Blood Urea Nitrogen 99H, Creatinine 1.37H, Sodium Level 125L, Potassium Level 5.6H, Chloride Level 93L, Carbon Dioxide Level 26, Calcium Level 9.2, Magnesium Level 2.3 06/11/18 20:53: Bedside Glucose (Misc Panel) 124H 06/12/18 05:34: Differential Slide Review Report, Peripheral Blood Smear Path Consult OTHER 06/12/18 06:26: Bedside Glucose (Misc Panel) 139H 06/12/18 08:56: Nucleated Red Blood Cells % (auto) 0.0, Anion Gap 8, Glomerular Filtration Rate 52.5, Blood Urea Nitrogen 103H, Creatinine 1.43H, Sodium Level 128L, Potassium Level 5.5H, Chloride Level 95L, Carbon Dioxide Level 25, Calcium Level 9.3, Aspartate Amino Transf (AST/SGOT) 84H, Alanine Aminotransferase (ALT/SGPT) 61, Alkaline Phosphatase 495H, Total Bilirubin 0.7, Total Protein 5.5L, Albumin 2.0L, Albumin/Globulin Ratio 0.57L 06/12/18 08:57: Cortisol AM Sample 32.0H 06/12/18 12:11: Bedside Glucose (Misc Panel) 124H CBC/BMP Laboratory Tests 06/11/18 20:50 Red Blood Count 3.97 L, Mean Corpuscular Volume 88.2, Mean Corpuscular Hemoglobin 29.0, Mean Corpuscular Hemoglobin Concent 32.9, Red Cell Distribution Width 18.9 H, Calcium Level 9.2 06/12/18 08:56 Red Blood Count 3.97 L, Mean Corpuscular Volume 88.9, Mean Corpuscular Hemog lobin 29.5, Mean Corpuscular Hemoglobin Concent 33.1, Red Cell Distribution Width 19.1 H, Calcium Level 9.3, Aspartate Amino Transf (AST/SGOT) 84 H, Alanine Aminotransferase (ALT/SGPT) 61, Alkaline Phosphatase 495 H, Total Bilirubin 0.7, Total Protein 5.5 L, Albumin 2.0 L Microbiology Microbiology 06/11/18 Stool Occult Blood (JAREK) - Final, Complete MARKUS MILLER MD Jun 12, 2018 16:22
--- NOTE | 2018-06-12 21:45 | CR ---
DATE OF CONSULTATION: 06/12/2018 REQUESTING PHYSICIAN: Jonathan Arguello MD REASON FOR CONSULTATION: Acute kidney injury and hyperkalemia. HISTORY OF PRESENT ILLNESS Patient is a 67-year-old male, unknown to me, who has had a prolonged stay here at [facility] for the past one month. He has a past medical history significant for hypertension, dyslipidemia, insulin dependent diabetes type 2 and nonalcoholic steatohepatitis. Patient was initially admitted on May 12 for worsening shortness of breath and new onset paroxysmal atrial fibrillation. Over the course of his prolonged stay here he has been found to have extensive lymphadenopathy throughout the chest and abdomen and is status post periaortic lymph node biopsy with pathology notable for metastatic adenopathy of unclear origin. He is being evaluated by the oncology team for the same. Patient also was found to have recurrent severe ascites and pleural effusion, status post multiple thoracenteses and paracenteses during this hospitalization. Other significant abnormalities over the past month include hypercalcemia and persistent leukocytosis. He has also recently been having trouble with hyperkalemia and this has been managed with use of Veltassa. Today the patient became significantly hypotensive prompting urgent transfer to the intensive care unit with initiation of Levophed for pressor support. Review of his vital signs over the past few days shows that he had borderline hypotension to tamika hypotension for at least the past three days. His laboratory studies today reveal blood urea nitrogen in excess of 100 and creatinine of 1.4. Nephrology evaluation was subsequently requested. PAST MEDICAL HISTORY: Dyslipidemia. Custodial NSAID use. Insulin dependent diabetes mellitus. Diastolic congestive heart failure. Fatty liver disease, cirrhosis with recurrent ascites. Diffuse lymphadenopathy (primary malignancy unknown). PAST SURGICAL HISTORY: Lymph node biopsy. Multiple paracenteses. Multiple thoracenteses. Repair of right fibula fracture. Tonsillectomy. FAMILY HISTORY: Mother of myocardial infarction. Also had history of hypertension. She in her 50s. Father was of emphysema. 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 He is an ex-smoker. Reports very infrequent alcohol. No substance abuse. No recreational drugs. HOME MEDICATIONS: Are reviewed and include: - Byetta - atorvastatin - vitamin D - Lasix - glucosamine - magnesium - Meloxicam - aspirin - metformin - potassium - Toujeo ALLERGIES: No known drug allergies. REVIEW OF SYSTEMS: Somewhat limited as patient is lethargic in the intensive care unit. CONSTITUTIONAL: He reports fatigue. He denies fevers or chills. EYES: He denies visual changes or tearing. ENT: He denies any new ear or throat problems. CARDIAC: Denies chest pain or palpitations. RESPIRATORY: Has recurrent pleural effusion. Denies shortness of breath at rest. GASTROESOPHAGEAL: Has recurrent ascites and cirrhosis. Denies diarrhea or vomiting. GENITOURINARY (): Reports Stover catheter. Denies hematuria. ENDOCRINE: He reports insulin dependent diabetes and hyperkalemia. NEUROLOGICAL: He denies seizure or syncope. HEMATOLOGIC: There is diffuse adenopathy in the chest and abdomen. He denies easy bleeding or bruising. VITAL SIGNS: Temperature 97.1, pulse 88, respiratory rate 14, blood pressure prior to starting Levophed infusion was systolic 69 to 74 over diastolic 37 to 42. Presently this is improved to 97/50. Saturating 98% on 2 liters nasal cannula. Intake yesterday was 1060. Urine output yesterday was 975 mL. Weight on the bed scale today is 155.7 kg. GENERAL: The patient is seen in the intensive care unit. Lying in bed. Elderly, obese male, appears fatigued but in no acute distress. His pupils are equally round and reactive to light. His tongue is moist. His jugular veins are difficult to assess secondary to body habitus. CARDIAC: S1, S2. Regular rate and rhythm. LUNGS: Breath sounds are diminished secondary to body habitus and diminished at the bases. No rale or wheeze. ABDOMEN: Soft and nontender to palpation. There is a significant pannus. GENITOURINARY: Shows Stover catheter with urine. His extremities show pitting edema. NEUROLOGICAL: He is somewhat slow, but oriented to person, place and situation. LABS: White count 12.8, hemoglobin 11.7, platelets 256. Sodium 128, potassium 5.5, bicarbonate 25, BUN 103, creatinine 1.4. Urine sodium is less than 10. Stool occult blood on June 11 is negative. No positive blood cultures seen over the course of this admission. IMAGING: Is reviewed. He has had multiple studies over the course of this admission. I note CT abdomen and pelvis with contrast done May 31 which shows bulky periaortic and shelley hepatic adenopathy, large volume ascites, moderate to large left pleural effusion and the kidneys show a left renal midpole cyst. INPATIENT MEDICATIONS: He is started on Levophed infusion and ceftriaxone 1 gram IV every 12 hourly, allopurinol 100 mg by mouth daily, aspirin 81 mg by mouth daily, docusate 100 mg by mouth daily as needed, heparin 5000 units subcutaneous every 8 hourly, hydrocortisone 50 mg IV every 8 hourly, insulin, Veltassa 16.8 grams by mouth daily, Flomax 0.4 mg by mouth daily, trazodone 25 mg by mouth at bedtime as needed insomnia. PROBLEMS: 1. Nonoliguric renal failure. Renal function has been worsening over the course of this admission. BUN today is markedly elevated at 103 with a creatinine of 1.4 in a patient with cirrhosis, recurrent ascites, hypotension and hyponatremia with urine sodium of less than 10. In the absence of any positive cultures and in the absence of signs of sepsis, I am inclined to consider type 2 hepatorenal syndrome. The patient is now in the intensive care unit. He was significantly hypotensive which is causing worsening of his renal function. He has been appropriately initiated on Levophed infusion and he is receiving more than 50 grams of albumin infusion today as well. His diuretics are appropriately held. Management of type 2 hepatorenal syndrome in this patient will include pressor support and albumin, and no diuretic therapy. I hope that his renal function would improve within the coming two days. 2. Hypotension. In the absence of clinical signs of sepsis, his hypotension is likely a manifestation of cirrhosis and hepatorenal syndrome. Continue Levophed infusion with albumin. He will receive 100 grams of albumin today and again tomorrow. Please hold diuretics. I have discontinued midodrine as he is on Levophed which is preferential. 3. Recurrent ascites and pleural effusion. Suggest getting GI input for likelihood of cirrhosis. If he has large volume paracentesis he should most definitely receive albumin with his paracentesis going forward. Primary team has empirically treated the patient with Rocephin for possible spontaneous bacterial peritonitis (SBP). 4. Hyperkalemia. It is secondary to renal failure and the patient is on Veltassa. 5. Hyponatremia. It is likely secondary to renal failure, hypervolemia, and ascites/cirrhosis. There is no specific intervention at this time other than what is already noted above. Thank you for involving me in the care of Mr. Brien Ward. I will be happy to follow him along with you.
[2018-06-13] VITALS (46 sets, daily range): BP systolic 87–114; BP diastolic 48–58
[2018-06-13] MEDS: cefTRIAXone SOD 1 GM in D5W MINI-BAG PLUS 50 ML IV SCH ×2 (00:57→13:07)
[2018-06-13] MEDS: NOREPINEPHRINE BITARTRATE 16 MG in D5W 484 ML IV SCH (00:57)
[2018-06-13] MEDS: HYDROCORTISONE 100 MG/2 ML VIAL (J1720) IV SCH (03:16)
[2018-06-13] MEDS: HEPARIN SOD (PORCINE) 5000 UNITS/ML VIAL SQ SCH ×3 (05:14→21:40)
[2018-06-13] MEDS: SODIUM CHLORIDE 0.9% INJ 10 ML SYR IV SCH ×2 (05:15→18:00)
[2018-06-13 05:30] LABS: HEMATOCRIT 32.8 % (42.0-52.0); HEMOGLOBIN 10.9 g/dl (13.5-17.5); MEAN CORPUSCULAR HEMOGLOBIN 29.3 pg (27.0-33.0); MEAN CORPUSCULAR HGB CONC 33.2 g/dl (32.0-36.5); MEAN CORPUSCULAR VOLUME 88.2 fl (80.0-96.0); PLATELET COUNT, AUTOMATED 256 10^3/uL (150-450); RED BLOOD COUNT 3.72 10^6/uL (4.30-6.10); WHITE BLOOD COUNT 15.4 10^3/uL (4.0-10.0)
[2018-06-13 05:51] LABS: ALBUMIN 2.7 GM/DL (3.2-5.2); ALT/SGPT 53 U/L (12-78); BILIRUBIN,TOTAL 0.8 MG/DL (0.2-1.0); BLOOD UREA NITROGEN 98 MG/DL (7-18); CALCIUM LEVEL 9.5 MG/DL (8.8-10.2); CARBON DIOXIDE LEVEL 23 MEQ/L (21-32); CHLORIDE LEVEL 95 MEQ/L (98-107); CREATININE FOR GFR 1.25 MG/DL (0.70-1.30); GLOMERULAR FILTRATION RATE > 60.0 (>49); GLUCOSE, FASTING 213 MG/DL (70-100); POTASSIUM SERUM 5.1 MEQ/L (3.5-5.1); SODIUM LEVEL 127 MEQ/L (136-145); TOTAL PROTEIN 5.7 GM/DL (6.4-8.2)
[2018-06-13] MEDS: ALLOPURINOL 100 MG TAB PO SCH (08:42)
[2018-06-13] MEDS: HumaLOG INSULIN (NovoLOG) PER UNIT SC SCH ×4 (08:42→21:00)
[2018-06-13] MEDS: ASPIRIN 81 MG CHEW TABLET PO SCH (08:42)
[2018-06-13] MEDS: TAMSULOSIN 0.4 MG CAP PO SCH (08:43)
[2018-06-13] MEDS: NYSTATIN 100,000 UNITS/GM TOPICAL PWD 15 GM TOP SCH ×2 (08:43→21:39)
[2018-06-13 10:47] LABS: CA19-9 TUMOR MARKER,CARBOHYDRA 134.1 U/ML (<35.0)
--- NOTE | 2018-06-13 11:17 | REP ---
EXAMINATION REQUESTED: PICC line insertion with Site-Rite REASON FOR VISIT: New onset atrial fibrillation and pleural effusion. REASON FOR EXAM: Poor IV access. Patient may need pressure support. PROCEDURE: PICC line insertion with Site-Rite. The procedure was performed under the personal supervision of Dr. Hyatt. The risks and benefits of the procedure were explained to the patient and informed consent was obtained. The right brachial vein was localized using ultrasound guidance. The skin was prepped and draped in a sterile fashion. 2 mL of 1% lidocaine was used as a local anesthetic. Using ultrasound guidance, the brachial vein was cannulated and a 0.018 guidewire was inserted and advanced to the SVC using fluoroscopic guidance. The needle was removed and a 5.5-[place] Zealander dilator and peel-away sheath was inserted over the guidewire. A 5.5-[place]alander dual lumen catheter was cut to the length of 41 cm. The dilator was removed and the catheter was inserted over the guidewire with the tip ending in the SVC. The peel-away sheath was removed and the catheter was flushed with heparinized saline as per hospital protocol. The catheter was affixed to the skin and a sterile dressing was applied. The patient tolerated the procedure well and there were no immediate complications. 0.6 minutes of fluoro time was utilized for this procedure. Electronically Signed by Burak Hyatt MD 06/16/2018 10:59 A
[2018-06-13] MEDS: PATIROMER SORBITEX CALCIUM 8.4 GM POWDER PACKET (VELTASSA) PO SCH (13:08)
--- NOTE | 2018-06-13 13:54 | IPNPDOC ---
Subjective Date Seen The patient was seen on 06/13/18. Subjective Chief Complaint/HPI Patient seen and examined at bedside. His renal function has improved this morning. Otherwise, the patient denies any acute complaints at this time. Objective Physical Examination General Exam: Positive: Alert, Cooperative, No Acute Distress Eye Exam: Positive: PERRLA, Conjunctiva & lids normal; Negative: Sclera icteric ENT Exam: Positive: Atraumatic, Mucous membr. moist/pink Neck Exam: Positive: Other (unable to assess JVD due to body habitus) Chest Exam: Positive: Diminished, Other (limited due to large body habitus. No appreciable w/r/r) Heart Exam: Positive: Rate Normal, Normal S1, Normal S2 Abdomen Exam: Positive: Soft; Negative: Tenderness Extremity Exam: Positive: Swelling (2+ pitting edema in the lower extremities B/L.); Negative: Tenderness Psych Exam: Positive: Oriented x 3 Assessment /Plan Plan/VTE VTE Prophylaxis Ordered?: Yes Plan CTA Chest on 05/12/18 notable for Left Mediastinal, Upper Abdominal, and Retrocrural Lymphadenopathy CT Scan of the Abd/Pel from 05/31 notable for bulky periaortic and shelley hepatic adenopathy s/p periaortic lymph node biopsy on 06/09/18-->Preliminary pathology results discussed with Pathologist on 06/10/18--notable for metastatic adenopathy of unclear origin (Possibly Pancreas, or Lungs)--No clear mass identified on previous imaging studies already done Tumor AFP, PSA, CEA levels noted to be within normal limits Alk Phos Iso-enzymes pending, HCG Tumor marker pending [id number] noted to be elevated Final Pathology report; positive for malignancy, consistent with metastatic carcinoma. However, no definitive primary source could be identified. The carcinoma was negative for lung, prostate, liver primary, and neuroendocrine tumor markers. Discussed case with Dr. Muñoz of Hematology on 06/11--will follow up with her recommendations Discussed case with Dr. Mcdaniel via telephone ([phone]) about possible Liver Cirrhosis component given ascites--and he believes that this is likely malignant ascites from underlying carcinomatosis, rather than liver cirrhosis/failure. He agrees with the current mgmt and has recommended follow up of final Pathology and Oncology recommendations. Acute Kidney Injury Likely 2/2 Above, Hepatorenal Syndrome We will hold nephrotoxins, albumin infusions ordered Levophed ordered to maintain MAP >65 Serum Cr improved this AM Nephrology input appreciated Hypotension likely 2/2 Intravascular Volume Depletion Albumin infusions ordered, hold Diuretics Cont Levophed to keep MAP >65 Severe ascites/pleural effusion 2/2 Above s/p multiple Thoracenteses and Paracenteses during this hospitalization Hx of NAFLD. We will empirically cover the patient with Rocephin for pssible SBP, even though liver cirrhosis is less likely the cause here according to GI We will cont to monitor the patient Hypercalcemia of Unclear Etiology, possibly 2/2 underlying Malignancy Serum PTH noted to be low PTHrp borderline elevated at 2.4 Vit D 1,25 and 25-OH Vitamin D level noted to be low Hematology input noted Persistent Leukocytosis Patient with no clear source of infection at this time Peripheral smear notable for reactive leukocytosis We will cont to monitor Hematology/oncology on board Hyperkalemia possibly 2/2 Increasing Creatinine Cont Veltessa Urinary Retention Status post Stover catheterization Continue on Flomax PSA wnl Hyponatremia likely 2/2 underlying ascites, intravacular depletion Hypoalbuminemia likely 2/2 critical illness. Albumin ordered IDDM2 Continue current regimen CODE STATUS: DNR Poor Regulator Inspector Prognosis, Critical Clinical Condition DVT prophylaxis: Heparin sc. DISPOSITION: Pending clinical improvement. VS, I&O, 24H, Fishbone Vital Signs/I&O Vital Signs Date Time Temp Pulse Resp B/P (MAP) Pulse Ox O2 Delivery O2 Flow Rate FiO2 06/13/18 10:10 97.5 85 11 96/54 (68) 96 2.0 I&O- Last 24 Hours up to 6 AM 06/13/18 06:00 Intake Total 1987.2 ml Output Total 2025 ml Balance -37.8 ml Laboratory Data 24H LABS Laboratory Tests 2 06/12/18 17:47: Bedside Glucose (Misc Panel) 213H 06/12/18 21:06: Bedside Glucose (Misc Panel) 213H 06/13/18 05:08: Nucleated Red Blood Cells % (auto) 0.0, Anion Gap 9, Glomerular Filtration Rate > 60.0, Blood Urea Nitrogen 98H, Creatinine 1.25, Sodium Level 127L, Potassium Level 5.1, Chloride Level 95L, Carbon Dioxide Level 23, Calcium Level 9.5, Aspartate Amino Transf (AST/SGOT) 68H, Alanine Aminotransferase (ALT/SGPT) 53, Alkaline Phosphatase 450H, Total Bilirubin 0.8, Total Protein 5.7L, Albumin 2.7#L, Albumin/Globulin Ratio 0.90L 06/13/18 12:50: Bedside Glucose (Misc Panel) 144H CBC/BMP Laboratory Tests 06/13/18 05:08 Red Blood Count 3.72 L, Mean Corpuscular Volume 88.2, Mean Corpuscular Hemoglobin 29.3, Mean Corpuscular Hemoglobin Concent 33.2, Red Cell Distribution Width 19.0 H, Calcium Level 9.5, Aspartate Amino Transf (AST/SGOT) 68 H, Alanine Aminotransferase (ALT/SGPT) 53, Alkaline Phosphatase 450 H, Total Bilirubin 0.8, Total Protein 5.7 L, Albumin 2.7 #L Microbiology Microbiology 06/11/18 Stool Occult Blood (JAREK) - Final, Complete MARKUS MILLER MD Jun 13, 2018 13:54
[2018-06-14] VITALS (43 sets, daily range): BP systolic 79–104; BP diastolic 45–58
[2018-06-14 00:07] LABS: Alkaline Phosphatase Iso-Bone 26 % (12-68); Alkaline Phosphatase Iso-Intes 1 % (0-18); Alkaline Phosphatase Iso-Liver 73 % (13-88); HCG SERUM TUMOR MARKER QUANT 1 mIU/mL (0-3); PTH RELATED PEPTIDE < 2.0 pmol/L (.); TOTAL ALK PHOS 486 IU/L (39-117)
[2018-06-14] MEDS: NOREPINEPHRINE BITARTRATE 16 MG in D5W 484 ML IV SCH (01:15)
[2018-06-14] MEDS: cefTRIAXone SOD 1 GM in D5W MINI-BAG PLUS 50 ML IV SCH ×2 (01:24→13:19)
[2018-06-14 05:10] LABS: HEMATOCRIT 30.8 % (42.0-52.0); HEMOGLOBIN 10.1 g/dl (13.5-17.5); MEAN CORPUSCULAR HEMOGLOBIN 28.9 pg (27.0-33.0); MEAN CORPUSCULAR HGB CONC 32.8 g/dl (32.0-36.5); MEAN CORPUSCULAR VOLUME 88.3 fl (80.0-96.0); PLATELET COUNT, AUTOMATED 217 10^3/uL (150-450); RED BLOOD COUNT 3.49 10^6/uL (4.30-6.10); WHITE BLOOD COUNT 11.7 10^3/uL (4.0-10.0)
[2018-06-14 05:43] LABS: ALT/SGPT 47 U/L (12-78); BILIRUBIN,TOTAL 0.7 MG/DL (0.2-1.0); BLOOD UREA NITROGEN 90 MG/DL (7-18); CALCIUM LEVEL 9.6 MG/DL (8.8-10.2); CARBON DIOXIDE LEVEL 25 MEQ/L (21-32); CHLORIDE LEVEL 97 MEQ/L (98-107); CREATININE FOR GFR 1.02 MG/DL (0.70-1.30); GLOMERULAR FILTRATION RATE > 60.0 (>49); GLUCOSE, FASTING 195 MG/DL (70-100); POTASSIUM SERUM 4.5 MEQ/L (3.5-5.1); SODIUM LEVEL 128 MEQ/L (136-145)
[2018-06-14] MEDS: SODIUM CHLORIDE 0.9% INJ 10 ML SYR IV SCH ×2 (06:28→19:03)
[2018-06-14] MEDS: HEPARIN SOD (PORCINE) 5000 UNITS/ML VIAL SQ SCH ×3 (06:28→21:27)
[2018-06-14] MEDS: HumaLOG INSULIN (NovoLOG) PER UNIT SC SCH ×4 (08:36→18:38)
[2018-06-14] MEDS: NYSTATIN 100,000 UNITS/GM TOPICAL PWD 15 GM TOP SCH ×2 (09:01→21:27)
[2018-06-14] MEDS: ALLOPURINOL 100 MG TAB PO SCH (09:01)
[2018-06-14] MEDS: TAMSULOSIN 0.4 MG CAP PO SCH (09:01)
[2018-06-14] MEDS: ASPIRIN 81 MG CHEW TABLET PO SCH (09:01)
[2018-06-14] MEDS: PATIROMER SORBITEX CALCIUM 8.4 GM POWDER PACKET (VELTASSA) PO SCH (12:00)
--- NOTE | 2018-06-14 14:40 | IPNPDOC ---
Subjective Date Seen The patient was seen on 06/14/18. Subjective Chief Complaint/HPI Patient seen and examined at bedside. He states that he is feeling more lethargic overall today. Denies any acute complaints at this time. Objective Physical Examination General Exam: Positive: Alert, Cooperative, No Acute Distress Eye Exam: Positive: PERRLA, Conjunctiva & lids normal; Negative: Sclera icteric ENT Exam: Positive: Atraumatic, Mucous membr. moist/pink Neck Exam: Positive: Other (unable to assess JVD due to body habitus) Chest Exam: Positive: Diminished, Other (limited due to large body habitus. No appreciable w/r/r) Heart Exam: Positive: Rate Normal, Normal S1, Normal S2 Abdomen Exam: Positive: Soft; Negative: Tenderness Extremity Exam: Positive: Swelling (2+ pitting edema in the lower extremities B/L.); Negative: Tenderness Psych Exam: Positive: Oriented x 3 Assessment /Plan Plan/VTE VTE Prophylaxis Ordered?: Yes Plan CTA Chest on 05/12/18 notable for Left Mediastinal, Upper Abdominal, and Retrocrural Lymphadenopathy CT Scan of the Abd/Pel from 05/31 notable for bulky periaortic and shelley hepatic adenopathy s/p periaortic lymph node biopsy on 06/09/18-->Preliminary pathology results discussed with Pathologist on 06/10/18--notable for metastatic adenopathy of unclear origin (Possibly Pancreas, or Lungs)--No clear mass identified on previous imaging studies already done Tumor AFP, PSA, CEA levels noted to be within normal limits Alk Phos Iso-enzymes pending, HCG Tumor marker pending CA19-9 noted to be elevated Final Pathology report; positive for malignancy, consistent with metastatic carcinoma. However, no definitive primary source could be identified. The carcinoma was negative for lung, prostate, liver primary, and neuroendocrine tumor markers. We will order an U/S of the Thyroid to r/o any mass/malignancy Discussed case with Dr. Muñoz of Hematology on 06/11--will follow up with her recommendations Discussed case with Dr. Mcdaniel via telephone ([phone]) about possible Liver Cirrhosis component given ascites--and he believes that this is likely malignant ascites from underlying carcinomatosis, rather than liver cirrhosis/failure. He agrees with the current mgmt and has recommended follow up of final Pathology and Oncology recommendations. Acute Kidney Injury Likely 2/2 Above, Hepatorenal Syndrome We will hold nephrotoxins, albumin infusions ordered Levophed ordered to maintain MAP >65 Serum Cr improved this AM Nephrology input appreciated Hypotension likely 2/2 Intravascular Volume Depletion Albumin infusions ordered, hold Diuretics Cont Levophed to keep MAP >65 Severe ascites/pleural effusion 2/2 Above s/p multiple Thoracenteses and Paracenteses during this hospitalization Hx of NAFLD. We will empirically cover the patient with Rocephin for pssible SBP, even though liver cirrhosis is less likely the cause here according to GI We will cont to monitor the patient Hypercalcemia of Unclear Etiology, possibly 2/2 underlying Malignancy Serum PTH noted to be low PTHrp borderline elevated at 2.4 Vit D 1,25 and 25-OH Vitamin D level noted to be low Hematology input noted Persistent Leukocytosis Patient with no clear source of infection at this time Peripheral smear notable for reactive leukocytosis We will cont to monitor Hematology/oncology on board Hyperkalemia possibly 2/2 Increasing Creatinine, resolved Urinary Retention Status post Stover catheterization Continue on Flomax PSA wnl Hyponatremia likely 2/2 underlying ascites, intravacular depletion Hypoalbuminemia likely 2/2 critical illness. Albumin ordered [id number] Continue current regimen CODE STATUS: DNR Poor Custodial Prognosis, Critical Clinical Condition DVT prophylaxis: Heparin sc. DISPOSITION: Pending clinical improvement. Update 6pm: Patient noted to be more lethargic/confused by bedside nursing. ABG obtained and revealed hypercarbic respiratory failure. Pulmonary re-consulted for BiPAP management. I did place a call and discuss clinical events with the patient's : Juany Bellamy. She was updated on the patient's respiratory failure, ongoing hypotension requiring vasopressor therapy, continued functional decline/poor appetite, and the patient's ineligibility for any chemotherapeutic options due to the aforementioned factors. The patient has a very poor prognosis, and after discussion with Dr. Muñoz of Heme/Onc this evening, the patient would be appropriate for Comfort Measures Only. At this time, Mrs. Bellamy would like to continue all active medical treatment including trial of intubation but would like to continue DNR status. She will further discuss with her family and meet with the care team in the morning. VS, I&O, 24H, Fishbone Vital Signs/I&O Vital Signs Date Time Temp Pulse Resp B/P (MAP) Pulse Ox O2 Delivery O2 Flow Rate FiO2 06/14/18 10:00 83 99/55 (70) 94 2.0 06/14/18 08:00 97.1 18 I&O- Last 24 Hours up to 6 AM 06/14/18 06:00 Intake Total 1693.9 ml Output Total 2440 ml Balance -746.1 ml Laboratory Data 24H LABS Laboratory Tests 2 06/13/18 17:50: Bedside Glucose (Misc Panel) 163H 06/13/18 20:18: Bedside Glucose (Misc Panel) 170H 06/14/18 04:54: Nucleated Red Blood Cells % (auto) 0.0, Anion Gap 6L, Glomerular Filtration Rate > 60.0, Blood Urea Nitrogen 90H, Creatinine 1.02, Sodium Level 128L, Potassium Level 4.5, Chloride Level 97L, Carbon Dioxide Level 25, Calcium Level 9.6, Aspartate Amino Transf (AST/SGOT) 64H, Alanine Aminotransferase (ALT/SGPT) 47, Alkaline Phosphatase 369H, Total Bilirubin 0.7, Total Protein 6.0L, Albumin 3.0L, Albumin/Globulin Ratio 1.00 06/14/18 11:34: Bedside Glucose (Misc Panel) 145H CBC/BMP Laboratory Tests 06/14/18 04:54 Red Blood Count 3.49 L, Mean Corpuscular Volume 88.3, Mean Corpuscular Hemoglobin 28.9, Mean Corpuscular Hemoglobin Concent 32.8, Red Cell Distribution Width 19.4 H, Calcium Level 9.6, Aspartate Amino Transf (AST/SGOT) 64 H, Alanine Aminotransferase (ALT/SGPT) 47, Alkaline Phosphatase 369 H, Total Bilirubin 0.7, Total Protein 6.0 L, Albumin 3.0 L Microbiology Microbiology 06/11/18 Stool Occult Blood (JAREK) - Final, Complete MARKUS MILLER MD Jun 14, 2018 14:40
--- NOTE | 2018-06-14 16:43 | IPN ---
DATE: 06/14/2018 Original consult had been requested and was done on 06/06/2018. Please see that for details. Mr. Bellamy is a very pleasant elderly gentleman, almost 68 years old, who has significant periaortic lymphadenopathy, shelley hepatis adenopathy, and pleural effusions and ascites. The patient is being worked up, but he is also in very poor physical status with a performance of 4 on a scale of 4 by Eastern Cooperative Oncology Group (ECOG) criteria. Today the patient is in the intensive care unit (ICU) because of worsening renal function. The patient's hospitalization has included several thoracocenteses, paracenteses, episodes of atrial fibrillation, etc. The patient and family basically understand that his prognosis is quite poor. The patient has already requested DO NOT RESUSCITATE status, but they want to know what kind of cancer he has and if there is any possible treatment for it. Everybody has heart about immunotherapy on the internet and on television, and naturally that comes to the patient's and family's mind right at first. Objectively, Mr. Bellamy says he is tired. He feels weak. His mouth is very dry. His legs feel swollen. Does not have much of any appetite. He is not in any pain or discomfort. He is tired of all the tubes that are in him. The patient denies nausea or vomiting. He is waiting for his family to come in. They are not here at this hour, around 8 a.m.. OBJECTIVE: The patient's performance status is 4 on a scale of 4 by ECOG. The patient is running a low-normal blood pressure of 88/52 at least for the last 48 hours and intermittently in between. The patient is awake, alert, and oriented. He recognizes me. The patient is afebrile. He is not tachypneic. 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 According to him it has been like that for many years. Conjunctival pallor. No icterus. Buccal mucosa very dry. No gross adenopathy in the neck. Lungs with poor inspiratory effort and decreased air at both bases. Cardiovascular system with distant heart sounds. Normal rhythm at this time. No gallops or rubs. Abdomen is distended. There is ascites, but it is not tense, and there is no guarding, rigidity, or tenderness. The patient has some degree of pedal edema now. He has sequential compression devices (SCDs) on to prevent deep vein thromboses (DVTs). His feet are not cold. There is no clubbing or cyanosis. Skin turgor is dry. Interim reports that we were waiting on include an hCG level from , which is still not back. Initially we were told it was pending. Now it appears that it was not done. We are looking into it again. Periaortic lymph node biopsy that was done final report is back as of yesterday evening. Have discussed the case with pathologist, Dr. Stauffer. Specimen was also sent to [facility] ([facility], and the consensus is that it is definitely a malignancy-involved lymph node, and it appears to be an adenocarcinoma. Because the PAX8 stain is positive, it could be a renal cell carcinoma or a thyroid malignancy. Initially it was thought it could be a hepatobiliary malignancy or a lung cancer, but lung cancer has been ruled out by special immunohistochemistry stains. Prostate cancer has been ruled out. Colorectal malignancy has been ruled out. CT scans have not suggested anything in the kidney. As far as blood cancer markers go, the PSA was normal. The alpha fetoprotein was normal. Carcinoembryonic antigen (CEA) was normal. The CA19-9 has been elevated, rechecked twice. It is in the range of 133-135 approximately, so modestly elevated. The PAX8 stain can be positive in thyroid cancers and renal cell carcinomas commonly; however, that is not an absolute statement, and there are cases of seminomas, bladder cancers, and other malignancies. Small percentage, however, that have shown PAX8 positive stain. The PD-L1 status is pending. The MSI was not high. Leukocytosis mild with neutrophilia. Continues without an obvious source of infection. IMPRESSION: 1. 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 There are also some lymph nodes involved in the shelley hepatis that are enlarged. It would have been wonderful if we had a PET scan to evaluate the area, but that point is moot at this time. We are looking for a primary site to answer the family's questions, basically, and we are waiting on the PD-L1 to see if the patient would qualify for any immunotherapy, but otherwise the patient's clinical status is so poor with his hypotension, with his renal insufficiency, with his bedridden status, that he is not a candidate for any chemotherapy. We will order a thyroglobulin level, repeat the hCG since at looks like it was not done, and ask for a urine for FISH in case we find malignant cells in the urine. 2. Persistent leukocytosis, mild with neutrophilia. It could be from the trazodone, which the patient is on, or it could be malignancy-associated leukocytosis. This is not a leukemoid reaction to the malignancy, but leukocytosis has been known to occur with solid tumors, well established fact. Usually it is the lung and colorectal cancers that present with leukocytosis, but any cancer can potentially do it. There is a suggestion that it could be increased levels of GM-CSF (xxqrezogmeq-pxfnzrpzpn-oqypkr-stimulating factor) or it could be overproduction of IL5 (interleukin 5). Usually presence of metastasis is associated with a significantly higher incidence of leukocytosis, it is said in small studies at least that associated leukocytosis may be regarded as a poor prognostic sign with a shorter survival time. 3. Hypercalcemia. It can be from malignancy itself. We are aware if the patient has bony metastasis, but in this poor gentleman through a bone scan just to prove a point would not really be helpful. Since the patient has renal insufficiency, Aredia can be used to control the hypercalcemia. Parathyroid hormone (PTH), PTH-related peptide, phosphorus, vitamin D, all these levels were already ordered at initial consult time. 4. Renal insufficiency, which is occurring now could be from the episodes of hypotension, could be from volume depletion, could be from hyperuricemia, which can also occur with malignanc, and so can hypercalcemia precipitate renal insufficiency. Even though patient does not have a hematological malignancy such as a lymphoma and is not being treated, the patient is behaving almost like a tumor lysis syndrome, surprisingly. The other reason for the renal insufficiency could also be the patient's liver disease. SUGGESTIONS: At this time other than the above, we do not have much to offer. We will wait for the PD-L1 to come in and then talk to the family once we have as many answers as we can present to them with. We appreciate Dr. Jonahtan Arguello's asking us to participate in Mr Bellamy's care.
[2018-06-14 17:10] LABS: ABG BASE EXCESS -1.8 (-2.0-2.0); ABG O2 SATURATION 96.7 % (95.0-99.0); ABG STANDARD HCO3 22.9 MEQ/L (22.0-26.0); ABG TOTAL CO2 29.1 MEQ/L (23.0-31.0)
[2018-06-14 17:12] LABS: ABG PARTIAL PRESSURE CO2 67.4 mmHg (35.0-45.0); ABG pH (ARTERIAL) 7.221 UNITS (7.350-7.450)
--- NOTE | 2018-06-14 17:15 | REP ---
Thyroid ultrasound: The thyroid right lobe measures 4.5 x 1.9 x 2.5 cm. The thyroid left lobe measures 5.0 x 2.4 x 2.2 cm. The thyroid isthmus measures 9 mm thickness. The thyroid is upper normal size. Right lobe: There are at least six cysts in the right lobe. The largest is laterally at the mid pole measuring up to 8 mm. The next largest is in the lower pole laterally measuring up to 6 mm. All the others measure 4 mm or less. Left lobe: There are three cysts the largest measuring 4 mm. The study is technically difficult because of the thyroid is well positioned, patient respiration and limited neck mobility. Impression: Multiple cysts bilaterally. Consider follow-up radionuclide thyroid scan. Electronically Signed by Burak Moran MD 06/14/2018 05:07 P
[2018-06-14 19:07] LABS: ABG BASE EXCESS -3.4 (-2.0-2.0); ABG HCO3 24.5 MEQ/L (22.0-26.0); ABG O2 SATURATION 98.7 % (95.0-99.0); ABG PARTIAL PRESSURE CO2 57.6 mmHg (35.0-45.0); ABG PARTIAL PRESSURE O2 124.1 mmHg (75.0-100.0); ABG STANDARD HCO3 21.6 MEQ/L (22.0-26.0); ABG TOTAL CO2 26.2 MEQ/L (23.0-31.0)
[2018-06-14 19:10] LABS: ABG pH (ARTERIAL) 7.246 UNITS (7.350-7.450)
[2018-06-14 21:09] LABS: ABG HCO3 24.5 MEQ/L (22.0-26.0); ABG PARTIAL PRESSURE CO2 49.3 mmHg (35.0-45.0); ABG STANDARD HCO3 22.9 MEQ/L (22.0-26.0); ABG TOTAL CO2 26.1 MEQ/L (23.0-31.0); ABG pH (ARTERIAL) 7.315 UNITS (7.350-7.450)
[2018-06-15] VITALS (19 sets, daily range): BP systolic 80–96; BP diastolic 48–58; O2SAT 100
[2018-06-15] MEDS: cefTRIAXone SOD 1 GM in D5W MINI-BAG PLUS 50 ML IV SCH ×2 (00:25→14:57)
[2018-06-15] MEDS: NOREPINEPHRINE BITARTRATE 16 MG in D5W 484 ML IV SCH (00:25)
[2018-06-15 04:52] LABS: HEMATOCRIT 32.6 % (42.0-52.0); HEMOGLOBIN 10.6 g/dl (13.5-17.5); MEAN CORPUSCULAR HEMOGLOBIN 29.5 pg (27.0-33.0); MEAN CORPUSCULAR HGB CONC 32.5 g/dl (32.0-36.5); MEAN CORPUSCULAR VOLUME 90.8 fl (80.0-96.0); PLATELET COUNT, AUTOMATED 257 10^3/uL (150-450); RED BLOOD COUNT 3.59 10^6/uL (4.30-6.10); WHITE BLOOD COUNT 15.4 10^3/uL (4.0-10.0)
[2018-06-15 05:12] LABS: ALBUMIN 2.7 GM/DL (3.2-5.2); ALT/SGPT 48 U/L (12-78); BILIRUBIN,TOTAL 0.9 MG/DL (0.2-1.0); BLOOD UREA NITROGEN 100 MG/DL (7-18); CARBON DIOXIDE LEVEL 26 MEQ/L (21-32); CHLORIDE LEVEL 97 MEQ/L (98-107); CREATININE FOR GFR 1.02 MG/DL (0.70-1.30); GLOMERULAR FILTRATION RATE > 60.0 (>49); GLUCOSE, FASTING 227 MG/DL (70-100); POTASSIUM SERUM 4.9 MEQ/L (3.5-5.1); SODIUM LEVEL 129 MEQ/L (136-145); TOTAL PROTEIN 5.8 GM/DL (6.4-8.2)
[2018-06-15] MEDS: SODIUM CHLORIDE 0.9% INJ 10 ML SYR IV SCH (06:00)
[2018-06-15 06:01] LABS: ABG BASE EXCESS -2.3 (-2.0-2.0); ABG HCO3 21.5 MEQ/L (22.0-26.0); ABG O2 SATURATION 99.6 % (95.0-99.0); ABG PARTIAL PRESSURE CO2 33.7 mmHg (35.0-45.0); ABG PARTIAL PRESSURE O2 176.6 mmHg (75.0-100.0); ABG STANDARD HCO3 22.6 MEQ/L (22.0-26.0); ABG TOTAL CO2 22.6 MEQ/L (23.0-31.0); ABG pH (ARTERIAL) 7.423 UNITS (7.350-7.450)
[2018-06-15] MEDS: HEPARIN SOD (PORCINE) 5000 UNITS/ML VIAL SQ SCH (06:37)
[2018-06-15] MEDS: HumaLOG INSULIN (NovoLOG) PER UNIT SC SCH ×3 (06:41→12:37)
--- NOTE | 2018-06-15 08:10 | REP ---
Portable chest, single AP upright view, 06:01 p.m.: Comparison is 06/03/2018. The patient is rotated. There is increased density throughout the visible left lung. Right lung is clear. Cardiac size cannot be determined as the right cardiac margin is obscured. There is a right upper extremity PICC line with the tip in the right axillary vein. Electronically Signed by Burak Moran MD 06/15/2018 08:01 A
[2018-06-15] MEDS: ASPIRIN 81 MG CHEW TABLET PO SCH ×2 (09:59→10:26)
[2018-06-15] MEDS: ALLOPURINOL 100 MG TAB PO SCH ×2 (09:59→10:26)
[2018-06-15] MEDS: NYSTATIN 100,000 UNITS/GM TOPICAL PWD 15 GM TOP SCH ×2 (09:59→23:22)
--- NOTE | 2018-06-15 10:16 | CR ---
DATE: 06/14/2018 PULMONARY CONSULT This is a late consult for a patient who was previously seen by our service. Patient was noted today to be slightly more lethargic than usual. He is still arousable to verbal stimuli and is able to answer questions appropriately; however, he does drift off to sleep easily. He denies any significant complaints at this time. He denies any chest pain. No shortness of breath. No cough. No abdominal pain. No nausea or vomiting. Patient was afebrile overnight. He is still on Levophed at 5 mcg per minute, and he is on nasal cannula oxygen. Does not appear to be in acute respiratory distress. PHYSICAL EXAMINATION: Vital Signs: Temperature 97, pulse 83, blood pressure 103/54, oxygen saturation 95% on two liters nasal cannula. General: The patient is a morbidly obese male who is lying in bed in no acute distress. He does not appear to be tachypneic or using accessory muscles. He is lethargic but able to answer some questions appropriately. Pupils are reactive. Mucous membranes are moist. Unable to assess jugular venous distention (JVD) secondary to his body habitus. His neck is short and thick. Cardiovascular: Regular rate and rhythm. Normal S1 and S2, faint systolic murmur appreciated. Lungs: Decreased breath sounds bilaterally and diminished on the left side more than the right. No significant rales or wheezing. Abdomen: Obese, soft, and nontender. Appears to be a possible fluid wave. Lower extremities: There is some pitting anasarca noted bilaterally. LABORATORY: WBC 11.7, hemoglobin 10.1, platelets 217. Chemistry: Sodium 128, potassium 4.5, chloride 97, bicarbonate 25, BUN 90, creatinine 1.02, glucose is 195, AST 67, ALT 47, alkaline phosphatase 369. ABG was pH 7.221, pCO2 of 67.4, pO2 of 100. 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 Pulmonary was initially consulted as patient was noted to have acute hypercarbic respiratory failure for bilevel positive airway pressure (BiPAP) management. Patient was also initially in the intensive care unit (ICU) with hypotension thought secondary to possible sepsis from spontaneous bacterial peritonitis (SBP). He was also thought to have some component of adrenal insufficiency and was on steroids at that time. His course has further been complicated by the finding of bulky periaortic and shelley hepatic adenopathy, which is status post a lymph node biopsy which shows metastatic carcinoma of unclear origin. Patient has been followed by oncology and has had multiple tumor markers sent. 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 He most recently presented to the ICU again with worsening renal failure and hypotension. Was thought to be in hepatorenal syndrome. He was given albumin as well as started on Levophed, and he has had some improvement in his renal function; however, he continues to be uremic. Patient was noted to have increasing lethargy and therefore had an ABG done, which showed acute hypercarbic respiratory failure and so pulmonary was consulted for BiPAP management. Will start patient on BiPAP for his acute hypercarbic respiratory failure. Will start him on settings of 18 over 8 and followup with a repeat ABG in one hour. The patient had previously been on BiPAP and was recommended to be on continuous positive airway pressure (CPAP) at night; however, the last time he was on it, he refused the CPAP and it was discontinued. Would get a repeat chest x-ray to evaluate if he has any increasing effusion. Suspect that his recurrent ascites is likely malignant due to his metastatic carcinoma and his pleural effusion is likely also secondary to his ascites with the hepatic hydrothorax. Patient has already had multiple paracenteses and thoracenteses at this point. Would also check a repeat ammonia level given his cirrhosis and altered mental status. Patient is on Rocephin empirically for possible SBP. Continue with Levophed for blood pressure support and for his hepatorenal syndrome and continue with electrolyte management as per renal. Patient is DO NOT RESUSCITATE (DNR) with a trial of intubation. Will continue to discuss goals of care with his given his poor prognosis with metastatic carcinoma and his poor functional status, which would likely be limiting any potential treatment.
--- NOTE | 2018-06-15 13:08 | IPNPDOC ---
Subjective Date Seen The patient was seen on 06/15/18. Subjective Chief Complaint/HPI Patient seen and examined at the bedside. He was noted to be more lucid this morning. He stated that he would like to discuss further goals of care with his family will for deciding on possible DNI, comfort measures status. He did not offer any acute complaints but notes worsening generalized weakness, fatigue, and decreased appetite which he endorses has been subtly increasing since January of last year. Otherwise clinically, the patient remains on vasopressor therapy and BiPAP. Objective Physical Examination General Exam: Positive: Alert, Cooperative, No Acute Distress Eye Exam: Positive: Conjunctiva & lids normal; Negative: Sclera icteric ENT Exam: Positive: Atraumatic; Negative: Mucous membr. moist/pink (dry mucous membranes) Neck Exam: Positive: Other (unable to assess JVD due to body habitus) Chest Exam: Positive: Diminished, Other (limited due to large body habitus. No appreciable w/r/r) Heart Exam: Positive: Rate Normal, Normal S1, Normal S2 Abdomen Exam: Positive: Soft; Negative: Tenderness Extremity Exam: Positive: Swelling (2+ pitting edema in the lower extremities B/L.); Negative: Tenderness Psych Exam: Positive: Oriented x 3 Assessment /Plan Plan/VTE VTE Prophylaxis Ordered?: Yes Plan CTA Chest on 05/12/18 notable for Left Mediastinal, Upper Abdominal, and Retrocrural Lymphadenopathy 2/2 Metastatic Cancer of Unknown Origin CT Scan of the Abd/Pel from 05/31 notable for bulky periaortic and shelley hepatic adenopathy s/p periaortic lymph node biopsy on 06/09/18-->Preliminary pathology results discussed with Pathologist on 06/10/18--notable for metastatic adenopathy of unclear origin (Possibly Pancreas, or Lungs)--No clear mass identified on previous imaging studies already done Tumor AFP, PSA, CEA levels noted to be within normal limits Alk Phos Iso-enzymes pending, HCG Tumor marker pending CA19-9 noted to be elevated Final Pathology report; positive for malignancy, consistent with metastatic carcinoma. However, no definitive primary source could be identified. The carcinoma was negative for lung, prostate, liver primary, and neuroendocrine tumor markers. U/S of the Thyroid notable for cysts Discussed case with Dr. 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 Mcdaniel via telephone ([phone]) about possible Liver Cirrhosis component given ascites--and he believes that this is likely malignant ascites from underlying carcinomatosis, rather than acutely decompensated liver cirrhosis/failure. Acute Kidney Injury Likely 2/2 Above, Hepatorenal Syndrome We will hold nephrotoxins, s/p albumin infusions Levophed ordered to maintain MAP >65 Serum Cr stable this AM Nephrology input appreciated Hypotension likely 2/2 Intravascular Volume Depletion s/p Albumin infusions, hold Diuretics Cont Levophed to keep MAP >65 Severe ascites/pleural effusion 2/2 Above s/p multiple Thoracenteses and Paracenteses during this hospitalization Hx of NAFLD. We will empirically cover the patient with Rocephin for possible SBP, even though liver cirrhosis is less likely the cause here according to GI We will cont to monitor the patient Hypercalcemia of Unclear Etiology, possibly 2/2 underlying Malignancy Serum PTH noted to be low PTHrp borderline elevated at 2.4 Vit D 1,25 and 25-OH Vitamin D level noted to be low Hematology input noted Persistent Leukocytosis possibly 2/2 underlying Malignancy Patient with no clear source of infection at this time Peripheral smear notable for reactive leukocytosis We will cont to monitor Hematology/oncology on board Hyperkalemia possibly 2/2 Increasing Creatinine, resolved Urinary Retention Status post Stover catheterization Continue on Flomax PSA wnl Hyponatremia likely 2/2 underlying ascites, intravacular depletion Hypoalbuminemia likely 2/2 critical illness. s/p Albumin infusions IDDM2 Continue current regimen CODE STATUS: DNR Poor Gift Consultant Prognosis, Critical Clinical Condition--We will cont to have an open dialogue with the patient and his family regarding further goals of care. DVT prophylaxis: Heparin sc. DISPOSITION: Pending clinical improvement. Update 2pm: Goals of Care discussion held with patient and family (; Juany, Daughter, and Son-in-law) at the bedside with BRANDI Ogden present. The patient and family have mutually decided to pursue Comfort Measures Only. A MOLST form was signed, dated, and placed in the chart. All questions were answered to their satisfaction, and they have verbalized understanding of the implications of their decision. VS, I&O, 24H, Fishbone Vital Signs/I&O Vital Signs Date Time Temp Pulse Resp B/P (MAP) Pulse Ox O2 Delivery O2 Flow Rate FiO2 06/15/18 10:00 68 86/54 (65) 97 30 06/15/18 08:00 97.3 31 06/15/18 04:00 4.0 06/15/18 00:07 BIPAP/CPAP I&O- Last 24 Hours up to 6 AM 06/15/18 06:00 Intake Total 1013.3 ml Output Total 1225 ml Balance -211.7 ml Laboratory Data 24H LABS Laboratory Tests 2 06/14/18 16:40: Bedside Glucose (Misc Panel) 167H 06/14/18 16:59: Blood Gas Bicarbonate Standard 22.9, Arterial Blood pH 7.221*L, Arterial Blood Partial Pressure CO2 67.4*H, Arterial Blood Partial Pressure O2 100.0, Arterial Blood Total CO2 29.1, Arterial Blood HCO3 27.0H, Arterial Blood Base Excess - 1.8, Arterial Blood Oxygen Saturation 96.7 06/14/18 17:25: Bedside Glucose (Misc Panel) 162H 06/14/18 19:00: Blood Gas Bicarbonate Standard 21.6L, Arterial Blood pH 7.246*L, Arterial Blood Partial Pressure CO2 57.6H, Arterial Blood Partial Pressure O2 124.1H, Arterial Blood Total CO2 26.2, Arterial Blood HCO3 24.5, Arterial Blood Base Excess - 3.4L, Arterial Blood Oxygen Saturation 98.7 06/14/18 19:02: Ammonia 89H 06/14/18 20:59: Blood Gas Bicarbonate Standard 22.9, Arterial Blood pH 7.315L, Arterial Blood Partial Pressure CO2 49.3H, Arterial Blood Partial Pressure O2 132.0H, Arterial Blood Total CO2 26.1, Arterial Blood HCO3 24.5, Arterial Blood Base Excess -2.0, Arterial Blood Oxygen Saturation 99.0 06/14/18 23:38: Bedside Glucose (Misc Panel) 145H 06/15/18 04:31: Nucleated Red Blood Cells % (auto) 0.0, Anion Gap 6L, Glomerular Filtration Rate > 60.0, Blood Urea Nitrogen 100H, Creatinine 1.02, Sodium Level 129L, Potassium Level 4.9, Chloride Level 97L, Carbon Dioxide Level 26, Calcium Level 10.0, Aspartate Amino Transf (AST/SGOT) 57H, Alanine Aminotransferase (ALT/SGPT) 48, Alkaline Phosphatase 364H, Total Bilirubin 0.9, Total Protein 5.8L, Albumin 2.7L, Albumin/Globulin Ratio 0.87L 06/15/18 05:57: Blood Gas Bicarbonate Standard 22.6, Arterial Blood pH 7.423, Arterial Blood Partial Pressure CO2 33.7L, Arterial Blood Partial Pressure O2 176.6H, Arterial Blood Total CO2 22.6L, Arterial Blood HCO3 21.5L, Arterial Blood Base Excess - 2.3L, Arterial Blood Oxygen Saturation 99.6H 06/15/18 06:37: Bedside Glucose (Misc Panel) 168H 06/15/18 12:15: Bedside Glucose (Misc Panel) 190H CBC/BMP Laboratory Tests 06/15/18 04:31 Red Blood Count 3.59 L, Mean Corpuscular Volume 90.8, Mean Corpuscular Hemoglobin 29.5, Mean Corpuscular Hemoglobin Concent 32.5, Red Cell Distribution Width 18.9 H, Calcium Level 10.0, Aspartate Amino Transf (AST/SGOT) 57 H, Alanine Aminotransferase (ALT/SGPT) 48, Alkaline Phosphatase 364 H, Total Bilirubin 0.9, Total Protein 5.8 L, Albumin 2.7 L Microbiology Microbiology 06/11/18 Stool Occult Blood (JAREK) - Final, Complete MARKUS MILLER MD Jun 15, 2018 13:08
[2018-06-15] MEDS ORDERED: MORPHINE 10MG/0.5ML ORAL CONCENTRATE SOLUTION U/D SL PRN (14:30)
[2018-06-15] MEDS ORDERED: SCOPOLAMINE 1MG TRANSDERMAL PATCH TOP PRN (14:30)
[2018-06-15] MEDS: MORPHINE 4 MG/ML 1ML VIAL/SYRINGE (J2270) IV PRN ×2 (14:38→21:19)
[2018-06-15] MEDS: LORazepam 2 MG/ML VIAL (J2060) IV PRN ×2 (14:49→22:25)
--- NOTE | 2018-06-16 11:07 | IPN ---
DATE: 06/14/2018 Mr. Bellamy is seen this morning on his bedside in intensive care unit. He remains hypotensive requiring Levophed and is currently resting in the bed. He reports a dry mouth but denies any nausea, vomiting, fever or chills. His abdomen is quite distended with ascites. He has had thoracentesis and a paracentesis done. The patient is known to have significant lymphadenopathy and a biopsy did come back positive for adenocarcinoma. The primary source of his cancer is still not certain and oncology service is on the case. Nephrology was called due to acute renal failure as the patient had BUN above 100 and creatinine was about 1.43. With IV fluids given, his kidney function has improved. He also has electrolyte abnormalities, which were addressed. In the meantime, the patient remains in poor physical condition and hypotensive requiring pressors and antibiotics. He is not able to provide much information at this point. PHYSICAL EXAMINATION: Temperature 97.1 degrees Fahrenheit, heart rate 78 per minute and respiratory rate 18 per minute. Blood pressure 89/47 mmHg and oxygen saturation 94% on 2 liters oxygen. Intake and output records from yesterday showed total intake 1567 and output 2390 mL. His neck veins do not seem to be abnormally elevated, though hard to evaluate because of his sommers. His oral mucosa is dry. Heart sounds are regular and lungs with poor inspiratory effort. Abdomen is distended with ascites. Extremities have no cyanosis or clubbing. Lower extremity edema is noted. Today's labs show sodium level 128, potassium 4.5, CO2 25, BUN 90 and creatinine 1.02. Glucose 195 and calcium 9.6. WBC count is 11.7, hemoglobin 10.1 and hematocrit 30.8, platelets 217. PROBLEMS: 1. Acute renal failure. The patient has improved BUN and creatinine. Acute renal failure is most likely prerenal and related to hypotension. He has been given IV fluids and is still on pressors. Kidney function seems to be improving. 2. Hyponatremia. Sodium level is low but unchanged over the last 48 hours. I would suggest to use normal saline for any IV fluids. At this point, we will monitor and see how his electrolytes are over the next 24 hours. 3. Hypotension, probably related to sepsis. I am going to stop his tamsulosin. The patient remains on Levophed and Rocephin. 4. Metastatic adenocarcinoma with widespread lymphadenopathy, ascites and pleural effusions. The patient remains in poor overall physical condition. His prognosis is poor. Oncology will determine if he could tolerate any treatment.
--- NOTE | 2018-06-16 13:57 | IPN ---
DATE OF SERVICE: 06/13/2018 SUBJECTIVE: The patient is seen and examined this morning at the bedside in the intensive care unit. He remains on Levophed infusion at 4 mcg/min and has been receiving 25 grams of albumin every 6 hours. His urine output has improved and his renal function shows improvement as well. He complains of poor appetite and generalized weakness. Otherwise denies any acute complaints. Vital Signs: Temperature 97.5, pulse 85, respiratory rate 12, blood pressure 96/54, saturating 96% on 2 liters nasal cannula. Intake yesterday was 1.9 liters, urine output was 2 liters, net negative 100 mL. General: Patient is seen lying in bed in the intensive care unit. Appears fatigued, but in no acute distress. Tongue is moist. Neck is supple. Jugular veins are difficult to assess. Nasal cannula is in place. Heart sounds regular, S1 and S2. There is peripheral edema present in the extremities. The chest shows diminished breath sounds secondary to body habitus. No crackle or rale. Breath sounds are more diminished at the base. Abdomen is soft and nontender. There is a significant pannus and fluid wave. Genitourinary: Shows Stover catheter with urine. Neurologic: He is somewhat slow, but oriented times three. LABS: White count 15.4, hemoglobin 10.9, sodium 127, potassium 5.1, BUN 98, creatinine 1.2, albumin 2.7. INPATIENT MEDICATIONS: Patient continues on Levophed at 4 mcg/min and he is receiving albumin 25%, 25 grams every 6 hours. He continues on ceftriaxone. Remainder of medications are unchanged from prior. PROBLEMS: 1. Nonoliguric renal failure with significant discrepancy between BUN and serum creatinine with urine sodium less than 10, hyponatremia, hypotension, in this patient with recurrent ascites, most likely a hepatorenal syndrome type 2. The patient is being treated with Levophed infusion. I have asked the ICU nurse not to titrate below 4 mcg/min. He is also receiving a total of 100 grams of albumin infusion per day for two days. His diuretics are appropriately held. His renal function shows improvement. His potassium shows improvement as well. 2. Hypotension in the absence of clinical signs of sepsis, likely related to recurrent ascites and hepatorenal syndrome. Continue Levophed infusion with albumin and after two to three days of Levophed he can be switched over to midodrine. 3. Recurrent ascites and recurrent pleural effusion. Possibly related to malignancy. If he requires large volume paracentesis, he should receive albumin with the paracentesis going forward. The primary team has empirically treated the patient with Rocephin for possible spontaneous bacterial peritonitis. 4. Hyperkalemia. It is secondary to renal failure and it is improving and the patient is on VELTASSA. 5. Hyponatremia. It is secondary to renal failure, hypervolemia and ascites. There is no specific intervention at this time other than what is already noted above.
--- NOTE | 2018-06-16 14:59 | IPN ---
DATE OF VISIT: 06/15/2018 Mr. Bellamy is seen this morning on his bedside. He has been placed on BiPAP due to worsening respiratory status. He remains on Levophed due to persistent hypotension. Patient has known history of widespread metastatic cancer with pleural effusion and ascites. On physical exam, his temperature is 97 degrees Fahrenheit, heart rate 78 per minute and respiratory rate 16 per minute on BiPAP currently. Blood pressure is about 89/52 mmHg and oxygen saturation 97% on 30% FiO2. Intake and output records from yesterday showed total intake 1110 and output 1650 mL. Patient currently has a BiPAP mask on his face. Neck veins are difficult to be assessed. He opens his eyes but is unable to communicate due to BiPAP. Heart sounds are regular and lungs with diminished breath sounds at dependent parts. Abdomen is obese and distended with ascites. Bowel sounds are present. Extremities have no cyanosis or clubbing. Lower extremity edema is unchanged. Today's labs show sodium 129, potassium 4.9, CO2 26, BUN 100 and creatinine 1.02. Glucose 227 and calcium 10.0. His ammonia level last evening was 89. WBC count is 15.4, hemoglobin 10.6 and hematocrit 32.6. Platelets 257. PROBLEMS: 1. Acute kidney injury. Patient had prerenal azotemia, which has improved, and seems to be now stable. Unfortunately, he has widespread metastatic disease and not a suitable candidate for any aggressive therapy. At present, his oral intake is nothing and I would recommend to give him IV fluid for hydration. This causes worsening of respiratory status with pleural effusions than ascites. 2. Hyponatremia. Slight improvement in sodium level noted. Any fluid that can be used should be normal saline. 3. Metastatic disease with adrenal carcinoma. Patient is not a suitable candidate for any kind of cancer treatment at this point due to septic shock and requirement for pressors. He is now on noninvasive respiratory assistance. His prognosis is extremely poor. I would strongly recommend consideration for DO NOT RESUSCITATE and comfort measures. Hospitalist service will discuss with patient's family. From renal standpoint, nothing much for me to offer. I am signing of the case.
--- NOTE | 2018-06-16 17:01 | DS.PDOC ---
Discharge Summary General Date of Admission May 13, 2018 at 10:35 Date of Discharge 06/16/18 Specialist/Consultants Involve Dr. Colon of Nephrology, Dr. Hassan and Dr. Willams of Pulmonary, Dr. Muñoz of Heme/Onc, Dr. Mcdaniel of GI Discharge Summary PROCEDURES PERFORMED DURING STAY: Multiple paracentesis and thoracentesis, periaortic lymph node biopsy ADMITTING/DISCHARGE DIAGNOSES: CTA Chest on 05/12/18 notable for Left Mediastinal, Upper Abdominal, and Retrocrural Lymphadenopathy 2/2 Metastatic Cancer of Unknown Origin Acute Kidney Injury Likely 2/2 Above, Hepatorenal Syndrome Hypotension likely 2/2 Intravascular Volume Depletion Severe ascites/pleural effusion 2/2 Above Hypercalcemia of Unclear Etiology, possibly 2/2 underlying Malignancy Persistent Leukocytosis possibly 2/2 underlying Malignancy Urinary Retention Hyponatremia likely 2/2 underlying ascites, intravacular depletion Hypoalbuminemia likely 2/2 critical illness. IDDM2 COMPLICATIONS/CHIEF COMPLAINT: Atrial Fibrillation Pleural Effusion Left. HISTORY OF PRESENT ILLNESS: . 67-year-old male with past medical history of hypertension, dyslipidemia, type 2 diabetes, nonalcoholic fatty liver disease presented to the ER on 05/12/18 with a chief complaint of worsening shortness of breath and recent treatment for pneu monia and a partially collapsed left lung as an outpatient. He reported that he had been treated with a ten-day course of amoxicillin and a pro-air inhaler however he had minimal improvement of his symptoms. In addition, the patient stated that he has also noticed an increase in abdominal distention and generalized weakness. He was admitted to the hospitalist service for further ev aluation. During hospitalization, the patient had a rather long protracted course. He did have an initial stay in the intensive care unit for hypercapnic respiratory failure and required BiPAP. He was originally treated with multiple paracentesis and thoracentesis for ascites and a left sided pleural effusion. It was thought that the patient possibly had progression of underlying liver disease which led to the recurrence of the ascites and pleural effusions. However, upon further workup the patient was noted to have bulky periaortic and shelley hepatic adenopathy. He underwent a periaortic lymph node biopsy on 06/09/18 which came back positive for metastatic adenopathy of unclear origin. Hematology/oncology was consulted for further management. Unfortunately, the patient's overall clinical condition worsened as he had minimal by mouth intake, and significant decline in his functional status. Subsequently, the patient became hypotensive requiring vasopressor therapy. He once again developed hypercapnic respiratory failure as well as some renal insufficiency. The patient's overall prognosis and clinical condition was discussed at length with the patient's oncologist and it was deemed that the patient was not a candidate for any chemotherapy given the aforementioned conditions. On 06/15/18 the patient and his family decided to become comfort measures only. The patient on 06/16/18 at 12:03 AM. LABORATORY DATA: Please see below. IMAGING: CT pulmonary angiogram: With IV contrast. History: Shortness of breath Comparison studies: Today's chest x-ray. Contrast dose: 75 mL of Isovue [address] technique: Helical scanning is acquired and overlapping 1.5 mm and contiguous 3 mm axial images are reformatted. In addition, maximum intensity projection and multiplanar re-formation images are generated in sagittal and coronal imaging projections. CT pulmonary angiographic findings: There is good opacification of the pulmonary arterial tree. There is no CT evidence of pulmonary embolism. The thoracic aorta shows no evidence of aneurysm or dissection. Vascular calcifications noted particularly along the course of the left coronary artery. There is a moderate to large left pleural effusion. There is some compressive atelectasis in the left lung particularly the left lower lobe. No right pleural effusion is seen. There is mild to moderate diffuse upper abdominal ascites. There is a granulomatous calcification in the left lobe of the liver. The liver edge has a micronodular contour question cirrhosis. There is upper abdominal lymphadenopathy. Retrocrural lymphadenopathy is observed. There are two prominent lymph nodes in the aortopulmonary window region of the left mediastinum. These measure 15 x 20 mm and 19 x 23 mm respectively. No other mediastinal adenopathy is seen. No bony destructive lesion is appreciated. Impression: No CT evidence of pulmonary embolus. Moderate to large left pleural effusion. Mild left mediastinal and moderate upper abdominal lymphadenopathy. Mild retrocrural lymphadenopathy. Rule out lymphoma versus metastatic adenopathy. Recommend CT abdomen and pelvis. Ascites and micronodular liver contour suggestive of cirrhosis. CT of the abdomen pelvis without IV or bowel contrast: There is a [id number] left pleural effusion. There is a large volume of ascites. The unenhanced hepatic parenchyma is homogeneous and unremarkable. The spleen measures 17 0.2 cm craniocaudad and is enlarged. There is cholelithiasis. The pancreas is unremarkable. The adrenals and kidneys are unremarkable except for A left renal mid pole 8.1 cm cyst. The abdominal aorta is grossly unremarkable. There is bulky periaortic adenopathy. The there is bulky adenopathy in the shelley hepatis. The bowel is unremarkable. Pelvis: No pelvic adenopathy is identified. The bladder is unremarkable. The pelvic bowel loops are unremarkable. Impression: Bulky periaortic and shelley hepatis adenopathy. Large volume of ascites. [id number] left pleural effusion. Splenomegaly. The DISPOSITION: 20 . TIME SPENT ON DISCHARGE: Greater than 30 minutes. Vital Signs/I&Os Vital Signs Date Time Temp Pulse Resp B/P (MAP) Pulse Ox O2 Delivery O2 Flow Rate FiO2 06/15/18 14:00 86 88/50 (63) 96 2.0 06/15/18 13:00 30 06/15/18 12:00 97.0 16 06/15/18 00:07 BIPAP/CPAP I&O- Last 24 Hours up to 6 AM 06/16/18 06:00 Intake Total 207.4 ml Output Total 300 ml Balance -92.6 ml Microbiology Microbiology 06/11/18 Stool Occult Blood (JAREK) - Final, Complete Discharge Medications Scheduled ([place]etta) 10 Mcg/0.04 Ml Inj, 10 MCG SC BID, (Reported) (Aspirin EC Low Dose) 81 Mg Tab, 81 MG PO BID, (Reported) (Toujeo Solostar) 300 Unit/Ml Inj, 100 UNIT SC DAILY, (Reported) Cholecalciferol (Vitamin D) 5,000 Unit Tab, 5,000 UNIT PO DAILY, (Reported) Furosemide (Furosemide) 40 Mg Tab, 40 MG PO BID Glucosamine Chondroitin (Glucosamine Chondroitin) 1 Cap Cap, 2 CAP PO QPM, (Reported) Meloxicam (Meloxicam) 15 Mg Tab, 15 MG PO QPM, (Reported) Multivitamins (Multivitamin Adults) 1 Tab Tab, 1 TAB PO DAILY, (Reported) Spironolactone (Aldactone) 50 Mg Tab, 100 MG PO DAILY Tamsulosin Hydrochloride (Flomax) 0.4 Mg Cap, 0.4 MG PO DAILY Scheduled PRN Albuterol Sulfate (Proair Hfa) 108 Mcg/Act Aer, 2 PUFF INH QID PRN for SHORTNESS OF BREATH, (Reported) Azelastine Hydrochloride (Astepro) 0.15 % Spr, 2 SPRAY NA DAILY PRN for ALLERGIES, (Reported) Allergies Coded Allergies: No Known Allergies (Unverified , 11/09/16) MARKUS MILLER MD Jun 16, 2018 17:01
== END 2018-06-16 00:02 | disposition expired | DRG 823 ==
LOC: M ED 10:51 → M ED INP 13:25 → M PCU 15:30 → M ICU 05-13 07:18 → OBSVTOIN 05-13 10:35 → M MSPAV 05-22 16:02 → M MS4PR 05-26 22:47 → M MS5PR 05-30 16:24 → M ICU 06-12 11:33 → M MS4PR 06-15 21:04
PROVIDERS: ADMIT Internal Medicine; ATTEND Internal Medicine
PROC: 0W9G3ZX Drainage of Peritoneal Cavity, Percutaneous Approach, Diagnostic (ICD-10-PCS; principal; 2018-05-12)
PROC: 0W9B3ZX Drainage of Left Pleural Cavity, Percutaneous Approach, Diagnostic (ICD-10-PCS; 2018-05-12)
PROC: 02HV33Z Insertion of Infusion Device into Superior Vena Cava, Percutaneous Approach (ICD-10-PCS; 2018-05-13)
PROC: 0W9G3ZX Drainage of Peritoneal Cavity, Percutaneous Approach, Diagnostic (ICD-10-PCS; 2018-05-19)
PROC: 0W9B3ZZ Drainage of Left Pleural Cavity, Percutaneous Approach (ICD-10-PCS; 2018-05-26)
PROC: 0W9G3ZZ Drainage of Peritoneal Cavity, Percutaneous Approach (ICD-10-PCS; 2018-05-28)
PROC: 0W9G3ZZ Drainage of Peritoneal Cavity, Percutaneous Approach (ICD-10-PCS; 2018-06-02)
PROC: 079 Lymphatic and Hemic Systems, Drainage (ICD-10-PCS; 2018-06-09)
PROC: 02HV33Z Insertion of Infusion Device into Superior Vena Cava, Percutaneous Approach (ICD-10-PCS; 2018-06-11)
DX: C77.2 Secondary and unspecified malignant neoplasm of intra-abdominal lymph nodes (principal); G93.41 Metabolic encephalopathy; J96.01 Acute respiratory failure with hypoxia; J96.02 Acute respiratory failure with hypercapnia; K76.7 Hepatorenal syndrome; J90 Pleural effusion, not elsewhere classified; E87.2 Acidosis; E87.1 Hypo-osmolality and hyponatremia; R18.0 Malignant ascites; J94.8 Other specified pleural conditions; Z68.43 Body mass index [BMI] 50.0-59.9, adult; Z51.5 Encounter for palliative care; Z66 Do not resuscitate; C77.1 Secondary and unspecified malignant neoplasm of intrathoracic lymph nodes; I10 Essential (primary) hypertension; E78.5 Hyperlipidemia, unspecified; E11.9 Type 2 diabetes mellitus without complications; K75.81 Nonalcoholic steatohepatitis (NASH); E83.52 Hypercalcemia; I48.0 Paroxysmal atrial fibrillation; I51.7 Cardiomegaly; R33.9 Retention of urine, unspecified; E87.5 Hyperkalemia; E66.01 Morbid (severe) obesity due to excess calories; K74.60 Unspecified cirrhosis of liver; D72.829 Elevated white blood cell count, unspecified; H05.20 Unspecified exophthalmos; E88.09 Other disorders of plasma-protein metabolism, not elsewhere classified; Z79.82 Long term (current) use of aspirin; Z79.899 Other long term (current) drug therapy; Z79.4 Long term (current) use of insulin; Z79.1 Long term (current) use of non-steroidal anti-inflammatories (NSAID); Z87.891 Personal history of nicotine dependence